=== PATIENT | female | born 1960 | race Caucasian/White ===

== ENCOUNTER → 2019-05-07 | Outpatient (CLI) | payer MEDICARE, SELFPAY | PROVIDERS: Family Provider Family Medicine; PCP Family Medicine; Referring Provider Internal Medicine Rheumatology; Visit Provider Internal Medicine Rheumatology | DX: M06.9 Rheumatoid arthritis, unspecified (principal); Z11.59 Encounter for screening for other viral diseases | CPT/HCPCS: 36415; 80076 ==

== ENCOUNTER 2019-06-09 11:15 | Outpatient (CLI) | payer MEDICARE, SELFPAY ==
--- NOTE | 2019-06-09 | XRR_ITS ---
PROCEDURE INFORMATION: Exam: XR Left Hand Exam date and time: 06/09/2019 11:55 AM Age: 58 years old Clinical indication: Left; Prior surgery; Surgery date: 6+ months; Surgery type: Pin placement 1st digit x1 yr; Patient HX: PT states pain hand/wrist/elbow x many years, no known trauma, limited rom, uncontrollable shaking. TECHNIQUE: Imaging protocol: XR Left hand. Views: 3 or more views. COMPARISON: CR Hand 3 views, LEFT* [id number] 01/24/2019 11:56 AM FINDINGS: Bones/joints: A metallic screw is seen extending through the 1st digit. The interphalangeal articulations appears fused. No acute bony abnormalities are seen in the remainder of the hand or wrist. Comparison to prior examination similar findings are seen Soft tissues: Normal. XR/XR hand LT min 3V* [id number] IMPRESSION: No acute findings. Chronic per surgical changes 1st digit
--- NOTE | 2019-06-09 | XRR_ITS ---
PROCEDURE INFORMATION: Exam: XR Left Wrist Exam date and time: 06/09/2019 11:57 AM Age: 58 years old Clinical indication: Left; Patient HX: PT states pain hand/wrist/elbow x many years, no known trauma, limited rom, uncontrollable shaking. TECHNIQUE: Imaging protocol: XR Left wrist. Views: 3 or more views. COMPARISON: MRI Wrist w/o LEFT* [id number] 12/06/2016 9:03 AM FINDINGS: Bones/joints: Unremarkable Soft tissues: Normal. XR/XR wrist LT min 3V* [id number] IMPRESSION: No acute findings.
--- NOTE | 2019-06-09 | XRR_ITS ---
PROCEDURE INFORMATION: Exam: XR Left Elbow Exam date and time: 06/09/2019 11:57 AM Age: 58 years old Clinical indication: Left; Patient HX: PT states pain hand/wrist/elbow x many years, no known trauma, limited rom, uncontrollable shaking. TECHNIQUE: Imaging protocol: XR Left elbow. Views: 1 or 2 views. COMPARISON: CR Elbow 3 views, LEFT* [id number] 01/24/2019 11:56 AM FINDINGS: Bones/joints: Negative for acute bony abnormality Soft tissues: Unremarkable new No interval changes are present comparing to prior examination. XR/XR elbow LT 2V [id number] IMPRESSION: No acute findings.
== END 2019-06-09 11:16 | disposition home or self-care (01) ==
PROVIDERS: Family Provider Family Medicine; PCP Family Medicine; Visit Provider Registered Nurse
DX: M25.532 Pain in left wrist (principal); M25.432 Effusion, left wrist; R22.32 Localized swelling, mass and lump, left upper limb; M25.522 Pain in left elbow; Z98.890 Other specified postprocedural states
CPT/HCPCS: 73070; 73110; 73130

== ENCOUNTER → 2019-06-11 10:42 | Outpatient (BNVA) | payer MEDICARE, SELFPAY | PROVIDERS: Family Provider Family Medicine; PCP Family Medicine; Visit Provider Nurse Practitioner | DX: F33.1 Major depressive disorder, recurrent, moderate (principal); F41.1 Generalized anxiety disorder; F43.12 Post-traumatic stress disorder, chronic | CPT/HCPCS: 99213 ==

== ENCOUNTER 2019-06-11 18:16 | Emergency (ER) | payer MEDICARE, SELFPAY ==
--- NOTE | 2019-06-11 18:29 | CTR_ITS ---
PROCEDURE INFORMATION: Exam: CT Head Without Contrast Exam date and time: 06/11/2019 6:30 PM Age: 58 years old Clinical indication: Injury or trauma; Initial encounter; Blunt trauma (contusions or hematomas); Consciousness not specified; Injury date: 06/11/2019; Injury details: Fall, headache TECHNIQUE: Imaging protocol: Computed tomography of the head without contrast. Total DLP: 497.28 mGy-cm Radiation optimization: All CT scans at this facility use at least one of these dose optimization techniques: automated exposure control; mA and/or kV adjustment per patient size (includes targeted exams where dose is matched to clinical indication); or iterative reconstruction. COMPARISON: CT head wo con* [id number] 07/10/2018 9:41 PM FINDINGS: Brain: There is trace amount of subarachnoid hemorrhage on the left layering out along the tentorium and interdigitating along the posterior aspect of the left parietal/occipital lobe best seen for example on image 22. No intraparenchymal hemorrhage. No midline shift. No edema or mass effect. The ventricular size is appropriate. Ventricles: See Brain Finding. Bones/joints: Unremarkable. No acute fracture. Sinuses: There is patchy mucosal thickening in the sinuses. No fluid levels. Mastoid air cells: Visualized mastoid air cells are well aerated. Soft tissues: Unremarkable. CT/CT head wo con* [id number] IMPRESSION: Trace subarachnoid hemorrhage on the left. No edema or mass effect. Radiation Dose CTDIVOL = (mGy): DLP = 497.28 (mGy-cm)
[2019-06-11 18:56] VITALS: BP 148/88; PULSE 76; RESP 17; TEMP 36.7; O2SAT 94; BMI 24.2
--- NOTE | 2019-06-11 18:56 | ED_ITS ---
Entered by Maine Bardales, acting as scribe for Stefanie Eubanks Justus Jun 11, 2019 18:16 HPI - Fall General: Chief Complaint: Fall Stated Complaint: FALL/POSS SEIZURE Time Seen by Provider: 06/11/19 18:47 History of Present Illness: HPI Narrative: 58 yo f came to the er for a fall. Onset was at 1700. Pt states that she has fallen 4 times in the past 2 weeks. Pt states that she woke up on the floor, pt said that her head started getting dizzy and she woke up on the floor. Pt states that she has pain head to toe. Patient is a poor historian and seems to jerk periodically. Patient has bizarre answers to questions at times and states that she believes she is just confused. She is unclear if she has history of seizures. MD complaint: fall Onset (ago): hour(s) (2 hours ago) Fall from: wheelchair Fall witnessed: no Place fall occurred: home Loss of consciousness: Unsure Context: history of frequent falls Associated symptoms-after fall: Reports other (dizziness); Denies abdominal pain, chest pain, confusion, difficulty walking, headache(s), hematuria, neck pain or vertigo Review of Systems General: Reports: other (negative unless marked) Const: Denies: fever, chills, body aches, fatigue, malaise or diaphoresis Eyes: Denies: change in vision or blurry vision ENMT: Denies: throat pain, painful swallowing, hoarseness, ear pain, ear discharge, Change in hearing or nasal discharge Card: Denies: chest pain, palpitations, irregular heart rhythm, syncope, pre- syncope, shortness of breath on exertion or shortness of breath when lying down Resp: Denies: shortness of breath, productive cough, non-productive cough, wheezing, coughing up blood or chest congestion GI: Denies: abdominal pain, nausea, vomiting, vomiting blood, coffee grounds in vomit, diarrhea, constipation, cramping, blood in stool or black tarry stool : Denies: flank pain, painful urination, urinary frequency, urinary urgency, decreased urine ouput, urinary incontinence or blood in urine Musc: Denies: neck pain, back pain, extremity pain, extremity swelling, joint pain, joint swelling, joint warmth or joint stiffness Skin/Breast: Denies: rash, skin tenderness or yellow skin Neuro: Denies: headache, numbness in extremities, weakness in extremities, changes in sensation, lack of coordination, difficulty walking, dizziness, vertigo or confusion Endo: Denies: excessive thirst, tired all the time, cold intolerance, excessive sweating, flushing or hot flashes Eusebio/Lymph: Denies: easy bruising, easy bleeding, petechiae or enlarged lymph nodes All/Imm: Denies: hives, throat swelling, tongue swelling, facial swelling or acute wheezing PFSH ED PFSH: Statuses (acute, chronic, etc) shown below reflect problem list status as previously entered and may not be historically accurate Medical History Acute pancreatitis (Acute) Cellulitis (Acute) Costochondritis (Acute) Gastritis (Acute) Gastroenteritis (Acute) Generalized anxiety disorder (Acute) Intussusception (Acute) Major depressive disorder, recurrent, moderate (Acute) Nephrolithiasis (Acute) Post-traumatic stress disorder, chronic (Acute) Psychosis (Acute) Schizoaffective disorder (Acute) Ulcerative colitis (Acute) Ureterolithiasis (Acute) Urinary calculi (Acute) Social History Smoking and tobacco status: current every day smoker cigarettes Packs smoked per day: 1 Smoking risk assessment/counseling performed?: Yes Tobacco counseling given: counseling >3 minutes Physical Exam Const: COMMON NORMALS: no apparent distress, oriented x3, no limitations, healthy appearing and well nourished EXAM LIMITATIONS: no altered mental status GENERAL APPEARANCE: cooperative, well kempt and well developed ORIENTATION/CONSCIOUSNESS: Yes awake HENMT: COMMON NORMALS: normocephalic, head/scalp atraumatic, hearing grossly normal bilaterally, external ears normal, EAC's normal, external nose normal and moist oral mucous membranes HEAD & SCALP: normal to inspection, normocephalic and atraumatic FACE & SINUS: normal facial exam and face symmetric NOSE: external nose normal and nares normal EXTERNAL EAR: Yes external ears normal EXTERNAL AUDITORY CANAL: EAC's normal MOUTH: oral and palatal mucosa normal and tongue normal Eye: COMMON NORMALS: PERRL, EOMs intact bilaterally, conjunctivae normal and no scleral icterus GENERAL EYE: normal appearance of both eyes and normal light reflex CONJUNCTIVA: Yes conjunctivae normal SCLERA: sclerae normal CORNEA: Yes corneas normal PUPIL: Yes PERRL DIRECT OPHTHALMOSCOPY: Yes normal light reflex Neck/C-Spine: COMMON NORMALS: full ROM, no lymphadenopathy, supple, no meningeal signs and no JVD GENERAL: Yes normal visual inspection, Yes trachea midline, No tender and Yes other (No midline spinal tenderness) CERVICAL SPINE: Yes cervical ROM normal Chest: COMMONS NORMALS: inspection of chest normal and palpation of chest normal Resp: COMMON NORMALS: normal respiratory effort, no retractions, no use of accessory muscles and clear to auscultation bilaterally EFFORT & INSPECTION: Yes able to speak in complete sentences AUSCULTATION: clear to auscultation bilaterally Cardio: COMMON NORMALS: no JVD, regular rate, regular rhythm, S1 normal heart sound, S2 normal heart sound, no gallops, no clicks, no murmurs and no rub JUGULAR VENOUS DISTENTION: no JVD RATE: regular rate RHYTHM: regular rhythm HEART SOUNDS: S1 normal and S2 normal GI: COMMON NORMALS: soft to palpation, non-tender, no hepatosplenomegaly and no masses INSPECTION: Yes normal to inspection PALPATION: Yes soft and Yes no hepatosplenomegaly : COMMON NORMALS: Yes no CVA tenderness BLADDER/KIDNEY EXAM: Yes no CVA tenderness Back/Pelvis: COMMON NORMALS: no CVA tenderness, thoracic and lumbar spine nor mal to inspection, no thoracic nor lumbar tenderness and thoraco-lumbar ROM normal Extremity: COMMON NORMALS: normal to inspection, full ROM, normal capillary refill, no joint enlargement, no clubbing, cyanosis or edema and no calf tenderness Neuro: REINA COMA SCALE: document GCS findings Kouts coma scale eye opening: To sound Reina coma scale verbal response: Orientated Reina coma scale motor response: Obey commands Kouts coma scale total score: 14 COMMON NORMALS: oriented x3, CN's II-XII intact bilaterally, moves all extremities, no focal motor deficits and no sensory deficits noted MENINGEAL SIGNS: Yes no meningeal signs Psych: COMMON NORMALS: mental status grossly normal, thought process normal, cooperative, affect normal, speech normal and activity/motor behavior normal APPEARANCE: Yes well kempt SPEECH: Yes normal speech THOUGHT PROCESS: normal thought process Skin: COMMON NORMALS: no rashes or lesions noted, skin turgor normal, no jaundice, no petechiae and no mottling GENERAL SKIN EXAM: no rashes or lesions noted and turgor normal Course ED course: 1949-[facility] contacted as well as [place]. Awaiting confirmation the patient can be transferred. Clinically the patient is improved at this time with a GCS of 15. Vital Signs: Vital signs: Vital Signs Temperature 98.1 F 06/11/19 18:56 Pulse Rate 76 06/11/19 18:56 Respiratory Rate 17 06/11/19 18:56 Blood Pressure 148/88 06/11/19 18:56 Pulse Oximetry 94 06/11/19 18:56 MDM - Fall MDM Narrative: Medical decision making narrative: 1956 -clinically the patient is still talking oddly but has a GCS of 15. It is unclear what made her fall or possibly she just had a seizure. But her CT scan shows a subarachnoid hemorrhage. We have no neurosurgical capabilities here at this time. We will transfer the patient to [facility] and fly her there as soon as possible. We are awaiting confirmation they can accept the patient at [facility] at this time. 2019 -Case reviewed with Dr. Nicholas at [facility] emergency department, he will tell the patient in transfer. He agrees with Ativan and Keppra being given. Patient is still stable at this time. [facility] is currently dispatched in route to our hospital. 2030 -[facility] here to take the patient. Patient is confused and will talk out of her head at times but remains a GCS of 13-15. Vital signs are stable no other new abnormalities. Lab Data: Attestation: I reviewed the patient's lab results. Labs: Lab Results 06/11/19 06/11/19 06/11/19 Range/Units 19:17 19:17 19:17 WBC 6.0 (4.0-10.0) 10^3/ uL RBC 4.06 L (4.1-5.3) 10^6/u L Hgb 11.2 L (11.5-15.3) g/dL Hct 36.7 L (37.0-47.0) % MCV 90.4 (81-99) fL MCH 27.6 L (28.0-34.0) pg MCHC 30.5 (30.0-36.0) g/dL RDW 16.3 H (12.1-15.1) % Plt Count 320 (130-400) 10^3/c mm MPV 10.1 (7.4-10.4) fL Neut % (Auto) 63.4 % Lymph % (Auto) 25.9 % [place] % (Auto) 9.5 % Eos % (Auto) 0.8 % Baso % (Auto) 0.2 % Neut # (Auto) 3.8 (1.8-7.7) 10^3/u L Lymph # (Auto) 1.6 (0.8-4.8) 10^3/u L [place] # (Auto) 0.6 (0.2-0.9) 10^3/u L Eos # (Auto) 0.1 (0.0-0.8) 10^3/u L Baso # (Auto) 0.0 (0.0-0.1) 10^3/u L Nucleated RBC % (a uto) 0 % Nucleated RBCs # 0.0 /100WBC PT 12.20 (10.5-13.3) SECO NDS INR 0.88 (0.8-1.2) Sodium 137 (136-145) mmol/L Potassium 4.1 (3.5-5.1) mmol/L Chloride 102 (98-107) mmol/L Carbon Dioxide 23 (22-29) mmol/L Anion Gap 16.1 (5-19) BUN 17 (6-20) mg/dL Creatinine 0.9 (0.5-0.9) mg/dL GFR Calculation 64.3 L (90-130) mL/min Glucose 120 H (74-109) mg/dL Lactic Acid (0.5-2.2) mmol/L Calcium 9.7 (8.5-10.5) mg/dL Magnesium 1.9 (1.7-2.3) mg/dL Total Bilirubin 0.2 (0.15-1.2) mg/dL AST 14 (0-32) U/L ALT 12 (0-33) U/L Alkaline Phosphata se 95 (35-105) IU/L Creatine Kinase 75 (26-192) U/L Troponin T Baselin e (0-10) ng/mL Total Protein 6.4 L (6.6-8.7) g/dL Albumin 4.0 (3.5-5.2) g/dL Globulin 2.4 (1.3-4.6) g/dL 06/11/19 06/11/19 Range/Units 19:17 19:17 WBC (4.0-10.0) 10^3/ uL RBC (4.1-5.3) 10^6/u L Hgb (11.5-15.3) g/dL Hct (37.0-47.0) % MCV (81-99) fL MCH (28.0-34.0) pg MCHC (30.0-36.0) g/dL RDW (12.1-15.1) % Plt Count (130-400) 10^3/c mm MPV (7.4-10.4) fL Neut % (Auto) % Lymph % (Auto) % [place] % (Auto) % Eos % (Auto) % Baso % (Auto) % Neut # (Auto) (1.8-7.7) 10^3/u L Lymph # (Auto) (0.8-4.8) 10^3/u L [place] # (Auto) (0.2-0.9) 10^3/u L Eos # (Auto) (0.0-0.8) 10^3/u L Baso # (Auto) (0.0-0.1) 10^3/u L Nucleated RBC % (a uto) % Nucleated RBCs # /100WBC PT (10.5-13.3) SECO NDS INR (0.8-1.2) Sodium (136-145) mmol/L Potassium (3.5-5.1) mmol/L Chloride (98-107) mmol/L Carbon Dioxide (22-29) mmol/L Anion Gap (5-19) BUN (6-20) mg/dL Creatinine (0.5-0.9) mg/dL GFR Calculation (90-130) mL/min Glucose (74-109) mg/dL Lactic Acid 0.8 (0.5-2.2) mmol/L Calcium (8.5-10.5) mg/dL Magnesium (1.7-2.3) mg/dL Total Bilirubin (0.15-1.2) mg/dL AST (0-32) U/L ALT (0-33) U/L Alkaline Phosphata se (35-105) IU/L Creatine Kinase (26-192) U/L Troponin T Baselin e 6 (0-10) ng/mL Total Protein (6.6-8.7) g/dL Albumin (3.5-5.2) g/dL Globulin (1.3-4.6) g/dL EKG Data^: EKG 1: Attestation: I personally reviewed and interpreted this EKG as follows: EKG interpretation date: 06/11/19 EKG interpretation time: 19:24 Interpretation: Normal sinus rhythm at 66 beats a minute, normal axis, normal AR interval, normal QRS, normal QT interval, no acute ST-T wave changes. Discharge Plan Discharge Patient Disposition: Xfer Other Clinical Impression: Subarachnoid hemorrhage Referrals: Helga Mancera DO [Primary Care Provider] - Discharge Date/Time: 06/11/19 20:37 Coding Level of Care Code ED Health Care Attorney for Chg Fwd Exam Problem Focused The documentation recorded by the Jeffy leo Stephanie Lyn, accurately reflects the service I personally performed and the decisions made by Cha holliday Eli N Jun 11, 2019 18:16
--- NOTE | 2019-06-11 19:01 | XR_ITS ---
WS: [id number] PORTABLE CHEST HISTORY: cough COMPARISON: 04/20/2019 Lungs are hyperinflated with changes of emphysema. No pneumonia. Normal vasculature. No pleural effus ion or pneumothorax. Cardiac size: Normal. Mediastinum/Aorta: Partially calcified aorta. No osseous abnormality seen. XR/XR chest 1V portable [id number] IMPRESSION: Unremarkable portable chest.
--- NOTE | 2019-06-11 19:02 | ECG_ITS ---
Measurements Intervals [place] Rate: 66 P: -19 [place]: 136 QRS: 37 QRSD: 108 T: 37 QT: 389 QTc: 409 SINUS RHYTHM Compared to ECG 04/02/2019 08:18:29 Sinus bradycardia no longer present Myocardial infarct finding no longer present Electronically Signed On 06-12-2019 16:16:48 TAX REPRESENTATIVE by Dave Trejo M.D. [email or web address]
[2019-06-11] MEDS: sodium chloride 0.9% 1,000 ML 100 ML IV (19:19)
[2019-06-11] MEDS: LORazepam 2 mg/mL INJ 1 mL 0.5 MG IVP (19:25)
[2019-06-11 19:30] LABS: Basophils % 0.2 %; Eosinophils # 0.1 10^3/uL (0.0-0.8); Eosinophils % 0.8 %; Hematocrit 36.7 % (37.0-47.0); Hemoglobin 11.2 g/dL (11.5-15.3); Lymphocytes # 1.6 10^3/uL (0.8-4.8); Lymphocytes % 25.9 %; Mean Corpuscular HGB Conc 30.5 g/dL (30.0-36.0); Mean Corpuscular Hemoglobin 27.6 pg (28.0-34.0); Mean Corpuscular Volume 90.4 fL (81-99); Mean Platelet Volume 10.1 fL (7.4-10.4); Monocytes # 0.6 10^3/uL (0.2-0.9); Monocytes % 9.5 %; Neutrophils # 3.8 10^3/uL (1.8-7.7); Neutrophils % 63.4 %; Nucleated Red Blood Cells % 0 %; Platelet Count 320 10^3/cmm (130-400); Red Blood Count 4.06 10^6/uL (4.1-5.3); Red Cell Distribution Width 16.3 % (12.1-15.1)
[2019-06-11 19:37] LABS: INR 0.88 (0.8-1.2)
[2019-06-11 19:46] LABS: Alanine Aminotransferase 12 U/L (0-33); Alkaline Phosphatase 95 IU/L (35-105); Anion Gap 16.1 (5-19); Aspartate Amino Transferase 14 U/L (0-32); Blood Urea Nitrogen 17 mg/dL (6-20); Calcium 9.7 mg/dL (8.5-10.5); Carbon Dioxide 23 mmol/L (22-29); Chloride 102 mmol/L (98-107); Creatine Phosphokinase 75 U/L (26-192); Globulin 2.4 g/dL (1.3-4.6); Glomerular Filtration Rate 64.3 mL/min (90-130); Glucose 120 mg/dL (74-109); Magnesium 1.9 mg/dL (1.7-2.3); Potassium 4.1 mmol/L (3.5-5.1); Sodium 137 mmol/L (136-145); Total Bilirubin 0.2 mg/dL (0.15-1.2); Total Protein 6.4 g/dL (6.6-8.7); Troponin(5th) Baseline 6 ng/mL (0-10)
[2019-06-11 19:47] LABS: Lactic Sepsis W/Reflex 0.8 mmol/L (0.5-2.2)
[2019-06-11 20:02] LABS: Alcohol Level < 10 mg/dL (0-10)
[2019-06-11 20:36] VITALS: BP 130/69; PULSE 67; RESP 22; O2SAT 95
== END 2019-06-11 20:37 | disposition other institution (70) ==
LOC: ER 18:53
PROVIDERS: Emergency Provider Emergency Medicine; Family Provider Family Medicine; PCP Family Medicine
DX: I60.9 Nontraumatic subarachnoid hemorrhage, unspecified (principal); F17.210 Nicotine dependence, cigarettes, uncomplicated
CPT/HCPCS: 36415; 70450; 71045; 80053; 80307; 82550; 83605; 83735; 84484; 85025; 85610; 93005; 96374; 99281; 99285; J1953; J2060; J7030

== ENCOUNTER 2019-07-04 08:40 | Emergency (ER) | payer MEDICARE, SELFPAY ==
[2019-07-04 09:02] VITALS: BP 123/72; PULSE 77; RESP 16; TEMP 36.9; O2SAT 97; BMI 23.0
--- NOTE | 2019-07-04 09:04 | ED_ITS ---
Entered by Carmen Conde, acting as scribe for Bubba Osborne DO HPI - Fall General: Chief Complaint: Headache Stated Complaint: FALL Time Seen by Provider: 07/04/19 08:59 Source: patient and family Mode of arrival: ambulatory Limitations: no limitations History of Present Illness: HPI Narrative: 58 yo female presents with a headache. pt states this started today. pt states 1 week ago she was sent to [facility]. due to a head bleed.pt states she got dizzy while hanging up the phone and fell down. pt denies any injuries. pt denies any other symptoms at this time. MD complaint: fall Onset (ago): hour(s) (today) Fall from: standing Fall witnessed: yes, by family Place fall occurred: home Loss of consciousness: None Prolonged down time: unclear Symptoms prior to fall: none Associated symptoms-after fall: Reports other (headache); Denies abdominal pain, chest pain, confusion, difficulty walking, hematuria or vertigo Review of Systems Const: Denies: fever, chills, body aches, fatigue, malaise or night sweats Eyes: Denies: change in vision or blurry vision ENMT: Denies: throat pain, oral sores/lesions, dental pain, nasal discharge or nasal congestion Card: Denies: chest pain, palpitations, irregular heart rhythm, edema, syncope, shortness of breath on exertion, shortness of breath when lying down or leg pain with exertion Resp: Denies: shortness of breath, productive cough, non-productive cough or wheezing GI: Denies: abdominal pain, nausea, vomiting, vomiting blood, coffee grounds in vomit, difficulty swallowing, heartburn/indigestion, diarrhea, constipation, cramping, blood in stool or black tarry stool : Denies: flank pain, painful urination, urinary frequency, urinary urgency, urinary incontinence or blood in urine Musc: Denies: joint warmth Skin/Breast: Denies: rash, itching or redness Neuro: Denies: numbness in extremities, weakness in extremities, changes in sensation, lack of coordination, difficulty walking, frequent falls, dizziness, vertigo or confusion Psych: Denies: anxiety, depression, loss of interest, visual hallucinations, auditory hallucinations, suicidal ideation or homicidal ideation Endo: Denies: excessive urination, excessive thirst, tired all the time or cold intolerance Eusebio/Lymph: Denies: easy bruising, easy bleeding, petechiae, enlarged lymph nodes or tender lymph nodes All/Imm: Denies: acute wheezing PFSH ED PFSH: Social History Smoking and tobacco status: current every day smoker cigarettes Packs smoked per day: 1 Smoking risk assessment/counseling performed?: Yes Tobacco counseling given: counseling >3 minutes Physical Exam Const: COMMON NORMALS: no apparent distress GENERAL APPEARANCE: cooperative and comfortable ORIENTATION/CONSCIOUSNESS: Yes awake, Yes oriented to person, Yes oriented to place and Yes oriented to time HENMT: COMMON NORMALS: normocephalic, head/scalp atraumatic, hearing grossly normal bilaterally, external ears normal, EAC's normal, TM's normal bilaterally, nasal mucous membranes and turbinates normal, moist oral mucous membranes and oropharynx normal HEAD & SCALP: normocephalic and atraumatic NOSE: nasal mucous membranes and turbinates normal EXTERNAL EAR: Yes external ears normal EXTERNAL AUDITORY CANAL: EAC's normal TYMPANIC MEMBRANE: TM's normal bilaterally Eye: COMMON NORMALS: PERRL, EOMs intact bilaterally, conjunctivae normal and no scleral icterus CONJUNCTIVA: Yes conjunctivae normal PUPIL: Yes PERRL Neck/C-Spine: COMMON NORMALS: full ROM, no lymphadenopathy, supple and no JVD Lymph: LYMPHATIC: no lymphadenopathy noted and no lymphedema noted Resp: COMMON NORMALS: normal respiratory effort, no retractions, no use of accessory muscles and clear to auscultation bilaterally AUSCULTATION: clear to auscultation bilaterally Cardio: COMMON NORMALS: no JVD, regular rate, regular rhythm and no murmurs RATE: regular rate RHYTHM: regular rhythm GI: COMMON NORMALS: soft to palpation and no hepatosplenomegaly AUSCULTATION: Yes normoactive bowel sounds PALPATION: Yes soft, No tender, No guarding and Yes no hepatosplenomegaly Extremity: COMMON NORMALS: normal to inspection, normal capillary refill, no clubbing, cyanosis or edema, no calf tenderness and no pedal edema Neuro: SENSORIUM/ORIENTATION: Yes oriented to person, Yes oriented to place and Yes oriented to time Skin: COMMON NORMALS: no rashes or lesions noted GENERAL SKIN EXAM: no myrtle hes or lesions noted Course Vital Signs: Vital signs: Vital Signs Temperature 98.5 F 02/19/20 09:02 Pulse Rate 75 07/04/19 12:51 Respiratory Rate 18 07/04/19 12:51 Blood Pressure 126/71 07/04/19 12:51 Pulse Oximetry 96 07/04/19 12:51 MDM - Fall Lab Data: Labs: Lab Results 07/04/19 07/04/19 07/04/19 Range/Units 09:25 09:25 09:25 WBC 5.8 (4.0-10.0) 10^3/ uL RBC 3.78 L (4.1-5.3) 10^6/u L Hgb 10.4 L (11.5-15.3) g/dL Hct 33.9 L (37.0-47.0) % MCV 89.7 (81-99) fL MCH 27.5 L (28.0-34.0) pg MCHC 30.7 (30.0-36.0) g/dL RDW 15.9 H (12.1-15.1) % Plt Count 335 (130-400) 10^3/c mm MPV 10.0 (7.4-10.4) fL Neut % (Auto) 57.1 % Lymph % (Auto) 31.0 % [place] % (Auto) 10.1 % Eos % (Auto) 1.2 % Baso % (Auto) 0.3 % Neut # (Auto) 3.3 (1.8-7.7) 10^3/u L Lymph # (Auto) 1.8 (0.8-4.8) 10^3/u L [place] # (Auto) 0.6 (0.2-0.9) 10^3/u L Eos # (Auto) 0.1 (0.0-0.8) 10^3/u L Baso # (Auto) 0.0 (0.0-0.1) 10^3/u L Nucleated RBC % (a uto) 0 % Nucleated RBCs # 0.0 /100WBC PT 12.20 (10.5-13.3) SECO NDS INR 0.90 (0.8-1.2) APTT 27.4 (23.9-36.7) SECO NDS Sodium 140 (136-145) mmol/L Potassium 4.4 (3.5-5.1) mmol/L Chloride 105 (98-107) mmol/L Carbon Dioxide 26 (22-29) mmol/L Anion Gap 13.4 (5-19) BUN 20 (6-20) mg/dL Creatinine 0.6 (0.5-0.9) mg/dL GFR Calculation 102.7 (90-130) mL/min Glucose 86 (65-115) mg/dL Calcium 9.1 (8.5-10.5) mg/dL Total Bilirubin 0.2 (0.15-1.2) mg/dL AST 15 (0-32) U/L ALT 11 (0-33) U/L Alkaline Phosphata se 85 (35-105) IU/L Total Protein 5.9 L (6.6-8.7) g/dL Albumin 3.2 L (3.5-5.2) g/dL Globulin 2.7 (1.3-4.6) g/dL Urine Color (Yellow) Urine Appearance (CLEAR) Urine pH (5-7) Ur Specific Gravit y (1.005-1.030) Urine Protein (Negative) Urine Glucose (UA) (Normal) Urine Ketones (Negative) Urine Blood (Negative) Urine Nitrate (Negative) Urine Bilirubin (NEGATIVE) Urine Urobilinogen (Negative) mg/dL Ur Leukocyte Violeta ase (Negative) 07/04/19 Range/Units 11:35 WBC (4.0-10.0) 10^3/ uL RBC (4.1-5.3) 10^6/u L Hgb (11.5-15.3) g/dL Hct (37.0-47.0) % MCV (81-99) fL MCH (28.0-34.0) pg MCHC (30.0-36.0) g/dL RDW (12.1-15.1) % Plt Count (130-400) 10^3/c mm MPV (7.4-10.4) fL Neut % (Auto) % Lymph % (Auto) % [place] % (Auto) % Eos % (Auto) % Baso % (Auto) % Neut # (Auto) (1.8-7.7) 10^3/u L Lymph # (Auto) (0.8-4.8) 10^3/u L [place] # (Auto) (0.2-0.9) 10^3/u L Eos # (Auto) (0.0-0.8) 10^3/u L Baso # (Auto) (0.0-0.1) 10^3/u L Nucleated RBC % (a uto) % Nucleated RBCs # /100WBC PT (10.5-13.3) SECO NDS INR (0.8-1.2) APTT (23.9-36.7) SECO NDS Sodium (136-145) mmol/L Potassium (3.5-5.1) mmol/L Chloride (98-107) mmol/L Carbon Dioxide (22-29) mmol/L Anion Gap (5-19) BUN (6-20) mg/dL Creatinine (0.5-0.9) mg/dL GFR Calculation (90-130) mL/min Glucose (65-115) mg/dL Calcium (8.5-10.5) mg/dL Total Bilirubin (0.15-1.2) mg/dL AST (0-32) U/L ALT (0-33) U/L Alkaline Phosphata se (35-105) IU/L Total Protein (6.6-8.7) g/dL Albumin (3.5-5.2) g/dL Globulin (1.3-4.6) g/dL Urine Color Yellow (Yellow) Urine Appearance Clear (CLEAR) Urine pH 5 (5-7) Ur Specific Gravit y 1.015 (1.005-1.030) Urine Protein Neg (Negative) Urine Glucose (UA) Norm (Normal) Urine Ketones Negative (Negative) Urine Blood Neg (Negative) Urine Nitrate Negative (Negative) Urine Bilirubin 1+ H (NEGATIVE) Urine Urobilinogen Norm (Negative) mg/dL Ur Leukocyte Violeta ase Negative (Negative) Discharge Plan Discharge Patient Disposition: Home, Self-Care Clinical Impression: Tension headache Condition: Stable Prescriptions: New promethazine 25 mg tablet 25 mg PO Q6H PRN (Reason: nausea and vomiting) Qty: 14 RF: 0 No Action indomethacin 25 mg capsule 25 mg PO TID RF: 0 propranolol 10 mg tablet 10 mg PO BID RF: 0 buspirone 5 mg Tablet 5 mg PO TID RF: 0 bupropion HCl 150 mg tablet sustained-release 12 hr 150 mg PO BID RF: 0 omeprazole 40 mg Capsule,Delayed Release(Dr/Ec) 40 mg PO DAILY RF: 0 Aspir-81 81 mg Tablet,Delayed Release (Dr/Ec) 81 mg PO DAILY RF: 0 benztropine 1 mg tablet 1 mg PO TID RF: 0 dicyclomine 10 mg capsule 10 mg PO TID RF: 0 Humira(CF) Pen 40 mg/0.4 mL pen injector kit 40 mg SUBCUT Q14D RF: 0 Lamictal 200 mg tablet See Rx Instructions .ROUTE .COMPLEX RF: 0 trazodone 50 mg tablet 75 mg PO BEDTIME RF: 0 Restoril 15 mg capsule 15 mg PO BEDTIME RF: 0 prazosin 2 mg capsule 6 mg PO BEDTIME RF: 0 Referrals: Helga Mancera DO [Primary Care Provider] - Discharge Diet: Usual diet Discharge Activity: Resume usual activity Discharge Date/Time: 07/04/19 12:53 Coding Level of Care Code ED Wound Nurse for Chg Fwd Exam Comprehensive The documentation recorded by the Elton leo Bridget Annette, accurately reflects the service I personally performed and the decisions made by [place] holliday Curtis L, DO Jul 04, 2019 08:40
--- NOTE | 2019-07-04 09:30 | CT_ITS ---
WS: [id number] CT HEAD TECHNIQUE: Noncontrast CT of the head obtained from the skullbase to the vertex. CLINICAL INFORMATION: headachce/hx intracranial bleed COMPARISON: June 11, 2019 DLP: 728.[address] scans at [facility] use at least one of these dose optimization techniques: automat ed exposure control; mA and/or kV adjustment per patient size (includes targeted exams where dose is matched to clinical indication); or iterative reconstruction. FINDINGS: Previously described subarachnoid hemorrhage in the left parietal and occipital lobe has nearly resol gus. Tiny amount of residual blood products along the tentorium. No evidence of new or progressive he morrhage. Mild small vessel changes. Moderate parenchymal volume loss. Cavum septum pellucidum Mastoid air cells are well aerated. Paranasal sinuses are well aerated. Notified Bubba Osborne DO at 07/04/2019 10:[address]/CT head wo con* [id number] IMPRESSION: 1. Previously described left parietal occipital subarachnoid hemorrhage has im proved and nearly resolved. Tiny amount of residual resolving hemorrhage along left tentorium. 2. No evidence of new or progressive hemorrhage. 3. Mild small vessel changes with moderate parenchymal volume loss.
[2019-07-04 10:00] LABS: Basophils % 0.3 %; Eosinophils # 0.1 10^3/uL (0.0-0.8); Eosinophils % 1.2 %; Hematocrit 33.9 % (37.0-47.0); Hemoglobin 10.4 g/dL (11.5-15.3); Lymphocytes # 1.8 10^3/uL (0.8-4.8); Mean Corpuscular HGB Conc 30.7 g/dL (30.0-36.0); Mean Corpuscular Hemoglobin 27.5 pg (28.0-34.0); Mean Corpuscular Volume 89.7 fL (81-99); Monocytes # 0.6 10^3/uL (0.2-0.9); Monocytes % 10.1 %; Neutrophils # 3.3 10^3/uL (1.8-7.7); Neutrophils % 57.1 %; Nucleated Red Blood Cells % 0 %; Platelet Count 335 10^3/cmm (130-400); Red Blood Count 3.78 10^6/uL (4.1-5.3); Red Cell Distribution Width 15.9 % (12.1-15.1); White Blood Count 5.8 10^3/uL (4.0-10.0)
[2019-07-04 10:22] LABS: Alanine Aminotransferase 11 U/L (0-33); Albumin Level 3.2 g/dL (3.5-5.2); Alkaline Phosphatase 85 IU/L (35-105); Anion Gap 13.4 (5-19); Aspartate Amino Transferase 15 U/L (0-32); Blood Urea Nitrogen 20 mg/dL (6-20); Calcium 9.1 mg/dL (8.5-10.5); Carbon Dioxide 26 mmol/L (22-29); Chloride 105 mmol/L (98-107); Globulin 2.7 g/dL (1.3-4.6); Glomerular Filtration Rate 102.7 mL/min (90-130); Glucose 86 mg/dL (65-115); Potassium 4.4 mmol/L (3.5-5.1); Sodium 140 mmol/L (136-145); Total Bilirubin 0.2 mg/dL (0.15-1.2); Total Protein 5.9 g/dL (6.6-8.7)
[2019-07-04 10:35] LABS: Partial Thromboplastin Time 27.4 SECONDS (23.9-36.7)
[2019-07-04] MEDS: sodium chloride 0.9% 1,000 ML 999 ML IV (10:42)
[2019-07-04 11:51] LABS: Add Urine Microscopic? NO
[2019-07-04] MEDS: ondansetron 2 mg/ML SDV 2 mL 4 MG IVP (11:54)
[2019-07-04] MEDS: morphine 4 mg/mL SDV 1 mL IVP (11:55)
--- NOTE | 2019-07-04 11:58 | PC.NURSE ---
patient up to restroom by wheelchair
[2019-07-04 12:01] LABS: Bilirubin Urine 1+ (NEGATIVE); Blood Urine Neg (Negative); Glucose Urine UA Norm (Normal); Ketones Urine Negative (Negative); Leukocyte Esterase Urine Negative (Negative); Nitrate Urine Negative (Negative); Protein Urine Neg (Negative); Specific Gravity, Urine 1.015 (1.005-1.030); Urine Appearance Clear (CLEAR); Urine Color Yellow (Yellow); Urobilinogen Urine Norm (Negative); pH Urine 5 (5-7)
[2019-07-04 12:51] VITALS: BP 126/71; PULSE 75; RESP 18; O2SAT 96
== END 2019-07-04 12:53 | disposition home or self-care (01) ==
PROVIDERS: Emergency Provider Family Medicine; Family Provider Family Medicine; PCP Family Medicine
DX: G44.209 Tension-type headache, unspecified, not intractable (principal); F17.210 Nicotine dependence, cigarettes, uncomplicated
CPT/HCPCS: 70450; 80053; 81003; 85025; 85610; 85730; 96361; 96374; 96375; 99282; 99283; A9270; J2270; J2405; J7030

== ENCOUNTER → 2019-07-10 10:01 | Outpatient (BNVA) | payer MEDICARE, SELFPAY | PROVIDERS: Family Provider Family Medicine; PCP Family Medicine; Visit Provider Internal Medicine Rheumatology | DX: M06.09 Rheumatoid arthritis without rheumatoid factor, multiple sites (principal); R76.8 Other specified abnormal immunological findings in serum; Z79.899 Other long term (current) drug therapy; I60.9 Nontraumatic subarachnoid hemorrhage, unspecified; I73.00 Raynaud's syndrome without gangrene; F17.210 Nicotine dependence, cigarettes, uncomplicated | CPT/HCPCS: 99214 ==

== ENCOUNTER 2019-08-31 11:56 | Emergency (ER) | payer MEDICARE, SELFPAY ==
[2019-08-31 12:13] VITALS: BP 132/84; PULSE 85; RESP 17; TEMP 36.8; O2SAT 99; BMI 23.1
--- NOTE | 2019-08-31 12:22 | CT_ITS ---
WS: [id number] CT HEAD NONCONTRAST HISTORY: ARRIETA/AMS TECHNIQUE: Contiguous axial imaging performed through the brain in 2.5 mm imaging. Bone and soft tiss ue windows. Sagittal and coronal reformats reviewed. All CT scans at [facility] use at le ast one of these dose optimization techniques: automated exposure control; mA and/or kV adjustment pe r patient size (includes targeted exams where dose is matched to clinical indication); or iterative r econstruction. DLP: 664.88 mGy.cm COMPARISON: 07/04/2019 No acute intracranial hemorrhage, midline shift or mass effect. No residual subarachnoid blood along the tentorium. There is artifact in the posterior fossa from the skull. Ventricles: Normal size with no hydrocephalus. Paranasal sinuses: As visualized are clear. Mastoid air cells: Mild coalescence of mastoid air cells. Calvarium and scalp: Skull is intact with no soft tissue edema or swelling. CT/CT head wo con* [id number] IMPRESSION: 1. No acute intracranial hemorrhage/subarachnoid blood. 2. Recently described subarachnoid hemorrhage is no longer identified. 3. No infarct or edema.
--- NOTE | 2019-08-31 12:22 | XR_ITS ---
WS: [id number] PORTABLE CHEST HISTORY: cough COMPARISON: 06/11/2019 Lungs are clear and well expanded. No pleural effusion or pneumothorax. Cardiac size: Normal. Mediastinum/Aorta: Normal mediastinum. No osseous abnormality seen. XR/XR chest 1V portable [id number] IMPRESSION: Unremarkable portable chest.
--- NOTE | 2019-08-31 12:23 | ECG_ITS ---
Measurements Intervals [place] Rate: 66 P: 9 WV: 155 QRS: 39 QRSD: 96 T: 57 QT: 405 QTc: 427 SINUS RHYTHM Compared to ECG 06/11/2019 19:24:14 No significant changes Electronically Signed On 08-31-2019 18:25:26 CDT by Allyson Peters M.D. [email or web address]
--- NOTE | 2019-08-31 12:30 | CT_ITS ---
WS: [id number] CT ANGIOGRAM CEREBRAL AND CAROTID ARTERIES HISTORY: urias, hx ICH TECHNIQUE: CT angiogram is performed of the carotid and cerebral arteries. During arterial injection imaging is obtained from the skull vertex to the aortic arch in 1.25 mm imaging. Coronal and sagittal reformats are submitted. Additional multi planar reformats of the carotid and cerebral arteries are submitted, MIP imaging also reviewed. NASCET criteria utilized. All CT scans at [facility] use at least one of these dose optimization techniques: automated exposure control; mA and/or kV ad justment per patient size (includes targeted exams where dose is matched to clinical indication); or iterative reconstruction. CONTRAST: Omnipaque 350; 95 mL IV. DLP: 1209.28 mGy.cm COMPARISON: 11/22/2017 Carotid Angiogram: Right carotid: Common carotid artery: Arises normally from the innominate artery. No significant plaque or stenosis. Internal carotid artery: Small amount of calcified plaque at the bifurcation with no stenosis. External carotid artery: Patent. Left carotid: Common carotid artery: Arises normally from the aorta. No significant plaque or stenosis. Internal carotid artery: No plaque or stenosis. External carotid artery: Patent. Right vertebral artery: Unremarkable. Left vertebral artery: Unremarkable. Arises normally from the subclavian artery. Subclavian arteries: No stenosis or significant abnormality. Upper thorax: Normal. Thyroid gland: Normal. Osseous structures: Unremarkable. CEREBRAL ANGIOGRAM: Intracranial vertebral arteries: Normal with no significant atherosclerosis. Basilar artery: No significant stenosis or occlusion. No aneurysm. Intracranial Internal carotid arteries: Moderate calcified plaque. No significant stenosis. Middle cerebral arteries: Normal. Anterior cerebral arteries and ACOM: Normal. Posterior cerebral arteries and PCOM's: Normal. Dural venous sinuses are normally enhancing. Arachnoid granulations the transverse sinuses. No thromb us. Mastoid air cells: Coalescence of mastoid air cells. Paranasal sinuses: Normal. Calvarium: Normal. CT/CT angio headneck* [id number] IMPRESSION: 1. No significant carotid artery stenosis. 2. Mild atherosclerosis intracranial carotid arteries and the cavernous sinuse s. 3. No aneurysm or dissection.
--- NOTE | 2019-08-31 12:34 | ED_ITS ---
HPI - Neuro Symptoms/Deficit General: Chief Complaint: Neuro Symptoms/Deficit Stated Complaint: H/A Time Seen by Provider: 08/31/19 12:15 History of Present Illness: HPI Narrative: Nunu is a 58-year-old female who comes in complaining of headaches. She states that she has been waking up with headaches daily for the past 2 weeks. She has an undescribed sensation of dizziness that goes along with this. She also has a hard time speaking at times. The patient states that she has had left lower extremity weakness and pain but this is been present since she had an intracranial hemorrhage diagnosed in May of this year. She states her arm pain has gotten progressively worse since that time. She states some days her headache will get better but then others it will not. She is tired of dealing with the pain and that is why she presents today. She denies any exacerbating or alleviating factors. She does have associated photo and phonophobia with this headache. She sees Dr. Cleveland but she states nothing is been done for her headaches. It is unclear whether she seen Dr. Cleveland since her intracranial hemorrhage and May. Associated symptoms: Reports headache(s) and nausea; Deny chest pain, diaphoresis, malaise, syncope, vertigo or vomiting Review of Systems General: Reports: other (negative unless marked) Const: Denies: fever, chills, body aches, fatigue, malaise or diaphoresis Eyes: Reports: blurry vision; Denies: change in vision, seeing flashes or decreased night vision ENMT: Denies: throat pain, painful swallowing, hoarseness, ear pain, ear discharge, Change in hearing or nasal discharge Card: Denies: chest pain, palpitations, irregular heart rhythm, syncope, pre- syncope, shortness of breath on exertion or shortness of breath when lying down Resp: Denies: shortness of breath, productive cough, non-productive cough, wheezing, coughing up blood or chest congestion GI: Reports: nausea; Denies: abdominal pain, vomiting, vomiting blood, coffee grounds in vomit, diarrhea, constipation, cramping, blood in stool or black tarry stool : Denies: flank pain, painful urination, urinary frequency, urinary urgency, decreased urine ouput, urinary incontinence or blood in urine Musc: Denies: neck pain, back pain, extremity pain, extremity swelling, joint pain, joint swelling, joint warmth or joint stiffness Skin/Breast: Denies: rash, skin tenderness or yellow skin Neuro: Reports: headache, weakness in extremities and dizziness; Denies: numbness in extremities, changes in sensation, lack of coordination, difficulty walking, vertigo or confusion Psych: Reports: anxiety Endo: Denies: excessive thirst, tired all the time, cold intolerance, excessive sweating, flushing or hot flashes Eusebio/Lymph: Denies: easy bruising, easy bleeding, petechiae or enlarged lymph nodes All/Imm: Denies: hives, throat swelling, tongue swelling, facial swelling or acute wheezing PFSH ED PFSH: Medical History Acute pancreatitis Aftercare following bilateral wrist joint replacement surgery Cellulitis Costochondritis Gastritis Gastroenteritis Generalized anxiety disorder High risk medication use Immunization counseling Intussusception Major depressive disorder, recurrent, moderate Nephrolithiasis Post-traumatic stress disorder, chronic Psychosis Rheumatoid arthritis without rheumatoid factor, multiple sites SAH (subarachnoid hemorrhage) Schizoaffective disorder Ulcerative colitis Ureterolithiasis Urinary calculi Surgical History History of bilateral knee replacement History of renal stent Hx of gastric bypass Family History Denies family history of Rheumatoid arthritis Social History Smoking and tobacco status: current every day smoker cigarettes Packs smoked per day: 1 Smoking risk assessment/counseling performed?: Yes Tobacco counseling given: counseling >3 minutes Physical Exam Const: COMMON NORMALS: no apparent distress, oriented x3, no limitations, healthy appearing and well nourished EXAM LIMITATIONS: no altered mental status GENERAL APPEARANCE: cooperative, well kempt and well developed ORIENTATION/CONSCIOUSNESS: Yes awake HENMT: COMMON NORMALS: normocephalic, head/scalp atraumatic, hearing grossly normal bilaterally, external ears normal, EAC's normal, external nose normal and moist oral mucous membranes HEAD & SCALP: normal to inspection, normocephalic and atraumatic FACE & SINUS: normal facial exam and face symmetric NOSE: external nose normal and nares normal EXTERNAL EAR: Yes external ears normal EXTERNAL AUDITORY CANAL: EAC's normal MOUTH: oral and palatal mucosa normal and tongue normal Eye: COMMON NORMALS: PERRL, EOMs intact bilaterally, conjunctivae normal and no scleral icterus GENERAL EYE: normal appearance of both eyes and normal light reflex CONJUNCTIVA: Yes conjunctivae normal SCLERA: sclerae normal CORNEA: Yes corneas normal PUPIL: Yes PERRL DIRECT OPHTHALMOSCOPY: Yes normal light reflex Neck/C-Spine: COMMON NORMALS: full ROM, no lymphadenopathy, supple, no meningeal signs and no JVD GENERAL: Yes normal visual inspection and Yes trachea midline CERVICAL SPINE: Yes cervical ROM normal Chest: COMMONS NORMALS: inspection of chest normal and palpation of chest normal Resp: COMMON NORMALS: normal respiratory effort, no retractions, no use of accessory muscles and clear to auscultation bilaterally EFFORT & INSPECTION: Yes able to speak in complete sentences AUSCULTATION: clear to auscultation bilaterally Cardio: COMMON NORMALS: no JVD, regular rate, regular rhythm, S1 normal heart sound, S2 normal heart sound, no gallops, no clicks, no murmurs and no rub JUGULAR VENOUS DISTENTION: no JVD RATE: regular rate RHYTHM: regular rhythm HEART SOUNDS: S1 normal and S2 normal GI: COMMON NORMALS: soft to palpation, non-tender, no hepatosplenomegaly and no masses INSPECTION: Yes normal to inspection PALPATION: Yes soft and Yes no hepatosplenomegaly : COMMON NORMALS: Yes no CVA tenderness BLADDER/KIDNEY EXAM: Yes no CVA tenderness Back/Pelvis: COMMON NORMALS: no CVA tenderness, thoracic and lumbar spine normal to inspection, no thoracic nor lumbar tenderness and thoraco-lumbar ROM normal Extremity: COMMON NORMALS: full ROM, normal capillary refill, no joint enlar gement and no calf tenderness NARRATIVE EXTREMITY EXAM: Mild swelling of the left forearm. Neuro: COMMON NORMALS: oriented x3, CN's II-XII intact bilaterally, moves all extremities, no focal motor deficits and no sensory deficits noted MENINGEAL SIGNS: Yes no meningeal signs Psych: COMMON NORMALS: mental status grossly normal, thought process normal, cooperative, affect normal, speech normal and activity/motor behavior normal APPEARANCE: Yes well kempt SPEECH: Yes normal speech THOUGHT PROCESS: normal thought process Skin: COMMON NORMALS: no rashes or lesions noted, skin turgor normal, no jaundice, no petechiae and no mottling GENERAL SKIN EXAM: no rashes or lesions noted and turgor normal Course ED course: 1420 -patient is feeling better at this time. I have recommended we perform a lumbar puncture to definitively rule out meningitis but at this time she is declining. She understands the risks of this but despite my recommendations currently she is refusing. She does understand she can change her mind if she chooses. Vital Signs: Vital signs: Vital Signs Temperature 98.3 F 08/31/19 12:13 Pulse Rate 64 08/31/19 16:16 Respiratory Rate 17 08/31/19 16:16 Blood Pressure 118/62 08/31/19 16:16 Pulse Oximetry 98 08/31/19 16:16 MDM - Neuro Symptoms/Deficit MDM Narrative: Medical decision making narrative: 1514 -the patient is now demanding to leave. Clinically she appears better than when she arrived. She is able to hold on complete conversations and no longer appears to have any photo or phonophobia. The patient still denies fever, neck pain or stiffness or any other characteristic that makes her headache sound like a subarachnoid hemorrhage or meningitis. Nonetheless I did again have a conversation with her about the need for a spinal tap to look for things such as pseudotumor cerebri and viral meningitis or even bacterial meningitis that is still slow in onset. I added a CRP and sed rate but they are not resulted at this time to help better risk stratify her but at this time the patient is demanding to go home. She is aware that I cannot rule out meningitis as a cause for her symptoms without this but she is still refusing. I did discuss with her in layman's terms the risks of missed meningitis including or severe permanent disability. She is asked questions in regards to follow-up and if she can return later if she worsens but has recent in her mind and is still refusing this test as she does not believe it is necessary. The patient is asking for 1 more shot of something for pain before she goes home which I will give her. I will give her another dose of Haldol here as it clinically seems to have helped the most to me. I will also give her a dose of Decadron as it will sometimes help with headaches. Ultimately the patient appears to have capacity and she has the understanding and understands the risk by leaving without complete evaluation. She does agree to return should her symptoms change or worsen. I did try to reach out to Dr. Cleveland to discuss the patient's history as she knows her well but she was unavailable by phone. The patient did not want to wait any longer as I could have tried to talk to a neurologist [facility] where she was recently hospitalized but she did not want to wait. Lab Data: Attestation: I reviewed the patient's lab results. Labs: Lab Results 08/31/19 08/31/19 08/31/19 Range/Units 12:41 12:41 12:41 WBC 5.3 (4.0-10.0) 10^3/ uL RBC 4.42 (4.1-5.3) 10^6/u L Hgb 12.1 (11.5-15.3) g/dL Hct 39.7 (37.0-47.0) % MCV 89.8 (81-99) fL MCH 27.4 L (28.0-34.0) pg MCHC 30.5 (30.0-36.0) g/dL RDW 13.7 (12.1-15.1) % Plt Count 293 (130-400) 10^3/c mm MPV 10.0 (7.4-10.4) fL Neut % (Auto) 70.9 % Lymph % (Auto) 22.4 % Ponce % (Auto) 5.7 % Eos % (Auto) 0.2 % Baso % (Auto) 0.2 % Neut # (Auto) 3.7 (1.8-7.7) 10^3/u L Lymph # (Auto) 1.2 (0.8-4.8) 10^3/u L Ponce # (Auto) 0.3 (0.2-0.9) 10^3/u L Eos # (Auto) 0.0 (0.0-0.8) 10^3/u L Baso # (Auto) 0.0 (0.0-0.1) 10^3/u L Nucleated RBC % (a uto) 0 % Nucleated RBCs # 0.0 /100WBC ESR (0-15) mm/hr PT 11.80 (10.5-13.3) SECO NDS INR 0.84 (0.8-1.2) APTT 40.8 H (23.9-36.7) SECO NDS Sodium 143 (136-145) mmol/L Potassium 4.4 (3.5-5.1) mmol/L Chloride 107 (98-107) mmol/L Carbon Dioxide 26 (22-29) mmol/L Anion Gap 14.4 (5-19) BUN 13 (6-20) mg/dL Creatinine 0.9 (0.5-0.9) mg/dL GFR Calculation 64.3 L (90-130) mL/min Glucose 90 (65-115) mg/dL Calculated Osmolal ity 292 (285-295) mOsm/k g Calcium 9.4 (8.5-10.5) mg/dL Magnesium 2.1 (1.7-2.3) mg/dL Total Bilirubin 0.2 (0.15-1.2) mg/dL AST 15 (0-32) U/L ALT 11 (0-33) U/L Alkaline Phosphata se 89 (35-105) IU/L C-Reactive Protein (0.0-4.9) mg/L Total Protein 6.1 L (6.6-8.7) g/dL Albumin 3.8 (3.5-5.2) g/dL Globulin 2.3 (1.3-4.6) g/dL Urine Color (Yellow) Urine Appearance (CLEAR) Urine pH (5-7) Ur Specific Gravit y (1.005-1.030) Urine Protein (Negative) Urine Glucose (UA) (Normal) Urine Ketones (Negative) Urine Blood (Negative) Urine Nitrate (Negative) Urine Bilirubin (NEGATIVE) Prot Sulfosalicyli c Acd (Negative) Urine Urobilinogen (Negative) mg/dL Ur Leukocyte Violeta ase (Negative) Urine RBC (0-2) /hpf Urine WBC (0-5) /hpf Ur Squamous Epith Cells (0-5) Urine Bacteria (NONE) Urine Opiates Scre en (Negative) ng/mL Ur Barbiturates Sc reen (Negative) ng/mL Ur Phencyclidine S crn (Negative) ng/mL Ur Amphetamines Sc reen (Negative) ng/mL U Benzodiazepines Scrn (Negative) ng/mL Urine Cocaine Scre en (Negative) ng/mL U Marijuana (THC) Screen (Negative) ng/mL 08/31/19 08/31/19 08/31/19 Range/Units 12:41 12:41 14:14 WBC (4.0-10.0) 10^3/ uL RBC (4.1-5.3) 10^6/u L Hgb (11.5-15.3) g/dL Hct (37.0-47.0) % MCV (81-99) fL MCH (28.0-34.0) pg MCHC (30.0-36.0) g/dL RDW (12.1-15.1) % Plt Count (130-400) 10^3/c mm MPV (7.4-10.4) fL Neut % (Auto) % Lymph % (Auto) % Ponce % (Auto) % Eos % (Auto) % Baso % (Auto) % Neut # (Auto) (1.8-7.7) 10^3/u L Lymph # (Auto) (0.8-4.8) 10^3/u L Ponce # (Auto) (0.2-0.9) 10^3/u L Eos # (Auto) (0.0-0.8) 10^3/u L Baso # (Auto) (0.0-0.1) 10^3/u L Nucleated RBC % (a uto) % Nucleated RBCs # /100WBC ESR 13 (0-15) mm/hr PT (10.5-13.3) SECO NDS INR (0.8-1.2) APTT (23.9-36.7) SECO NDS Sodium (136-145) mmol/L Potassium (3.5-5.1) mmol/L Chloride (98-107) mmol/L Carbon Dioxide (22-29) mmol/L Anion Gap (5-19) BUN (6-20) mg/dL Creatinine (0.5-0.9) mg/dL GFR Calculation (90-130) mL/min Glucose (65-115) mg/dL Calculated Osmolal ity (285-295) mOsm/k g Calcium (8.5-10.5) mg/dL Magnesium (1.7-2.3) mg/dL Total Bilirubin (0.15-1.2) mg/dL AST (0-32) U/L ALT (0-33) U/L Alkaline Phosphata se (35-105) IU/L C-Reactive Protein 0.4 (0.0-4.9) mg/L Total Protein (6.6-8.7) g/dL Albumin (3.5-5.2) g/dL Globulin (1.3-4.6) g/dL Urine Color Yellow (Yellow) Urine Appearance Clear (CLEAR) Urine pH 8 H (5-7) Ur Specific Gravit y 1.010 (1.005-1.030) Urine Protein Neg (Negative) Urine Glucose (UA) Norm (Normal) Urine Ketones Negative (Negative) Urine Blood Neg (Negative) Urine Nitrate Positive H (Negative) Urine Bilirubin Neg (NEGATIVE) Prot Sulfosalicyli c Acd Negative (Negative) Urine Urobilinogen Norm (Negative) mg/dL Ur Leukocyte Violeta ase Negative (Negative) Urine RBC None (0-2) /hpf Urine WBC 0-4 H (0-5) /hpf Ur Squamous Epith Cells 0-4 H (0-5) Urine Bacteria 4+ H (NONE) Urine Opiates Scre en (Negative) ng/mL Ur Barbiturates Sc reen (Negative) ng/mL Ur Phencyclidine S crn (Negative) ng/mL Ur Amphetamines Sc reen (Negative) ng/mL U Benzodiazepines Scrn (Negative) ng/mL Urine Cocaine Scre en (Negative) ng/mL U Marijuana (THC) Screen (Negative) ng/mL 08/31/19 Range/Units 14:14 WBC (4.0-10.0) 10^3/ uL RBC (4.1-5.3) 10^6/u L Hgb (11.5-15.3) g/dL Hct (37.0-47.0) % MCV (81-99) fL MCH (28.0-34.0) pg MCHC (30.0-36.0) g/dL RDW (12.1-15.1) % Plt Count (130-400) 10^3/c mm MPV (7.4-10.4) fL Neut % (Auto) % Lymph % (Auto) % Ponce % (Auto) % Eos % (Auto) % Baso % (Auto) % Neut # (Auto) (1.8-7.7) 10^3/u L Lymph # (Auto) (0.8-4.8) 10^3/u L Ponce # (Auto) (0.2-0.9) 10^3/u L Eos # (Auto) (0.0-0.8) 10^3/u L Baso # (Auto) (0.0-0.1) 10^3/u L Nucleated RBC % (a uto) % Nucleated RBCs # /100WBC ESR (0-15) mm/hr PT (10.5-13.3) SECO NDS INR (0.8-1.2) APTT (23.9-36.7) SECO NDS Sodium (136-145) mmol/L Potassium (3.5-5.1) mmol/L Chloride (98-107) mmol/L Carbon Dioxide (22-29) mmol/L Anion Gap (5-19) BUN (6-20) mg/dL Creatinine (0.5-0.9) mg/dL GFR Calculation (90-130) mL/min Glucose (65-115) mg/dL Calculated Osmolal ity (285-295) mOsm/k g Calcium (8.5-10.5) mg/dL Magnesium (1.7-2.3) mg/dL Total Bilirubin (0.15-1.2) mg/dL AST (0-32) U/L ALT (0-33) U/L Alkaline Phosphata se (35-105) IU/L C-Reactive Protein (0.0-4.9) mg/L Total Protein (6.6-8.7) g/dL Albumin (3.5-5.2) g/dL Globulin (1.3-4.6) g/dL Urine Color (Yellow) Urine Appearance (CLEAR) Urine pH (5-7) Ur Specific Gravit y (1.005-1.030) Urine Protein (Negative) Urine Glucose (UA) (Normal) Urine Ketones (Negative) Urine Blood (Negative) Urine Nitrate (Negative) Urine Bilirubin (NEGATIVE) Prot Sulfosalicyli c Acd (Negative) Urine Urobilinogen (Negative) mg/dL Ur Leukocyte Violeta ase (Negative) Urine RBC (0-2) /hpf Urine WBC (0-5) /hpf Ur Squamous Epith Cells (0-5) Urine Bacteria (NONE) Urine Opiates Scre en Negative (Negative) ng/mL Ur Barbiturates Sc reen Negative (Negative) ng/mL Ur Phencyclidine S crn Negative (Negative) ng/mL Ur Amphetamines Sc reen Negative (Negative) ng/mL U Benzodiazepines Scrn Positive H (Negative) ng/mL Urine Cocaine Scre en Negative (Negative) ng/mL U Marijuana (THC) Screen Negative (Negative) ng/mL Imaging Data^: CXR: Attestation: I personally reviewed and interpreted this imaging study as follows: My impression: No acute cardiopulmonary findings. CT Head: Radiologist's impression: [address] [address] [address] Scan Report Signed Patient: Nunu Marroquin Unit #: [id number] : 1960 Age/Sex: 58 / F ADM Date: 08/31/19 Loc: ER Room/Bed: Attending Dr: Ordering Provider/Ordering MD: Stefanie Eubanks DO Date of Service: 08/31/19 Procedure(s): CT head wo con* [id number] Accession Number(s): [id number] Report Number: [id number] WS: [id number] CT HEAD NONCONTRAST HISTORY: ARRIETA/AMS TECHNIQUE: Contiguous axial imaging performed through the brain in 2.5 mm imaging. Bone and soft tissue windows. Sagittal and coronal reformats reviewed. All CT scans at [facility] use at least one of these dose optimization techniques: automated exposure control; mA and/or kV adjustment per patient size (includes targeted exams where dose is matched to clinical indication); or iterative reconstruction. DLP: 664.88 mGy.cm COMPARISON: 07/04/2019 No acute intracranial hemorrhage, midline shift or mass effect. No residual subarachnoid blood along the tentorium. There is artifact in the posterior fossa from the skull. Ventricles: Normal size with no hydrocephalus. Paranasal sinuses: As visualized are clear. Mastoid air cells: Mild coalescence of mastoid air cells. Calvarium and scalp: Skull is intact with no soft tissue edema or swelling. CT/CT head wo con* [id number] IMPRESSION: 1. No acute intracranial hemorrhage/subarachnoid blood. 2. Recently described subarachnoid hemorrhage is no longer identified. 3. No infarct or edema. Dictated By: Sandy Gil DO Signed By: Jeffery,Sandy A DO Signed Date/Time: 08/31/19 1343 DD/ 1341 CTA Head and Neck: Radiologist's impression: [facility] [address] [place] [address] CT Scan Report Signed Patient: Nunu Marroquin Unit #: [id number] : 1960 Age/Sex: 58 / F ADM Date: 08/31/19 Loc: ER Room/Bed: Attending Dr: Ordering Provider/Ordering MD: Stefanie Eubanks DO Date of Service: 08/31/19 Procedure(s): CT angio headneck* [id number] Accession Number(s): [id number] Report Number: [id number] WS: [id number] CT ANGIOGRAM CEREBRAL AND CAROTID ARTERIES HISTORY: arrieta, hx ICH TECHNIQUE: CT angiogram is performed of the carotid and cerebral arteries. During arterial injection imaging is obtained from the skull vertex to the aortic arch in 1.25 mm imaging. Coronal and sagittal reformats are submitted. Additional multi planar reformats of the carotid and cerebral arteries are submitted, MIP imaging also reviewed. NASCET criteria utilized. All CT scans at [facility] use at least one of these dose optimization techniques: automated exposure control; mA and/or kV adjustment per patient size (includes targeted exams where dose is matched to clinical indication); or iterative reconstruction. CONTRAST: Omnipaque 350; 95 mL IV. DLP: 1209.28 mGy.cm COMPARISON: 11/22/2017 Carotid Angiogram: Right carotid: Common carotid artery: Arises normally from the innominate artery. No significant plaque or stenosis. Internal carotid artery: Small amount of calcified plaque at the bifurcation with no stenosis. External carotid artery: Patent. Left carotid: Common carotid artery: Arises normally from the aorta. No significant plaque or stenosis. Internal carotid artery: No plaque or stenosis. External carotid artery: Patent. Right vertebral artery: Unremarkable. Left vertebral artery: Unremarkable. Arises normally from the subclavian artery. Subclavian arteries: No stenosis or significant abnormality. Upper thorax: Normal. Thyroid gland: Normal. Osseous structures: Unremarkable. CEREBRAL ANGIOGRAM: Intracranial vertebral arteries: Normal with no significant atherosclerosis. Basilar artery: No significant stenosis or occlusion. No aneurysm. Intracranial Internal carotid arteries: Moderate calcified plaque. No significant stenosis. Middle cerebral arteries: Normal. Anterior cerebral arteries and ACOM: Normal. Posterior cerebral arteries and PCOM's: Normal. Dural venous sinuses are normally enhancing. Arachnoid granulations the transverse sinuses. No thrombus. Mastoid air cells: Coalescence of mastoid air cells. Paranasal sinuses: Normal. Calvarium: Normal. CT/CT angio headneck* [id number] IMPRESSION: 1. No significant carotid artery stenosis. 2. Mild atherosclerosis intracranial carotid arteries and the cavernous sinuses. 3. No aneurysm or dissection. Dictated By: Sandy Gil DO Signed By: Sandy Gil DO Signed Date/Time: 08/31/19 1404 DD/ 1348 US Vascular: My impression: Ultrasound left upper extremity venous Doppler -negative for DVT EKG Data^: EKG 1: Attestation: I personally reviewed and interpreted this EKG as follows: EKG interpretation date: 08/31/19 EKG interpretation time: 13:54 Interpretation: Normal sinus rhythm at 66 beats a minute, poor R wave progression, no acute ST or T wave changes. Discharge Plan Discharge Patient Disposition: Home, Self-Care Clinical Impression: Headache Qualifiers: Headache type: unspecified Headache chronicity pattern: chronic headache Intractability: intractable Qualified Code(s): R51 - Headache Condition: Stable Prescriptions: No Action Humira(CF) Pen 40 mg/0.4 mL pen injector kit 40 mg SUBCUT Q14D Qty: 2 RF: 1 leflunomide 10 mg tablet 10 mg PO DAILY Qty: 30 RF: 2 Hold Instructions: possible reaction prednisone 5 mg tablet 5 mg PO DAILY Qty: 30 RF: 1 bupropion HCl 150 mg tablet sustained-release 12 hr 150 mg PO BID RF: 0 omeprazole 40 mg Capsule,Delayed Release(Dr/Ec) 40 mg PO DAILY RF: 0 aspirin [Aspir-81] 81 mg Tablet,Delayed Release (Dr/Ec) 81 mg PO DAILY RF: 0 benztropine 1 mg tablet 1 mg PO BID RF: 0 dicyclomine 10 mg capsule 10 mg PO TID RF: 0 lamotrigine [Lamictal] 200 mg tablet See Rx Instructions .ROUTE .COMPLEX RF: 0 trazodone 50 mg tablet 75 mg PO BEDTIME RF: 0 temazepam [Restoril] 15 mg capsule 15 mg PO BEDTIME RF: 0 prazosin 2 mg capsule 6 mg PO BEDTIME RF: 0 amantadine HCl 100 mg capsule 100 mg PO BID RF: 0 hydroxyzine HCl 25 mg tablet 25 mg PO TID PRN (Reason: Anxiety) RF: 0 propranolol 80 mg Capsule,Extended Release 24hr 80 mg PO DAILY RF: 0 melatonin 10 mg Tablet 10 mg PO PRN RF: 0 magnesium 1 tab PO Q7D RF: 0 Discharge Orders: Discharge Order (Routine); Ordered 08/31/19 Ordered By: Stefanie Eubanks Referrals: Kemi Cleveland MD [Physician] - 1-3 days Helga Mancera DO [Primary Care Provider] - 1-3 days Discharge Diet: Advance as tolerated Discharge Activity: Increase activity as tolerated Patient Instructions: Viral Meningitis (ED), Migraine Headache (ED), Acute Headache (ED) Activity Restrictions/Additional Instructions: You're leaving AGAINST MEDICAL ADVICE and are at risk for or severe permanent disability by doing so. You are more than welcome to return at any time for recheck and for further evaluation and care suture change you change your mind. If you change your mind and wish to have the lumbar puncture/spinal tap to definitively rule out meningitis you are more than welcome to return. Continue taking your regular pain medications at home for this and you can also take Tylenol on Motrin in addition. 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
--- NOTE | 2019-08-31 12:38 | USCV_ITS ---
Nunu Marroquin Age: 58 Gender: F : 1960 Exam Date: 08/31/2019 14:19 Ordering Phys: Stefanie Eubanks DO Technologist: Tasha Sen Exam Location: [facility] [place]_ Indication: SWELLING HISTORY: Upper extremity swelling. PROCEDURES: Venous duplex imaging was performed in only the left upper extremity. The following venous structures were evaluated: internal jugular vein, subclavian vein, axillary vein, and brachial veins. In addition, the basilic vein, cephalic vein, radial vein, and ulnar vein. Serial compression, augmentation maneuvers, and spectral Doppler flow evaluation were performed. FINDINGS: Normal 2-D, color Doppler and phasicity noted in the left upper extremity venous system extending from the left internal jugular vein through the main forearm. No thrombosis or occlusion noted. CONCLUSIONS No left upper extremity DVT. Dr. Sandy Gil DO (Electronically Signed) Final Date: 31 August 2019 15:37 S
[2019-08-31 12:54] LABS: Basophils % 0.2 %; Eosinophils % 0.2 %; Hematocrit 39.7 % (37.0-47.0); Hemoglobin 12.1 g/dL (11.5-15.3); Lymphocytes # 1.2 10^3/uL (0.8-4.8); Lymphocytes % 22.4 %; Mean Corpuscular HGB Conc 30.5 g/dL (30.0-36.0); Mean Corpuscular Hemoglobin 27.4 pg (28.0-34.0); Mean Corpuscular Volume 89.8 fL (81-99); Monocytes # 0.3 10^3/uL (0.2-0.9); Monocytes % 5.7 %; Neutrophils # 3.7 10^3/uL (1.8-7.7); Neutrophils % 70.9 %; Nucleated Red Blood Cells % 0 %; Platelet Count 293 10^3/cmm (130-400); Red Blood Count 4.42 10^6/uL (4.1-5.3); Red Cell Distribution Width 13.7 % (12.1-15.1); White Blood Count 5.3 10^3/uL (4.0-10.0)
[2019-08-31 13:10] LABS: INR 0.84 (0.8-1.2)
[2019-08-31 13:12] LABS: Alanine Aminotransferase 11 U/L (0-33); Albumin Level 3.8 g/dL (3.5-5.2); Alkaline Phosphatase 89 IU/L (35-105); Anion Gap 14.4 (5-19); Aspartate Amino Transferase 15 U/L (0-32); Blood Urea Nitrogen 13 mg/dL (6-20); Calcium 9.4 mg/dL (8.5-10.5); Carbon Dioxide 26 mmol/L (22-29); Chloride 107 mmol/L (98-107); Creatinine Clr Calc Pharmacy 61.6479; Globulin 2.3 g/dL (1.3-4.6); Glomerular Filtration Rate 64.3 mL/min (90-130); Glucose 90 mg/dL (65-115); Magnesium 2.1 mg/dL (1.7-2.3); Osmolality Calculated 292 mOsm/kg (285-295); Partial Thromboplastin Time 40.8 SECONDS (23.9-36.7); Potassium 4.4 mmol/L (3.5-5.1); Sodium 143 mmol/L (136-145); Total Bilirubin 0.2 mg/dL (0.15-1.2); Total Protein 6.1 g/dL (6.6-8.7)
[2019-08-31] MEDS: diphenhydrAMINE 50 mg/mL SDV 1mL 12.5 MG IVP (13:12)
[2019-08-31] MEDS: sodium chloride 0.9% 1,000 ML 999 ML IV (13:17)
[2019-08-31] MEDS: iohexol 350 mg/mL 100 mL Btl IV (13:37)
[2019-08-31 14:46] LABS: Amphetamines Screen Urine Negative (Negative); Barbiturates Screen Urine Negative (Negative); Benzodiazepines Screen Urine Positive (Negative); Cocaine Screen Urine Negative (Negative); Opiate Screen Urine Negative (Negative); PCP Screen Urine Negative (Negative); THC Screen Urine Negative (Negative)
[2019-08-31 14:50] LABS: Add Urine Culture? Yes; Bacteria Urine 4+; Bilirubin Urine Neg (NEGATIVE); Blood Urine Neg (Negative); Glucose Urine UA Norm (Normal); Ketones Urine Negative (Negative); Leukocyte Esterase Urine Negative (Negative); Nitrate Urine Positive (Negative); Protein Urine Neg (Negative); Squamous Epithelial Cell Urine 0-4 (0-5); Sulfosalicylic Acid Urine Negative (Negative); Urine Appearance Clear (CLEAR); Urine Color Yellow (Yellow); Urobilinogen Urine Norm (Negative); WBC Urine 0-4 /hpf (0-5); pH Urine 8 (5-7)
[2019-08-31] MEDS: haloperidol inj 5 mg/mL INJ 1 mL 2.5 MG IM (14:50)
[2019-08-31] MEDS: dexamethasone 4 mg/mL INJ 8 MG IVP (15:56)
[2019-08-31] MEDS: haloperidol inj 5 mg/mL INJ 1 mL IM (16:00)
[2019-08-31 16:16] VITALS: BP 118/62; PULSE 64; RESP 17; O2SAT 98
[2019-08-31 16:19] LABS: C Reactive Protein 0.4 mg/L (0.0-4.9); Erythrocyte Sedimentation Rate 13 mm/hr (0-15)
== END 2019-08-31 16:19 | disposition home or self-care (01) ==
PROVIDERS: Emergency Provider Emergency Medicine; Family Provider Family Medicine; PCP Family Medicine
DX: R51 Headache (principal); Z79.82 Long term (current) use of aspirin; F41.9 Anxiety disorder, unspecified; F33.9 Major depressive disorder, recurrent, unspecified; Z98.84 Bariatric surgery status; F17.210 Nicotine dependence, cigarettes, uncomplicated; M79.89 Other specified soft tissue disorders; R05 Cough
CPT/HCPCS: 12345; 36415; 70450; 70496; 70498; 71045; 80053; 80306; 81001; 83735; 85025; 85610; 85651; 85730; 86140; 87077; 87086; 87186; 93005; 93971; 96365; 96372; 96375; 99283; 99285; J0131; J1100; J1200; J1630; J7030; Q9967

== ENCOUNTER → 2019-09-03 08:12 | Outpatient (BNVA) | payer MEDICARE, SELFPAY | PROVIDERS: Family Provider Family Medicine; PCP Family Medicine; Visit Provider Nurse Practitioner | DX: F43.12 Post-traumatic stress disorder, chronic (principal); F41.1 Generalized anxiety disorder; F33.1 Major depressive disorder, recurrent, moderate | CPT/HCPCS: 99213 ==

== ENCOUNTER → 2019-09-24 07:51 | Outpatient (BNVA) | payer MEDICARE, SELFPAY | PROVIDERS: Family Provider Family Medicine; PCP Family Medicine; Visit Provider Nurse Practitioner | DX: F33.1 Major depressive disorder, recurrent, moderate (principal); F41.1 Generalized anxiety disorder; F43.12 Post-traumatic stress disorder, chronic | CPT/HCPCS: 99214 ==

== ENCOUNTER → 2019-10-02 08:45 | Outpatient (BNVA) | payer MEDICARE, SELFPAY | PROVIDERS: Family Provider Family Medicine; PCP Family Medicine; Visit Provider Internal Medicine Rheumatology | DX: Z79.899 Other long term (current) drug therapy (principal) | CPT/HCPCS: 36415; 80076; 82565; 85025; 85651; 86140 ==

== ENCOUNTER → 2019-10-09 12:39 | Outpatient (BNVA) | payer MEDICARE, SELFPAY | PROVIDERS: Family Provider Family Medicine; PCP Family Medicine; Visit Provider Internal Medicine Rheumatology | DX: M06.09 Rheumatoid arthritis without rheumatoid factor, multiple sites (principal); Z79.899 Other long term (current) drug therapy; I60.9 Nontraumatic subarachnoid hemorrhage, unspecified; F95.9 Tic disorder, unspecified; F17.210 Nicotine dependence, cigarettes, uncomplicated; I73.00 Raynaud's syndrome without gangrene | CPT/HCPCS: 99214 ==

== ENCOUNTER → 2019-10-23 07:43 | Outpatient (BNVA) | payer MEDICARE, SELFPAY | PROVIDERS: Family Provider Family Medicine; PCP Family Medicine; Visit Provider Nurse Practitioner | DX: F33.1 Major depressive disorder, recurrent, moderate (principal); F41.1 Generalized anxiety disorder; F43.12 Post-traumatic stress disorder, chronic | CPT/HCPCS: 99214 ==

== ENCOUNTER 2019-10-23 13:42 | Outpatient (CLI) | payer MEDICARE, SELFPAY ==
--- NOTE | 2019-10-23 13:50 | XRR_ITS ---
PROCEDURE INFORMATION: Exam: XR Left Elbow Exam date and time: 10/23/2019 2:15 PM Age: 58 years old Clinical indication: Pain; Elbow; Left; Patient HX: Rheumatoid arthritis; Additional info: Inflammatory arthritis, chronic pain TECHNIQUE: Imaging protocol: XR Left elbow. Views: 1 or 2 views. COMPARISON: No relevant prior studies available. FINDINGS: Bones/joints: Negative for acute bony abnormality Soft tissues: Normal. XR/XR elbow LT 2V [id number] IMPRESSION: No acute findings.
--- NOTE | 2019-10-23 13:50 | XRR_ITS ---
PROCEDURE INFORMATION: Exam: XR Chest, 2 Views Exam date and time: 10/23/2019 2:15 PM Age: 58 years old Clinical indication: Condition or disease; Other: Rheumatoid arthritis; Additional info: Inflammatory arthritis TECHNIQUE: Imaging protocol: XR of the chest Views: 2 views. COMPARISON: No relevant prior studies available. FINDINGS: Lungs: Unremarkable. No consolidation. Pleural space: Unremarkable. No pleural effusion. No pneumothorax. Heart/Mediastinum: Unremarkable. No cardiomegaly. Bones/joints: Unremarkable. XR/XR chest 2V* [id number] IMPRESSION: No acute findings.
--- NOTE | 2019-10-23 13:50 | XRR_ITS ---
PROCEDURE INFORMATION: Exam: XR Left Foot Complete Exam date and time: 10/23/2019 2:17 PM Age: 58 years old Clinical indication: Pain; Foot; Left; Patient HX: Rheumatoid arthritis; Additional info: Inflammatory arthritis, chronic pain TECHNIQUE: Imaging protocol: XR Left foot. Views: 3 or more views. COMPARISON: No relevant prior studies available. FINDINGS: Bones/joints: Negative for acute bony abnormalities Soft tissues: Normal. XR/XR foot LT min 3V* [id number] IMPRESSION: No acute findings.
--- NOTE | 2019-10-23 13:50 | XRR_ITS ---
PROCEDURE INFORMATION: Exam: XR Right Foot Complete Exam date and time: 10/23/2019 2:17 PM Age: 58 years old Clinical indication: Pain; Foot; Right; Patient HX: Rheumatoid arthritis; Additional info: Inflammatory arthritis, chronic pain TECHNIQUE: Imaging protocol: XR Right foot. Views: 3 or more views. COMPARISON: No relevant prior studies available. FINDINGS: Bones/joints: Negative for acute bony abnormality. Bone spur inferior calcaneus. Soft tissues: Normal. XR/XR foot RT min 3V* [id number] IMPRESSION: No acute findings. Bone spur inferior calcaneus
--- NOTE | 2019-10-23 13:50 | XRR_ITS ---
PROCEDURE INFORMATION: Exam: XR Right Hand Exam date and time: 10/23/2019 2:15 PM Age: 58 years old Clinical indication: Pain; Hand; Right; Patient HX: Rheumatoid arthritis; Additional info: Inflammatory arthritis, chronic pain TECHNIQUE: Imaging protocol: XR Right hand. Views: 3 or more views. COMPARISON: No relevant prior studies available. FINDINGS: Bones/joints: Negative for acute bony abnormality Soft tissues: Normal. XR/XR hand RT min 3V* [id number] IMPRESSION: No acute findings.
--- NOTE | 2019-10-23 13:50 | XRR_ITS ---
PROCEDURE INFORMATION: Exam: XR Left Hand Exam date and time: 10/23/2019 2:15 PM Age: 58 years old Clinical indication: Pain; Hand; Left; Prior surgery; Patient HX: Rheumatoid arthritis; Additional info: Inflammatory arthritis, chronic pain TECHNIQUE: Imaging protocol: XR Left hand. Views: 3 or more views. COMPARISON: No relevant prior studies available. FINDINGS: Bones/joints: There is a metallic screw traversing the 1st digit. There is fusion of the 1st digit interphalangeal joint The bones show anatomic alignment. No acute bony abnormalities are seen. Soft tissues: Normal. XR/XR hand LT min 3V* [id number] IMPRESSION: 1. Post surgical changes 1st digit. 2. Negative for acute bony abnormality
== END 2019-10-23 13:43 | disposition home or self-care (01) ==
LOC: RAD 13:47
PROVIDERS: PCP Family Medicine; Visit Provider Internal Medicine Rheumatology
DX: M19.90 Unspecified osteoarthritis, unspecified site (principal); Z98.890 Other specified postprocedural states; M77.31 Calcaneal spur, right foot
CPT/HCPCS: 71046; 73070; 73130; 73630

== ENCOUNTER → 2019-11-22 07:36 | Outpatient (BNVA) | payer MEDICARE, SELFPAY | PROVIDERS: PCP Family Medicine; Visit Provider Nurse Practitioner | DX: F33.1 Major depressive disorder, recurrent, moderate (principal); F41.1 Generalized anxiety disorder; F43.12 Post-traumatic stress disorder, chronic | CPT/HCPCS: 99214 ==

== ENCOUNTER → 2019-12-20 08:14 | Outpatient (BNVA) | payer MEDICARE, SELFPAY | PROVIDERS: PCP Family Medicine; Visit Provider Nurse Practitioner | DX: F33.1 Major depressive disorder, recurrent, moderate (principal); F41.1 Generalized anxiety disorder; F43.12 Post-traumatic stress disorder, chronic; F25.9 Schizoaffective disorder, unspecified | CPT/HCPCS: 99213 ==

== ENCOUNTER → 2020-01-09 14:51 | Outpatient (BNVA) | payer MEDICARE, SELFPAY | PROVIDERS: PCP Family Medicine; Visit Provider Internal Medicine Rheumatology | DX: M06.09 Rheumatoid arthritis without rheumatoid factor, multiple sites (principal); Z79.899 Other long term (current) drug therapy; Z11.59 Encounter for screening for other viral diseases; I60.9 Nontraumatic subarachnoid hemorrhage, unspecified; F95.9 Tic disorder, unspecified; F80.81 Childhood onset fluency disorder; I73.00 Raynaud's syndrome without gangrene; F17.210 Nicotine dependence, cigarettes, uncomplicated | CPT/HCPCS: 36415; 80076; 82565; 85025; 85651; 86140; 86704; 99214 ==

== ENCOUNTER → 2020-01-17 07:09 | Outpatient (BNVA) | payer MEDICARE, SELFPAY | PROVIDERS: PCP Family Medicine; Visit Provider Nurse Practitioner | DX: F33.1 Major depressive disorder, recurrent, moderate (principal); F41.1 Generalized anxiety disorder; F43.12 Post-traumatic stress disorder, chronic; F25.9 Schizoaffective disorder, unspecified | CPT/HCPCS: 99213 ==

== ENCOUNTER 2020-01-18 10:50 | Outpatient (CLI) | payer MEDICARE, SELFPAY ==
--- NOTE | 2020-01-18 10:54 | MM_ITS ---
WS: [id number] SCREENING DIGITAL MAMMOGRAM WITH CAD HISTORY: SCREENING COMPARISON: 07/24/2018 and 07/22/2017 Bilateral CC and MLO views submitted. Computer aided detection analyzed. Breast composition: There are scattered areas of fibroglandular density. No suspicious masses, microc alcifications or architectural distortion. MM/[place] [id number] IMPRESSION: BI-RADS: 1-Negative FOLLOW UP: 1 Year Follow-up
== END 2020-01-18 10:51 | disposition home or self-care (01) ==
LOC: RADSHAW 10:52
PROVIDERS: PCP Family Medicine; Visit Provider Family Medicine
DX: Z12.31 Encounter for screening mammogram for malignant neoplasm of breast (principal)
CPT/HCPCS: 77067

== ENCOUNTER 2020-03-10 11:29 | Emergency (ER) | payer MEDICARE, SELFPAY ==
[2020-03-10 11:33] VITALS: PULSE 61; RESP 18; TEMP 36.3; O2SAT 98; BMI 24.0
--- NOTE | 2020-03-10 11:39 | CT_ITS ---
WS: [id number] CT HEAD NONCONTRAST HISTORY: Headache. TECHNIQUE: Contiguous axial imaging performed through the brain in 2.5 mm imaging. Bone and soft tiss ue windows. Sagittal and coronal reformats reviewed. All CT scans at [facility] use at le ast one of these dose optimization techniques: automated exposure control; mA and/or kV adjustment pe r patient size (includes targeted exams where dose is matched to clinical indication); or iterative r econstruction. DLP: 695.59 mGy.cm COMPARISON: 08/31/2019 There is an area of increased density in the posterior LEFT parietal region along the tentorium suspi cious for small amount of acute subdural or subarachnoid blood. This is in the area of the previously described subarachnoid hemorrhage on 06/11/2019. No midline shift or mass effect. No atrophy or prior infarcts or herniation. Ventricles: Normal size with no hydrocephalus. Paranasal sinuses: Mild mucoperiosteal thickening throughout the sinus cavities. Mastoid air cells: Well pneumatized. Calvarium and scalp: Skull is intact with no soft tissue edema or swelling. CT/CT head wo con* [id number] IMPRESSION: 1. Very small amount of acute subarachnoid and/or subdural blood products in t he posterior LEFT parietal region along the tentorium. Similar location to prev iously described acute intracranial hemorrhages. 2. No hydrocephalus or mass effect.
--- NOTE | 2020-03-10 11:39 | CT_ITS ---
WS: [id number] CT ANGIOGRAM CEREBRAL AND CAROTID ARTERIES HISTORY: Headache. TECHNIQUE: CT angiogram is performed of the carotid and cerebral arteries. During arterial injection imaging is obtained from the skull vertex to the aortic arch in 1.25 mm imaging. Coronal and sagittal reformats are submitted. Additional multi planar reformats of the carotid and cerebral arteries are submitted, MIP imaging also reviewed. NASCET criteria utilized. All CT scans at [facility] use at least one of these dose optimization techniques: automated exposure control; mA and/or kV ad justment per patient size (includes targeted exams where dose is matched to clinical indication); or iterative reconstruction. CONTRAST: Omnipaque 350; 95 mL IV. DLP: 1563.2 mGy.cm COMPARISON: 08/31/2019 Carotid Angiogram: Right carotid: Common carotid artery: Arises normally from the innominate artery. No significant plaque or stenosis. Internal carotid artery: No plaque or stenosis. External carotid artery: Patent. Left carotid: Common carotid artery: Poor visualization of the proximal artery from the arch. This is probably due to the injection. Internal carotid artery: No plaque or stenosis. External carotid artery: Patent. Right vertebral artery: Unremarkable. Left vertebral artery: Unremarkable. Arises normally from the subclavian artery. Subclavian arteries: Incomplete opacification filling of the proximal LEFT subclavian artery which is probably due to the phase of enhancement. There is similar mixed contrast opacification of the aorta and proximal LEFT carotid artery. Upper thorax: Normal. Thyroid gland: Normal. Osseous structures: Mild anterior wedging of T2, T3 and T4. CEREBRAL ANGIOGRAM: Intracranial vertebral arteries: Normal with no significant atherosclerosis. Basilar artery: No significant stenosis or occlusion. No aneurysm. Intracranial Internal carotid arteries: Moderate amount of atherosclerotic plaque with approximately 50% narrowing of the intracranial carotid arteries to the cavernous sinuses. No aneurysms are identif ied. Middle cerebral arteries: Normal. Anterior cerebral arteries and ACOM: Normal. Posterior cerebral arteries and PCOM's: Normal. Dural venous sinuses are normally enhancing. Mastoid air cells: Normal. Paranasal sinuses: Sphenoid, ethmoid and maxillary sinusitis. Calvarium: Normal. CT/CT angio headneck* [id number] IMPRESSION: 1. No significant extracranial carotid artery stenosis. 2. Moderate stenosis involving the intracranial carotid arteries through the c avernous sinuses. 3. No aneurysms. 4. No vascular malformations or enhancing masses. 5. No dural venous sinus thrombosis identified.
--- NOTE | 2020-03-10 11:39 | XR_ITS ---
WS: [id number] Exam: XR chest 1V portable [id number] Date/Time of Exam: 03/10/2020 11:39 AM Reason For Exam: cough Comparison 10/23/2019. The lungs are clear and fully inflated. Normal cardiomediastinal structures and bony elements. XR/XR chest 1V portable [id number] IMPRESSION: 1. Normal chest. No change.
--- NOTE | 2020-03-10 11:42 | W.ED.HA ---
HPI - Headache General: Chief Complaint: Headache Stated Complaint: HEADACHE Time Seen by Provider: 03/10/20 11:32 Source: patient and EMS Mode of arrival: EMS Limitations: no limitations History of Present Illness: HPI Narrative: 59-year-old female who states she had a headache over the last 2 days. She does have a history of subarachnoid hemorrhage and states headache started gradually 2 days ago and is currently a 7 out of 10. Patient is also had a mild cough. She denies any fevers. Headache is worse with bright lights. Denies any improving factors. She has had no nausea or vomiting. Associated symptoms: Deny chest pain, fever(s), nausea, rash or vomiting Review of Systems Const: Denies: fever(s), chills, body aches or change in appetite Eyes: Denies: blurry vision or eye discomfort ENMT: Denies: throat pain or dental pain Card: Denies: chest pain Resp: Reports: non-productive cough GI: Denies: abdominal pain, nausea, vomiting or diarrhea : Denies: dysuria Musc: Denies: neck pain or back pain Skin/Breast: Denies: rash Neuro: Reports: headache(s) Psych: Denies: depression Eusebio/Lymph: Denies: easy bruising All/Imm: Denies: urticaria PFSH ED PFSH: Medical History Acute pancreatitis Aftercare following bilateral wrist joint replacement surgery Cellulitis Costochondritis Facial tic Family history of tardive dyskinesia Gastritis Gastroenteritis Generalized anxiety disorder High risk medication use Immunization counseling Intussusception Major depressive disorder, recurrent, moderate Nephrolithiasis Post-traumatic stress disorder, chronic Psychosis Rheumatoid arthritis without rheumatoid factor, multiple sites SAH (subarachnoid hemorrhage) Schizoaffective disorder Stammering Ulcerative colitis Ureterolithiasis Urinary calculi Surgical History History of bilateral knee replacement History of renal stent Hx of gastric bypass Family History Denies family history of Rheumatoid arthritis Social History Smoking and tobacco status: current every day smoker cigarettes Packs smoked per day: 1 Smoking risk assessment/counseling performed?: Yes Tobacco counseling given: counseling >3 minutes Physical Exam Const: COMMON NORMALS: no acute distress, patient oriented x3 and healthy appearing HENMT: COMMON NORMALS: normocephalic and atraumatic HEAD & SCALP: normocephalic and atraumatic Eye: COMMON NORMALS: Equal, round and reactive pupils present and EOMs intact bilaterally PUPIL: Yes Equal, round and reactive pupils present Neck/C-Spine: COMMON NORMALS: full ROM and supple Chest: COMMONS NORMALS: normal inspection of the chest and normal palpation of entire chest wall Resp: COMMON NORMALS: normal respiratory effort, No retractions, No use of accessory muscles and clear to auscultation bilaterally AUSCULTATION: clear to auscultation bilaterally Cardio: COMMON NORMALS: regular rate, regular rhythm and No murmurs present (Cardio) RATE: regular rate RHYTHM: regular rhythm GI: COMMON NORMALS: Normal to inspection, nondistended, normoactive bowel sounds present, Soft to palpation, non-tender and no masses PALPATION: Yes Soft to palpation Extremity: COMMON NORMALS: normal to inspection and full ROM Neuro: COMMON NORMALS: patient oriented x3, moves all extremities and no focal motor deficits Psych: COMMON NORMALS: mental status grossly normal, Normal thought process present and cooperative THOUGHT PROCESS: Normal thought process present Skin: COMMON NORMALS: no rashes or lesions noted and no wounds GENERAL SKIN EXAM: no rashes or lesions noted Course Vital Signs: Vital signs: Vital Signs Temperature 97.4 F L 03/10/20 11:33 Pulse Rate 61 03/10/20 11:33 Respiratory Rate 18 03/10/20 12:42 Pulse Oximetry 98 03/10/20 11:33 MDM - Headache MDM Narrative: Medical decision making narrative: Nunu presents here with headache and does have a subarachnoid hemorrhage. I spoke to [facility] and will transfer there for higher level of care for neurosurgery. Patient has been stable while here and GCS is 15. Her headache is improved. Lab Data: Labs: Lab Results 03/10/20 03/10/20 Range/Units 12:02 12:02 WBC 9.2 (4.0-10.0) 10^3/ uL RBC 4.65 (4.1-5.3) 10^6/u L Hgb 11.4 L (11.5-15.3) g/dL Hct 38.4 (37.0-47.0) % MCV 82.6 (81-99) fL MCH 24.5 L (28.0-34.0) pg MCHC 29.7 L (30.0-36.0) g/dL RDW 16.7 H (12.1-15.1) % Plt Count 351 (130-400) 10^3/c mm MPV 10.2 (7.4-10.4) fL Neut % (Auto) 60.0 % Lymph % (Auto) 28.5 % [place] % (Auto) 10.0 % Eos % (Auto) 0.7 % Baso % (Auto) 0.4 % Neut # (Auto) 5.52 (1.8-7.7) 10^3/u L Lymph # (Auto) 2.6 (0.8-4.8) 10^3/u L [place] # (Auto) 0.9 (0.2-0.9) 10^3/u L Eos # (Auto) 0.1 (0.0-0.8) 10^3/u L Baso # (Auto) 0.0 (0.0-0.1) 10^3/u L Nucleated RBC % (a uto) 0 % Nucleated RBCs # 0.0 /100WBC Sodium 141 (136-145) mmol/L Potassium 3.8 (3.5-5.1) mmol/L Chloride 107 (98-107) mmol/L Carbon Dioxide 28 (22-29) mmol/L Anion Gap 9.8 (5-19) BUN 13 (6-20) mg/dL Creatinine 0.7 (0.5-0.9) mg/dL GFR Calculation 85.6 L (90-130) mL/min Glucose 106 (65-115) mg/dL Calculated Osmolal ity 293 (285-295) mOsm/k g Calcium 9.2 (8.5-10.5) mg/dL Total Bilirubin 0.3 (0.15-1.2) mg/dL AST 20 (0-32) U/L ALT 18 (0-33) U/L Alkaline Phosphata se 101 (35-105) IU/L NT-Pro-B Natriuret Pep 779 H (0-125) pg/mL Total Protein 6.2 L (6.6-8.7) g/dL Albumin 4.0 (3.5-5.2) g/dL Globulin 2.2 (1.3-4.6) g/dL Imaging Data^: CT Head: Attestation: I personally reviewed and interpreted this imaging study as follows: Radiologist's impression: [facility] [address] [address] CT Scan Report Signed Patient: Nunu Marroquin Unit #: [id number] : 1960 Age/Sex: 59 / F ADM Date: 03/10/20 Loc: ER Room/Bed: Attending Dr: Ordering Provider/Ordering MD: Miguel Fuller MD Date of Service: 03/10/20 Procedure(s): CT head wo con* [id number] Accession Number(s): [id number] Report Number: [id number] WS: [id number] CT HEAD NONCONTRAST HISTORY: Headache. TECHNIQUE: Contiguous axial imaging performed through the brain in 2.5 mm imaging. Bone and soft tissue windows. Sagittal and coronal reformats reviewed. All CT scans at [facility] use at least one of these dose optimization techniques: automated exposure control; mA and/or kV adjustment per patient size (includes targeted exams where dose is matched to clinical indication); or iterative reconstruction. DLP: 695.59 mGy.cm COMPARISON: 08/31/2019 There is an area of increased density in the posterior LEFT parietal region along the tentorium suspicious for small amount of acute subdural or subarachnoid blood. This is in the area of the previously described subarachnoid hemorrhage on 06/11/2019. No midline shift or mass effect. No atrophy or prior infarcts or herniation. Ventricles: Normal size with no hydrocephalus. Paranasal sinuses: Mild mucoperiosteal thickening throughout the sinus cavities. Mastoid air cells: Well pneumatized. Calvarium and scalp: Skull is intact with no soft tissue edema or swelling. CT/CT head wo con* [id number] IMPRESSION: 1. Very small amount of acute subarachnoid and/or subdural blood products in the posterior LEFT parietal region along the tentorium. Similar location to previously described acute intracranial hemorrhages. 2. No hydrocephalus or mass effect. Critical Care Time Critical Care Time: Critical Care Time: Yes Total Critical Care Time: 36 Attestation: This case had a high probability of a clinically significant, sudden, or life threatening deterioration of this patient's condition which required my full and direct attention, intervention and personal management. Discharge Plan Discharge Patient Disposition: Xfer Other Clinical Impression: SAH (subarachnoid hemorrhage) Condition: Stable Discharge Orders: Transfer Out of Facility (Order); Ordered 03/10/20 Ordered By: Miguel Fuller Referrals: Helga Mancera DO [Primary Care Provider] - Coding Level of Care Code ED Admitting Manager for Chg Fwd Exam Comprehensive
[2020-03-10 12:21] LABS: Basophils % 0.4 %; Eosinophils # 0.1 10^3/uL (0.0-0.8); Eosinophils % 0.7 %; Hematocrit 38.4 % (37.0-47.0); Hemoglobin 11.4 g/dL (11.5-15.3); Lymphocytes # 2.6 10^3/uL (0.8-4.8); Lymphocytes % 28.5 %; Mean Corpuscular HGB Conc 29.7 g/dL (30.0-36.0); Mean Corpuscular Hemoglobin 24.5 pg (28.0-34.0); Mean Corpuscular Volume 82.6 fL (81-99); Mean Platelet Volume 10.2 fL (7.4-10.4); Monocytes # 0.9 10^3/uL (0.2-0.9); Neutrophils # 5.52 10^3/uL (1.8-7.7); Nucleated Red Blood Cells % 0 %; Platelet Count 351 10^3/cmm (130-400); Red Blood Count 4.65 10^6/uL (4.1-5.3); Red Cell Distribution Width 16.7 % (12.1-15.1); White Blood Count 9.2 10^3/uL (4.0-10.0)
[2020-03-10 12:42] VITALS: RESP 18
[2020-03-10] MEDS: morphine 4 mg/mL SDV 1 mL IVP ×2 (12:42→17:17)
[2020-03-10] MEDS: ondansetron 2 mg/ML SDV 2 mL 4 MG IVP ×2 (12:53→14:38)
[2020-03-10 12:54] LABS: Alanine Aminotransferase 18 U/L (0-33); Alkaline Phosphatase 101 IU/L (35-105); Anion Gap 9.8 (5-19); Aspartate Amino Transferase 20 U/L (0-32); Blood Urea Nitrogen 13 mg/dL (6-20); Calcium 9.2 mg/dL (8.5-10.5); Carbon Dioxide 28 mmol/L (22-29); Chloride 107 mmol/L (98-107); Globulin 2.2 g/dL (1.3-4.6); Glomerular Filtration Rate 85.6 mL/min (90-130); Glucose 106 mg/dL (65-115); NT Pro B Type Natriuretic Pept 779 pg/mL (0-125); Osmolality Calculated 293 mOsm/kg (285-295); Potassium 3.8 mmol/L (3.5-5.1); Sodium 141 mmol/L (136-145); Total Bilirubin 0.3 mg/dL (0.15-1.2); Total Protein 6.2 g/dL (6.6-8.7)
--- NOTE | 2020-03-10 13:35 | PC.NURSE ---
Spoke with pt sister Brea Strickland and updated on pt status. She requests a call when there is an accepting facility for transfer. , Home # [phone]
[2020-03-10] MEDS: lidocaine 2% viscous 15 ML, aluminum-mag hydrox-simethicon 30 ML, sucralfate oral liq 1 GM PO (13:45)
[2020-03-10 14:38] VITALS: RESP 18
[2020-03-10] MEDS: HYDROmorphone 1 mg/mL INJ 1 mL IVP (14:38)
[2020-03-10 17:13] VITALS: BP 115/56; PULSE 74; RESP 18; TEMP 36.3; O2SAT 98
[2020-03-10 17:17] VITALS: RESP 20
[2020-03-10 17:19] VITALS: BP 123/75; PULSE 70; RESP 20; TEMP 36.4; O2SAT 95
--- NOTE | 2020-03-10 18:31 | ECG_ITS ---
[facility] Test Date: 2020-03-10 Pat Name: Nunu Marroquin Department: Room: Gender: Female Protective Signal Superintendent: : 1960 Requested By: Miguel Fuller Order Number: [id number] Mc MD: Aziza Owens M.D. Measurements Intervals [place] Rate: 63 P: 41 HI: 134 QRS: 12 QRSD: 89 T: 50 QT: 396 QTc: 407 Interpretive Statements SINUS RHYTHM Compared to ECG 08/31/2019 13:54:32 No significant changes Electronically Signed On 03-11-2020 7:36:45 CDT by Aziza Owens M.D. [id number]
== END 2020-03-10 17:21 | disposition other institution (70) ==
PROVIDERS: Emergency Provider Emergency Medicine; PCP Family Medicine
DX: I60.9 Nontraumatic subarachnoid hemorrhage, unspecified (principal); F17.210 Nicotine dependence, cigarettes, uncomplicated
CPT/HCPCS: 12345; 70450; 70496; 70498; 71045; 80053; 83880; 85025; 93005; 96374; 96375; 96376; 99282; 99285; J1170; J2270; J2405; J2930; Q9967

== ENCOUNTER → 2020-03-20 08:11 | Outpatient (BNVA) | payer MEDICARE, SELFPAY | PROVIDERS: PCP Family Medicine; Visit Provider Nurse Practitioner | DX: F41.1 Generalized anxiety disorder (principal); F43.12 Post-traumatic stress disorder, chronic; F25.9 Schizoaffective disorder, unspecified; F33.1 Major depressive disorder, recurrent, moderate | CPT/HCPCS: 99214 ==

== ENCOUNTER → 2020-04-24 08:16 | Outpatient (BNVA) | payer MEDICARE, SELFPAY | PROVIDERS: PCP Family Medicine; Visit Provider Nurse Practitioner | DX: F41.1 Generalized anxiety disorder (principal); F33.1 Major depressive disorder, recurrent, moderate; F25.9 Schizoaffective disorder, unspecified; F43.12 Post-traumatic stress disorder, chronic | CPT/HCPCS: 99214 ==

== ENCOUNTER → 2020-04-29 12:56 | Outpatient (BNVA) | payer MEDICARE, SELFPAY | PROVIDERS: PCP Family Medicine; Visit Provider Internal Medicine Rheumatology | DX: M06.09 Rheumatoid arthritis without rheumatoid factor, multiple sites (principal); Z79.899 Other long term (current) drug therapy; I73.00 Raynaud's syndrome without gangrene; F17.210 Nicotine dependence, cigarettes, uncomplicated | CPT/HCPCS: 99214 ==

== ENCOUNTER → 2020-05-22 07:46 | Outpatient (BNVA) | payer MEDICARE, SELFPAY | PROVIDERS: PCP Family Medicine; Visit Provider Nurse Practitioner | DX: F33.1 Major depressive disorder, recurrent, moderate (principal); F41.1 Generalized anxiety disorder; F43.12 Post-traumatic stress disorder, chronic; F25.9 Schizoaffective disorder, unspecified | CPT/HCPCS: 99213 ==

== ENCOUNTER 2020-06-10 13:22 | Emergency (ER) | payer MEDICARE, SELFPAY ==
[2020-06-10 13:25] VITALS: BP 130/70; PULSE 61; RESP 18; TEMP 36.7; O2SAT 100; BMI 24.0
--- NOTE | 2020-06-10 13:27 | ECG_ITS ---
[facility] Test Date: 2020-06-10 Pat Name: Nunu Marroquin Department: Room: Gender: Female Electronic Assembler: : 1960 Requested By: Bubba Lyn Order Number: [id number] Mc MD: Pepito Frost M.D. Measurements Intervals [place] Rate: 57 P: -7 MN: 148 QRS: 41 QRSD: 100 T: 45 QT: 422 QTc: 414 Interpretive Statements SINUS BRADYCARDIA Compared to ECG 03/10/2020 14:23:19 Sinus rhythm no longer present Electronically Signed On 06-10-2020 17:05:55 DERRICK BARGE OPERATOR by Pepito Frost M.D. [email or web address] Energyparma community general [id number]
--- NOTE | 2020-06-10 13:46 | CT_ITS ---
WS: [id number] CT ABDOMEN PELVIS TECHNIQUE: Contrast-enhanced CT of the abdomen and pelvis with coronal and sagittal reformatted image s. CLINICAL INFORMATION: abd pain COMPARISON: CT 12 DLP: 366.[address] scans at [facility] use at least one of these dose optimization techniques: automat ed exposure control; mA and/or kV adjustment per patient size (includes targeted exams where dose is matched to clinical indication); or iterative reconstruction. FINDINGS: Hepatomegaly. Mild diffuse fatty infiltration of the liver. Cholecystectomy clips. Postoperative farfan ges at the GE junction. Postoperative changes in the left upper quadrant and small bowel. Normal port al vein and splenic vein. Lung bases are well aerated. Adrenal glands are normal. Normal renal parenchymal enhancement. No hydronephrosis. Coarse pelvic phl eboliths are unchanged. Small amount of free fluid in the pelvis. No evidence of high-grade small or large bowel obstruction. Normal caliber abdominal aorta. Mild aortic calcification. CT/CT abdomen pelvis w con* [id number] IMPRESSION: 1. Prior postoperative changes cholecystectomy and Mary Lou-en-Y gastric bypass. M ild hepatomegaly with diffuse fatty infiltration of the liver. 2. Normal renal parenchymal enhancement. No hydronephrosis. 3. Trace free fluid in the pelvis. 4. No evidence of small or large bowel obstruction. 5. Coarse calcifications right adnexa unchanged. 6. No acute abdominal or pelvic findings.
[2020-06-10 14:03] LABS: Basophils % 0.5 %; Eosinophils # 0.1 10^3/uL (0.0-0.8); Eosinophils % 0.9 %; Hematocrit 38.6 % (37.0-47.0); Hemoglobin 11.6 g/dL (11.5-15.3); Lymphocytes # 3.5 10^3/uL (0.8-4.8); Lymphocytes % 45.7 %; Mean Corpuscular HGB Conc 30.1 g/dL (30.0-36.0); Mean Corpuscular Hemoglobin 24.7 pg (28.0-34.0); Mean Corpuscular Volume 82.1 fL (81-99); Mean Platelet Volume 10.3 fL (7.4-10.4); Monocytes # 0.8 10^3/uL (0.2-0.9); Neutrophils # 3.29 10^3/uL (1.8-7.7); Neutrophils % 42.8 %; Nucleated Red Blood Cells % 0 %; Platelet Count 381 10^3/cmm (130-400); Red Cell Distribution Width 16.5 % (12.1-15.1); White Blood Count 7.7 10^3/uL (4.0-10.0)
--- NOTE | 2020-06-10 14:06 | W.ED.CHESTPA ---
HPI - Chest Pain General: Chief Complaint: Chest Pain Stated Complaint: CP, MULTIPLE ISSUES Time Seen by Provider: 06/10/20 13:26 History of Present Illness: HPI narrative: 59-year-old female presents emergency room complaining of chest and upper abdominal discomfort. Radiates up into her chest but not into her neck or arm. She was just recently hospitalized for what she describes as an intracranial bleed and then on further work-up was found to have markedly elevated liver enzymes in the . She has mild scleral icterus. She cannot really name exactly what they found when she was at [place] and the liver enzymes are elevated. She used to drink rather heavily but states she is quit now. At the old records it appears she had a subarachnoid hemorrhage March 102019. She denies any headache discomfort difficulty speech or swallowing now. MD complaint: chest pain and chest heaviness Onset (ago): hour(s) Timing of current episode: episodic Onset: during rest and during exertion Pain location: epigastric Pain radiation: other (Lower and left chest) Severity: mild Quality: heaviness Relieving factors: nothing Exacerbating factors: nothing Associated symptoms: Deny abdominal pain, diaphoresis, dyspnea, fever(s), leg edema, nausea, palpitations, sense of impending doom, syncope or vomiting Treatment prior to arrival: none Review of Systems Const: Denies: fever(s) or diaphoresis ENMT: Denies: throat pain, ear or mastoid pain, nasal discharge or nasal congestion Card: Denies: palpitations or syncope Resp: Denies: dyspnea GI: Denies: abdominal pain, nausea or vomiting : Denies: flank pain, difficulty voiding, dysuria, urinary frequency or urinary urgency Skin/Breast: Denies: rash or pruritus PFSH ED PFSH: Medical History Acute pancreatitis Aftercare following bilateral wrist joint replacement surgery Cellulitis Costochondritis Facial tic Family history of tardive dyskinesia Gastritis Gastroenteritis Generalized anxiety disorder High risk medication use Immunization counseling Intussusception Major depressive disorder, recurrent, moderate Nephrolithiasis Post-traumatic stress disorder, chronic Psychosis Raynaud's disease without gangrene Rheumatoid arthritis without rheumatoid factor, multiple sites SAH (subarachnoid hemorrhage) Schizoaffective disorder Stammering improved Ulcerative colitis Ureterolithiasis Urinary calculi Surgical History History of bilateral knee replacement History of renal stent Hx of gastric bypass Family History Denies family history of Rheumatoid arthritis Social History Smoking and tobacco status: current every day smoker cigarettes Packs smoked per day: 1 Smoking risk assessment/counseling performed?: Yes Tobacco counseling given: counseling >3 minutes Physical Exam Const: COMMON NORMALS: no acute distress GENERAL APPEARANCE: cooperative and comfortable ORIENTATION/CONSCIOUSNESS: Yes awake, Yes oriented to person, Yes oriented to place and Yes oriented to time HENMT: COMMON NORMALS: normocephalic, atraumatic and hearing grossly normal bilaterally HEAD & SCALP: normocephalic and atraumatic Neck/C-Spine: COMMON NORMALS: no JVD Resp: COMMON NORMALS: normal respiratory effort, No retractions, No use of accessory muscles and clear to auscultation bilaterally AUSCULTATION: clear to auscultation bilaterally Cardio: COMMON NORMALS: no JVD, regular rate, regular rhythm and No murmurs present (Cardio) RATE: regular rate RHYTHM: regular rhythm GI: COMMON NORMALS: Soft to palpation and No hepatosplenomegaly present AUSCULTATION: Yes normoactive bowel sounds PALPATION: Yes Soft to palpation, No Tenderness to palpation present (GI), No Guarding due to palpation present (GI) and Yes No hepatosplenomegaly present Extremity: COMMON NORMALS: normal to inspection, capillary refill normal, no clubbing, cyanosis or edema, no calf tenderness and no pedal edema Neuro: SENSORIUM/ORIENTATION: Yes oriented to person, Yes oriented to place and Yes oriented to time Skin: COMMON NORMALS: no rashes or lesions noted GENERAL SKIN EXAM: no rashes or lesions noted Course Vital Signs: Vital signs: Vital Signs Temperature 98.0 F 06/10/20 13:25 Pulse Rate 58 L 06/10/20 15:56 Respiratory Rate 18 06/10/20 15:56 Blood Pressure 123/59 06/10/20 15:56 Pulse Oximetry 97 06/10/20 15:56 MDM - Chest Pain MDM Narrative: Medical decision making narrative: No further chest pain enzymes normal EKG unchanged. Will discharge home with Carafate as well as sublingual nitro as needed and will set up for outpatient stress testing. Lab Data: Labs: Lab Results 06/10/20 06/10/20 06/10/20 Range/Units 13:10 13:10 13:10 WBC 7.7 (4.0-10.0) 10^3/ uL RBC 4.70 (4.1-5.3) 10^6/u L Hgb 11.6 (11.5-15.3) g/dL Hct 38.6 (37.0-47.0) % MCV 82.1 (81-99) fL MCH 24.7 L (28.0-34.0) pg MCHC 30.1 (30.0-36.0) g/dL RDW 16.5 H (12.1-15.1) % Plt Count 381 (130-400) 10^3/c mm MPV 10.3 (7.4-10.4) fL Neut % (Auto) 42.8 % Lymph % (Auto) 45.7 % [place] % (Auto) 10.0 % Eos % (Auto) 0.9 % Baso % (Auto) 0.5 % Neut # (Auto) 3.29 (1.8-7.7) 10^3/u L Lymph # (Auto) 3.5 (0.8-4.8) 10^3/u L [place] # (Auto) 0.8 (0.2-0.9) 10^3/u L Eos # (Auto) 0.1 (0.0-0.8) 10^3/u L Baso # (Auto) 0.0 (0.0-0.1) 10^3/u L Nucleated RBC % (a uto) 0 % Nucleated RBCs # 0.0 /100WBC Sodium 138 (136-145) mmol/L Potassium 4.3 (3.5-5.1) mmol/L Chloride 103 (98-107) mmol/L Carbon Dioxide 26 (22-29) mmol/L Anion Gap 13.3 (5-19) BUN 11 (6-20) mg/dL Creatinine 0.8 (0.5-0.9) mg/dL GFR Calculation 73.4 L (90-130) mL/min Glucose 97 (65-115) mg/dL Calculated Osmolal ity 285 (285-295) mOsm/k g Calcium 9.4 (8.5-10.5) mg/dL Total Bilirubin 0.3 (0.15-1.2) mg/dL AST 19 (0-32) U/L ALT 13 (0-33) U/L Alkaline Phosphata se 86 (35-105) IU/L Ammonia (11-51) umol/L Creatine Kinase 80 (26-192) U/L Troponin T Baselin e 6 (0-10) ng/L Troponin T 120 Min lime (0-10) ng/L Delta Troponin T (0-10) ABS# Total Protein 6.4 L (6.6-8.7) g/dL Albumin 4.3 (3.5-5.2) g/dL Globulin 2.1 (1.3-4.6) g/dL Lipase 38 (13-60) U/L Urine Color (Yellow) Urine Appearance (CLEAR) Urine pH (5-7) Ur Specific Gravit y (1.005-1.030) Urine Protein (Negative) Urine Glucose (UA) (Normal) Urine Ketones (Negative) Urine Blood (Negative) Urine Nitrate (Negative) Urine Bilirubin (Negative) Urine Urobilinogen (Negative) mg/dL Ur Leukocyte Violeta ase (Negative) Urine RBC Urine WBC Ur Squamous Epith Cells Amorphous Sediment Urine Bacteria 06/10/20 06/10/20 06/10/20 Range/Units 14:30 14:30 15:00 WBC (4.0-10.0) 10^3/ uL RBC (4.1-5.3) 10^6/u L Hgb (11.5-15.3) g/dL Hct (37.0-47.0) % MCV (81-99) fL MCH (28.0-34.0) pg MCHC (30.0-36.0) g/dL RDW (12.1-15.1) % Plt Count (130-400) 10^3/c mm MPV (7.4-10.4) fL Neut % (Auto) % Lymph % (Auto) % [place] % (Auto) % Eos % (Auto) % Baso % (Auto) % Neut # (Auto) (1.8-7.7) 10^3/u L Lymph # (Auto) (0.8-4.8) 10^3/u L [place] # (Auto) (0.2-0.9) 10^3/u L Eos # (Auto) (0.0-0.8) 10^3/u L Baso # (Auto) (0.0-0.1) 10^3/u L Nucleated RBC % (a uto) % Nucleated RBCs # /100WBC Sodium (136-145) mmol/L Potassium (3.5-5.1) mmol/L Chloride (98-107) mmol/L Carbon Dioxide (22-29) mmol/L Anion Gap (5-19) BUN (6-20) mg/dL Creatinine (0.5-0.9) mg/dL GFR Calculation (90-130) mL/min Glucose (65-115) mg/dL Calculated Osmolal ity (285-295) mOsm/k g Calcium (8.5-10.5) mg/dL Total Bilirubin (0.15-1.2) mg/dL AST (0-32) U/L ALT (0-33) U/L Alkaline Phosphata se (35-105) IU/L Ammonia 27 (11-51) umol/L Creatine Kinase (26-192) U/L Troponin T Baselin e (0-10) ng/L Troponin T 120 Min lime 6.00 (0-10) ng/L Delta Troponin T 0 (0-10) ABS# Total Protein (6.6-8.7) g/dL Albumin (3.5-5.2) g/dL Globulin (1.3-4.6) g/dL Lipase (13-60) U/L Urine Color Yellow (Yellow) Urine Appearance Clear (CLEAR) Urine pH 7 (5-7) Ur Specific Gravit y 1.010 (1.005-1.030) Urine Protein Neg (Negative) Urine Glucose (UA) Norm (Normal) Urine Ketones Negative (Negative) Urine Blood Neg (Negative) Urine Nitrate Negative (Negative) Urine Bilirubin Neg (Negative) Urine Urobilinogen Norm (Negative) mg/dL Ur Leukocyte Violeta ase Negative (Negative) Urine RBC Not Reportable Urine WBC Not Reportable Ur Squamous Epith Cells Not Reportable Amorphous Sediment Not Reportable Urine Bacteria Not Reportable Discharge Plan Discharge Patient Disposition: Home Clinical Impression: Atypical chest pain Condition: Stable Prescriptions: New nitroglycerin 0.4 mg tablet, sublingual 0.4 mg sublingual Q5M PRN (Reason: chest pain) Qty: 30 RF: 0 Carafate 1 gram tablet 1 g PO Q6H 28 Days Qty: 112 RF: 0 No Action prednisone 10 mg tablet See Rx Instructions PO .COMPLEX PRN (Reason: rheumatoid arthritis) Qty: 30 RF: 2 cyanocobalamin (vitamin B-12) [Vitamin B-12] 500 mcg tablet 500 mcg PO DAILY RF: 0 benztropine 1 mg tablet 1 mg PO BID Qty: 60 RF: 1 clonazepam 0.5 mg tablet 0.5 mg PO TID PRN (Reason: anxiety) Qty: 90 RF: 1 lamotrigine [Lamictal] 200 mg tablet 200 mg PO BID Qty: 60 RF: 1 sertraline [Zoloft] 100 mg tablet 100 mg PO DAILY Qty: 30 RF: 1 temazepam [Restoril] 15 mg capsule 15 mg PO BEDTIME Qty: 30 RF: 1 Actemra 162 mg/0.9 mL syringe 162 mg SUBCUT .Q14 days 30 Days Qty: 2 RF: 4 pantoprazole [Protonix] 40 mg tablet,delayed release (DR/EC) 40 mg PO DAILY Qty: 30 RF: 3 aspirin [Aspir-81] 81 mg Tablet,Delayed Release (Dr/Ec) 81 mg PO DAILY RF: 0 dicyclomine 10 mg capsule 10 mg PO TID RF: 0 propranolol 80 mg Capsule,Extended Release 24hr 80 mg PO DAILY RF: 0 magnesium 1 tab PO Q7D RF: 0 Discharge Orders: Discharge ED (Routine); Ordered 06/10/20 Ordered By: Bubba Osborne Referrals: Helga Mancera DO [Primary Care Provider] - Discharge Diet: Usual diet Discharge Activity: Limit activity as instructed Activity Restrictions/Additional Instructions: This management will call to set up a cardiac stress test. Coding Level of Care Code ED Real Estate Transaction Coordinator for [facility] Fwcal Exam Comprehensive
[2020-06-10 14:27] LABS: Alanine Aminotransferase 13 U/L (0-33); Albumin Level 4.3 g/dL (3.5-5.2); Alkaline Phosphatase 86 IU/L (35-105); Anion Gap 13.3 (5-19); Aspartate Amino Transferase 19 U/L (0-32); Blood Urea Nitrogen 11 mg/dL (6-20); Calcium 9.4 mg/dL (8.5-10.5); Carbon Dioxide 26 mmol/L (22-29); Chloride 103 mmol/L (98-107); Creatine Phosphokinase 80 U/L (26-192); Globulin 2.1 g/dL (1.3-4.6); Glomerular Filtration Rate 73.4 mL/min (90-130); Glucose 97 mg/dL (65-115); Lipase 38 U/L (13-60); Osmolality Calculated 285 mOsm/kg (285-295); Potassium 4.3 mmol/L (3.5-5.1); Sodium 138 mmol/L (136-145); Total Bilirubin 0.3 mg/dL (0.15-1.2); Total Protein 6.4 g/dL (6.6-8.7); Troponin(5th) Baseline 6 ng/L (0-10)
[2020-06-10 14:55] LABS: Troponin 5 2HR Delta 0 ABS# (0-10)
[2020-06-10] MEDS: iohexol 300 mg/mL 100 mL Btl IV (14:57)
[2020-06-10 15:09] LABS: Ammonia 27 umol/L (11-51)
[2020-06-10 15:21] LABS: Bilirubin Urine Neg (Negative); Blood Urine Neg (Negative); Glucose Urine UA Norm (Normal); Ketones Urine Negative (Negative); Leukocyte Esterase Urine Negative (Negative); Nitrate Urine Negative (Negative); Protein Urine Neg (Negative); Urine Appearance Clear (CLEAR); Urine Color Yellow (Yellow); Urobilinogen Urine Norm (Negative); pH Urine 7 (5-7)
[2020-06-10 15:22] LABS: Add Urine Culture? No; Add Urine Microscopic? NO
--- NOTE | 2020-06-10 15:27 | ECG_ITS ---
[facility] Test Date: 2020-06-10 Pat Name: Nunu Marroquin Department: Room: Gender: Female Dietetic Tech: : 1960 Requested By: Bubba Lyn Order Number: [id number] Mc MD: Pepito Frost M.D. Measurements Intervals Mobile Rate: 55 P: 35 IN: 139 QRS: 46 QRSD: 100 T: 44 QT: 435 QTc: 417 Interpretive Statements SINUS BRADYCARDIA Compared to ECG 06/10/2020 13:55:56 No significant changes Electronically Signed On 06-10-2020 17:11:46 PROMOTIONS PRODUCER by Pepito Frost M.D. [email or web address] [email or web address] hospitalZapnip/store/[id number]
[2020-06-10 15:38] VITALS: BP 123/59; PULSE 53; RESP 18; O2SAT 98
[2020-06-10] MEDS: lidocaine 2% viscous 15 ML, aluminum-mag hydrox-simethicon 30 ML, sucralfate oral liq 1 GM PO (15:42)
[2020-06-10 15:56] VITALS: BP 123/59; PULSE 58; RESP 18; O2SAT 97
--- NOTE | 2020-06-12 15:46 | DCPLANNER ---
marketing and promotions manager had message to schedule an outpatient stress test for patient. marketing and promotions manager faxed order to centralized scheduling, will call for appointment information.
--- NOTE | 2020-06-25 13:10 | DCPLANNER ---
Patient has an outpatient stress test scheduled for , July 03, 2020 at 9:15.
--- NOTE | 2020-08-06 11:08 | DCPLANNER ---
Patient had an outpatient stress test scheduled for 07.03.20 - patient did attend appointment.
== END 2020-06-10 15:57 | disposition home or self-care (01) ==
PROVIDERS: Emergency Provider Family Medicine; PCP Family Medicine
DX: R07.89 Other chest pain (principal); Z79.82 Long term (current) use of aspirin; F17.210 Nicotine dependence, cigarettes, uncomplicated
CPT/HCPCS: 12345; 36415; 74177; 80053; 81001; 81003; 82140; 82550; 83690; 84484; 85025; 93005; 99282; 99284; Q9967

== ENCOUNTER → 2020-06-18 11:28 | Outpatient (BNVA) | payer MEDICARE, SELFPAY | PROVIDERS: PCP Family Medicine; Visit Provider Specialist | DX: M25.561 Pain in right knee (principal); M25.562 Pain in left knee | CPT/HCPCS: 73560; 73565 ==

== ENCOUNTER → 2020-06-19 10:35 | Outpatient (BNVA) | payer MEDICARE, SELFPAY | PROVIDERS: PCP Family Medicine; Visit Provider Nurse Practitioner | DX: F33.1 Major depressive disorder, recurrent, moderate (principal); F41.1 Generalized anxiety disorder; F43.12 Post-traumatic stress disorder, chronic; F25.9 Schizoaffective disorder, unspecified | CPT/HCPCS: 99214 ==

== ENCOUNTER 2020-07-07 09:08 | Outpatient (CLI) | payer MEDICARE, SELFPAY ==
--- NOTE | 2020-07-07 09:24 | ECG_ITS ---
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 Interpretive Statements NAME OF STUDY: LEXISCAN SESTAMIBI STRESS TEST INDICATION: Chest Pain PROCEDURE: At the baseline, the blood pressure was 131/72 mmHg with a heart rate of 58 bpm. The electrocardiogram showed sinus bradycardia, right axis deviation (possible limb lead reversal) nonspecific ST-T wave abnormality. The Lexiscan was infused over a period of 20 seconds. A total of 0.4 milligrams of Lexiscan was infused. The stress phase was continued for a total of 5 minutes. Heart rate at the end of the stress phase was 74 beats per with a blood pressure of 125/74 mmHg. The EKG at the peak infusion revealed no significant ST-T wave changes. Study was terminated due to protocol completion. Sestamibi was injected 20 seconds after the Lexiscan infusion. Blood pressure at the end of the recovery phase was 127/72 mmHg with a heart rate of 76 beats per minute. CONCLUSION: 1. Normal EKG response to LexiScan infusion. 2. No LexiScan induced chest pain or cardiac arrhythmia. 3. Normal blood pressure and heart rate response. 4. Sestamibi/sestamibi perfusion scan pending; see separate report. Electronically Signed On 07-09-2020 11:40:03 SHAPER MACHINE HAND by Aziza Owens M.D. [id number]
--- NOTE | 2020-07-07 09:24 | NMCV_ITS ---
NM kimi perf SPECT r/s* [id number] Nunu Marroquin Age: 59 Gender: F : 1960 Exam Date: 07/07/2020 10:42 Ordering Phys: Bubba Osborne DO Technologist: NICOLAS Grewal Exam Location: [facility] Indications: ATYPICAL CHEST PAIN STRESS TEST Please see separate stress test report in [facility] for full findings IMAGE PROTOCOL Rest/Stress 1 Lexiscan Day Radiopharmaceutical Dose (mCi) Administration Site Administered by Rest: Tc-99m 10.9 IV NICOLAS Peacock Sestamibi Stress:Tc-99m 32.5 IV NICOLAS Grewal Sestamibi Rest: 07-Jul-2020 60 Discovery 630 Stress: 07-Jul-2020 30 Discovery 630 0.4mg Lexiscan. Images obtained in supine and prone position. SPECT RESULTS Technical Quality: Excellent Raw Data Analysis: Normal Image Corrections: No attenuation or motion correction applied Summed Stress Score: 0 Summed Rest Score: 0 Summed Difference Score: 0 PERFUSION FINDINGS Small sized fixed perfusion abnormality of apical anterior apical inferior and apical sandoval on rest and stress images. This likely represents apical thinning artifact. FUNCTIONAL RESULTS (calculated via Gated SPECT) Stress Image LV EF (%): 76 Stress EDV (mL):107 TID: 0.89 Stress ESV (mL):26 FUNCTIONAL FINDINGS: The left ventricle is normal in size. Transient Ischemia Dilatation of 0.89. There is normal left ventricular systolic function. The left ventricular ejection fraction is normal with a value of 76%. There is normal left ventricular wall thickening and no regional wall motion abnormality. Normal end-diastolic and end-systolic volumes. IMPRESSIONS 1. Myocardial perfusion imaging is normal. 2. Overall left ventricular systolic function is normal without regional wall motion abnormalities. 3. The left ventricular ejection fraction is normal with a value of 76%. 4. This study suggests a low likelihood of angiographically significant coronary artery disease. Aziza Owens MD (Electronically Signed) Final Date: 09 July 2020 17:18 S
[2020-07-07 09:40] VITALS: BMI 24.9
[2020-07-07] MEDS: regadenoson 0.4 Mg/5 ml Syringe IVP (11:19)
[2020-07-07 11:35] VITALS: BP 127/72; PULSE 76
== END 2020-07-07 09:09 | disposition home or self-care (01) ==
LOC: CDL 09:12
PROVIDERS: PCP Family Medicine; Visit Provider Family Medicine
DX: R07.89 Other chest pain (principal)
CPT/HCPCS: 78452; 93017; A9500; J2785

== ENCOUNTER → 2020-07-15 07:47 | Outpatient (BNVA) | payer MEDICARE, SELFPAY | PROVIDERS: PCP Family Medicine; Visit Provider Nurse Practitioner | DX: F41.1 Generalized anxiety disorder (principal); F33.1 Major depressive disorder, recurrent, moderate; F43.12 Post-traumatic stress disorder, chronic; F17.219 Nicotine dependence, cigarettes, with unspecified nicotine-induced disorders; F25.9 Schizoaffective disorder, unspecified | CPT/HCPCS: 99214 ==

== ENCOUNTER → 2020-08-13 07:36 | Outpatient (BNVA) | payer MEDICARE, SELFPAY | PROVIDERS: PCP Family Medicine; Visit Provider Nurse Practitioner | DX: F33.1 Major depressive disorder, recurrent, moderate (principal); F41.1 Generalized anxiety disorder; F43.12 Post-traumatic stress disorder, chronic; F25.9 Schizoaffective disorder, unspecified; F17.219 Nicotine dependence, cigarettes, with unspecified nicotine-induced disorders | CPT/HCPCS: 99214 ==

== ENCOUNTER → 2020-08-20 09:54 | Outpatient (BNVA) | payer MEDICARE, SELFPAY | PROVIDERS: PCP Family Medicine; Visit Provider Internal Medicine Rheumatology | DX: E53.8 Deficiency of other specified B group vitamins (principal); M06.9 Rheumatoid arthritis, unspecified; Z79.899 Other long term (current) drug therapy; I73.00 Raynaud's syndrome without gangrene; M06.09 Rheumatoid arthritis without rheumatoid factor, multiple sites | CPT/HCPCS: 36415; 80053; 80061; 80076; 82565; 82607; 84443; 85025; 86140 ==

== ENCOUNTER 2020-08-23 17:43 | Emergency (ER) | payer MEDICARE, SELFPAY ==
[2020-08-23 17:53] VITALS: BP 137/76; PULSE 51; RESP 18; TEMP 36.7; O2SAT 96; BMI 25.7
--- NOTE | 2020-08-23 19:16 | XRR_ITS ---
PROCEDURE INFORMATION: Exam: XR Chest Exam date and time: 08/23/2020 7:30 PM Age: 59 years old Clinical indication: Cough and fever and shortness of breath; Additional info: Cough, SOB TECHNIQUE: Imaging protocol: XR of the chest. Views: 1 view. COMPARISON: CR XR chest 1V portable [id number] 03/10/2020 11:43 AM FINDINGS: Lungs: Unremarkable. No consolidation. Pleural spaces: Unremarkable. No pleural effusion. No pneumothorax. Heart/Mediastinum: Unremarkable. No cardiomegaly. Bones/joints: Unremarkable. XR/XR chest 1V portable [id number] IMPRESSION: No acute findings.
[2020-08-23 20:02] LABS: Basophils % 0.6 %; Eosinophils # 0.1 10^3/uL (0.0-0.8); Eosinophils % 2.3 %; Hematocrit 34.4 % (37.0-47.0); Hemoglobin 10.3 g/dL (11.5-15.3); Lymphocytes # 2.6 10^3/uL (0.8-4.8); Lymphocytes % 50.3 %; Mean Corpuscular HGB Conc 29.9 g/dL (30.0-36.0); Mean Corpuscular Hemoglobin 24.2 pg (28.0-34.0); Mean Corpuscular Volume 80.8 fL (81-99); Mean Platelet Volume 10.8 fL (7.4-10.4); Monocytes % 18.9 %; Neutrophils # 1.44 10^3/uL (1.8-7.7); Neutrophils % 27.7 %; Nucleated Red Blood Cells % 0 %; Platelet Count 299 10^3/cmm (130-400); Red Blood Count 4.26 10^6/uL (4.1-5.3); Red Cell Distribution Width 15.9 % (12.1-15.1); White Blood Count 5.2 10^3/uL (4.0-10.0)
[2020-08-23 20:26] LABS: D Dimer 0.37 ug/mIFEU (0-0.59)
[2020-08-23 20:34] LABS: Lactate (Lactic Acid level) 0.6 mmol/L (0.5-2.2)
[2020-08-23 20:43] LABS: Influenza A by IFA Negative (Negative); Influenza B by IFA Negative (Negative)
[2020-08-23 20:44] LABS: SARS Covid-2 Antigen Negative (Negative)
[2020-08-23 20:45] LABS: NT Pro B Type Natriuretic Pept 479 pg/mL (0-125); Procalcitonin 0.02 ng/mL (0-0.5)
[2020-08-23 20:56] LABS: Alanine Aminotransferase 26 U/L (0-33); Alkaline Phosphatase 87 IU/L (35-105); Anion Gap 11.8 (5-19); Aspartate Amino Transferase 35 U/L (0-32); Blood Urea Nitrogen 10 mg/dL (6-20); C Reactive Protein 0.5 mg/L (0.0-4.9); Calcium 8.6 mg/dL (8.5-10.5); Carbon Dioxide 25 mmol/L (22-29); Chloride 105 mmol/L (98-107); Globulin 1.7 g/dL (1.3-4.6); Glomerular Filtration Rate 85.6 mL/min (90-130); Glucose 77 mg/dL (65-115); Osmolality Calculated 284 mOsm/kg (285-295); Potassium 3.8 mmol/L (3.5-5.1); Sodium 138 mmol/L (136-145); Total Bilirubin 0.2 mg/dL (0.15-1.2); Total Protein 5.7 g/dL (6.6-8.7)
--- NOTE | 2020-08-23 21:08 | ED_ITS ---
HPI - General Adult General: Chief complaint: General Medical Stated complaint: headache 3 days, cough, SOB Time Seen by Provider: 08/23/20 18:48 Source: patient Mode of arrival: ambulatory Limitations: no limitations History of Present Illness: HPI narrative: 59-year-old female patient who presents to the emergency department with complaints of a cough of about 1 weeks duration, shortness of breath, and a headache of 3 days duration. She does have a history of migraines and her headache feels typical for her migraines. She denies any fever. She endorses postnasal drip. She has taken several [id number] medications but with no improvement. Onset (ago): week(s) (1) Associated symptoms: Reports cough, headache(s), malaise and weakness; Deny chest pain, confusion, diaphoresis, decreased appetite, dyspnea, fevers/chills, nausea, rash, palpitations, seizures, short of breath, syncope or vomiting Review of Systems General: Reports: 10 or more systems reviewed and unremarkable except in HPI and below Const: Reports: malaise; Denies: diaphoresis Card: Denies: chest pain, palpitations or syncope Resp: Denies: dyspnea GI: Denies: nausea or vomiting Skin/Breast: Denies: rash Neuro: Reports: headache(s); Denies: confusion PFSH ED PFSH: Medical History Acute pancreatitis Aftercare following bilateral wrist joint replacement surgery Bilateral knee pain Cellulitis Costochondritis Facial tic Family history of tardive dyskinesia Gastritis Gastroenteritis Generalized anxiety disorder High risk medication use Immunization counseling Intussusception Major depressive disorder, recurrent, moderate Nephrolithiasis Nicotine dependence, cigarettes, with unspecified nicotine-induced disorders Post-traumatic stress disorder, chronic Psychosis Raynaud's disease without gangrene Rheumatoid arthritis without rheumatoid factor, multiple sites SAH (subarachnoid hemorrhage) Schizoaffective disorder Stammering improved Ulcerative colitis Ureterolithiasis Urinary calculi Surgical History History of bilateral knee replacement History of renal stent Hx of gastric bypass Family History Denies family history of Rheumatoid arthritis Social History Smoking and tobacco status: current every day smoker cigarettes Packs smoked per day: 1 Smoking risk assessment/counseling performed?: Yes Tobacco counseling given: counseling >3 minutes Physical Exam Const: COMMON NORMALS: no acute distress, average body habitus, patient oriented x3, no limitations, healthy appearing, alert and well nourished HENMT: COMMON NORMALS: normocephalic, atraumatic and moist oral mucous membranes HEAD & SCALP: normocephalic and atraumatic Neck/C-Spine: COMMON NORMALS: no meningeal signs and no JVD Resp: COMMON NORMALS: normal respiratory effort, No retractions, No use of accessory muscles, clear to auscultation bilaterally and percussion normal AUSCULTATION: clear to auscultation bilaterally PERCUSSION: percussion normal Cardio: COMMON NORMALS: no JVD, regular rate, regular rhythm, S1 normal heart sound present, S2 normal heart sound present, No gallops present (Cardio), No clicks present (Cardio), No murmurs present (Cardio), No rub (Cardio) and Peripheral pulses 2+ throughout RATE: regular rate RHYTHM: regular rhythm HEART SOUNDS: S1 normal heart sound present and S2 normal heart sound present PERIPHERAL PULSES: Peripheral pulses 2+ throughout GI: COMMON NORMALS: Normal to inspection, nondistended, normoactive bowel soun ds present, Soft to palpation, non-tender, No hepatosplenomegaly present, no masses and no bruits PALPATION: Yes Soft to palpation and Yes No hepatosplenomegaly present Extremity: COMMON NORMALS: normal to inspection, full ROM, capillary refill normal, no calf tenderness and no pedal edema Neuro: COMMON NORMALS: patient oriented x3 SENSORIUM/ORIENTATION: Yes alert MENINGEAL SIGNS: Yes no meningeal signs Skin: COMMON NORMALS: no rashes or lesions noted, no wounds, turgor normal, no jaundice, no petechiae and no mottling GENERAL SKIN EXAM: no rashes or lesions noted and turgor normal Course Reevaluation(s): Reevaluation #1: Discussed her lab and imaging findings with her. Unremarkable for acute findings. Negative Covid and influenza. Chest x-ray unremarkable. We will discharge her home with a prescription for promethazine codeine for symptomatic treatment of her cough. She voiced understanding and is in agreement with the plan. Time: 21:09 Vital Signs: Vital signs: Vital Signs Temperature 98.0 F 08/23/20 17:53 Pulse Rate 85 08/23/20 21:21 Respiratory Rate 18 08/23/20 21:21 Blood Pressure 131/78 08/23/20 21:21 Pulse Oximetry 96 08/23/20 21:21 MDM - General Adult MDM Narrative: Medical decision making narrative: 59-year-old female patient who presents with cough for about a week duration. Evaluation in the emergency department was unremarkable and she is discharged home with a prescription for promethazine codeine for cough. Medical Records: Attestation: I reviewed the patient's medical records. Lab Data: Attestation: I reviewed the patient's lab results. Labs: Lab Results 08/23/20 08/23/20 08/23/20 Range/Units 19:38 19:38 19:38 WBC 5.2 (4.0-10.0) 10^3/ uL RBC 4.26 (4.1-5.3) 10^6/u L Hgb 10.3 L (11.5-15.3) g/dL Hct 34.4 L (37.0-47.0) % MCV 80.8 L (81-99) fL MCH 24.2 L (28.0-34.0) pg MCHC 29.9 L (30.0-36.0) g/dL RDW 15.9 H (12.1-15.1) % Plt Count 299 (130-400) 10^3/c mm MPV 10.8 H (7.4-10.4) fL Neut % (Auto) 27.7 % Lymph % (Auto) 50.3 % [place] % (Auto) 18.9 % Eos % (Auto) 2.3 % Baso % (Auto) 0.6 % Neut # (Auto) 1.44 L (1.8-7.7) 10^3/u L Lymph # (Auto) 2.6 (0.8-4.8) 10^3/u L [place] # (Auto) 1.0 H (0.2-0.9) 10^3/u L Eos # (Auto) 0.1 (0.0-0.8) 10^3/u L Baso # (Auto) 0.0 (0.0-0.1) 10^3/u L Nucleated RBC % (a uto) 0 % Nucleated RBCs # 0.0 /100WBC D-Dimer 0.37 (0-0.59) ug/mIFE U Sodium 138 (136-145) mmol/L Potassium 3.8 (3.5-5.1) mmol/L Chloride 105 (98-107) mmol/L Carbon Dioxide 25 (22-29) mmol/L Anion Gap 11.8 (5-19) BUN 10 (6-20) mg/dL Creatinine 0.7 (0.5-0.9) mg/dL GFR Calculation 85.6 L (90-130) mL/min Glucose 77 (65-115) mg/dL Calculated Osmolal ity 284 L (285-295) mOsm/k g Lactate (0.5-2.2) mmol/L Calcium 8.6 (8.5-10.5) mg/dL Total Bilirubin 0.2 (0.15-1.2) mg/dL AST 35 H (0-32) U/L ALT 26 (0-33) U/L Alkaline Phosphata se 87 (35-105) IU/L C-Reactive Protein 0.5 (0.0-4.9) mg/L NT-Pro-B Natriuret Pep 479 H (0-125) pg/mL Total Protein 5.7 L (6.6-8.7) g/dL Albumin 4.0 (3.5-5.2) g/dL Globulin 1.7 (1.3-4.6) g/dL Procalcitonin 0.02 (0-0.5) ng/mL Influenza Type A A g (Negative) Influenza Type B A g (Negative) SARS-CoV-2 Ag (Rap id) (Negative) 08/23/20 08/23/20 08/23/20 Range/Units 20:04 20:11 20:11 WBC (4.0-10.0) 10^3/ uL RBC (4.1-5.3) 10^6/u L Hgb (11.5-15.3) g/dL Hct (37.0-47.0) % MCV (81-99) fL MCH (28.0-34.0) pg MCHC (30.0-36.0) g/dL RDW (12.1-15.1) % Plt Count (130-400) 10^3/c mm MPV (7.4-10.4) fL Neut % (Auto) % Lymph % (Auto) % [place] % (Auto) % Eos % (Auto) % Baso % (Auto) % Neut # (Auto) (1.8-7.7) 10^3/u L Lymph # (Auto) (0.8-4.8) 10^3/u L [place] # (Auto) (0.2-0.9) 10^3/u L Eos # (Auto) (0.0-0.8) 10^3/u L Baso # (Auto) (0.0-0.1) 10^3/u L Nucleated RBC % (a uto) % Nucleated RBCs # /100WBC D-Dimer (0-0.59) ug/mIFE U Sodium (136-145) mmol/L Potassium (3.5-5.1) mmol/L Chloride (98-107) mmol/L Carbon Dioxide (22-29) mmol/L Anion Gap (5-19) BUN (6-20) mg/dL Creatinine (0.5-0.9) mg/dL GFR Calculation (90-130) mL/min Glucose (65-115) mg/dL Calculated Osmolal ity (285-295) mOsm/k g Lactate 0.6 (0.5-2.2) mmol/L Calcium (8.5-10.5) mg/dL Total Bilirubin (0.15-1.2) mg/dL AST (0-32) U/L ALT (0-33) U/L Alkaline Phosphata se (35-105) IU/L C-Reactive Protein (0.0-4.9) mg/L NT-Pro-B Natriuret Pep (0-125) pg/mL Total Protein (6.6-8.7) g/dL Albumin (3.5-5.2) g/dL Globulin (1.3-4.6) g/dL Procalcitonin (0-0.5) ng/mL Influenza Type A A g Negative (Negative) Influenza Type B A g Negative (Negative) SARS-CoV-2 Ag (Rap id) Negative (Negative) Imaging Data^: CXR: Attestation: I personally reviewed and interpreted this imaging study as follows: Radiologist's impression: [address] [address] XRay Report Signed Patient: Sury Marroquin #: [id number] : 1Acct#:[id number] Age/Sex: 59 / FADM Date: 08/23/20 Loc: ERRoom/Bed: Attending Dr: Ordering Provider/Ordering MD: Radha Jones MD, [facility] [place] Date of Service: 08/23/20 Procedure(s): XR chest 1V portable [id number] Accession Number(s): [id number] Report Number: [id number] PROCEDURE INFORMATION: Exam: XR Chest Exam date and time: 08/23/2020 7:30 PM Age: 59 years old Clinical indication: Cough and fever and shortness of breath; Additional info: Cough, SOB TECHNIQUE: Imaging protocol: XR of the chest. Views: 1 view. COMPARISON: CR XR chest 1V portable [id number] 03/10/2020 11:43 AM FINDINGS: Lungs: Unremarkable. No consolidation. Pleural spaces: Unremarkable. No pleural effusion. No pneumothorax. Heart/Mediastinum: Unremarkable. No cardiomegaly. Bones/joints: Unremarkable. XR/XR chest 1V portable [id number] IMPRESSION: No acute findings. Dictated By:Dave Camp Signed By:Christine Camp Date/Time:08/23/202008 DD/ 07 Discharge Plan Discharge Patient Disposition: Home Clinical Impression: Cough Condition: Stable Prescriptions: New promethazine-codeine 6.25-10 mg/5 mL syrup 5 ml PO Q6H PRN (Reason: cough) Qty: 118 RF: 0 Continued prednisone 10 mg tablet See Rx Instructions PO .COMPLEX PRN (Reason: rheumatoid arthritis) Qty: 30 RF: 2 cyanocobalamin (vitamin B-12) [Vitamin B-12] 500 mcg tablet 500 mcg PO DAILY RF: 0 prazosin 2 mg capsule 2 mg PO .HS Qty: 30 RF: 1 Actemra 162 mg/0.9 mL syringe 162 mg SUBCUT .Q14 days 30 Days Qty: 2 RF: 4 temazepam [Restoril] 30 mg capsule 30 mg PO .HS Qty: 30 RF: 1 sertraline [Zoloft] 100 mg tablet 100 mg PO DAILY Qty: 30 RF: 1 lamotrigine [Lamictal] 200 mg tablet 200 mg PO BID Qty: 60 RF: 1 clonazepam 0.5 mg tablet 0.5 mg PO TID PRN (Reason: anxiety) Qty: 90 RF: 1 benztropine 1 mg tablet 1 mg PO BID Qty: 60 RF: 1 pantoprazole [Protonix] 40 mg tablet,delayed release (DR/EC) 40 mg PO DAILY Qty: 30 RF: 3 nitroglycerin 0.4 mg tablet, sublingual 0.4 mg sublingual Q5M PRN (Reason: chest pain) Qty: 30 RF: 0 aspirin [Aspir-81] 81 mg Tablet,Delayed Release (Dr/Ec) 81 mg PO DAILY RF: 0 dicyclomine 10 mg capsule 10 mg PO TID RF: 0 propranolol 80 mg Capsule,Extended Release 24hr 80 mg PO DAILY RF: 0 magnesium 1 tab PO Q7D RF: 0 Discharge Orders: Discharge ED (Routine); Ordered 08/23/20 Ordered By: Radha Jones Referrals: Helga Mancera DO [Primary Care Provider] - 1-3 days Discharge Diet: Usual diet Discharge Activity: Increase activity as tolerated Patient Instructions: Acute Cough (ED), Opioid Safety Activity Restrictions/Additional Instructions: Return for any new or worsening symptoms. Follow-up with your primary care provider within 3 days. Take the cough medication as needed for cough. He may also benefit from some [id number] Claritin to see if that would help with your symptoms. Coding Level of Care Code ED Live In Companion for [facility] Fwd Exam Comprehensive
[2020-08-23 21:21] VITALS: BP 131/78; PULSE 85; RESP 18; O2SAT 96
== END 2020-08-23 21:25 | disposition home or self-care (01) ==
PROVIDERS: Emergency Provider Family Medicine; PCP Family Medicine
DX: R05 Cough (principal); Z79.82 Long term (current) use of aspirin; F17.210 Nicotine dependence, cigarettes, uncomplicated
CPT/HCPCS: 36415; 71045; 80053; 83605; 83880; 84145; 85025; 85378; 86140; 87426; 87804; 99283

== ENCOUNTER → 2020-09-03 14:41 | Outpatient (BNVA) | payer MEDICARE, SELFPAY | PROVIDERS: PCP Family Medicine; Visit Provider Internal Medicine Rheumatology | DX: M06.09 Rheumatoid arthritis without rheumatoid factor, multiple sites (principal); Z79.899 Other long term (current) drug therapy; I73.00 Raynaud's syndrome without gangrene; Z98.84 Bariatric surgery status; F17.210 Nicotine dependence, cigarettes, uncomplicated | CPT/HCPCS: 99214 ==

== ENCOUNTER → 2020-09-10 09:08 | Outpatient (BNVA) | payer MEDICARE, SELFPAY | PROVIDERS: PCP Family Medicine; Visit Provider Nurse Practitioner | DX: F33.1 Major depressive disorder, recurrent, moderate (principal); F41.1 Generalized anxiety disorder; F43.12 Post-traumatic stress disorder, chronic; F17.219 Nicotine dependence, cigarettes, with unspecified nicotine-induced disorders; F25.9 Schizoaffective disorder, unspecified | CPT/HCPCS: 99214 ==

== ENCOUNTER → 2020-09-16 07:55 | Outpatient (BNVA) | payer MEDICARE, SELFPAY | PROVIDERS: PCP Family Medicine; Visit Provider Specialist | DX: G31.84 Mild cognitive impairment of uncertain or unknown etiology (principal); G25.3 Myoclonus; F17.210 Nicotine dependence, cigarettes, uncomplicated | CPT/HCPCS: 96116; 99215 ==

== ENCOUNTER 2020-09-25 13:17 | Observation (INO) | payer MEDICARE, SELFPAY ==
[2020-09-25] VITALS (14 sets, daily range): BP systolic 100–124; BP diastolic 43–66; PULSE 50–75; RESP 16–21; TEMP 36.6–36.8; O2SAT 92–100; BMI 25.0
--- NOTE | 2020-09-25 13:30 | CT_ITS ---
WS: [id number] CT HEAD NONCONTRAST HISTORY: Symptoms of Acute Stroke TECHNIQUE: Contiguous axial imaging performed through the brain in 2.5 mm imaging. Bone and soft tiss ue windows. Sagittal and coronal reformats reviewed. All CT scans at [facility] use at ast one of these dose optimization techniques: automated exposure control; mA and/or kV adjustment pe r patient size (includes targeted exams where dose is matched to clinical indication); or iterative r econstruction. DLP: 763.39 mGy.cm COMPARISON: 03/10/2020 No acute intracranial hemorrhage, midline shift or mass effect. No atrophy or prior infarcts or herniation. Ventricles: Normal size with no hydrocephalus. Paranasal sinuses: Mild mucoperiosteal thickening in the sphenoid sinuses. No air-fluid levels. Mastoid air cells: Well pneumatized. Calvarium and scalp: Skull is intact with no soft tissue edema or swelling. CT/CT head wo con* [id number] IMPRESSION: 1. No acute intracranial hemorrhage or edema. 2. No hydrocephalus or sulcal effacement.
--- NOTE | 2020-09-25 13:30 | CT_ITS ---
WS: [id number] CT ANGIOGRAM CEREBRAL AND CAROTID ARTERIES HISTORY: dizziness, blurred vision general weakness. h/o CVA/TIAs. TECHNIQUE: CT angiogram is performed of the carotid and cerebral arteries. During arterial injection imaging is obtained from the skull vertex to the aortic arch in 1.25 mm imaging. Coronal and sagittal reformats are submitted. Additional multi planar reformats of the carotid and cerebral arteries are submitted, MIP imaging also reviewed. NASCET criteria utilized. All CT scans at [facility] use at least one of these dose optimization techniques: automated exposure control; mA and/or kV ad justment per patient size (includes targeted exams where dose is matched to clinical indication); or iterative reconstruction. CONTRAST: Omnipaque 350; 95 mL IV. DLP: 1808.82 mGy.cm COMPARISON: 03/10/2020 Carotid Angiogram: Right carotid: Common carotid artery: Arises normally from the innominate artery. No significant plaque or stenosis. Internal carotid artery: Very small amount of calcified plaque at the bifurcation. No stenosis. External carotid artery: Patent. Left carotid: Common carotid artery: Patent hardening artifact through the origin of the common carotid artery. Oth erwise normal. Internal carotid artery: No plaque or stenosis. External carotid artery: Patent. Right vertebral artery: Unremarkable. Left vertebral artery: Unremarkable. Arises normally from the subclavian artery. Subclavian arteries: Hardening artifact through the proximal LEFT subclavian artery. Cannot evaluate the proximal LEFT subclavian. The RIGHT subclavian arteries negative. Upper thorax: Normal. Thyroid gland: Normal. Osseous structures: Very minimal anterior wedging of T2, T3 and T4. CEREBRAL ANGIOGRAM: Intracranial vertebral arteries: Normal with no significant atherosclerosis. Basilar artery: No significant stenosis or occlusion. No aneurysm. Intracranial Internal carotid arteries: Mild atherosclerotic plaque through the cavernous sinuses. Si milar to the prior examination. Stenosis near 50%. No aneurysms or occlusions. Middle cerebral arteries: Normal. Anterior cerebral arteries and ACOM: Normal. Posterior cerebral arteries and PCOM's: No occlusions. The posterior communicating arteries are very small caliber. Small arachnoid granulations are noted within the transverse sinuses. No thrombus in the dural venous sinuses. Mastoid air cells: Normal. Paranasal sinuses: Normal. Calvarium: Normal. CT/CT angio headneck* [id number] IMPRESSION: 1. No significant extracranial carotid artery stenosis. 2. Mild moderate intracranial carotid artery stenosis involving the cavernous sinuses as before near 50%. 3. No aneurysm.
--- NOTE | 2020-09-25 13:30 | XR_ITS ---
WS: [id number] Portable AP upright chest, 09/25/2020 Clinical Data: reduced breath sounds Comparison: Portable chest, 08/23/2020. Findings: No nodules, masses or effusions are seen. The heart is normal. The pulmonary vascularity is not increased. No pneumonia or pneumothorax is seen. There are small surgical clips at the gastroeso phageal junction. XR/XR chest 1V portable [id number] Impression: Negative chest.
--- NOTE | 2020-09-25 13:36 | ECG_ITS ---
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 Measurements Intervals [place] Rate: 54 P: -14 OR: 142 QRS: 49 QRSD: 98 T: 42 QT: 424 QTc: 403 Interpretive Statements SINUS BRADYCARDIA Compared to ECG 06/10/2020 15:33:46 No significant changes Electronically Signed On 09-25-2020 19:24:59 CDT by Pepito Frost M.D. [id number]
[2020-09-25 13:55] LABS: Basophils % 0.5 %; Eosinophils # 0.2 10^3/uL (0.0-0.8); Hemoglobin 11.9 g/dL (11.5-15.3); Lymphocytes # 3.3 10^3/uL (0.8-4.8); Lymphocytes % 42.8 %; Mean Corpuscular Hemoglobin 23.2 pg (28.0-34.0); Mean Corpuscular Volume 80.1 fL (81-99); Mean Platelet Volume 11.5 fL (7.4-10.4); Monocytes # 0.9 10^3/uL (0.2-0.9); Monocytes % 11.7 %; Neutrophils # 3.29 10^3/uL (1.8-7.7); Neutrophils % 42.9 %; Nucleated Red Blood Cells % 0 %; Platelet Count 226 10^3/cmm (130-400); Red Blood Count 5.12 10^6/uL (4.1-5.3); Red Cell Distribution Width 16.6 % (12.1-15.1); White Blood Count 7.7 10^3/uL (4.0-10.0)
[2020-09-25 14:18] LABS: INR 0.91 (0.8-1.2)
[2020-09-25 14:19] LABS: Partial Thromboplastin Time 28.2 SECONDS (23.9-36.7)
[2020-09-25 14:21] LABS: Alanine Aminotransferase 22 U/L (0-33); Albumin Level 4.4 g/dL (3.5-5.2); Alkaline Phosphatase 72 IU/L (35-105); Anion Gap 13.3 (5-19); Aspartate Amino Transferase 23 U/L (0-32); Blood Urea Nitrogen 15 mg/dL (6-20); Calcium 8.8 mg/dL (8.5-10.5); Carbon Dioxide 27 mmol/L (22-29); Chloride 104 mmol/L (98-107); Globulin 1.8 g/dL (1.3-4.6); Glomerular Filtration Rate 85.6 mL/min (90-130); Glucose 87 mg/dL (65-115); Lipase 32 U/L (13-60); Osmolality Calculated 290 mOsm/kg (285-295); Potassium 4.3 mmol/L (3.5-5.1); Sodium 140 mmol/L (136-145); Total Bilirubin 0.4 mg/dL (0.15-1.2); Total Protein 6.2 g/dL (6.6-8.7)
[2020-09-25 14:22] LABS: Troponin(5th) Baseline 6 ng/L (0-10)
[2020-09-25] MEDS: iohexol 350 mg/mL 100 mL Btl IV (14:22)
--- NOTE | 2020-09-25 15:36 | ECG_ITS ---
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 Measurements Intervals [place] Rate: 50 P: -1 LA: 139 QRS: 39 QRSD: 98 T: 38 QT: 433 QTc: 398 Interpretive Statements SINUS BRADYCARDIA LOW QRS VOLTAGE IN EXTREMITY LEADS [QRS DEFLECTION < 0.5 mV IN LIMB LEADS] Compared to ECG 09/25/2020 13:48:53 Low QRS voltage now present Electronically Signed On 09-25-2020 19:31:57 CDT by Pepito Frost M.D. [id number]
[2020-09-25] MEDS: morphine 4 mg/mL SDV 1 mL 2 MG IVP (16:05)
[2020-09-25 16:25] LABS: Troponin 5 2HR Delta 0 ABS# (0-10)
[2020-09-25 17:25] LABS: Add Urine Microscopic? NO; Charge for UA Resulting for Rev
[2020-09-25 17:32] LABS: Specific Gravity, Urine 1.005 (1.005-1.030); Urine Appearance Clear (CLEAR); Urine Color Yellow (Yellow); pH Urine 7 (5-7)
[2020-09-25 17:33] LABS: Bilirubin Urine Neg (Negative); Blood Urine Neg (Negative); Glucose Urine UA Norm (Normal); Ketones Urine Negative (Negative); Leukocyte Esterase Urine Negative (Negative); Nitrate Urine Negative (Negative); Protein Urine Neg (Negative); Urobilinogen Urine Norm (Negative)
--- NOTE | 2020-09-25 17:33 | ED_ITS ---
HPI - Chest Pain General: Chief Complaint: Chest Pain Stated Complaint: BLURRY VISION/ DIZZY/ CONFUSION Time Seen by Provider: 09/25/20 13:23 History of Present Illness: HPI narrative: The patient is a 59-year-old female with past medical history stroke, TIAs who comes to the ER complaining at 730 this morning she got out of bed feeling normal and within a few minutes went completely blind which lasted for a few minutes. It improved to blurry vision and dizziness. She reports yesterday evening she felt heavy in both of her arms. She is concerned that she might be having another stroke and wants to be worked up. Also she complains of mild left-sided chest pain and abdominal cramping. MD complaint: chest pain Pain location: left chest Quality: other (pressure) Relieving factors: nothing Associated symptoms: Reports abdominal pain; Deny dyspnea or palpitations Review of Systems General: Reports: 10 or more systems reviewed and unremarkable except in HPI and below Const: Denies: fatigue Eyes: Denies: change in vision, blurry vision or eye redness ENMT: Denies: throat pain, swelling of lips/tongue, ear or mastoid pain or nasal congestion Card: Reports: chest pain; Denies: palpitations, irregular heart rhythm, edema, dyspnea on exertion or orthopnea Resp: Denies: dyspnea, productive cough or non-productive cough GI: Reports: abdominal pain : Denies: flank pain, difficulty voiding, urinary frequency or urinary urgency Musc: Denies: neck pain, back pain, extremity pain, joint pain, joint redness, limited range of motion or muscle weakness Skin/Breast: Denies: rash, pruritus, erythema, skin pain or skin tenderness Neuro: Reports: headache(s) and other (Dizziness, blurred vision); Denies: numbness in extremities, weakness in extremities, sensory changes, difficulty walking, dizziness, confusion or Slurred speech present Psych: Denies: anxiety or depression Endo: Denies: polyuria All/Imm: Denies: urticaria, throat swelling or tongue swelling PFSH ED PFSH: Medical History Acute pancreatitis Aftercare following bilateral wrist joint replacement surgery Bilateral knee pain Cellulitis Costochondritis Facial tic Family history of tardive dyskinesia Gastritis Gastroenteritis Generalized anxiety disorder High risk medication use Immunization counseling Intussusception Major depressive disorder, recurrent, moderate Nephrolithiasis Nicotine dependence, cigarettes, with unspecified nicotine-induced disorders Post-traumatic stress disorder, chronic Psychosis Raynaud's disease without gangrene Rheumatoid arthritis without rheumatoid factor, multiple sites SAH (subarachnoid hemorrhage) Schizoaffective disorder Stammering improved Ulcerative colitis Ureterolithiasis Urinary calculi Surgical History History of bilateral knee replacement History of renal stent Hx of gastric bypass Family History Denies family history of Rheumatoid arthritis Social History Smoking and tobacco status: current every day smoker cigarettes Packs smoked per day: 1 Smoking risk assessment/counseling performed?: Yes Tobacco counseling given: counseling >3 minutes Physical Exam Const: COMMON NORMALS: no acute distress, average body habitus, patient oriented x3, no limitations, healthy appearing, alert and well nourished GENERAL APPEARANCE: cooperative, comfortable, well kempt and well developed ORIENTATION/CONSCIOUSNESS: Yes awake, Yes oriented to person, Yes oriented to place and Yes oriented to time HENMT: COMMON NORMALS: normocephalic, external ears normal and Normal external nose present HEAD & SCALP: normal to inspection and normocephalic NOSE: Normal external nose present EXTERNAL EAR: Yes external ears normal MOUTH: Normal oral and palatal mucosa present THROAT: posterior oropharynx normal Eye: COMMON NORMALS: Equal, round and reactive pupils present and EOMs intact bilaterally GENERAL EYE: appearance normal, both eyes and all related structures PUPIL: Yes Equal, round and reactive pupils present Neck/C-Spine: COMMON NORMALS: full ROM, no lymphadenopathy, no meningeal signs and no JVD GENERAL: Yes normal visual inspection Lymph: LYMPHATIC: no lymphadenopathy noted Chest: COMMONS NORMALS: normal inspection of the chest and normal palpation of entire chest wall Resp: COMMON NORMALS: normal respiratory effort, No retractions, No use of accessory muscles, clear to auscultation bilaterally and percussion normal EFFORT & INSPECTION: Yes able to speak in complete sentences AUSCULTATION: clear to auscultation bilaterally PERCUSSION: percussion normal Cardio: COMMON NORMALS: no JVD, regular rate, regular rhythm, S1 normal heart sound present, S2 normal heart sound present and Peripheral pulses 2+ throughout RATE: regular rate RHYTHM: regular rhythm HEART SOUNDS: S1 normal heart sound present and S2 normal heart sound present PERIPHERAL PULSES: Peripheral pulses 2+ throughout GI: COMMON NORMALS: Normal to inspection, nondistended, normoactive bowel sounds present, Soft to palpation, non-tender and no masses INSPECTION: Yes normal to inspection PALPATION: Yes Soft to palpation : COMMON NORMALS: Yes no CVA tenderness BLADDER/KIDNEY EXAM: Yes no CVA tenderness Back/Pelvis: COMMON NORMALS: no CVA tenderness, thoracic and lumbar spine normal to inspection, no thoracic nor lumbar tenderness and thoraco-lumbar ROM normal Extremity: COMMON NORMALS: normal to inspection, full ROM, capillary refill normal, no joint enlargement and no pedal edema GENERAL: Yes normal exam except as noted Neuro: COMMON NORMALS: patient oriented x3, CN's II-XII intact bilaterally, moves all extremities, no focal motor deficits, no sensory deficits noted and gait normal SENSORIUM/ORIENTATION: Yes alert, Yes oriented to person, Yes oriented to place and Yes oriented to time MENINGEAL SIGNS: Yes no meningeal signs OTHER: She has no focal neurologic deficits on exam. She does have blurred vision but is able to read fine print. No double vision. Psych: COMMON NORMALS: mental status grossly normal, Normal thought process present, cooperative, normal affect and speech normal APPEARANCE: Yes well kempt ATTITUDE: Yes calm SPEECH: Yes normal speech THOUGHT PROCESS: Normal thought process present Skin: COMMON NORMALS: no rashes or lesions noted GENERAL SKIN EXAM: no rashes or lesions noted Course Vital Signs: Vital signs: Vital Signs Temperature 97.8 F 09/25/20 13:40 Pulse Rate 58 L 09/25/20 15:09 Respiratory Rate 18 09/25/20 16:05 Blood Pressure 114/52 09/25/20 15:09 Pulse Oximetry 98 09/25/20 16:05 MDM - Chest Pain MDM Narrative: Medical decision making narrative: Patient came into the ER with blurred vision, nausea. At 730 this morning she had an episode of blindness as well. She has past medical history of stroke and TIAs. Scan of head and neck was negative for any acute pathology. Discussed with [facility] stroke Dr. Martin who recommended admitting for MRI and medical management. Discussed with Dr. Sharma who accepts for admission. Lab Data: Labs: Lab Results 09/25/20 09/25/20 09/25/20 Range/Units 13:41 13:41 13:41 WBC 7.7 (4.0-10.0) 10^3/ uL RBC 5.12 (4.1-5.3) 10^6/u L Hgb 11.9 (11.5-15.3) g/dL Hct 41.0 (37.0-47.0) % MCV 80.1 L (81-99) fL MCH 23.2 L (28.0-34.0) pg MCHC 29.0 L (30.0-36.0) g/dL RDW 16.6 H (12.1-15.1) % Plt Count 226 (130-400) 10^3/c mm MPV 11.5 H (7.4-10.4) fL Neut % (Auto) 42.9 % Lymph % (Auto) 42.8 % [place] % (Auto) 11.7 % Eos % (Auto) 2.0 % Baso % (Auto) 0.5 % Neut # (Auto) 3.29 (1.8-7.7) 10^3/u L Lymph # (Auto) 3.3 (0.8-4.8) 10^3/u L [place] # (Auto) 0.9 (0.2-0.9) 10^3/u L Eos # (Auto) 0.2 (0.0-0.8) 10^3/u L Baso # (Auto) 0.0 (0.0-0.1) 10^3/u L Nucleated RBC % (a uto) 0 % Nucleated RBCs # 0.0 /100WBC PT 12.50 (12.1-14.9) SECO NDS INR 0.91 (0.8-1.2) APTT 28.2 (23.9-36.7) SECO NDS Sodium 140 (136-145) mmol/L Potassium 4.3 (3.5-5.1) mmol/L Chloride 104 (98-107) mmol/L Carbon Dioxide 27 (22-29) mmol/L Anion Gap 13.3 (5-19) BUN 15 (6-20) mg/dL Creatinine 0.7 (0.5-0.9) mg/dL GFR Calculation 85.6 L (90-130) mL/min Glucose 87 (65-115) mg/dL Calculated Osmolal ity 290 (285-295) mOsm/k g Calcium 8.8 (8.5-10.5) mg/dL Total Bilirubin 0.4 (0.15-1.2) mg/dL AST 23 (0-32) U/L ALT 22 (0-33) U/L Alkaline Phosphata se 72 (35-105) IU/L Troponin T Baselin e (0-10) ng/L Troponin T 120 Min sae (0-10) ng/L Delta Troponin T (0-10) ABS# Total Protein 6.2 L (6.6-8.7) g/dL Albumin 4.4 (3.5-5.2) g/dL Globulin 1.8 (1.3-4.6) g/dL Lipase 32 (13-60) U/L Urine Color (Yellow) Urine Appearance (CLEAR) Urine pH (5-7) Ur Specific Gravit y (1.005-1.030) Urine Protein (Negative) Urine Glucose (UA) (Normal) Urine Ketones (Negative) Urine Blood (Negative) Urine Nitrate (Negative) Urine Bilirubin (Negative) Urine Urobilinogen (Negative) mg/dL Ur Leukocyte Violeta ase (Negative) 09/25/20 09/25/20 09/25/20 Range/Units 13:41 15:54 17:20 WBC (4.0-10.0) 10^3/ uL RBC (4.1-5.3) 10^6/u L Hgb (11.5-15.3) g/dL Hct (37.0-47.0) % MCV (81-99) fL MCH (28.0-34.0) pg MCHC (30.0-36.0) g/dL RDW (12.1-15.1) % Plt Count (130-400) 10^3/c mm MPV (7.4-10.4) fL Neut % (Auto) % Lymph % (Auto) % [place] % (Auto) % Eos % (Auto) % Baso % (Auto) % Neut # (Auto) (1.8-7.7) 10^3/u L Lymph # (Auto) (0.8-4.8) 10^3/u L [place] # (Auto) (0.2-0.9) 10^3/u L Eos # (Auto) (0.0-0.8) 10^3/u L Baso # (Auto) (0.0-0.1) 10^3/u L Nucleated RBC % (a uto) % Nucleated RBCs # /100WBC PT (12.1-14.9) SECO NDS INR (0.8-1.2) APTT (23.9-36.7) SECO NDS Sodium (136-145) mmol/L Potassium (3.5-5.1) mmol/L Chloride (98-107) mmol/L Carbon Dioxide (22-29) mmol/L Anion Gap (5-19) BUN (6-20) mg/dL Creatinine (0.5-0.9) mg/dL GFR Calculation (90-130) mL/min Glucose (65-115) mg/dL Calculated Osmolal ity (285-295) mOsm/k g Calcium (8.5-10.5) mg/dL Total Bilirubin (0.15-1.2) mg/dL AST (0-32) U/L ALT (0-33) U/L Alkaline Phosphata se (35-105) IU/L Troponin T Baselin e 6 (0-10) ng/L Troponin T 120 Min sae 6.00 (0-10) ng/L Delta Troponin T 0 (0-10) ABS# Total Protein (6.6-8.7) g/dL Albumin (3.5-5.2) g/dL Globulin (1.3-4.6) g/dL Lipase (13-60) U/L Urine Color Yellow (Yellow) Urine Appearance Clear (CLEAR) Urine pH 7 (5-7) Ur Specific Gravit y 1.005 (1.005-1.030) Urine Protein Neg (Negative) Urine Glucose (UA) Norm (Normal) Urine Ketones Negative (Negative) Urine Blood Neg (Negative) Urine Nitrate Negative (Negative) Urine Bilirubin Neg (Negative) Urine Urobilinogen Norm (Negative) mg/dL Ur Leukocyte Violeta ase Negative (Negative) Discharge Plan Discharge Patient Disposition: Placed in Observation Clinical Impression: Neurological symptoms, Chest pain Coding Level of Care Code ED Cleat Layer for Chg Rocío
[2020-09-25 17:38] LABS: Amphetamines Screen Urine Negative (Negative); Barbiturates Screen Urine Negative (Negative); Benzodiazepines Screen Urine Negative (Negative); Cocaine Screen Urine Negative (Negative); Opiate Screen Urine Positive (Negative); PCP Screen Urine Negative (Negative); THC Screen Urine Positive (Negative)
[2020-09-25] MEDS: HYDROmorphone 1 mg/mL INJ 1 mL 0.5 MG IVP (17:46)
--- NOTE | 2020-09-25 18:06 | PM.HP ---
Providers/Chief Complaint Primary Care Provider: Helga Manecra DO Chief Complaint: BLURRY VISION/ DIZZY/ CONFUSION History of Present Illness Nunu Marroquin is a 59 year old female with past medical history of subarachnoid hemorrhage, myoclonus,Mild cognitive impairment with memory loss, rheumatoid arthritis,Raynaud's disease, came in with chief complaint of acute onset of transient vision loss, happened this morning, it lasted roughly around 10 seconds, followed by return of vision, she is also complaining of spinning of head, as well as lightheadedness, deny any loss of consciousness, seizure-like activity, nausea ,vomiting, she is complaining of runny nose, cough, b/l headache going on for the last 2 to 3-weeks. Patient was worked up for above-mentioned complaint: CT head without contrast: No acute intracranial pathology CT ANGIOGRAM CEREBRAL AND CAROTID ARTERIES: No significant extracranial carotid artery stenosis. Mild moderate intracranial carotid artery stenosis involving the cavernous sinuses as before near 50%. No aneurysm. X-ray chest: No acute pathology EKG: Sinus bradycardia Pertinent labs: CBC, CMP:Normal ,Troponin :Normal , Urine analysis :Clean , Utox: Positive for [place] Review of Systems Const: Denies: fever(s), chills, body aches, change in appetite or diaphoresis Card: Denies: palpitations, edema, swelling of feet/ankles, dyspnea on exertion, orthopnea or leg pain with exertion Resp: Denies: dyspnea or pain on inspiration GI: Denies: abdominal pain, nausea, vomiting, diarrhea or constipation : Denies: flank pain Musc: Denies: back pain, extremity pain or extremity swelling Medications/Allergies Home Medications Medication Instructions Recorded Confirmed Last Taken Type aspirin [Aspir-81] 81 mg PO DAILY 07/04/19 09/25/20 09/25/20 History magnesium 1 tab PO Q7D 08/31/19 09/25/20 Unknown History propranolol 80 mg PO DAILY 08/31/19 09/25/20 09/25/20 History cyanocobalamin (vitamin B-12) 500 500 mcg PO DAILY 12/19/19 09/25/20 Unknown History mcg tablet nitroglycerin 0.4 mg SUBLINGUAL Q5M PRN #30 tab 06/10/20 09/25/20 Unknown Rx benztropine 1 mg tablet 1 mg PO BID #60 tab 08/13/20 09/25/20 09/25/20 Rx clonazepam 0.5 mg tablet 0.5 mg PO TID PRN #90 tab 08/13/20 09/25/20 09/25/20 Rx lamotrigine 200 mg tablet 200 mg PO BID #60 tab 08/13/20 09/25/20 09/25/20 Rx sertraline 100 mg tablet 100 mg PO DAILY #30 tab 08/13/20 09/25/20 09/25/20 Rx pantoprazole 40 mg tablet,delayed 40 mg PO DAILY #30 tab 09/03/20 09/25/20 09/25/20 Rx release prednisone 10 mg tablet See Rx Instructions PO .COMPLEX 09/03/20 09/25/20 Unknown Rx PRN #60 tab Ambien 5 mg PO BEDTIME 09/25/20 09/25/20 09/24/20 History dicyclomine 20 mg PO TID PRN 09/25/20 09/25/20 Unknown History sumatriptan succinate 50 mg PO Q2H PRN 09/25/20 09/25/20 Unknown History tocilizumab [Actemra] 162 mg SUBCUT Q7D 09/25/20 09/25/20 09/25/20 History Allergies Allergy/AdvReac Type Severity Reaction Status Date / Time hydroxyzine [From Vistaril] Allergy Unknown Verified 09/16/20 07:58 lithium Allergy makes me Verified 09/16/20 07:58 mean sulfamethizole Allergy Unknown Verified 09/16/20 07:58 PFSH Acute PFSH: Medical History Acute pancreatitis Aftercare following bilateral wrist joint replacement surgery Bilateral knee pain Cellulitis Costochondritis Facial tic Family history of tardive dyskinesia Gastritis Gastroenteritis Generalized anxiety disorder High risk medication use Immunization counseling Intussusception Major depressive disorder, recurrent, moderate Nephrolithiasis Nicotine dependence, cigarettes, with unspecified nicotine-induced disorders Post-traumatic stress disorder, chronic Psychosis Raynaud's disease without gangrene Rheumatoid arthritis without rheumatoid factor, multiple sites SAH (subarachnoid hemorrhage) Schizoaffective disorder Stammering improved Ulcerative colitis Ureterolithiasis Urinary calculi Surgical History History of bilateral knee replacement History of renal stent Hx of gastric bypass Family History Denies family history of Rheumatoid arthritis Social History Smoking and tobacco status: current every day smoker cigarettes Packs smoked per day: 1 Smoking risk assessment/counseling performed?: Yes Tobacco counseling given: counseling >3 minutes Vitals/I&O/Wt Last Vital Signs Temp 97.8 F 09/25/20 13:40 Pulse 58 L 09/25/20 15:09 Resp 18 09/25/20 17:46 BP 114/52 09/25/20 15:09 Pulse Ox 98 09/25/20 17:46 Weight last 48 hrs Weight 66.224 kg Physical Exam Const: COMMON NORMALS: patient oriented x3 HENMT: COMMON NORMALS: normocephalic and atraumatic HEAD & SCALP: normocephalic and atraumatic Chest: CHEST: Yes Symmetrical chest wall rise Resp: COMMON NORMALS: clear to auscultation bilaterally EFFORT & INSPECTION: Yes symmetric chest movement AUSCULTATION: clear to auscultation bilaterally Cardio: COMMON NORMALS: regular rate, regular rhythm, S1 normal heart sound present, S2 normal heart sound present, No gallops present (Cardio), No murmurs present (Cardio), No rub (Cardio) and Peripheral pulses 2+ throughout RATE: regular rate RHYTHM: regular rhythm HEART SOUNDS: S1 normal heart sound present and S2 normal heart sound present PERIPHERAL PULSES: Peripheral pulses 2+ throughout GI: COMMON NORMALS: Normal to inspection, nondistended, normoactive bowel sounds present, Soft to palpation, non-tender, No hepatosplenomegaly present and no masses AUSCULTATION: Yes normoactive bowel sounds PALPATION: Yes Soft to palpation and Yes No hepatosplenomegaly present RECTAL EXAM: deferred Extremity: COMMON NORMALS: no clubbing, cyanosis or edema and no pedal edema Neuro: COMMON NORMALS: patient oriented x3, moves all extremities, no focal motor deficits, no sensory deficits noted and gait normal SENSORIUM/ORIENTATION: Yes alert, Yes oriented to person, Yes oriented to place and Yes oriented to time MOTOR EXAM: 5/5 motor strength present throughout, no tremor noted, Motor fasciculations not present, Normal motor muscle tone present throughout and Motor abnormalities not present Data : 09/25/20 13:41 09/25/20 13:41 A&P Assessment and plan (1) Dizziness: Patient is complaining of dizziness as well as vertigo-like symptoms, needs to be in hospital for observation to rule out any possible stroke. Patient blood pressure is pretty well controlled: Less likely PRES 2D : The left ventricular ejection fraction is normal with a value of 76% Fall Precaution Telemetry Meclizine PRN aspirin 81 mg p.o. daily Status: Acute (2) Sinus bradycardia: Asymptomatic sinus bradycardia. Telemetry Status: Acute (3) Chest pain: Atypical chest pain: Patient has a recent stress test done which was normal Status: Acute (4) Nicotine dependence, cigarettes, with unspecified nicotine-induced disorders: Nicotine patch Status: Acute (5) Contracture of right index finger: Status: Acute (6) Myoclonus: Status: Acute Additional A&P Information Code Status :Full Code DVT PPX: Lovenox 40 mg sc daily Disposition :Home Attestations Medical Necessity Statement*: Patient needs to be in hospital for management of dizziness vertigo, rule out stroke.Anticipated length of stay less than 2 midnights. 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
--- NOTE | 2020-09-25 19:36 | ECG_ITS ---
[facility] ED Test Date: 2020-09-25 Pat Name: Nnuu Marroquin Department: Room: 256 Gender: Female Cognos Lead: : 1960 Requested By: Jerald Cho Order Number: [id number] Mc MD: Aziza Owens M.D. Measurements Intervals [place] Rate: 53 P: 58 [place]: 148 QRS: 29 QRSD: 98 T: 57 QT: 391 QTc: 367 Interpretive Statements SINUS BRADYCARDIA Compared to ECG 09/25/2020 15:18:52 No significant changes Electronically Signed On 10-01-2020 7:11:58 CDT by Aziza Owens M.D. [id number]
[2020-09-25 21:05] LABS: Troponin 5 6HR Delta 0 ng/L (0-12)
[2020-09-25] MEDS: enoxaparin 40 mg/0.4 mL Syringe SUBCUT (21:29)
[2020-09-25] MEDS: oxyCODONE-APAP 5-325 mg Tablet 1 TAB PO (21:30)
[2020-09-25] MEDS: zolpidem 5 mg Tablet PO (21:30)
[2020-09-25 21:33] LABS: Glucose Point of Care 87 mg/dL (70-110)
[2020-09-25] MEDS: nitroglycerin 0.4 mg sublingual Tablet SUBLINGUAL (22:20)
--- NOTE | 2020-09-25 22:27 | ECG_ITS ---
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 Measurements Intervals [place] Rate: 50 P: 46 MA: 155 QRS: 45 QRSD: 100 T: 51 QT: 433 QTc: 398 Interpretive Statements SINUS BRADYCARDIA Compared to ECG 09/25/2020 21:04:37 No significant changes Electronically Signed On 10-01-2020 6:58:46 CDT by Aziza Owens M.D. [id number]
[2020-09-25 23:24] LABS: Troponin(5th) Baseline 6 ng/L (0-10)
[2020-09-26] VITALS: BP 102/61; PULSE 72; RESP 16; TEMP 36.8; O2SAT 95
--- NOTE | 2020-09-26 00:27 | ECG_ITS ---
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 Measurements Intervals [place] Rate: 57 P: 53 ND: 165 QRS: 49 QRSD: 99 T: 51 QT: 399 QTc: 391 Interpretive Statements SINUS BRADYCARDIA Compared to ECG 09/25/2020 22:38:00 No significant changes Electronically Signed On 10-01-2020 7:11:29 CDT by Aziza Owens M.D. [id number]
[2020-09-26] MEDS: ketorolac 30 mg/mL INJ 15 MG IVP (00:57)
[2020-09-26 01:22] LABS: Troponin 5 2HR Delta 0 ABS# (0-10)
[2020-09-26 03:47] VITALS: BP 109/64; PULSE 65; RESP 14; TEMP 36.8; O2SAT 95
[2020-09-26 04:52] LABS: Basophils % 0.7 %; Eosinophils # 0.1 10^3/uL (0.0-0.8); Eosinophils % 2.8 %; Hematocrit 36.2 % (37.0-47.0); Hemoglobin 10.9 g/dL (11.5-15.3); Lymphocytes # 2.1 10^3/uL (0.8-4.8); Lymphocytes % 47.6 %; Mean Corpuscular HGB Conc 30.1 g/dL (30.0-36.0); Mean Corpuscular Hemoglobin 23.9 pg (28.0-34.0); Mean Corpuscular Volume 79.4 fL (81-99); Mean Platelet Volume 10.7 fL (7.4-10.4); Monocytes # 0.6 10^3/uL (0.2-0.9); Monocytes % 14.3 %; Neutrophils % 34.4 %; Nucleated Red Blood Cells % 0 %; Platelet Count 288 10^3/cmm (130-400); Red Blood Count 4.56 10^6/uL (4.1-5.3); Red Cell Distribution Width 16.4 % (12.1-15.1); White Blood Count 4.4 10^3/uL (4.0-10.0)
[2020-09-26 05:12] LABS: Anion Gap 9.5 (5-19); Blood Urea Nitrogen 19 mg/dL (6-20); Calcium 9.3 mg/dL (8.5-10.5); Carbon Dioxide 30 mmol/L (22-29); Chloride 104 mmol/L (98-107); Glomerular Filtration Rate 64.1 mL/min (90-130); Glucose 82 mg/dL (65-115); Osmolality Calculated 289 mOsm/kg (285-295); Potassium 4.5 mmol/L (3.5-5.1); Sodium 139 mmol/L (136-145)
[2020-09-26 05:17] LABS: Troponin 5 6HR Delta 0 ng/L (0-12)
[2020-09-26 06:00] VITALS: PULSE 57
[2020-09-26 06:34] LABS: Glucose Point of Care 92 mg/dL (70-110)
[2020-09-26 07:47] VITALS: BP 114/76; PULSE 65; RESP 18; TEMP 36.3
[2020-09-26] MEDS: sertraline 100 mg Tablet PO (08:39)
[2020-09-26] MEDS: cyanocobalamin 1,000 mcg Tablet 500 MCG PO (08:39)
[2020-09-26] MEDS: benztropine 1 mg Tablet PO (08:39)
[2020-09-26] MEDS: aspirin 81 mg EC Tablet PO (08:39)
[2020-09-26] MEDS: lamoTRIgine 100 mg Tablet 200 MG PO (08:40)
[2020-09-26] MEDS: pantoprazole DR 40 mg Tablet PO (08:40)
[2020-09-26] MEDS: CLONazepam 0.5 mg Tablet PO (08:40)
[2020-09-26] MEDS: acetaminophen 325 mg Tablet 650 MG PO (08:46)
--- NOTE | 2020-09-26 11:36 | PM.DCS ---
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 (6) Myoclonus: Status: Chronic Reason for Visit Reason for Visit: BLURRY VISION/ DIZZY/ CONFUSION Hospital Course Hospital Course Nunu Marroquin is a 59 year old female with past medical history of subarachnoid hemorrhage, myoclonus,Mild cognitive impairment with memory loss, rheumatoid arthritis,Raynaud's disease, came in with chief complaint of acute onset of transient vision loss, happened this morning, it lasted roughly around 10 seconds, followed by return of vision, she is also complaining of spinning of head, as well as lightheadedness, deny any loss of consciousness, seizure-like activity, nausea ,vomiting, she is complaining of runny nose, cough, b/l headache going on for the last 2 to 3-weeks. Patient was worked up for above-mentioned complaint: CT head without contrast: No acute intracranial pathology CT ANGIOGRAM CEREBRAL AND CAROTID ARTERIES: No significant extracranial carotid artery stenosis. Mild moderate intracranial carotid artery stenosis involving the cavernous sinuses as before near 50%. No aneurysm. X-ray chest: No acute pathology . EKG: Sinus bradycardia Pertinent labs: CBC, CMP:Normal ,Troponin :Normal , Urine analysis :Clean , Utox: Positive for Mrijuana. She was admitted for Dizziness,Ac transient loss of vision,atypical chest pain r/o any possible TIA/Ac CVA. Her hospital stay was eventful, denied any dizziness during the hospital stay,chest pain is atypical as she the troponins were negative as well as no specific ekg changes to suggest myocardial insult.She has a recent stress test which was normal.There was no concern for PRES as her blood pressure was fine and she clinically do not meet PRES presentation.Patient was discharged next morning,she will continue to follow her PCP as well as her neurologist as outpatient. Physical Exam Const: COMMON NORMALS: patient oriented x3 and alert ORIENTATION/CONSCIOUSNESS: Yes oriented to person, Yes oriented to place and Yes oriented to time HENMT: COMMON NORMALS: normocephalic and atraumatic HEAD & SCALP: normocephalic and atraumatic Chest: CHEST: Yes Symmetrical chest wall rise Resp: COMMON NORMALS: clear to auscultation bilaterally EFFORT & INSPECTION: Yes symmetric chest movement AUSCULTATION: clear to auscultation bilaterally Cardio: COMMON NORMALS: regular rate, regular rhythm, S1 normal heart sound present, S2 normal heart sound present, No gallops present (Cardio), No murmurs present (Cardio), No rub (Cardio) and Peripheral pulses 2+ throughout RATE: regular rate RHYTHM: regular rhythm HEART SOUNDS: S1 normal heart sound present and S2 normal heart sound present PERIPHERAL PULSES: Peripheral pulses 2+ throughout GI: COMMON NORMALS: Normal to inspection, nondistended, normoactive bowel sounds present, Soft to palpation, non-tender, No hepatosplenomegaly present and no masses AUSCULTATION: Yes normoactive bowel sounds PALPATION: Yes Soft to palpation and Yes No hepatosplenomegaly present RECTAL EXAM: deferred Extremity: COMMON NORMALS: no clubbing, cyanosis or edema and no pedal edema Neuro: COMMON NORMALS: patient oriented x3, moves all extremities, no focal motor deficits, no sensory deficits noted and gait normal SENSORIUM/ORIENTATION: Yes alert, Yes oriented to person, Yes oriented to place and Yes oriented to time MOTOR EXAM: 5/5 motor strength present throughout, no tremor noted, Motor fasciculations not present, Normal motor muscle tone present throughout and Motor abnormalities not present Discharge Data Data Completed and Pending: Completed Studies During Hospitalization Category Date Time Status CT angio headneck * [id number] Stat Cat Scan 09/25/20 13:[address] head wo con* [id number] Stat Cat Scan 09/25/20 13:30 Completed XR chest 1V janice ble [id number] Stat Exams 09/25/20 13:30 Completed Pending at discharge Category Date Time Status Basic Metabolic P jan AM LABS Lab 09/27/20 04:00 Ordered Basic Metabolic P jan AM LABS Lab 09/28/20 04:00 Ordered Complete Blood Co unt w/Auto AM LABS Lab 09/27/20 04:00 Ordered Complete Blood Co unt w/Auto AM LABS Lab 09/28/20 04:00 Ordered Labs from last 24 hours 09/26/20 09/26/20 09/26/20 06:32 04:40 04:40 WBC RBC Hgb Hct MCV MCH MCHC RDW Plt Count MPV Neut % (Auto) Lymph % (Auto) [place] % (Auto) Eos % (Auto) Baso % (Auto) Neut # (Auto) Lymph # (Auto) [place] # (Auto) Eos # (Auto) Baso # (Auto) Nucleated RBC % (a uto) Nucleated RBCs # PT INR APTT Sodium 139 Potassium 4.5 Chloride 104 Carbon Dioxide 30 H Anion Gap 9.5 BUN 19 Creatinine 0.9 GFR Calculation 64.1 L Glucose 82 POC Glucose 92 Calculated Osmolal ity 289 Calcium 9.3 Magnesium 2.0 Total Bilirubin AST ALT Alkaline Phosphata se Troponin T Baselin e Troponin T [address] [place] [place] Delta Troponin T Troponin T Hi Sens 6Hr 6.00 Troponin T Hi Sens 6Hr Delta 0 Total Protein Albumin Globulin Lipase Urine Color Urine Appearance Urine pH Ur Specific Gravit y Urine Protein Urine Glucose (UA) Urine Ketones Urine Blood Urine Nitrate Urine Bilirubin Urine Urobilinogen Ur Leukocyte Violeta ase Urine Opiates Scre en Ur Barbiturates Sc reen Ur Phencyclidine S crn Ur Amphetamines Sc reen U Benzodiazepines Scrn Urine Cocaine Scre en U Marijuana (THC) Screen 09/26/20 09/26/20 09/25/20 04:40 00:48 22:42 WBC 4.4 RBC 4.56 Hgb 10.9 L Hct 36.2 L MCV 79.4 L MCH 23.9 L MCHC 30.1 RDW 16.4 H Plt Count 288 MPV 10.7 H Neut % (Auto) 34.4 Lymph % (Auto) 47.6 [place] % (Auto) 14.3 Eos % (Auto) 2.8 Baso % (Auto) 0.7 Neut # (Auto) 1.50 L Lymph # (Auto) 2.1 [place] # (Auto) 0.6 Eos # (Auto) 0.1 Baso # (Auto) 0.0 Nucleated RBC % (a uto) 0 Nucleated RBCs # 0.0 PT INR APTT Sodium Potassium Chloride Carbon Dioxide Anion Gap BUN Creatinine GFR Calculation Glucose POC Glucose Calculated Osmolal ity Calcium Magnesium Total Bilirubin AST ALT Alkaline Phosphata se Troponin T Baselin e 6 Troponin T [address] [place] 6.00 Delta Troponin T 0 Troponin T Hi Sens 6Hr Troponin T Hi Sens 6Hr Delta Total Protein Albumin Globulin Lipase Urine Color Urine Appearance Urine pH Ur Specific Gravit y Urine Protein Urine Glucose (UA) Urine Ketones Urine Blood Urine Nitrate Urine Bilirubin Urine Urobilinogen Ur Leukocyte Violeta ase Urine Opiates Scre en Ur Barbiturates Sc reen Ur Phencyclidine S crn Ur Amphetamines Sc reen U Benzodiazepines Scrn Urine Cocaine Scre en U Marijuana (THC) Screen 09/25/20 09/25/20 09/25/20 21:23 20:30 17:20 WBC RBC Hgb Hct MCV MCH MCHC RDW Plt Count MPV Neut % (Auto) Lymph % (Auto) [place] % (Auto) Eos % (Auto) Baso % (Auto) Neut # (Auto) Lymph # (Auto) [place] # (Auto) Eos # (Auto) Baso # (Auto) Nucleated RBC % (a uto) Nucleated RBCs # PT INR APTT Sodium Potassium Chloride Carbon Dioxide Anion Gap BUN Creatinine GFR Calculation Glucose POC Glucose 87 Calculated Osmolal ity Calcium Magnesium Total Bilirubin AST ALT Alkaline Phosphata se Troponin T Baselin e Troponin T [address] [place] Delta Troponin T Troponin T Hi Sens 6Hr 6.00 Troponin T Hi Sens 6Hr Delta 0 Total Protein Albumin Globulin Lipase Urine Color Urine Appearance Urine pH Ur Specific Gravit y Urine Protein Urine Glucose (UA) Urine Ketones Urine Blood Urine Nitrate Urine Bilirubin Urine Urobilinogen Ur Leukocyte Violeta ase Urine Opiates Scre en Positive H Ur Barbiturates Sc reen Negative Ur Phencyclidine S crn Negative Ur Amphetamines Sc reen Negative U Benzodiazepines Scrn Negative Urine Cocaine Scre en Negative U Marijuana (THC) Screen Positive H 09/25/20 09/25/20 09/25/20 17:20 15:54 13:41 WBC RBC Hgb Hct MCV MCH MCHC RDW Plt Count MPV Neut % (Auto) Lymph % (Auto) [place] % (Auto) Eos % (Auto) Baso % (Auto) Neut # (Auto) Lymph # (Auto) [place] # (Auto) Eos # (Auto) Baso # (Auto) Nucleated RBC % (a uto) Nucleated RBCs # PT INR APTT Sodium Potassium Chloride Carbon Dioxide Anion Gap BUN Creatinine GFR Calculation Glucose POC Glucose Calculated Osmolal ity Calcium Magnesium Total Bilirubin AST ALT Alkaline Phosphata se Troponin T Baselin e 6 Troponin T [address] [place] 6.00 Delta Troponin T 0 Troponin T Hi Sens 6Hr Troponin T Hi Sens 6Hr Delta Total Protein Albumin Globulin Lipase Urine Color Yellow Urine Appearance Clear Urine pH 7 Ur Specific Gravit y 1.005 Urine Protein Neg Urine Glucose (UA) Norm Urine Ketones Negative Urine Blood Neg Urine Nitrate Negative Urine Bilirubin Neg Urine Urobilinogen Norm Ur Leukocyte Violeta ase Negative Urine Opiates Scre en Ur Barbiturates Sc reen Ur Phencyclidine S crn Ur Amphetamines Sc reen U Benzodiazepines Scrn Urine Cocaine Scre en U Marijuana (THC) Screen 09/25/20 09/25/20 09/25/20 13:41 13:41 13:41 WBC 7.7 RBC 5.12 Hgb 11.9 Hct 41.0 MCV 80.1 L MCH 23.2 L MCHC 29.0 L RDW 16.6 H Plt Count 226 MPV 11.5 H Neut % (Auto) 42.9 Lymph % (Auto) 42.8 [place] % (Auto) 11.7 Eos % (Auto) 2.0 Baso % (Auto) 0.5 Neut # (Auto) 3.29 Lymph # (Auto) 3.3 [place] # (Auto) 0.9 Eos # (Auto) 0.2 Baso # (Auto) 0.0 Nucleated RBC % (a uto) 0 Nucleated RBCs # 0.0 PT 12.50 INR 0.91 APTT 28.2 Sodium 140 Potassium 4.3 Chloride 104 Carbon Dioxide 27 Anion Gap 13.3 BUN 15 Creatinine 0.7 GFR Calculation 85.6 L Glucose 87 POC Glucose Calculated Osmolal ity 290 Calcium 8.8 Magnesium Total Bilirubin 0.4 AST 23 ALT 22 Alkaline Phosphata se 72 Troponin T Baselin e Troponin T [address] [place] Delta Troponin T Troponin T Hi Sens 6Hr Troponin T Hi Sens 6Hr Delta Total Protein 6.2 L Albumin 4.4 Globulin 1.8 Lipase 32 Urine Color Urine Appearance Urine pH Ur Specific Gravit y Urine Protein Urine Glucose (UA) Urine Ketones Urine Blood Urine Nitrate Urine Bilirubin Urine Urobilinogen Ur Leukocyte Violeta ase Urine Opiates Scre en Ur Barbiturates Sc reen Ur Phencyclidine S crn Ur Amphetamines Sc reen U Benzodiazepines Scrn Urine Cocaine Scre en U Marijuana (THC) Screen Vitals: Last Vital Signs Temp 97.3 F L 09/26/20 07:47 Pulse 65 09/26/20 07:47 Resp 18 09/26/20 07:47 BP 114/76 09/26/20 07:47 Pulse Ox 95 09/26/20 03:47 Discharge Plan Discharge Patient Disposition: Home Condition: Stable Prescriptions: Continued cyanocobalamin (vitamin B-12) [Vitamin B-12] 500 mcg tablet 500 mcg PO DAILY RF: 0 pantoprazole [Protonix] 40 mg tablet,delayed release (DR/EC) 40 mg PO DAILY Qty: 30 RF: 4 prednisone 10 mg tablet See Rx Instructions PO .COMPLEX PRN (Reason: rheumatoid arthritis) Qty: 60 RF: 3 sertraline [Zoloft] 100 mg tablet 100 mg PO DAILY Qty: 30 RF: 1 lamotrigine [Lamictal] 200 mg tablet 200 mg PO BID Qty: 60 RF: 1 clonazepam 0.5 mg tablet 0.5 mg PO TID PRN (Reason: anxiety) Qty: 90 RF: 1 benztropine 1 mg tablet 1 mg PO BID Qty: 60 RF: 1 nitroglycerin 0.4 mg tablet, sublingual 0.4 mg sublingual Q5M PRN (Reason: chest pain) Qty: 30 RF: 0 dicyclomine 20 mg tablet 20 mg PO TID PRN (Reason: STOMACH PAIN) RF: 0 Ambien 5 mg tablet 5 mg PO BEDTIME RF: 0 Actemra 162 mg/0.9 mL syringe 162 mg SUBCUT Q7D RF: 0 sumatriptan succinate 50 mg Tablet 50 mg PO Q2H PRN (Reason: Migraine Headache) RF: 0 aspirin [Aspir-81] 81 mg Tablet,Delayed Release (Dr/Ec) 81 mg PO DAILY RF: 0 propranolol 80 mg Capsule,Extended Release 24hr 80 mg PO DAILY RF: 0 magnesium 1 tab PO Q7D RF: 0 Discharge Orders: Discharge Order (Routine); Ordered 09/26/20 Ordered By: Bradley Sharma Referrals: Helga Mancera DO [Primary Care Provider] - 09/30/20 1:30 pm Discharge Diet: Regular Discharge Activity: Resume usual activity Patient Instructions: Bradycardia (GEN), Dizziness (GEN), Opioid Safety Discharge Attestations Time Spent in Discharge Care*: less than 30 min Specific Discharge Activities: educating patient, educating and/or supporting family/caregiver, discussing with spring encaser/social workers/dc planners, documenting/other paperwork and evaluating patient/reviewing data Status at Discharge: Cognitive status at discharge: cognitively intact, Behavioral status at discharge: cooperative, Functional status at discharge: independent ambulation Overall status at discharge: patient is back to baseline Quality Metrics Clinical Quality Measures During this hospital stay, did patient experience: None Coding Level of Care Code Acute Chg FW DC note Diagnoses Dizziness R42 Sinus bradycardia R00.1 Chest pain R07.9 Nicotine dependence, cigarettes, with unspecified nicotine-induced disorders F17.219 Contracture of right index finger M20.091 Myoclonus G25.3
[2020-09-26 12:00] VITALS: BP 119/69; PULSE 59; RESP 16; TEMP 36.7; O2SAT 99
--- NOTE | 2020-09-26 12:21 | PC.CHAP ---
Pastoral Care Encounter/Spiritual Assessment Type of Contact [] Declined back roller visit [] Patient/Family/Request visit [] Outpatient visit [] Follow-up visit [] Physician referral [] Code/Alert [xx] Routine visit [] Staff referral [] Actively dying [] Patient sleeping [] Family support [] [] Out of room [] Palliative care [] [] Receiving care in room [] Pre-surgical visit [] Trauma [] Long length of stay [] ICU visit [] Other: Relational/Emotional Strength [xx] Patient feels connected with others/family/visitors/staff [] Distress [] Loneliness/isolation [] Abandonment Spirituality of Patient [xx] Person of Bethany [] Attends Religion of their [place] [xx] Believes in Prayer [xx] Reads Bible or Bahai materials [] There are Spiritual issues to be addressed Fabric Designer Interventions [xx] Prayer [xx] Active listening [xx] Non-anxious presence [xx] Spiritual/emotional support [] Crisis/trauma care [] Spiritual counseling [] Bereavement support [] Provided bereavement packet [xx] Provided Bible/devotional materials [] Provided toy/stuffed animal, coloring book to patient or family member [] Provided Communion [] Anointing/[place] [] Salvation [xx] Completed spiritual assessment [] Other: Impact on Illness or Injury [] Angry [] Fearful [] Anxious [xx] Often cries [] Exhaustion [] Unable to work [] Unable to attend hinduism [] Unable to walk/stand [] Unable to read [] Unable to drive [] Unable to eat/drink [] Unable to sleep [] Unable to be with family [] Patient intubated [] Other: Summary Patient crying not for herself but for a family ske know and loves who just gave this week to a meth baby who is struggling to live. The baby's mom is struggling also with drugs. Patient was not at all concerned for her own needs. Fabric Designer prayed for baby, baby's mom and baby's grandmother according to what patient requested. Time spent with patient 7 minutes
[2020-09-26 12:49] VITALS: BP 119/69; PULSE 59; RESP 16; TEMP 36.7; O2SAT 99
--- NOTE | 2020-09-29 12:29 | PC.RESP ---
Smoking Cessation information sent to patient.
== END 2020-09-26 12:54 | disposition home or self-care (01) ==
LOC: ER 17:37 → MEDSURG 18:37
PROVIDERS: Student in an Organized Health Care Education/Training Program; Admitting Provider Internal Medicine; Emergency Provider Family Medicine; PCP Family Medicine; Visit Provider Internal Medicine
DX: R42 Dizziness and giddiness (principal); R00.1 Bradycardia, unspecified; R07.89 Other chest pain; M20.091 Other deformity of right finger(s); G25.3 Myoclonus; Z79.82 Long term (current) use of aspirin; F17.210 Nicotine dependence, cigarettes, uncomplicated
CPT/HCPCS: 36415; 36416; 70450; 70496; 70498; 71045; 80048; 80053; 80306; 81003; 82962; 83690; 83735; 84484; 85025; 85610; 85730; 93005; 96372; 96374; 96375; 99285; G0378; J1170; J1650; J1885; J2270; Q9967

== ENCOUNTER → 2020-10-02 09:48 | Outpatient (BNVA) | payer MEDICARE, SELFPAY | PROVIDERS: PCP Family Medicine; Visit Provider Specialist | DX: G31.84 Mild cognitive impairment of uncertain or unknown etiology (principal); F41.1 Generalized anxiety disorder; F17.210 Nicotine dependence, cigarettes, uncomplicated | CPT/HCPCS: 95816 ==

== ENCOUNTER → 2020-10-07 09:31 | Outpatient (BNVA) | payer MEDICARE, SELFPAY | PROVIDERS: PCP Family Medicine; Visit Provider Nurse Practitioner | DX: F43.12 Post-traumatic stress disorder, chronic (principal); F41.1 Generalized anxiety disorder; F33.1 Major depressive disorder, recurrent, moderate; F25.9 Schizoaffective disorder, unspecified | CPT/HCPCS: 99214 ==

== ENCOUNTER → 2020-11-04 09:40 | Outpatient (BNVA) | payer MEDICARE, SELFPAY | PROVIDERS: PCP Family Medicine; Visit Provider Nurse Practitioner | DX: F43.12 Post-traumatic stress disorder, chronic (principal); F41.1 Generalized anxiety disorder; F33.1 Major depressive disorder, recurrent, moderate; G24.01 Drug induced subacute dyskinesia | CPT/HCPCS: 99214 ==

== ENCOUNTER 2020-11-20 09:44 | Emergency (ER) | payer MEDICARE, SELFPAY ==
[2020-11-20 09:51] VITALS: BP 111/72; PULSE 56; RESP 18; TEMP 36.6; O2SAT 98; BMI 25.2
--- NOTE | 2020-11-20 10:24 | XR_ITS ---
WS: [id number] Portable AP upright chest, 11/20/2020 Clinical Data: cough Comparison: Portable chest, 09/25/2020. Findings: No nodules, masses or effusions are seen. The heart is normal. The pulmonary vascularity is not increased. No pneumonia or pneumothorax is seen. There are surgical clips at the gastro-esophage al junction. XR/XR chest 1V portable [id number] Impression: Negative chest.
--- NOTE | 2020-11-20 10:27 | W.ED.URI ---
HPI - URI/Sore Throat General: Chief Complaint: Upper Respiratory Infection Stated Complaint: ABD cramp, cough, Tightness in chest Time Seen by Provider: 11/20/20 10:13 History of Present Illness: HPI Narrative: He is complaining about sinus pressure and drainage on back her throat. Does have a cough also patient is a smoker also. Patient says she is got chills sinuses hurt denies other problems. Said she has a lot of drainage when she leans forward. MD elicited complaint: cough, rhinorrhea and nasal congestion Pertinent past history: other (Pancreatitis and brain bleed) Onset (ago): day(s) Consistency: constant and progressively worsening Severity: moderate Description of mucous: yellow Exacerbating factors: nothing Relieving factors: OTC cold medicine Associated symptoms: Reports cough, nasal congestion and sinus pain; Deny abdominal pain, chills, chest pain, fever(s), headache(s), nausea or vomiting Review of Systems Const: Denies: fever(s), chills or body aches Eyes: Denies: change in vision or blurry vision ENMT: Reports: nasal congestion and sinus pain Card: Denies: chest pain or dyspnea on exertion Resp: Reports: non-productive cough; Denies: dyspnea or productive cough GI: Denies: abdominal pain, nausea or vomiting Musc: Denies: extremity pain Skin/Breast: Denies: rash Neuro: Denies: headache(s) Psych: Denies: anxiety or depression Eusebio/Lymph: Denies: easy bruising PFSH ED PFSH: Medical History (Updated 11/20/20 @ 10:45 by RENARD Osorio) Acute pancreatitis Aftercare following bilateral wrist joint replacement surgery Bilateral knee pain Cellulitis Chest pain Contracture of right index finger Costochondritis Dizziness Facial tic Family history of tardive dyskinesia Gastritis Gastroenteritis Generalized anxiety disorder High risk medication use Immunization counseling Intussusception Major depressive disorder, recurrent, moderate Myoclonus Nephrolithiasis Neurological symptoms Nicotine dependence, cigarettes, with unspecified nicotine-induced disorders Post-traumatic stress disorder, chronic Psychosis Raynaud's disease without gangrene Rheumatoid arthritis without rheumatoid factor, multiple sites SAH (subarachnoid hemorrhage) Schizoaffective disorder Sinus bradycardia Stammering improved Tardive dyskinesia Ulcerative colitis Ureterolithiasis Urinary calculi Surgical History History of bilateral knee replacement History of renal stent Hx of gastric bypass Family History Denies family history of Rheumatoid arthritis Social History Smoking and tobacco status: current every day smoker cigarettes Packs smoked per day: 1 Smoking risk assessment/counseling performed?: Yes Tobacco counseling given: counseling >3 minutes Physical Exam Const: COMMON NORMALS: no acute distress, average body habitus and patient oriented x3 HENMT: COMMON NORMALS: normocephalic HEAD & SCALP: normal to inspection and normocephalic FACE & SINUS: sinus tenderness NOSE: Nasal discharge present MOUTH: Normal oral and palatal mucosa present THROAT: other (Yellowish drainage seen back throat and and out about the tonsils) Eye: COMMON NORMALS: conjunctivae normal GENERAL EYE: appearance normal, both eyes and all related structures CONJUNCTIVA: Yes conjunctivae normal Neck/C-Spine: COMMON NORMALS: no JVD Chest: COMMONS NORMALS: normal inspection of the chest Resp: COMMON NORMALS: normal respiratory effort and clear to auscultation bilaterally AUSCULTATION: clear to auscultation bilaterally Cardio: COMMON NORMALS: no JVD, regular rate and regular rhythm RATE: regular rate RHYTHM: regular rhythm GI: COMMON NORMALS: Normal to inspection, nondistended, normoactive bowel sounds present Extremity: COMMON NORMALS: normal to inspection and full ROM Neuro: COMMON NORMALS: patient oriented x3 Course Vital Signs: Vital signs: Vital Signs Temperature 97.9 F 11/20/20 09:51 Pulse Rate 56 L 11/20/20 09:51 Respiratory Rate 18 11/20/20 09:51 Blood Pressure 111/72 11/20/20 09:51 Pulse Oximetry 98 11/20/20 09:51 MDM - URI/Sore Throat MDM Narrative: Medical decision making narrative: Has symptoms consistent with upper respiratory sinus type infection. Chest x-ray was normal. No other complaints or problems at this time presently. Patient is encouraged to quit smoking take [id number] decongestants follow-up with family medical provider Discharge Plan Discharge Patient Disposition: Home Clinical Impression: Sinus complaint, Bronchitis Condition: Stable Prescriptions: New cephalexin 500 mg capsule 500 mg PO Q8H 7 Days Qty: 21 RF: 0 No Action cyanocobalamin (vitamin B-12) [Vitamin B-12] 500 mcg tablet 500 mcg PO DAILY RF: 0 pantoprazole [Protonix] 40 mg tablet,delayed release (DR/EC) 40 mg PO DAILY Qty: 30 RF: 4 prednisone 10 mg tablet See Rx Instructions PO .COMPLEX PRN (Reason: rheumatoid arthritis) Qty: 60 RF: 3 gabapentin 100 mg capsule 100 mg PO DAILY RF: 0 Ingrezza Initiation Pack 40 mg (7)- 80 mg (21) capsule,dose pack See Rx Instructions PO PER PKG DIR Qty: 28 RF: 0 sertraline [Zoloft] 100 mg tablet 100 mg PO DAILY Qty: 30 RF: 1 benztropine 1 mg tablet 1 mg PO BID Qty: 60 RF: 1 clonazepam 0.5 mg tablet 0.5 mg PO TID PRN (Reason: anxiety) Qty: 90 RF: 1 lamotrigine [Lamictal] 200 mg tablet 200 mg PO BID Qty: 60 RF: 1 mirtazapine [Remeron] 30 mg tablet 30 mg PO .HS Qty: 30 RF: 1 nitroglycerin 0.4 mg tablet, sublingual 0.4 mg sublingual Q5M PRN (Reason: chest pain) Qty: 30 RF: 0 dicyclomine 20 mg tablet 20 mg PO TID PRN (Reason: STOMACH PAIN) RF: 0 Actemra 162 mg/0.9 mL syringe 162 mg SUBCUT Q7D RF: 0 sumatriptan succinate 50 mg Tablet 50 mg PO Q2H PRN (Reason: Migraine Headache) RF: 0 aspirin [Aspir-81] 81 mg Tablet,Delayed Release (Dr/Ec) 81 mg PO DAILY RF: 0 propranolol 80 mg Capsule,Extended Release 24hr 80 mg PO DAILY RF: 0 magnesium 1 tab PO Q7D RF: 0 Discharge Orders: Discharge ED (Routine); Ordered 11/20/20 Ordered By: Kvng Heath Referrals: Helga Mancera DO [Primary Care Provider] - Discharge Diet: Usual diet Discharge Activity: Increase activity as tolerated Patient Instructions: Sinusitis (ED) Activity Restrictions/Additional Instructions: Follow-up with medical provider as directed. Take medications as prescribed. Return to the ER or your medical provider if condition worsens. Please read and understand discharge instructions. If any questions ask please. Coding Level of Care Code ED Clinical Admissions Manager for Chg Fwd Exam Comprehensive
[2020-11-20] MEDS: acetaminophen 500 mg Tablet 1000 MG PO (11:05)
[2020-11-20] MEDS: cephALEXin 500 mg Capsule PO (11:06)
== END 2020-11-20 13:00 | disposition home or self-care (01) ==
PROVIDERS: Emergency Provider Nurse Practitioner Family; PCP Family Medicine
DX: J40 Bronchitis, not specified as acute or chronic (principal); Z79.82 Long term (current) use of aspirin; F17.210 Nicotine dependence, cigarettes, uncomplicated
CPT/HCPCS: 71045; 99283

== ENCOUNTER → 2020-11-25 10:56 | Outpatient (BNVA) | payer MEDICARE, SELFPAY | PROVIDERS: PCP Family Medicine; Visit Provider Internal Medicine Rheumatology | DX: I73.00 Raynaud's syndrome without gangrene (principal); M06.09 Rheumatoid arthritis without rheumatoid factor, multiple sites; Z71.89 Other specified counseling; Z79.899 Other long term (current) drug therapy | CPT/HCPCS: 36415; 80076; 82565; 85025; 86140 ==

== ENCOUNTER → 2020-12-02 11:21 | Outpatient (BNVA) | payer MEDICARE, SELFPAY | PROVIDERS: PCP Family Medicine; Visit Provider Nurse Practitioner | DX: F43.12 Post-traumatic stress disorder, chronic (principal); F41.1 Generalized anxiety disorder; F33.1 Major depressive disorder, recurrent, moderate; F17.219 Nicotine dependence, cigarettes, with unspecified nicotine-induced disorders; G24.01 Drug induced subacute dyskinesia | CPT/HCPCS: 99214 ==

== ENCOUNTER → 2020-12-04 09:50 | Outpatient (BNVA) | payer MEDICARE, SELFPAY | PROVIDERS: PCP Family Medicine; Visit Provider Internal Medicine Rheumatology | DX: Z79.899 Other long term (current) drug therapy (principal) | CPT/HCPCS: 36415 ==

== ENCOUNTER 2020-12-17 13:29 | Outpatient (CLI) | payer MEDICARE, SELFPAY ==
--- NOTE | 2020-12-17 13:00 | XR_ITS ---
WS: [id number] KUB, AP view, 12/17/2020 Clinical Data: URINARY CALCULI Comparison: KUB, 04/30/2019. Findings: No abnormal intraabdominal masses or calcifications are seen. There is no dilatated small bowel or ev idence of obstruction. There is air in the small bowel and colon and a moderate amount of fecal material in the colon. There are surgical clips in the gastroesophageal junction region. There are clips in the right upper quadr ant from a cholecystectomy. There are phleboliths in the true pelvis and probable calcified lymph nod es on the right side of the true pelvis. XR/XR KUB [id number] Impression: Mild generalized ileus.
== END 2020-12-17 13:30 | disposition home or self-care (01) ==
LOC: RAD 13:33
PROVIDERS: PCP Family Medicine; Visit Provider Urology
DX: N20.9 Urinary calculus, unspecified (principal); K56.7 Ileus, unspecified
CPT/HCPCS: 74018; 80048; 81003

== ENCOUNTER 2020-12-23 16:36 | Observation (INO) | payer MEDICARE, SELFPAY ==
[2020-12-23 16:51] VITALS: BP 108/69; PULSE 71; RESP 19; TEMP 37.2; O2SAT 94
--- NOTE | 2020-12-23 20:43 | CTR_ITS ---
PROCEDURE INFORMATION: Exam: CT Head Without Contrast Exam date and time: 12/23/2020 8:43 PM Age: 60 years old Clinical indication: Altered mental status/memory loss and dizziness and visual disturbance; Additional info: Rule out brain bleed, HX of prior brain bleed TECHNIQUE: Imaging protocol: Computed tomography of the head without contrast. Radiation optimization: All CT scans at this facility use at least one of these dose optimization techniques: automated exposure control; mA and/or kV adjustment per patient size (includes targeted exams where dose is matched to clinical indication); or iterative reconstruction. COMPARISON: CT head wo con* [id number] 09/25/2020 2:10 PM RADIATION DOSE METRICS: Total DLP (mGy-cm): 737.65 FINDINGS: Brain: There is mild cerebral atrophy. No hemorrhage. Unremarkable white matter. No mass effect. Cerebral ventricles: No ventriculomegaly. Paranasal sinuses: Diffuse heterogeneous opacification of the right sphenoid sinus. Mastoid air cells: Visualized mastoid air cells are well aerated. Vasculature: Intracranial atherosclerosis. Bones/joints: Unremarkable. No acute fracture. Soft tissues: Unremarkable. CT/CT head wo con* [id number] IMPRESSION: 1. Negative for acute intracranial abnormality. 2. No change in brain from comparison. Radiation Dose CTDIVOL = (mGy): DLP = 737.65 (mGy-cm)
--- NOTE | 2020-12-23 22:50 | ECG_ITS ---
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 Measurements Intervals [place] Rate: 81 P: -7 AK: 124 QRS: 111 QRSD: 98 T: 19 QT: 372 QTc: 432 Interpretive Statements SINUS RHYTHM LEFT POSTERIOR FASCICULAR BLOCK [QRS AXIS > 109, INFERIOR Q] Compared to ECG 09/26/2020 00:21:03 Left posterior fascicular block now present Sinus bradycardia no longer present Electronically Signed On 12-25-2020 7:39:40 CDT by Aziza Owens M.D. [id number]
--- NOTE | 2020-12-23 22:56 | W.ED.GENADLT ---
HPI - General Adult General: Chief complaint: Headache Stated complaint: HEADACHE/FATIGUE/SINUS CONGESTION Time Seen by Provider: 12/23/20 21:59 History of Present Illness: HPI narrative: Patient is a 60-year-old female with a history of prior depression/PTSD, gastric bypass over 13 years ago, pancreatitis who presents to the emergency room for evaluation of acute mid epigastric abdominal pain x1 day in the setting of nausea/vomiting, and chronic headache x6 weeks. Patient tells me in the past she has had spontaneous brain bleed and she is worried that her headache has not improved that she may have had another episode. Denies any fall or trauma. In addition, patient says that she was recently diagnosed with pancreatitis and admitted to [facility]. Patient has had stomach pain x1 day no nausea vomiting. Is, patient has chest pressure for the last 2 days. She reports dark stool x2 days however she is on iron pills consistently. Onset: headache 6 weeks, chest pain x 2 days, abdominal pain x 1 day Duration:ongoing Location:home Severity:moderate/severe Review of Systems Narrative: Constitutional: No fever, no chills. HEENT: No vision changes CV: No chest pain, no palpitations PULM: no cough, no dyspnea. GI: +abdominal pain, +N/+V/+D. : No dysuria MSKEL: No muscle pain SKIN: No new rashes, no lesions. NEURO: No headache, no focal weakness. HEME: No visible bruises PSYCH: Normal mood PFSH ED PFSH: Medical History Acute pancreatitis Aftercare following bilateral wrist joint replacement surgery Bilateral knee pain Cellulitis Chest pain Contracture of right index finger Costochondritis Dizziness Facial tic Family history of tardive dyskinesia Gastritis Gastroenteritis Generalized anxiety disorder High risk medication use Immunization counseling Intussusception Major depressive disorder, recurrent, moderate Myoclonus Nephrolithiasis Neurological symptoms Nicotine dependence, cigarettes, with unspecified nicotine-induced disorders Post-traumatic stress disorder, chronic Psychosis Raynaud's disease without gangrene Rheumatoid arthritis without rheumatoid factor, multiple sites SAH (subarachnoid hemorrhage) Schizoaffective disorder Sinus bradycardia Stammering improved Tardive dyskinesia Ulcerative colitis Ureterolithiasis Urinary calculi Surgical History History of bilateral knee replacement History of renal stent Hx of gastric bypass Family History Mother , at age 74 Cancer colorectal Father No problems noted. Denies family history of Rheumatoid arthritis Social History Smoking and tobacco status: current every day smoker cigarettes Packs smoked per day: 1 Smoking risk assessment/counseling performed?: Yes Tobacco counseling given: counseling >3 minutes Alcohol intake: never Marital status: Single Current occupational status: disabled History of recent travel: No Physical Exam Narrative: EXAM NARRATIVE: Head: Atraumatic Eyes: PERRL, conjunctiva without injection ENT: Mucous membrane moist NECK: Supple, ROM intact LUNGS: LCTAB, no crackles/rhonchi CV: RRR ABDOMEN: Soft, + moderate mid-epigastric abdominal tenderness to palpation, no guarding or rebound tenderness, no McBurney's tenderness, no CVA tenderness, no suprapubic tenderness EXTREMITY: Normal ROM SKIN: No rash or erythema NEURO: Awake and alert, no focal motor deficits PSYCH: Normal mood and affect RECTAL: +hemoocult positive dark stool Course Vital Signs: Vital signs: Vital Signs Temperature 99.0 F 12/23/20 16:51 Pulse Rate 80 12/24/20 03:07 Respiratory Rate 14 12/24/20 03:07 Blood Pressure 90/47 12/24/20 03:07 Pulse Oximetry 100 12/24/20 03:07 MDM - General Adult MDM Narrative: Medical decision making narrative: 60-year-old female presenting to the emergency room with complaints including headache x 2 weeks, abdominal pain, and dark stool. On exam, patient is hemodynamically stable in moderate distress, + focal tenderness to palpation in the midepigastric area. No guarding or rebound tenderness. Patient was observed in the emergency room, she has had multiple episodes of dark stool. Stool sample appears to be Hemoccult positive. Denies any hemoptysis. Denies any NSAIDs use, history of varices. CT abdomen pelvis showed enterocolitis. Given concerns for possible melena, bolused protonix. Pending repeat H&H. Patient will be admitted to the hospital for evaluation of enterocolitis, dehydration w/ 3+ episode sof diarrhea in the ED, and possible upper GI bleed. Disposition: Admission Lab Data: Labs: Lab Results 12/23/20 12/23/20 12/23/20 Range/Units 22:50 22:50 22:50 WBC 11.3 H (4.0-10.0) 10^3/ uL RBC 5.79 H (4.1-5.3) 10^6/u L Hgb 15.2 (11.5-15.3) g/dL Hct 50.3 H (37.0-47.0) % MCV 86.9 (81-99) fL MCH 26.3 L (28.0-34.0) pg MCHC 30.2 (30.0-36.0) g/dL RDW 21.6 H (12.1-15.1) % Plt Count 251 (130-400) 10^3/c mm MPV 10.1 (7.4-10.4) fL Neut % (Auto) 77.9 % Lymph % (Auto) 12.5 % Swift % (Auto) 8.0 % Eos % (Auto) 0.8 % Baso % (Auto) 0.5 % Neut # (Auto) 8.83 H (1.8-7.7) 10^3/u L Lymph # (Auto) 1.4 (0.8-4.8) 10^3/u L Swift # (Auto) 0.9 (0.2-0.9) 10^3/u L Eos # (Auto) 0.1 (0.0-0.8) 10^3/u L Baso # (Auto) 0.1 (0.0-0.1) 10^3/u L Nucleated RBC % (a uto) 0 % Nucleated RBCs # 0.0 /100WBC PT 11.80 L (12.1-14.9) SECO NDS INR 0.84 (0.8-1.2) APTT 28.0 (23.9-36.7) SECO NDS Sodium 140 (136-145) mmol/L Potassium 4.0 (3.5-5.1) mmol/L Chloride 105 (98-107) mmol/L Carbon Dioxide 23 (22-29) mmol/L Anion Gap 16.0 (5-19) BUN 19 (8-23) mg/dL Creatinine 0.7 (0.5-0.9) mg/dL GFR Calculation 85.4 L (90-130) mL/min Glucose 111 (65-115) mg/dL Calculated Osmolal ity 293 (285-295) mOsm/k g Lactate (0.5-2.2) mmol/L Calcium 8.9 (8.5-10.5) mg/dL Total Bilirubin 0.3 (0.15-1.2) mg/dL AST 138 H (0-32) U/L ALT 71 H (0-33) U/L Alkaline Phosphata se 121 H (35-105) IU/L Troponin T Gen 5 n g/L (0-10) ng/L Total Protein 6.5 L (6.6-8.7) g/dL Albumin 4.4 (3.5-5.2) g/dL Globulin 2.1 (1.3-4.6) g/dL Lipase 180 H (13-60) U/L Urine Color (Yellow) Urine Appearance (CLEAR) Urine pH (5-7) Ur Specific Gravit y (1.005-1.030) Urine Protein (Negative) Urine Glucose (UA) (Normal) Urine Ketones (Negative) Urine Blood (Negative) Urine Nitrate (Negative) Urine Bilirubin (Negative) Urine Urobilinogen (Negative) mg/dL Ur Leukocyte Violeta ase (Negative) Urine RBC (0-2) /hpf Urine WBC (0-5) /hpf Ur Squamous Epith Cells (0-5) /hpf Amorphous Sediment Urine Bacteria (NONE) /hpf Urine Mucus /hpf 12/23/20 12/23/20 12/23/20 Range/Units 22:50 22:50 22:55 WBC (4.0-10.0) 10^3/ uL RBC (4.1-5.3) 10^6/u L Hgb (11.5-15.3) g/dL Hct (37.0-47.0) % MCV (81-99) fL MCH (28.0-34.0) pg MCHC (30.0-36.0) g/dL RDW (12.1-15.1) % Plt Count (130-400) 10^3/c mm MPV (7.4-10.4) fL Neut % (Auto) % Lymph % (Auto) % Swift % (Auto) % Eos % (Auto) % Baso % (Auto) % Neut # (Auto) (1.8-7.7) 10^3/u L Lymph # (Auto) (0.8-4.8) 10^3/u L Swift # (Auto) (0.2-0.9) 10^3/u L Eos # (Auto) (0.0-0.8) 10^3/u L Baso # (Auto) (0.0-0.1) 10^3/u L Nucleated RBC % (a uto) % Nucleated RBCs # /100WBC PT (12.1-14.9) SECO NDS INR (0.8-1.2) APTT (23.9-36.7) SECO NDS Sodium (136-145) mmol/L Potassium (3.5-5.1) mmol/L Chloride (98-107) mmol/L Carbon Dioxide (22-29) mmol/L Anion Gap (5-19) BUN (8-23) mg/dL Creatinine (0.5-0.9) mg/dL GFR Calculation (90-130) mL/min Glucose (65-115) mg/dL Calculated Osmolal ity (285-295) mOsm/k g Lactate 0.6 (0.5-2.2) mmol/L Calcium (8.5-10.5) mg/dL Total Bilirubin (0.15-1.2) mg/dL AST (0-32) U/L ALT (0-33) U/L Alkaline Phosphata se (35-105) IU/L Troponin T Gen 5 n g/L 6 (0-10) ng/L Total Protein (6.6-8.7) g/dL Albumin (3.5-5.2) g/dL Globulin (1.3-4.6) g/dL Lipase (13-60) U/L Urine Color Yellow (Yellow) Urine Appearance Clear (CLEAR) Urine pH 5 (5-7) Ur Specific Gravit y 1.015 (1.005-1.030) Urine Protein Neg (Negative) Urine Glucose (UA) Norm (Normal) Urine Ketones Negative (Negative) Urine Blood Neg (Negative) Urine Nitrate Negative (Negative) Urine Bilirubin 1+ H (Negative) Urine Urobilinogen Norm (Negative) mg/dL Ur Leukocyte Violeta ase 2+ H (Negative) Urine RBC 0-4 H (0-2) /hpf Urine WBC 0-4 H (0-5) /hpf Ur Squamous Epith Cells 5-10 H (0-5) /hpf Amorphous Sediment Not Reportable Urine Bacteria 2+ H (NONE) /hpf Urine Mucus 1+ /hpf 12/24/20 Range/Units 00:10 WBC 10.8 H (4.0-10.0) 10^3/ uL RBC 4.81 (4.1-5.3) 10^6/u L Hgb 12.9 (11.5-15.3) g/dL Hct 44.2 (37.0-47.0) % MCV 91.9 D (81-99) fL MCH 26.8 L (28.0-34.0) pg MCHC 29.2 L (30.0-36.0) g/dL RDW 21.3 H (12.1-15.1) % Plt Count 150 (130-400) 10^3/c mm MPV 10.5 H (7.4-10.4) fL Neut % (Auto) 80.1 % Lymph % (Auto) 8.5 % Swift % (Auto) 9.3 % Eos % (Auto) 1.1 % Baso % (Auto) 0.5 % Neut # (Auto) 8.63 H (1.8-7.7) 10^3/u L Lymph # (Auto) 0.9 (0.8-4.8) 10^3/u L Swift # (Auto) 1.0 H (0.2-0.9) 10^3/u L Eos # (Auto) 0.1 (0.0-0.8) 10^3/u L Baso # (Auto) 0.1 (0.0-0.1) 10^3/u L Nucleated RBC % (a uto) 0 % Nucleated RBCs # 0.0 /100WBC PT (12.1-14.9) SECO NDS INR (0.8-1.2) APTT (23.9-36.7) SECO NDS Sodium (136-145) mmol/L Potassium (3.5-5.1) mmol/L Chloride (98-107) mmol/L Carbon Dioxide (22-29) mmol/L Anion Gap (5-19) BUN (8-23) mg/dL Creatinine (0.5-0.9) mg/dL GFR Calculation (90-130) mL/min Glucose (65-115) mg/dL Calculated Osmolal ity (285-295) mOsm/k g Lactate (0.5-2.2) mmol/L Calcium (8.5-10.5) mg/dL Total Bilirubin (0.15-1.2) mg/dL AST (0-32) U/L ALT (0-33) U/L Alkaline Phosphata se (35-105) IU/L Troponin T Gen 5 n g/L (0-10) ng/L Total Protein (6.6-8.7) g/dL Albumin (3.5-5.2) g/dL Globulin (1.3-4.6) g/dL Lipase (13-60) U/L Urine Color (Yellow) Urine Appearance (CLEAR) Urine pH (5-7) Ur Specific Gravit y (1.005-1.030) Urine Protein (Negative) Urine Glucose (UA) (Normal) Urine Ketones (Negative) Urine Blood (Negative) Urine Nitrate (Negative) Urine Bilirubin (Negative) Urine Urobilinogen (Negative) mg/dL Ur Leukocyte Violeta ase (Negative) Urine RBC (0-2) /hpf Urine WBC (0-5) /hpf Ur Squamous Epith Cells (0-5) /hpf Amorphous Sediment Urine Bacteria (NONE) /hpf Urine Mucus /hpf Imaging Data^: Other Imaging: Radiologist's impression: [address] [id number] Scan ReportSigned Patient: Sury Marroquin #: [id number]: 1960cct#:[id number]/Sex: 60 / FADM Date: 12/23/20Loc: ERRoom/Bed:Attending Dr: Ordering Provider/Ordering MD: Jolie Cool MD Date of Service: 12/23/20 Procedure(s): CT abdomen pelvis w con* [id number] Accession Number(s): [id number] Report Number: [id number] PROCEDURE INFORMATION: Exam: CT Abdomen And Pelvis With Contrast Exam date and time: 12/23/2020 11:00 PM Age: 60 years old Clinical indication: Abdominal pain; Epigastric; Prior surgery; Surgery date: 6+ months; Surgery type: Gb, appy, hernia, gastric bypass; Patient HX: C/O upper abd pain; Additional info: Gastric bypass, mdoerate midepigstric tenderness, melena TECHNIQUE: Imaging protocol: Computed tomography of the abdomen and pelvis with contrast. Radiation optimization: All CT scans at this facility use at least one of these dose optimization techniques: automated exposure control; mA and/or kV adjustment per patient size (includes targeted exams where dose is matched to clinical indication); or iterative reconstruction. Contrast material: OMNI 300; Contrast volume: 95 ml; Contrast route: INTRAVENOUS (IV); COMPARISON: CT abdomen pelvis w con* [id number] 06/10/2020 2:48 PM RADIATION DOSE METRICS: Total DLP (mGy-cm): 1116.85 FINDINGS: Liver: Normal. No mass. Gallbladder and bile ducts: Cholecystectomy. Nondilated biliary system. Pancreas: Normal. No ductal dilation. Spleen: Normal. No splenomegaly. Adrenal glands: Normal. No mass. Kidneys and ureters: Normal. No hydronephrosis. Stomach and bowel: Gastric bypass surgical changes of stomach with unremarkable appearance. Gastrojejunostomy with unremarkable appearance. Scattered mildly distended fluid-filled small bowel loops and large bowel loops are noted throughout abdomen and pelvis. No focal areas of inflammatory bowel wall thickening change are evident. No focal bowel wall mass. Appendix: Appendix not seen. Intraperitoneal space: No free intraperitoneal air. Vasculature: Vascular structures are patent. Moderate atherosclerotic wall plaque of abdominal aorta without aneurysm. Lymph nodes: Unremarkable. No enlarged lymph nodes. Urinary bladder: Decompression of bladder. Reproductive: Hysterectomy. Bones/joints: Unremarkable. No acute fracture. Soft tissues: Unremarkable. CT/CT abdomen pelvis w con* [id number] IMPRESSION: Nonspecific fluid distended bowel loops throughout abdomen and pelvis. A generalized enterocolitis pattern cannot be excluded. Clinical correlation is necessary for specific patient symptoms. Radiation Dose CTDIVOL = (mGy): DLP = 1116.85 (mGy-cm) Dictated By:Frame,KevinSigned By:Frame,KevinSigned Date/Time:12/23/202325DD/ 24 Nunu Marroquin) 60 F 1960 [facility] [place], [place] [address]IW Scan ReportSigned Patient: Sury Marroquin #: [id number]: 1960cct#:[id number]/Sex: 60 / FADM Date: 12/23/20Loc: ERRoom/Bed:Attending Dr: Ordering Provider/Ordering MD: Jolie Cool MD Date of Service: 12/23/20 Procedure(s): CT head wo con* [id number] Accession Number(s): [id number] Report Number: [id number] PROCEDURE INFORMATION: Exam: CT Head Without Contrast Exam date and time: 12/23/2020 8:43 PM Age: 60 years old Clinical indication: Altered mental status/memory loss and dizziness and visual disturbance; Additional info: Rule out brain bleed, HX of prior brain bleed TECHNIQUE: Imaging protocol: Computed tomography of the head without contrast. Radiation optimization: All CT scans at this facility use at least one of these dose optimization techniques: automated exposure control; mA and/or kV adjustment per patient size (includes targeted exams where dose is matched to clinical indication); or iterative reconstruction. COMPARISON: CT head wo con* [id number] 09/25/2020 2:10 PM RADIATION DOSE METRICS: Total DLP (mGy-cm): 737.65 FINDINGS: Brain: There is mild cerebral atrophy. No hemorrhage. Unremarkable white matter. No mass effect. Cerebral ventricles: No ventriculomegaly. Paranasal sinuses: Diffuse heterogeneous opacification of the right sphenoid sinus. Mastoid air cells: Visualized mastoid air cells are well aerated. Vasculature: Intracranial atherosclerosis. Bones/joints: Unremarkable. No acute fracture. Soft tissues: Unremarkable. CT/CT head wo con* [id number] IMPRESSION: 1. Negative for acute intracranial abnormality. 2. No change in brain from comparison. Radiation Dose CTDIVOL = (mGy): DLP = 737.65 (mGy-cm) Dictated By:Tip CampinSeusebio By:Tip CampinSigned Date/Time:12/23/20D/ 29 Discharge Plan Discharge Patient Disposition: Admitted As Inpatient Admit Provider: Rosette Garcia Clinical Impression: Acute dehydration, Melena, Enterocolitis Condition: Stable Coding Level of Care Code ED Advertising Assistant for Judson Alford
--- NOTE | 2020-12-23 23:00 | CTR_ITS ---
PROCEDURE INFORMATION: Exam: CT Abdomen And Pelvis With Contrast Exam date and time: 12/23/2020 11:00 PM Age: 60 years old Clinical indication: Abdominal pain; Epigastric; Prior surgery; Surgery date: 6+ months; Surgery type: Gb, appy, hernia, gastric bypass; Patient HX: C/O upper abd pain; Additional info: Gastric bypass, mdoerate midepigstric tenderness, melena TECHNIQUE: Imaging protocol: Computed tomography of the abdomen and pelvis with contrast. Radiation optimization: All CT scans at this facility use at least one of these dose optimization techniques: automated exposure control; mA and/or kV adjustment per patient size (includes targeted exams where dose is matched to clinical indication); or iterative reconstruction. Contrast material: OMNI 300; Contrast volume: 95 ml; Contrast route: INTRAVENOUS (IV); COMPARISON: CT abdomen pelvis w con* [id number] 06/10/2020 2:48 PM RADIATION DOSE METRICS: Total DLP (mGy-cm): 1116.85 FINDINGS: Liver: Normal. No mass. Gallbladder and bile ducts: Cholecystectomy. Nondilated biliary system. Pancreas: Normal. No ductal dilation. Spleen: Normal. No splenomegaly. Adrenal glands: Normal. No mass. Kidneys and ureters: Normal. No hydronephrosis. Stomach and bowel: Gastric bypass surgical changes of stomach with unremarkable appearance. Gastrojejunostomy with unremarkable appearance. Scattered mildly distended fluid-filled small bowel loops and large bowel loops are noted throughout abdomen and pelvis. No focal areas of inflammatory bowel wall thickening change are evident. No focal bowel wall mass. Appendix: Appendix not seen. Intraperitoneal space: No free intraperitoneal air. Vasculature: Vascular structures are patent. Moderate atherosclerotic wall plaque of abdominal aorta without aneurysm. Lymph nodes: Unremarkable. No enlarged lymph nodes. Urinary bladder: Decompression of bladder. Reproductive: Hysterectomy. Bones/joints: Unremarkable. No acute fracture. Soft tissues: Unremarkable. CT/CT abdomen pelvis w con* [id number] IMPRESSION: Nonspecific fluid distended bowel loops throughout abdomen and pelvis. A generalized enterocolitis pattern cannot be excluded. Clinical correlation is necessary for specific patient symptoms. Radiation Dose CTDIVOL = (mGy): DLP = 1116.85 (mGy-cm)
[2020-12-23 23:07] LABS: Basophils # 0.1 10^3/uL (0.0-0.1); Basophils % 0.5 %; Eosinophils # 0.1 10^3/uL (0.0-0.8); Eosinophils % 0.8 %; Hematocrit 50.3 % (37.0-47.0); Hemoglobin 15.2 g/dL (11.5-15.3); Lymphocytes # 1.4 10^3/uL (0.8-4.8); Lymphocytes % 12.5 %; Mean Corpuscular HGB Conc 30.2 g/dL (30.0-36.0); Mean Corpuscular Hemoglobin 26.3 pg (28.0-34.0); Mean Corpuscular Volume 86.9 fL (81-99); Mean Platelet Volume 10.1 fL (7.4-10.4); Monocytes # 0.9 10^3/uL (0.2-0.9); Neutrophils # 8.83 10^3/uL (1.8-7.7); Neutrophils % 77.9 %; Nucleated Red Blood Cells % 0 %; Platelet Count 251 10^3/cmm (130-400); Red Blood Count 5.79 10^6/uL (4.1-5.3); Red Cell Distribution Width 21.6 % (12.1-15.1); White Blood Count 11.3 10^3/uL (4.0-10.0)
[2020-12-23] MEDS: iohexol 300 mg/mL 100 mL Btl IV (23:12)
[2020-12-23 23:26] LABS: INR 0.84 (0.8-1.2)
[2020-12-23 23:30] LABS: Alanine Aminotransferase 71 U/L (0-33); Albumin Level 4.4 g/dL (3.5-5.2); Alkaline Phosphatase 121 IU/L (35-105); Aspartate Amino Transferase 138 U/L (0-32); Blood Urea Nitrogen 19 mg/dL (8-23); Calcium 8.9 mg/dL (8.5-10.5); Carbon Dioxide 23 mmol/L (22-29); Chloride 105 mmol/L (98-107); Globulin 2.1 g/dL (1.3-4.6); Glomerular Filtration Rate 85.4 mL/min (90-130); Glucose 111 mg/dL (65-115); Lipase 180 U/L (13-60); Osmolality Calculated 293 mOsm/kg (285-295); Sodium 140 mmol/L (136-145); Total Bilirubin 0.3 mg/dL (0.15-1.2); Total Protein 6.5 g/dL (6.6-8.7)
[2020-12-23 23:30] LABS: Add Urine Microscopic? YES; Bilirubin Urine 1+ (Negative); Blood Urine Neg (Negative); Glucose Urine UA Norm (Normal); Ketones Urine Negative (Negative); Leukocyte Esterase Urine 2+ (Negative); Nitrate Urine Negative (Negative); Protein Urine Neg (Negative); Specific Gravity, Urine 1.015 (1.005-1.030); Urine Appearance Clear (CLEAR); Urine Color Yellow (Yellow); Urobilinogen Urine Norm (Negative); pH Urine 5 (5-7)
[2020-12-23 23:31] LABS: Add Urine Culture? Yes; Bacteria Urine 2+ /hpf; Mucus Urine 1+ /hpf; RBC Urine 0-4 /hpf (0-2); WBC Urine 0-4 /hpf (0-5)
[2020-12-23 23:32] LABS: Lactate (Lactic Acid level) 0.6 mmol/L (0.5-2.2)
[2020-12-23 23:34] LABS: Troponin T (5th) Once 6 ng/L (0-10)
[2020-12-23] MEDS: sodium chloride 0.9% 1,000 ML 999 ML IV (23:35)
[2020-12-23] MEDS: ondansetron 2 mg/ML SDV 2 mL 4 MG IVP (23:35)
[2020-12-23] MEDS: famotidine 20 mg/2 mL INJ IVP (23:35)
[2020-12-23] MEDS: pantoprazole 40 mg SDV 80 MG IVP (23:35)
[2020-12-23] MEDS: morphine 4 mg/mL SDV 1 mL IVP (23:35)
[2020-12-24] VITALS (9 sets, daily range): BP systolic 84–129; BP diastolic 47–84; PULSE 60–84; RESP 14–18; TEMP 36.5–36.8; O2SAT 92–100; BMI 26.4
[2020-12-24 00:40] LABS: Basophils # 0.1 10^3/uL (0.0-0.1); Basophils % 0.5 %; Eosinophils # 0.1 10^3/uL (0.0-0.8); Eosinophils % 1.1 %; Hematocrit 44.2 % (37.0-47.0); Hemoglobin 12.9 g/dL (11.5-15.3); Lymphocytes # 0.9 10^3/uL (0.8-4.8); Lymphocytes % 8.5 %; Mean Corpuscular HGB Conc 29.2 g/dL (30.0-36.0); Mean Corpuscular Hemoglobin 26.8 pg (28.0-34.0); Mean Corpuscular Volume 91.9 fL (81-99); Mean Platelet Volume 10.5 fL (7.4-10.4); Monocytes % 9.3 %; Neutrophils # 8.63 10^3/uL (1.8-7.7); Neutrophils % 80.1 %; Nucleated Red Blood Cells % 0 %; Platelet Count 150 10^3/cmm (130-400); Red Blood Count 4.81 10^6/uL (4.1-5.3); Red Cell Distribution Width 21.3 % (12.1-15.1); White Blood Count 10.8 10^3/uL (4.0-10.0)
[2020-12-24 01:05] LABS: Slide Review Slide Review Perform
[2020-12-24] MEDS: LORazepam 2 mg/mL INJ 1 mL IVP (02:14)
[2020-12-24] MEDS: lactated ringers 1,000 ML 100 ML IV ×2 (02:15→15:05)
[2020-12-24 05:58] LABS: Basophils # 0.1 10^3/uL (0.0-0.1); Basophils % 0.6 %; Eosinophils # 0.2 10^3/uL (0.0-0.8); Hematocrit 44.4 % (37.0-47.0); Hemoglobin 13.2 g/dL (11.5-15.3); Lymphocytes # 1.1 10^3/uL (0.8-4.8); Lymphocytes % 13.7 %; Mean Corpuscular HGB Conc 29.7 g/dL (30.0-36.0); Mean Corpuscular Hemoglobin 26.3 pg (28.0-34.0); Mean Corpuscular Volume 88.4 fL (81-99); Monocytes # 0.8 10^3/uL (0.2-0.9); Monocytes % 10.1 %; Neutrophils # 6.08 10^3/uL (1.8-7.7); Neutrophils % 73.2 %; Nucleated Red Blood Cells % 0 %; Platelet Count 174 10^3/cmm (130-400); Red Blood Count 5.02 10^6/uL (4.1-5.3); Red Cell Distribution Width 21.7 % (12.1-15.1); White Blood Count 8.3 10^3/uL (4.0-10.0)
[2020-12-24 06:17] LABS: Alanine Aminotransferase 277 U/L (0-33); Albumin Level 3.6 g/dL (3.5-5.2); Alkaline Phosphatase 141 IU/L (35-105); Aspartate Amino Transferase 512 U/L (0-32); Blood Urea Nitrogen 17 mg/dL (8-23); Calcium 7.9 mg/dL (8.5-10.5); Carbon Dioxide 23 mmol/L (22-29); Chloride 110 mmol/L (98-107); Globulin 1.8 g/dL (1.3-4.6); Glucose 83 mg/dL (65-115); Osmolality Calculated 291 mOsm/kg (285-295); Sodium 140 mmol/L (136-145); Total Bilirubin 0.3 mg/dL (0.15-1.2); Total Protein 5.4 g/dL (6.6-8.7)
[2020-12-24 06:18] LABS: Anion Gap 11.4 (5-19); Potassium 4.4 mmol/L (3.5-5.1)
--- NOTE | 2020-12-24 06:18 | PM.HP ---
Providers/Chief Complaint Admitting Physician: Rosette Garcia MD Primary Care Provider: Helga Mancera DO Chief Complaint: HEADACHE/FATIGUE/SINUS CONGESTION History of Present Illness Nunu Marroquin is a 60 year old female with a history of prior depression/PTSD, gastric bypass , subarachnoid hemorrhage, myoclonus,Mild cognitive impairment with memory loss, rheumatoid arthritis,Raynaud's disease presented today with c/o epigastric abdominal pain that started yesterday along with nausea/vomiting, multiple episodes of semi soft black colred stool. Noted to have 2-3 episodes of melantoic appearing stools in the ER that were hemoccult positive. Currently hemodynamically stable, Hb ~15. CT abd/pelvis showed Nonspecific fluid distended bowel loops throughout abdomen and pelvis, possible enterocolitis. ROS + for headache, CT head negative Review of Systems General: Reports: 10 or more systems reviewed and unremarkable except in HPI and below Const: Denies: fever(s), chills or body aches Eyes: Denies: change in vision, blurry vision or photophobia ENMT: Reports: hoarseness; Denies: throat pain, enlarged tonsils, odynophagia or nasal congestion Card: Denies: chest pain, palpitations, irregular heart rhythm, edema, swelling of feet/ankles, lightheadedness, pre-syncope, dyspnea on exertion or orthopnea Resp: Denies: dyspnea, productive cough, non-productive cough, wheezing, stridor, pain on inspiration, change in phlegm color, hemoptysis or chest congestion GI: Denies: abdominal pain, nausea, vomiting, hematemesis, coffee ground emesis, dysphagia, heartburn, diarrhea, constipation, GI cramping, change in stool character, hematochezia or melena : Denies: flank pain, difficulty voiding, dysuria, urinary frequency, urinary urgency, urinary hesitancy or hematuria Musc: Denies: neck pain, back pain, extremity pain, joint swelling, joint warmth or deformity Neuro: Denies: headache(s), numbness in extremities, weakness in extremities, sensory changes, difficulty walking, frequent falls, dizziness, vertigo, behavioral changes, Slurred speech present or seizure-like activity Psych: Denies: anxiety, depression, suicidal ideation or homicidal ideation Endo: Denies: polyuria, polydipsia, tired all the time, cold intolerance or hot flashes Eusebio/Lymph: Denies: easy bruising or easy bleeding Medications/Allergies Home Medications Medication Instructions Recorded Confirmed Last Taken Type aspirin [Aspir-81] 81 mg PO DAILY 07/04/19 12/17/20 09/25/20 History magnesium 1 tab PO Q7D 08/31/19 12/17/20 Unknown History propranolol 80 mg PO DAILY 08/31/19 12/17/20 09/25/20 History cyanocobalamin (vitamin B-12) 500 500 mcg PO DAILY 12/19/19 12/17/20 Unknown History mcg tablet nitroglycerin 0.4 mg SUBLINGUAL Q5M PRN #30 tab 06/10/20 12/17/20 Unknown Rx pantoprazole 40 mg tablet,delayed 40 mg PO DAILY #30 tab 09/03/20 12/17/20 09/25/20 Rx release prednisone 10 mg tablet See Rx Instructions PO .COMPLEX 09/03/20 12/17/20 Unknown Rx PRN #60 tab dicyclomine 20 mg PO TID PRN 09/25/20 12/17/20 Unknown History sumatriptan succinate 50 mg PO Q2H PRN 09/25/20 12/17/20 Unknown History gabapentin 100 mg capsule 100 mg PO DAILY 10/07/20 12/17/20 Unknown History valbenazine 40 mg ()-80 mg () See Rx Instructions PO PER PKG DIR 10/07/20 12/17/20 Unknown Rx capsules in a dose pack #28 ea benztropine 1 mg tablet 1 mg PO BID #60 tab 11/04/20 12/17/20 Unknown Rx clonazepam 0.5 mg tablet 0.5 mg PO TID PRN #90 tab 11/04/20 12/17/20 Unknown Rx lamotrigine 200 mg tablet 200 mg PO BID #60 tab 11/04/20 12/17/20 Unknown Rx mirtazapine 30 mg tablet 30 mg PO .HS #30 tab 11/04/20 12/17/20 Unknown Rx sertraline 100 mg tablet 100 mg PO DAILY #30 tab 12/02/20 12/17/20 Unknown Rx alfuzosin 10 mg tablet,extended 10 mg PO ONCE #30 tab 12/17/20 12/17/20 Unknown Rx release 24 hr valbenazine 80 mg capsule 80 mg PO DAILY #30 cap 12/18/20 Unknown Rx tocilizumab 162 mg/0.9 mL 162 mg SUBCUT .every 7 days #4 ml 12/23/20 Unknown Rx subcutaneous syringe Allergies Allergy/AdvReac Type Severity Reaction Status Date / Time hydroxyzine [From Vistaril] Allergy Unknown Verified 12/23/20 16:50 lithium Allergy makes me Verified 12/23/20 16:50 mean sulfamethizole Allergy Unknown Verified 12/23/20 16:50 PFSH Acute PFSH: Medical History Acute pancreatitis Aftercare following bilateral wrist joint replacement surgery Bilateral knee pain Cellulitis Chest pain Contracture of right index finger Costochondritis Dizziness Facial tic Family history of tardive dyskinesia Gastritis Gastroenteritis Generalized anxiety disorder High risk medication use Immunization counseling Intussusception Major depressive disorder, recurrent, moderate Myoclonus Nephrolithiasis Neurological symptoms Nicotine dependence, cigarettes, with unspecified nicotine-induced disorders Post-traumatic stress disorder, chronic Psychosis Raynaud's disease without gangrene Rheumatoid arthritis without rheumatoid factor, multiple sites SAH (subarachnoid hemorrhage) Schizoaffective disorder Sinus bradycardia Stammering improved Tardive dyskinesia Ulcerative colitis Ureterolithiasis Urinary calculi Surgical History History of bilateral knee replacement History of renal stent Hx of gastric bypass Family History Mother , at age 74 Cancer colorectal Father No problems noted. Denies family history of Rheumatoid arthritis Social History Smoking and tobacco status: current every day smoker cigarettes Packs smoked per day: 1 Smoking risk assessment/counseling performed?: Yes Tobacco counseling given: counseling >3 minutes Alcohol intake: never Marital status: Single Current occupational status: disabled History of recent travel: No Vitals/I&O/Wt Last Vital Signs Temp 97.7 F 12/24/20 03:48 Pulse 69 12/24/20 03:48 Resp 16 12/24/20 03:48 BP 84/51 12/24/20 03:48 Pulse Ox 93 12/24/20 03:48 12/23/20 12/23/20 12/24/20 14:59 22:59 06:59 Intake Total 1240 / 1240 Balance 1240 / 1240 Weight last 48 hrs Weight 69.853 kg Weight 68.492 kg Physical Exam Narrative: EXAM NARRATIVE: General: No acute distress, AO x3 HEENT: PERRLA, pupils bilaterally equal and reactive, pallors not present Chest: Normal vesicular breath sounds, no added sounds, equal good air entry bilaterally CVS: S1-S2 regular, no murmurs, no tachycardia, no gallops, no rubs Abdomen: Soft, non distended, tenderness to palpation epigastric area Neuro: No focal deficits, no facial deformity, AO x3, power 5/5 in all limbs Data : 12/24/20 00:10 12/24/20 05:36 Micro: Microbiology 12/23/20 22:55 Occult Blood (FIT) - Final Stool Routine Collection A&P Assessment and plan (1) Melena: Status: Acute (2) Enterocolitis: Status: Acute (3) Acute dehydration: Status: Acute (4) Transaminitis: Status: Acute Additional A&P Information 60F presenting with abdominal pain, nausea vomiting with hemoccult positive stool, CT abdomen with possible enterocolitis Start Ceftriaxone, Flagyl empirically Continue hydration with LR @100cc/hr Protonix 40mg IVP q12h Monitor serial HB Transaminitis may be related to dehydration, check hepatitis serology Dvt ppx: SCD for now given manasa Full code Attestations Medical Necessity Statement*: Observation admission for now for serial HB check, iv abx and fluids for enterocolitis Coding Level of Care Code Acute [facility] Diagnoses Melena K92.1 Enterocolitis K52.9 Acute dehydration E86.0 Transaminitis R74.01
[2020-12-24 06:35] LABS: Slide Review Slide Review Perform
[2020-12-24] MEDS: cefTRIAXone 1,000 MG in sodium chloride 0.9% (plus) 50 ML 100 MG IV (06:37)
[2020-12-24 06:59] LABS: Hepatitis A Antibody IgM Non-Reactive (Nonreactive); Hepatitis B Core AB, Total Non-Reactive (Nonreactive); Hepatitis B Surface AB 3.5 (11.5-1000); Hepatitis B Surface Antigen Non-Reactive (Nonreactive)
[2020-12-24] MEDS: metroNIDAZOLE IV 500 MG/100 ML PREMIX 100 MG IV ×2 (07:13→14:24)
[2020-12-24 07:23] LABS: Hepatitis C Virus Antibody Reactive (Nonreactive)
--- NOTE | 2020-12-24 08:30 | PC.NURSE ---
Patient asked this nurse about her home meds. She said she takes several medications at home that she needs to continue to receive here, including ativan that helps with her pain.This nurse will locate the patient's nurse and report this information.
[2020-12-24] MEDS: benztropine 1 mg Tablet PO ×2 (08:39→17:03)
[2020-12-24] MEDS: pantoprazole 40 mg SDV IVP (08:39)
[2020-12-24] MEDS: morphine 4 mg/mL SDV 1 mL 2 MG IVP (08:44)
--- NOTE | 2020-12-24 09:00 | PC.PHAR ---
pt states she takes care of her own medications-medications entered are meds the pt states she takes and what ext med history shows has been filled recently-pt states she hasnt been taking the prednisone-pt states she never filled her nitroglycerin-
--- NOTE | 2020-12-24 11:49 | PC.CHAP ---
Pastoral Care Encounter/Spiritual Assessment Type of Contact [] Declined molten iron pourer visit [] Patient/Family/Request visit [] Outpatient visit [] Follow-up visit [] Physician referral [] Code/Alert [x] Routine visit [] Staff referral [] Actively dying [] Patient sleeping [] Family support [] [] Out of room [] Palliative care [] [] Receiving care in room [] Pre-surgical visit [] Trauma [] Long length of stay [] ICU visit [] Other: Relational/Emotional Strength [] Patient feels connected with others/family/visitors/staff [] Distress [] Loneliness/isolation [] Abandonment Spirituality of Patient [x] Person of Bethany [] Attends Uatsdin of their [place] [] Believes in Prayer [] Reads Bible or Yazidi materials [] There are Spiritual issues to be addressed Storage Receipt Poster Interventions [x] Prayer [] Active listening [] Non-anxious presence [] Spiritual/emotional support [] Crisis/trauma care [] Spiritual counseling [] Bereavement support [] Provided bereavement packet [] Provided Bible/devotional materials [] Provided toy/stuffed animal, coloring book to patient or family member [] Provided Communion [] Anointing/[place] [] Salvation [x] Completed spiritual assessment [] Other: Impact on Illness or Injury [] Angry [] Fearful [] Anxious [] Often cries [] Exhaustion [] Unable to work [] Unable to attend yazidism [] Unable to walk/stand [] Unable to read [] Unable to drive [] Unable to eat/drink [] Unable to sleep [] Unable to be with family [] Patient intubated [] Other: Summary Time spent with patient
[2020-12-24 14:45] LABS: Coronavirus Test Green County Not Detected
--- NOTE | 2020-12-24 15:57 | P.DS_ITS ---
Discharge Providers Date of Admission: 12/24/20 02:05 Date of Discharge: December 24, 2020 Attending Provider at Admission: Rosette Garcia MD Attending Provider at Discharge: Monico Harris Primary Care Provider: Helga Mancera DO Diagnoses at Discharge Discharge Diagnosis (1) Melena: Status: Resolved (2) Enterocolitis: Status: Acute (3) Acute dehydration: Status: Resolved (4) Transaminitis: Status: Resolved Reason for Visit Reason for Visit: HEADACHE/FATIGUE/SINUS CONGESTION Hospital Course Hospital Course 60 year old female with a history of prior depression/PTSD, gastric bypass , subarachnoid hemorrhage, myoclonus,Mild cognitive impairment with memory loss, rheumatoid arthritis,Raynaud's disease presented today with c/o epigastric abdominal pain that started yesterday along with nausea/vomiting, multiple episodes of semi soft black colred stool. Noted to have 2-3 episodes of melantoic appearing stools in the ER that were hemoccult positive. Currently hemodynamically stable, Hb ~15. CT abd/pelvis showed Nonspecific fluid distended bowel loops throughout abdomen and pelvis, possible enterocolitis. ROS + for headache, CT head negative . Patient was started on Rocephin and Flagyl. CT scan was reviewed with General surgery. No acute intervention was needed. Also was noted to have elevated LFTs. Found to have hepatitis-C positive. Patient was tolerating oral intake. Discharged with close outpatient follow-up with General surgery as well as Dr. Gaspar for hepatitis-C management. Physical Exam Narrative: EXAM NARRATIVE: General: No acute distress, AO x3 HEENT: PERRLA, pupils bilaterally equal and reactive, pallors not present Chest: Normal vesicular breath sounds, no added sounds, equal good air entry bilaterally CVS: S1-S2 regular, no murmurs, no tachycardia, no gallops, no rubs Abdomen: Soft, non distended, Nontender Neuro: No focal deficits, no facial deformity, AO x3, power 5/5 in all limbs Discharge Data Data Completed and Pending: Completed Studies During Hospitalization Category Date Time Status CT abdomen pelvis w con* [id number] Urge nt Cat Scan 12/23/20 23:[address] head wo con* [id number] Urgent Cat Scan 12/23/20 20:43 Completed Vitals: Last Vital Signs Temp 98 F 12/24/20 18:50 Pulse 70 12/24/20 18:50 Resp 18 12/24/20 18:50 BP 129/79 12/24/20 18:50 Pulse Ox 94 12/24/20 18:50 Discharge Plan Discharge Patient Disposition: Home Condition: Stable Prescriptions: New pantoprazole [Protonix] 40 mg tablet,delayed release (DR/EC) 40 mg PO DAILY Qty: 30 RF: 0 ciprofloxacin HCl 500 mg tablet 500 mg PO BID Qty: 14 RF: 0 metronidazole [Flagyl] 500 mg tablet 500 mg PO TID Qty: 21 RF: 0 Continued gabapentin 100 mg capsule 100 mg PO BEDTIME RF: 0 benztropine 1 mg tablet 1 mg PO BID Qty: 60 RF: 1 clonazepam 0.5 mg tablet 0.5 mg PO TID PRN (Reason: anxiety) Qty: 90 RF: 1 lamotrigine [Lamictal] 200 mg tablet 200 mg PO BID Qty: 60 RF: 1 nitroglycerin 0.4 mg tablet, sublingual 0.4 mg sublingual Q5M PRN (Reason: chest pain) Qty: 30 RF: 0 dicyclomine 20 mg tablet 20 mg PO BID RF: 0 sumatriptan succinate 50 mg Tablet 50 mg PO Q2H MDD 100 mg PRN (Reason: Migraine Headache) RF: 0 multivitamin Tablet 1 tab PO DAILY RF: 0 ferrous sulfate [iron] 325 mg (65 mg iron) Tablet 325 mg PO DAILY RF: 0 albuterol sulfate [ProAir HFA] 90 mcg/actuation Hfa Aerosol Inhaler 2 puff INHALATION Q4H PRN (Reason: Shortness Of Breath) RF: 0 fluticasone propionate 50 mcg/actuation spray,suspension 2 spray INTRANASAL DAILY PRN (Reason: Allergy Symptoms) RF: 0 alfuzosin 10 mg tablet extended release 24 hr 10 mg PO DAILY RF: 0 Vitamin B-12 1 tab PO DAILY RF: 0 magnesium 1 cap PO Q7D RF: 0 sertraline [Zoloft] 100 mg tablet 100 mg PO DAILY RF: 0 mirtazapine [Remeron] 30 mg tablet 30 mg PO BEDTIME RF: 0 Actemra 162 mg/0.9 mL syringe 162 mg SUBCUT Q7D RF: 0 valbenazine 80 mg capsule 80 mg PO BEDTIME RF: 0 Held aspirin 81 mg Tablet,Delayed Release (Dr/Ec) 81 mg PO DAILY RF: 0 Hold Instructions: Resume on 01/07/21. Resume if ok with PCP after repeat H/h outpatient Discontinued prednisone 10 mg tablet See Rx Instructions PO .COMPLEX PRN (Reason: rheumatoid arthritis) Qty: 60 R F: 3 propranolol 80 mg Capsule,Extended Release 24hr 80 mg PO DAILY RF: 0 simvastatin 20 mg tablet 20 mg PO BEDTIME RF: 0 No Action Reglan 10 mg tablet 10 mg PO Q6H PRN (Reason: nausea and vomiting) Qty: 20 RF: 0 Discharge Orders: Discharge Order (Routine); Ordered 12/24/20 Ordered By: Monico Harris Other Ambulatory Orders: Complete Blood Count w/Auto (Routine) Timeframe: 3 Days Location: Determined by Patient Ordered By: Monico Harris Comprehensive Metabolic Panel (Routine) Timeframe: 3 Days Facility: [facility] - Location: Lab - Main Lab Ordered By: Monico Harris Referrals: Jose Angel Lackey MD [Physician] - 2 weeks (Please call tomorrow to schedule a follow up appointment. Dr. Lackey follow up 01-06) Helga Mancera DO [Primary Care Provider] - 1-3 days (Please call tomorrow to schedule a follow up appointment. 01-07-21 Helga Mancera) Discharge Diet: Full LIquid Discharge Activity: Increase activity as tolerated Patient Instructions: Ciprofloxacin (By mouth), Metronidazole (By mouth), Pantoprazole (By mouth), Infectious Colitis (GEN), Opioid Safety Discharge Attestations Time Spent in Discharge Care*: greater than 30 min Specific Discharge Activities: educating patient, discussing with pcp/other providers ( Discussed with Dr. Lackey and Dr. Gaspar), discussing with case resolution specialist/social workers/dc planners, documenting/other paperwork and evaluating patient/reviewing data Status at Discharge: Cognitive status at discharge: cognitively intact , Behavioral status at discharge: cooperative , Overall status at discharge: patient is back to baseline Quality Metrics Clinical Quality Measures During this hospital stay, did patient experience: None Coding Level of Care Code Acute Chg DC note Diagnoses Melena K92.1 Enterocolitis K52.9 Acute dehydration E86.0 Transaminitis R74.01
[2020-12-24 18:02] LABS: Hematocrit 40.4 % (37.0-47.0); Hemoglobin 12.2 g/dL (11.5-15.3)
--- NOTE | 2020-12-26 08:58 | PC.RESP ---
SMOKING CESSATION INFORMATION SENT TO PATIENT.
--- NOTE | 2020-12-29 12:38 | PC.SOCIAL ---
discharge follow up call made. Patient has follow up with Dr. Lackey on 01-06 and Helga Mancera 01-07. Patient continues to have blood in her stool. Not any worse than when admitted but denies improvement. I tried to get patient in to see Dr. Lackey sooner than 01-06, they had no available appointments. Advised patient to go to the ER. Pt had picked up new medications from pharmacy and is taking a prescribed.
== END 2020-12-24 18:51 | disposition home or self-care (01) ==
LOC: ER 12-24 01:52 → MEDSURG 12-24 03:56
PROVIDERS: Admitting Provider Student in an Organized Health Care Education/Training Program; Emergency Provider Emergency Medicine; PCP Family Medicine; Visit Provider Hospitalist
DX: K92.1 Melena (principal); I44.5 Left posterior fascicular block; K52.9 Noninfective gastroenteritis and colitis, unspecified; E86.0 Dehydration; R74.01 Elevation of levels of liver transaminase levels; K75.9 Inflammatory liver disease, unspecified; Z79.82 Long term (current) use of aspirin; F17.210 Nicotine dependence, cigarettes, uncomplicated; Z98.84 Bariatric surgery status
CPT/HCPCS: 36415; 70450; 74177; 80053; 81001; 82274; 83605; 83690; 84484; 85014; 85018; 85025; 85610; 85730; 86705; 86706; 86709; 86803; 86850; 86900; 87086; 87340; 87635; 93005; 96361; 96365; 96367; 96375; 96376; 99291; 99292; C9113; G0378; J0696; J2060; J2270; J2405; J3490; J7030; Q9967; S0030

== ENCOUNTER 2020-12-29 18:03 | Emergency (ER) | payer MEDICARE, SELFPAY ==
--- NOTE | 2020-12-29 18:07 | CTR_ITS ---
PROCEDURE INFORMATION: Exam: CT Abdomen And Pelvis Without Contrast Exam date and time: 12/29/2020 6:07 PM Age: 60 years old Clinical indication: Nausea; Abdominal pain; Prior surgery; Additional info: Abd pain TECHNIQUE: Imaging protocol: Computed tomography of the abdomen and pelvis without contrast. Radiation optimization: All CT scans at this facility use at least one of these dose optimization techniques: automated exposure control; mA and/or kV adjustment per patient size (includes targeted exams where dose is matched to clinical indication); or iterative reconstruction. COMPARISON: CT abdomen pelvis w con* [id number] 12/23/2020 11:09 PM RADIATION DOSE METRICS: Total DLP (mGy-cm): 1075.64 FINDINGS: Limitations: The absence of intravenous contrast lessens the sensitivity of this study for solid organ abnormalities. Liver: There is no focal abnormality within the liver. Gallbladder and bile ducts: There has been a cholecystectomy. Pancreas: The pancreas is normal. Spleen: The spleen is normal. Adrenal glands: The adrenal glands are normal. Kidneys and ureters: The kidneys are normal. There is no evidence of hydronephrosis. There is no evidence of renal or ureteral calcifications. Stomach and bowel: There has been a gastric stapling and bypass. There is no evidence of intestinal obstruction. Appendix: Not identified Intraperitoneal space: There is no evidence of free intraperitoneal fluid. Vasculature: The aorta demonstrates moderate atherosclerotic calcification. There is no evidence of an abdominal aortic aneurysm. Incidental note is made of a retroaortic left renal vein.There is no evidence of lymphadenopathy. Lymph nodes: Unremarkable. No enlarged lymph nodes. Urinary bladder: Unremarkable as visualized. Reproductive: Unremarkable as visualized. Bones/joints: There is old ununited posterior right 11th rib fracture. Soft tissues: Unremarkable. CT/CT abdomen pelvis con [id number] IMPRESSION: No acute finding. COMPARISON MORE: CT abdomen pelvis w con* [id number] 06/10/2020 2:48:18 PM Radiation Dose CTDIVOL = (mGy): DLP = 1075.64 (mGy-cm)
[2020-12-29 18:10] VITALS: BP 147/76; PULSE 71; RESP 16; TEMP 37; O2SAT 96; BMI 25.5
--- NOTE | 2020-12-29 18:10 | ED_ITS ---
HPI - Abdominal Pain General: Chief Complaint: Abdominal Pain Stated Complaint: ABD PAIN Time Seen by Provider: 12/29/20 18:04 Source: patient Mode of arrival: ambulatory Limitations: no limitations History of Present Illness: HPI narrative: 60-year-old female who was admitted earlier this week for lower GI bleed and abdominal pain. She never got anemic and has a follow-up with Dr. Lackey next week. She states that she is continue to have the abdominal pain is diffuse in nature and cramping. She rates her pain a 6 out of 10. States it is crampy in nature. Denies any worsening improving factors. Associated Symptoms: Reports nausea; Denies chills, dysuria and fever(s) Review of Systems Const: Denies: fever(s), chills, body aches or change in appetite Eyes: Denies: blurry vision or eye discomfort ENMT: Denies: throat pain or dental pain Card: Denies: chest pain Resp: Denies: dyspnea GI: Reports: abdominal pain and nausea : Denies: dysuria Musc: Denies: neck pain or back pain Skin/Breast: Denies: rash Neuro: Denies: headache(s) Psych: Denies: depression Eusebio/Lymph: Denies: easy bruising All/Imm: Denies: urticaria PFSH ED PFSH: Medical History Acute pancreatitis Aftercare following bilateral wrist joint replacement surgery Bilateral knee pain Cellulitis Chest pain Contracture of right index finger Costochondritis Dizziness Facial tic Family history of tardive dyskinesia Gastritis Gastroenteritis Generalized anxiety disorder High risk medication use Immunization counseling Intussusception Major depressive disorder, recurrent, moderate Myoclonus Nephrolithiasis Neurological symptoms Nicotine dependence, cigarettes, with unspecified nicotine-induced disorders Post-traumatic stress disorder, chronic Psychosis Raynaud's disease without gangrene Rheumatoid arthritis without rheumatoid factor, multiple sites SAH (subarachnoid hemorrhage) Schizoaffective disorder Sinus bradycardia Stammering improved Tardive dyskinesia Ulcerative colitis Ureterolithiasis Urinary calculi Surgical History History of bilateral knee replacement History of renal stent Hx of gastric bypass Family History Mother , at age 74 Cancer colorectal Father No problems noted. Denies family history of Rheumatoid arthritis Social History Smoking and tobacco status: current every day smoker cigarettes Packs smoked per day: 1 Smoking risk assessment/counseling performed?: Yes Tobacco counseling given: counseling >3 minutes Alcohol intake: never Marital status: Single Current occupational status: disabled History of recent travel: No Physical Exam Const: COMMON NORMALS: no acute distress, patient oriented x3 and healthy appearing HENMT: COMMON NORMALS: normocephalic and atraumatic HEAD & SCALP: normocephalic and atraumatic Eye: COMMON NORMALS: Equal, round and reactive pupils present and EOMs intact bilaterally PUPIL: Yes Equal, round and reactive pupils present Neck/C-Spine: COMMON NORMALS: full ROM and supple Chest: COMMONS NORMALS: normal inspection of the chest and normal palpation of entire chest wall Resp: COMMON NORMALS: normal respiratory effort, No retractions, No use of accessory muscles and clear to auscultation bilaterally AUSCULTATION: clear to auscultation bilaterally Cardio: COMMON NORMALS: regular rate, regular rhythm and No murmurs present (Cardio) RATE: regular rate RHYTHM: regular rhythm GI: COMMON NORMALS: Normal to inspection, nondistended, normoactive bowel sounds present, Soft to palpation, non-tender and no masses PALPATION: Yes Soft to palpation Extremity: COMMON NORMALS: normal to inspection and full ROM Neuro: COMMON NORMALS: patient oriented x3, moves all extremities and no focal motor deficits Psych: COMMON NORMALS: mental status grossly normal, Normal thought process present and cooperative THOUGHT PROCESS: Normal thought process present Skin: COMMON NORMALS: no rashes or lesions noted and no wounds GENERAL SKIN EXAM: no rashes or lesions noted Course Vital Signs: Vital signs: Vital Signs Temperature 98.6 F 12/29/20 18:10 Pulse Rate 67 12/29/20 22:24 Respiratory Rate 18 12/29/20 22:24 Blood Pressure 121/54 12/29/20 22:24 Pulse Oximetry 97 12/29/20 22:24 MDM - Abdominal Pain MDM Narrative: Medical decision making narrative: Patient presents with abdominal pain. Patient's blood work and CT abdomen here are all normal. She is well-appearing here and has no signs of acute surgical abdomen. She is stable for discharge and is to follow-up with Dr. Lackey as scheduled next week and return if worsening. Lab Data: Labs: Lab Results 12/29/20 12/29/20 12/29/20 Range/Units 18:24 18:38 18:38 WBC Cancelled Corrected WBC Cancelled RBC Cancelled Hgb Cancelled Hct Cancelled MCV Cancelled MCH Cancelled MCHC Cancelled RDW Cancelled Plt Count Cancelled MPV Cancelled Gran % Cancelled Neut % (Auto) Cancelled Lymph % (Auto) Cancelled [place] % (Auto) Cancelled Eos % (Auto) Cancelled Baso % (Auto) Cancelled Neut # (Auto) Cancelled Lymph # (Auto) Cancelled [place] # (Auto) Cancelled Eos # (Auto) Cancelled Baso # (Auto) Cancelled Absolute Gran (aut o) Cancelled Nucleated RBC % (a uto) Cancelled Total Counted (0-100) Atypical Lymphs % (0-5) % Absolute Neutrophi ls (1.4-6.5) 10^3/c mm Segmented Neutroph ils % Abs Segm Neuts (Ma n) (1.6-7.1) 10/cmm Band Neutrophils % Abs Band Neuts (Ma n) (0.0-1.2) 10^3/c mm Absolute Lymphocyt es (1.2-3.4) 10^3/c mm Lymphocytes (Manua l) % Monocytes (Manual) % Absolute Monocytes (0.1-0.6) 10^3/c mm Eosinophils (Manua l) % Absolute Eosinophi ls (0.0-0.7) 10^3/c mm Basophils (Manual) % Absolute Basophils (0.0-0.2) 10^3/c mm Nucleated RBCs # Cancelled Platelet Estimate (Normal) Anisocytosis Ovalocytes Sodium 142 (136-145) mmol/L Potassium 3.9 (3.5-5.1) mmol/L Chloride 108 H (98-107) mmol/L Carbon Dioxide 26 (22-29) mmol/L Anion Gap 11.9 (5-19) BUN 12 (8-23) mg/dL Creatinine 0.7 (0.5-0.9) mg/dL GFR Calculation 85.4 L (90-130) mL/min Glucose 75 (65-115) mg/dL Calculated Osmolal ity 292 (285-295) mOsm/k g Calcium 8.7 (8.5-10.5) mg/dL Total Bilirubin 0.2 (0.15-1.2) mg/dL AST 41 H (0-32) U/L ALT 61 H (0-33) U/L Alkaline Phosphata se 124 H (35-105) IU/L Total Protein 6.0 L (6.6-8.7) g/dL Albumin 4.0 (3.5-5.2) g/dL Globulin 2.0 (1.3-4.6) g/dL Lipase 42 (13-60) U/L Urine Color Straw (Yellow) Urine Appearance Sl cloudy A (CLEAR) Urine pH 5 (5-7) Ur Specific Gravit y 1.020 (1.005-1.030) Urine Protein Neg (Negative) Urine Glucose (UA) Norm (Normal) Urine Ketones Negative (Negative) Urine Blood Neg (Negative) Urine Nitrate Negative (Negative) Urine Bilirubin Neg (Negative) Urine Urobilinogen Norm (Negative) mg/dL Ur Leukocyte Violeta ase 1+ H (Negative) Urine RBC 0-4 H (0-2) /hpf Urine WBC 5-10 H (0-5) /hpf Ur Squamous Epith Cells 10-15 H (0-5) /hpf Amorphous Sediment Not Reportable Urine Bacteria 1+ H (NONE) /hpf Urine Mucus 1+ /hpf 08/16/21 Range/Units 19:40 WBC 5.3 Corrected WBC RBC 4.93 Hgb 13.4 Hct 43.0 MCV 87.2 MCH 27.2 L MCHC 31.2 RDW 21.0 H Plt Count 250 MPV 10.5 H Gran % Neut % (Auto) Lymph % (Auto) Not Reportable [place] % (Auto) Not Reportable Eos % (Auto) Baso % (Auto) Neut # (Auto) Lymph # (Auto) Not Reportable [place] # (Auto) Not Reportable Eos # (Auto) Baso # (Auto) Absolute Gran (aut o) Nucleated RBC % (a uto) Total Counted 100 (0-100) Atypical Lymphs % 17.0 H (0-5) % Absolute Neutrophi ls 1.7 (1.4-6.5) 10^3/c mm Segmented Neutroph ils 25 % Abs Segm Neuts (Ma n) 1.3 L (1.6-7.1) 10/cmm Band Neutrophils 8.0 % Abs Band Neuts (Ma n) 0.4 (0.0-1.2) 10^3/c mm Absolute Lymphocyt es 2.7 (1.2-3.4) 10^3/c mm Lymphocytes (Manua l) 34 % Monocytes (Manual) 15.0 % Absolute Monocytes 0.8 H (0.1-0.6) 10^3/c mm Eosinophils (Manua l) 1 % Absolute Eosinophi ls 0.0 (0.0-0.7) 10^3/c mm Basophils (Manual) 0.0 % Absolute Basophils 0.0 (0.0-0.2) 10^3/c mm Nucleated RBCs # Platelet Estimate Normal (Normal) Anisocytosis 1+ H Ovalocytes 1+ H Sodium (136-145) mmol/L Potassium (3.5-5.1) mmol/L Chloride (98-107) mmol/L Carbon Dioxide (22-29) mmol/L Anion Gap (5-19) BUN (8-23) mg/dL Creatinine (0.5-0.9) mg/dL GFR Calculation (90-130) mL/min Glucose (65-115) mg/dL Calculated Osmolal ity (285-295) mOsm/k g Calcium (8.5-10.5) mg/dL Total Bilirubin (0.15-1.2) mg/dL AST (0-32) U/L ALT (0-33) U/L Alkaline Phosphata se (35-105) IU/L Total Protein (6.6-8.7) g/dL Albumin (3.5-5.2) g/dL Globulin (1.3-4.6) g/dL Lipase (13-60) U/L Urine Color (Yellow) Urine Appearance (CLEAR) Urine pH (5-7) Ur Specific Gravit y (1.005-1.030) Urine Protein (Negative) Urine Glucose (UA) (Normal) Urine Ketones (Negative) Urine Blood (Negative) Urine Nitrate (Negative) Urine Bilirubin (Negative) Urine Urobilinogen (Negative) mg/dL Ur Leukocyte Violeta ase (Negative) Urine RBC (0-2) /hpf Urine WBC (0-5) /hpf Ur Squamous Epith Cells (0-5) /hpf Amorphous Sediment Urine Bacteria (NONE) /hpf Urine Mucus /hpf Imaging Data ^: CT Abd/Pel: Attestation: I personally reviewed and interpreted this imaging study as follows: Radiologist's impression: [facility] [employer] [address] [place] [address] CT Scan Report Signed Patient: Nunu Marroquin Unit #: [id number] : 1960 Age/Sex: 60 / F ADM Date: 12/29/20 Loc: ER Room/Bed: Attending Dr: Ordering Provider/Ordering MD: Miguel Fuller MD Date of Service: 12/29/20 Procedure(s): CT abdomen pelvis wo con [id number] Accession Number(s): [id number] Report Number: [id number] PROCEDURE INFORMATION: Exam: CT Abdomen And Pelvis Without Contrast Exam date and time: 12/29/2020 6:07 PM Age: 60 years old Clinical indication: Nausea; Abdominal pain; Prior surgery; Additional info: Abd pain TECHNIQUE: Imaging protocol: Computed tomography of the abdomen and pelvis without contrast. Radiation optimization: All CT scans at this facility use at least one of these dose optimization techniques: automated exposure control; mA and/or kV adjustment per patient size (includes targeted exams where dose is matched to clinical indication); or iterative reconstruction. COMPARISON: CT abdomen pelvis w con* [id number] 12/23/2020 11:09 PM RADIATION DOSE METRICS: Total DLP (mGy-cm): 1075.64 FINDINGS: Limitations: The absence of intravenous contrast lessens the sensitivity of this study for solid organ abnormalities. Liver: There is no focal abnormality within the liver. Gallbladder and bile ducts: There has been a cholecystectomy. Pancreas: The pancreas is normal. Spleen: The spleen is normal. Adrenal glands: The adrenal glands are normal. Kidneys and ureters: The kidneys are normal. There is no evidence of hydronephrosis. There is no evidence of renal or ureteral calcifications. Stomach and bowel: There has been a gastric stapling and bypass. There is no evidence of intestinal obstruction. Appendix: Not identified Intraperitoneal space: There is no evidence of free intraperitoneal fluid. Vasculature: The aorta demonstrates moderate atherosclerotic calcification. There is no evidence of an abdominal aortic aneurysm. Incidental note is made of a retroaortic left renal vein.There is no evidence of lymphadenopathy. Lymph nodes: Unremarkable. No enlarged lymph nodes. Urinary bladder: Unremarkable as visualized. Reproductive: Unremarkable as visualized. Bones/joints: There is old ununited posterior right 11th rib fracture. Soft tissues: Unremarkable. CT/CT abdomen pelvis wo con [id number] IMPRESSION: No acute finding. COMPARISON MORE: CT abdomen pelvis w con* [id number] 06/10/2020 2:48:18 PM Radiation Dose CTDIVOL = (mGy): DLP = 1075.64 (mGy-cm) Dictated By: Samy Cabrera Signed By: Samy Cabrera Signed Date/Time: 12/29 DD/ 99 Discharge Plan Discharge Patient Disposition: Home Clinical Impression: Abdominal pain Qualifiers: Abdominal location: generalized Qualified Code(s): R10.84 - Generalized abdominal pain Condition: Stable Prescriptions: New Reglan 10 mg tablet 10 mg PO Q6H PRN (Reason: nausea and vomiting) Qty: 20 RF: 0 No Action gabapentin 100 mg capsule 100 mg PO BEDTIME RF: 0 benztropine 1 mg tablet 1 mg PO BID Qty: 60 RF: 1 clonazepam 0.5 mg tablet 0.5 mg PO TID PRN (Reason: anxiety) Qty: 90 RF: 1 lamotrigine [Lamictal] 200 mg tablet 200 mg PO BID Qty: 60 RF: 1 nitroglycerin 0.4 mg tablet, sublingual 0.4 mg sublingual Q5M PRN (Reason: chest pain) Qty: 30 RF: 0 dicyclomine 20 mg tablet 20 mg PO BID RF: 0 sumatriptan succinate 50 mg Tablet 50 mg PO Q2H MDD 100 mg PRN (Reason: Migraine Headache) RF: 0 multivitamin Tablet 1 tab PO DAILY RF: 0 aspirin 81 mg Tablet,Delayed Release (Dr/Ec) 81 mg PO DAILY RF: 0 Hold Instructions: Resume on 01/07/21. Resume if ok with PCP after repeat H/h outpatient ferrous sulfate [iron] 325 mg (65 mg iron) Tablet 325 mg PO DAILY RF: 0 albuterol sulfate [ProAir HFA] 90 mcg/actuation Hfa Aerosol Inhaler 2 puff INHALATION Q4H PRN (Reason: Shortness Of Breath) RF: 0 fluticasone propionate 50 mcg/actuation spray,suspension 2 spray INTRANASAL DAILY PRN (Reason: Allergy Symptoms) RF: 0 alfuzosin 10 mg tablet extended release 24 hr 10 mg PO DAILY RF: 0 Vitamin B-12 1 tab PO DAILY RF: 0 magnesium 1 cap PO Q7D RF: 0 sertraline [Zoloft] 100 mg tablet 100 mg PO DAILY RF: 0 mirtazapine [Remeron] 30 mg tablet 30 mg PO BEDTIME RF: 0 Actemra 162 mg/0.9 mL syringe 162 mg SUBCUT Q7D RF: 0 valbenazine 80 mg capsule 80 mg PO BEDTIME RF: 0 pantoprazole [Protonix] 40 mg tablet,delayed release (DR/EC) 40 mg PO DAILY Qty: 30 RF: 0 ciprofloxacin HCl 500 mg tablet 500 mg PO BID Qty: 14 RF: 0 metronidazole [Flagyl] 500 mg tablet 500 mg PO TID Qty: 21 RF: 0 Discharge Orders: Discharge ED (Routine); Ordered 12/29/20 Ordered By: Miguel Fuller Referrals: Helga Mancera DO [Primary Care Provider] - Discharge Diet: Advance as tolerated Discharge Activity: Resume usual activity Patient Instructions: Abdominal Pain (ED) Coding Level of Care Code ED Air Conditioning Service Technician for Chg Fwd Exam Comprehensive
[2020-12-29] MEDS: morphine 4 mg/mL SDV 1 mL IVP (18:24)
[2020-12-29] MEDS: ondansetron 2 mg/ML SDV 2 mL 4 MG IVP (18:24)
[2020-12-29] MEDS: sodium chloride 0.9% 1,000 ML 999 ML IV (18:25)
[2020-12-29 18:52] LABS: Add Urine Microscopic? YES; Bilirubin Urine Neg (Negative); Blood Urine Neg (Negative); Glucose Urine UA Norm (Normal); Ketones Urine Negative (Negative); Leukocyte Esterase Urine 1+ (Negative); Nitrate Urine Negative (Negative); Protein Urine Neg (Negative); Urine Color Straw (Yellow); Urobilinogen Urine Norm (Negative); pH Urine 5 (5-7)
[2020-12-29 18:53] LABS: Add Urine Culture? No; Bacteria Urine 1+ /hpf; Mucus Urine 1+ /hpf; RBC Urine 0-4 /hpf (0-2)
[2020-12-29 19:19] LABS: Alanine Aminotransferase 61 U/L (0-33); Alkaline Phosphatase 124 IU/L (35-105); Aspartate Amino Transferase 41 U/L (0-32); Blood Urea Nitrogen 12 mg/dL (8-23); Calcium 8.7 mg/dL (8.5-10.5); Carbon Dioxide 26 mmol/L (22-29); Chloride 108 mmol/L (98-107); Glomerular Filtration Rate 85.4 mL/min (90-130); Glucose 75 mg/dL (65-115); Lipase 42 U/L (13-60); Osmolality Calculated 292 mOsm/kg (285-295); Sodium 142 mmol/L (136-145); Total Bilirubin 0.2 mg/dL (0.15-1.2)
[2020-12-29 19:20] LABS: Anion Gap 11.9 (5-19); Potassium 3.9 mmol/L (3.5-5.1)
[2020-12-29 19:48] LABS: Hemoglobin 13.4 g/dL (11.5-15.3); Mean Corpuscular HGB Conc 31.2 g/dL (30.0-36.0); Mean Corpuscular Hemoglobin 27.2 pg (28.0-34.0); Mean Corpuscular Volume 87.2 fl (81-99); Mean Platelet Volume 10.5 fL (7.4-10.4); Platelet Count 250 10^3/cmm (130-400); Red Blood Count 4.93 10^6/uL (4.1-5.3); White Blood Count 5.3 10^3/uL (4.0-10.0)
[2020-12-29 20:07] VITALS: RESP 20
[2020-12-29] MEDS: HYDROmorphone 1 mg/mL INJ 1 mL IVP (20:07)
[2020-12-29 20:10] LABS: Slide Review Slide Review Perform
[2020-12-29 20:12] LABS: Absolute Neutrophil 1.7 10^3/cmm (1.4-6.5); Absolute Segmented Neutrophil 1.3 10/cmm (1.6-7.1); Band Neutrophils Absolute 0.4 10^3/cmm (0.0-1.2); Eosinophils 1 %; Lymphocytes 34 %; Lymphocytes Absolute 2.7 10^3/cmm (1.2-3.4); Monocytes Absolute 0.8 10^3/cmm (0.1-0.6); Platelet Estimate Normal (Normal); Segmented Neutrophils 25 %; Total Cells Counted 100 (0-100)
[2020-12-29 20:13] LABS: Anisocytosis 1+
[2020-12-29 20:14] LABS: Ovalocytes 1+
[2020-12-29 22:24] VITALS: BP 121/54; PULSE 67; RESP 18; O2SAT 97
== END 2020-12-29 22:32 | disposition home or self-care (01) ==
PROVIDERS: Emergency Provider Emergency Medicine; PCP Family Medicine
DX: R10.84 Generalized abdominal pain (principal); Z79.82 Long term (current) use of aspirin; F17.210 Nicotine dependence, cigarettes, uncomplicated; Z87.442 Personal history of urinary calculi
CPT/HCPCS: 74176; 80053; 81001; 83690; 85007; 85025; 96361; 96374; 96375; 99284; J1170; J2270; J2405; J7030

== ENCOUNTER → 2020-12-30 07:24 | Outpatient (BNVA) | payer MEDICARE, SELFPAY | PROVIDERS: PCP Family Medicine; Visit Provider Nurse Practitioner | DX: F33.1 Major depressive disorder, recurrent, moderate (principal); F41.1 Generalized anxiety disorder; F43.12 Post-traumatic stress disorder, chronic; F17.219 Nicotine dependence, cigarettes, with unspecified nicotine-induced disorders; G24.01 Drug induced subacute dyskinesia | CPT/HCPCS: 99214 ==

== ENCOUNTER → 2021-01-05 09:50 | Outpatient (BNVA) | payer MEDICARE, SELFPAY | PROVIDERS: PCP Family Medicine; Visit Provider Specialist | DX: G31.84 Mild cognitive impairment of uncertain or unknown etiology (principal); G25.0 Essential tremor; F95.9 Tic disorder, unspecified; F25.9 Schizoaffective disorder, unspecified; F17.210 Nicotine dependence, cigarettes, uncomplicated | CPT/HCPCS: 99214 ==

== ENCOUNTER 2021-01-06 14:16 | Outpatient (CLI) | payer MEDICARE, SELFPAY ==
--- NOTE | 2021-01-06 14:00 | XR_ITS ---
WS: [id number] Exam: XR KUB [id number] Date/Time of Exam: 01/06/2021 2:36 PM Reason For Exam: URINARY CALCULI Comparison 12/17/2020. No bowel obstruction or free air. No obvious calcifications seen in the region of the kidneys. Postop erative changes in the right abdomen suggesting prior cholecystectomy. Surgical sutures in the left a bdomen. Scattered small opaque densities in the right abdomen that may represent debris in the colon. Visualized organ margins appear normal. XR/XR KUB [id number] IMPRESSION: 1. No calcifications noted in the region of the kidneys. 2. No acute abdominal process.
== END 2021-01-06 14:17 | disposition home or self-care (01) ==
LOC: RAD 14:17
PROVIDERS: PCP Family Medicine; Visit Provider Urology
DX: N20.9 Urinary calculus, unspecified (principal); N20.1 Calculus of ureter
CPT/HCPCS: 74018; 81003

== ENCOUNTER → 2021-01-08 14:23 | Outpatient (BNVA) | payer MEDICARE, SELFPAY | PROVIDERS: PCP Family Medicine; Visit Provider Internal Medicine Rheumatology | DX: M06.09 Rheumatoid arthritis without rheumatoid factor, multiple sites (principal); Z79.899 Other long term (current) drug therapy; Z98.84 Bariatric surgery status; I73.00 Raynaud's syndrome without gangrene; Z71.89 Other specified counseling; F17.200 Nicotine dependence, unspecified, uncomplicated | CPT/HCPCS: 99214 ==

== ENCOUNTER 2021-01-22 10:21 | Outpatient (CLI) | payer MEDICARE, SELFPAY ==
--- NOTE | 2021-01-22 10:28 | XR_ITS ---
WS: [id number] LEFT FOREARM 2 VIEWS HISTORY: M89.8X9 - Other specified disorders of bone, pain and redness. COMPARISON: None available. No fracture or dislocation. No joint effusion. Soft tissue nodule adjacent to the posterior olecranon measures 14 mm. There is mi ld inflammation with loss of the fat planes. XR/XR forearm LT 2V [id number] IMPRESSION: 1. No fracture. 2. Mild olecranon bursitis versus soft tissue hematoma.
== END 2021-01-22 10:22 | disposition home or self-care (01) ==
LOC: RADWPI 10:27
PROVIDERS: PCP Family Medicine; Visit Provider Internal Medicine Rheumatology
DX: M79.639 Pain in unspecified forearm (principal); M89.8X9 Other specified disorders of bone, unspecified site; Z11.52 Encounter for screening for COVID-19
CPT/HCPCS: 73090; 87635

== ENCOUNTER → 2021-01-27 07:13 | Outpatient (BNVA) | payer MEDICARE, SELFPAY | PROVIDERS: PCP Family Medicine; Visit Provider Nurse Practitioner | DX: F33.1 Major depressive disorder, recurrent, moderate (principal); F41.1 Generalized anxiety disorder; F43.12 Post-traumatic stress disorder, chronic; F17.219 Nicotine dependence, cigarettes, with unspecified nicotine-induced disorders; G24.01 Drug induced subacute dyskinesia | CPT/HCPCS: 99214 ==

== ENCOUNTER 2021-01-29 09:40 | Day surgery (SDC) | payer MEDICARE, SELFPAY ==
[2021-01-26 13:38] VITALS: BMI 25.7
[2021-01-29 10:50] VITALS: BP 125/61; PULSE 60; RESP 14; O2SAT 97
[2021-01-29] MEDS: midazolam 1 mg/mL INJ 2 mL 2 MG IVP (10:51)
[2021-01-29] MEDS: sodium chloride 0.9% 1,000 ML 30 ML IV (11:07)
--- NOTE | 2021-01-29 11:07 | ANES.PREANE2 ---
Pre-Anesthetic Assessment Pre-Anesthetic Assessment: Height/Weight: Height 1.63 m Weight 68.039 kg Preop Diagnosis: panendoscopy Proposed Procedure: Operation Date: 01/29/21 11:30 Proposed Procedures p EGD/colon 19814 85615 Z80.0(Not Applicable) - Jose Angel Lackey MD s Colonoscopy(Not Applicable) - Jose Angel Lackey MD Was Beta Lucinda taken within 24 hours: N/A Was Clonidine taken within 24 hours: N/A Social: Social History: Tobacco and No alcohol Exam: Pre-Anes Outpt Exam: alert, oriented x 3 and regular rate & rhythm Airway: Submandibular: WNL Cervical ROM: WNL MP: 2 Pulmonary: Pulmonary: COPD CV/HEM: CV/HEM: Anemia and CAD Hepatic: Hepatic: Hepatitis GI: Comments: Pancreatitis, UC Musc/skel: Musc/skel: RA Neuropsych: Neuropsych: Depression Anesthetic Plan: ASA status: 3 Anesthesia: MAC Risk of > 500 ml blood loss (7ml/kg in children): No Meds/Allergies Current Medications: Current Medications Generic Name Dose Route Start Last Admin Trade Name Freq PRN Reason Stop Dose Admin Midazolam HCl 2 mg 01/29/21 10:19 01/29/21 10:51 Midazolam 1 Mg/M l Inj 2 Ml IVP 2 mg Q5M PRN Administration Preop Anxiety PFSH Anesthesia PFSH: Medical History Acute pancreatitis Contracture of right index finger Costochondritis Dizziness Facial tic Gastritis Gastroenteritis Generalized anxiety disorder Major depressive disorder, recurrent, moderate Post-traumatic stress disorder, chronic Psychosis Raynaud's disease without gangrene Rheumatoid arthritis without rheumatoid factor, multiple sites SAH (subarachnoid hemorrhage) Schizoaffective disorder Stammering improved Tardive dyskinesia Ulcerative colitis Ureterolithiasis Surgical History History of bilateral knee replacement History of cholecystectomy History of hand surgery History of renal stent History of umbilical hernia repair Hx of gastric bypass Status post colonoscopy Family History Mother , at age 74 Cancer colorectal Father No problems noted. Denies family history of Rheumatoid arthritis Social History (Updated 01/08/21 @ 14:55 by Flory Alford LPN) Smoking risk assessment/counseling performed?: Yes Tobacco counseling given: counseling >3 minutes Alcohol intake: former Former alcohol use details: quit drinking 2 months ago....beer Marital status: Single Current occupational status: disabled History of recent travel: No Data Anesthesia Cardiac Studies: No Data to Display
[2021-01-29 11:08] VITALS: BP 107/58; PULSE 56; RESP 18; TEMP 36.1; O2SAT 97
--- NOTE | 2021-01-29 11:23 | W.PM.OPSFHP ---
Same Day Surgery H&P Indication for Procedure/HPI DATE OF PROCEDURE: January 29, 2021 CHIEF COMPLAINT/INDICATIONFOR SURGICAL PROCEDURE: EGD/colonoscopy PREOP DIAGNOSIS: panendoscopy PLANNED PROCEDRUE: Operation Date: 01/29/21 11:30 Proposed Procedures p EGD/colon 77249 [id number] Z80.0(Not Applicable) - Jose Angel Lackey MD s Colonoscopy(Not Applicable) - Jose Angel Lackey MD Medications/Allergies* Home Medications Medication Instructions Recorded Confirmed Type dicyclomine 20 mg PO BID 09/25/20 01/29/21 History gabapentin 100 mg capsule 100 mg PO BEDTIME 10/07/20 01/29/21 History Actemra 162 mg SUBCUT Q7D 12/24/20 01/29/21 History Vitamin B-12 1 tab PO DAILY 12/24/20 01/29/21 History albuterol sulfate [ProAir HFA] 2 puff INHALATION Q4H PRN 12/24/20 01/29/21 History aspirin 81 mg PO DAILY 12/24/20 01/29/21 History ferrous sulfate [iron] 325 mg PO DAILY 12/24/20 01/29/21 History fluticasone propionate 2 spray INTRANASAL DAILY PRN 12/24/20 01/29/21 History magnesium 1 cap PO Q7D 12/24/20 01/29/21 History multivitamin 1 tab PO DAILY 12/24/20 01/29/21 History sertraline [Zoloft] 100 mg PO DAILY 12/24/20 01/29/21 History valbenazine 80 mg PO BEDTIME 12/24/20 01/29/21 History Allergies/Adverse Reactions Allergy/AdvReac Type Severity Reaction Status Date / Time hydroxyzine [From Vistaril] Allergy Unknown Verified 01/29/21 10:24 lithium Allergy makes me Verified 01/29/21 10:24 mean sulfamethizole Allergy Unknown Verified 01/29/21 10:24 Current Medications: Generic Name Dose Route Start Last Admin Trade Name Freq PRN Reason Stop Dose Admin Sodium Chloride 1,000 mls @ 30 mls/hr 01/29/21 10:30 01/29/21 11:07 Sodium Chloride 0.9% IV 01/30/21 10:29 30 mls/hr .Q24H JUDY Administration Midazolam HCl 2 mg 01/29/21 10:19 01/29/21 10:51 Midazolam 1 Mg/Ml Inj 2 Ml IVP 2 mg Q5M PRN Administration Preop Anxiety Pertinent History/Comorbid Conditions* Medical History (Updated 01/06/21 @ 16:08 by Jose Monreal MD) Acute pancreatitis Contracture of right index finger Costochondritis Dizziness Facial tic Gastritis Gastroenteritis Generalized anxiety disorder Major depressive disorder, recurrent, moderate Post-traumatic stress disorder, chronic Psychosis Raynaud's disease without gangrene Rheumatoid arthritis without rheumatoid factor, multiple sites SAH (subarachnoid hemorrhage) Schizoaffective disorder Stammering improved Tardive dyskinesia Ulcerative colitis Ureterolithiasis Surgical History (Updated 01/06/21 @ 08:36 by Jose Angel Lackey MD) History of bilateral knee replacement History of cholecystectomy History of hand surgery History of renal stent History of umbilical hernia repair Hx of gastric bypass Status post colonoscopy Family History (Updated 12/17/20 @ 15:04 by Vickie Reaves LPN) Father Mother, at age 74 Cancer Mother colorectal Denies family history of Rheumatoid arthritis Social History Smoking risk assessment/counseling performed?: Yes Tobacco counseling given: counseling >3 minutes Alcohol intake: former Former alcohol use details: quit drinking 2 months ago....beer Marital status: Single Current occupational status: disabled History of recent travel: No Pertinent Exam Findings alert, oriented x 3 and regular rate & rhythm Recommendations Surgery/Procedure today Coding Level of Care Code Acute Math And Science Instructor for Judson Alford
[2021-01-29 12:22] VITALS: BP 124/64; PULSE 67; RESP 16; TEMP 36.2; O2SAT 97
[2021-01-29 12:35] VITALS: BP 106/71; PULSE 63; RESP 18; TEMP 36.2; O2SAT 97
--- NOTE | 2021-01-29 13:59 | ANE.PACU2 ---
Inpatient post-anesthesia follow up: Airway intact: Yes Vital signs: Temperature 97.2 F Pulse Rate 63 Respiratory Rate 18 Blood Pressure 106/71 Pulse Oximetry 97 Oxygen Delivery Me thod Room Air Oxygen Flow Rate 3 Fraction of Inspir ed Oxygen Hydration adequate: Yes Nausea and vomiting: No Pain level: 2 Mental status: Baseline
== END 2021-01-29 12:55 | disposition home or self-care (01) ==
PROVIDERS: PCP Family Medicine; Visit Provider Surgery
PROC: 0DJ08ZZ Inspection of Upper Intestinal Tract, Via Natural or Artificial Opening Endoscopic (ICD-10-PCS; CPT 43235; principal; 2021-01-29 11:30)
PROC: 0DJD8ZZ Inspection of Lower Intestinal Tract, Via Natural or Artificial Opening Endoscopic (ICD-10-PCS; CPT 45378; 2021-01-29 11:30)
DX: K92.1 Melena (principal); Z98.84 Bariatric surgery status; K63.89 Other specified diseases of intestine; D64.9 Anemia, unspecified; J44.9 Chronic obstructive pulmonary disease, unspecified; I25.10 Atherosclerotic heart disease of native coronary artery without angina pectoris; M06.9 Rheumatoid arthritis, unspecified; F32.9 Major depressive disorder, single episode, unspecified
CPT/HCPCS: 43235; 45378; 96361; 96374; J2250; J2704; J7030

== ENCOUNTER → 2021-02-23 08:24 | Outpatient (BNVA) | payer MEDICARE, SELFPAY | PROVIDERS: PCP Family Medicine; Visit Provider Nurse Practitioner | DX: F33.1 Major depressive disorder, recurrent, moderate (principal); F41.1 Generalized anxiety disorder; F43.12 Post-traumatic stress disorder, chronic; F17.219 Nicotine dependence, cigarettes, with unspecified nicotine-induced disorders; G24.01 Drug induced subacute dyskinesia; F25.9 Schizoaffective disorder, unspecified | CPT/HCPCS: 99214 ==

== ENCOUNTER 2021-03-02 15:21 | Outpatient (CLI) | payer MEDICARE, SELFPAY ==
--- NOTE | 2021-03-02 15:26 | MM_ITS ---
WS: [id number] BILATERAL DIGITAL SCREENING MAMMOGRAPHY WITH CAD CLINICAL INFORMATION: SCREENING HISTORY: Screening mammogram. No current complaints. COMPARISON: January 18, 2020 TECHNIQUE: Bilateral CC and MLO views. FINDINGS: Scattered fibroglandular densities bilaterally. Punctate calcification left breast. No suspicious foc al mass, asymmetry, calcifications, or architectural distortion. No evidence of malignancy. MM/[place] [id number] IMPRESSION: BI-RADS: 2-Benign FOLLOW UP: 1 Year Follow-up Recommend return to annual screening mammography.
== END 2021-03-02 15:22 | disposition home or self-care (01) ==
LOC: RADSHAW 15:24
PROVIDERS: PCP Family Medicine; Visit Provider Family Medicine
DX: Z12.31 Encounter for screening mammogram for malignant neoplasm of breast (principal)
CPT/HCPCS: 77067

== ENCOUNTER → 2021-03-04 11:47 | Outpatient (BNVA) | payer MEDICARE, SELFPAY | PROVIDERS: PCP Family Medicine; Visit Provider Family Medicine | DX: Z20.828 Contact with and (suspected) exposure to other viral communicable diseases (principal); R05.9 Cough, unspecified | CPT/HCPCS: 71046; 87426 ==

== ENCOUNTER 2021-03-09 11:09 | Outpatient (CLI) | payer MEDICARE, SELFPAY ==
--- NOTE | 2021-03-09 11:45 | US_ITS ---
WS: [id number] ULTRASOUND SOFT TISSUES LEFT forearm. HISTORY: M06.09 - Rheumatoid arthritis without rheumatoid factor, ... COMPARISON: Radiograph 01/22/2021 TECHNIQUE: 2-D and color Doppler imaging is submitted. In the posterior LEFT forearm near the elbow joint is a hypoechoic mass with mild increased periphera l vascularity. This is mild soft tissue thickening as directed by the patient measuring 1.3 x 1.3 x 0 .5 cm. There is an additional larger soft tissue mass with variable echogenicity. Solid and more complex cys tic component within this mass at the volar LEFT wrist as directed by the patient. This mass measures 4.3 x 2.3 x 3.3 cm. There is some very mild peripheral increased vascularity. US/US soft tissue/extremity [id number] IMPRESSION: Soft tissue nodules centered at the posterior LEFT elbow and volar LEFT wrist. With history of rheumatoid these are probably rheumatoid nodules and areas of a cute synovitis. The largest is along the LEFT anterior wrist.
== END 2021-03-09 11:10 | disposition home or self-care (01) ==
LOC: RAD 11:13
PROVIDERS: PCP Family Medicine; Visit Provider Internal Medicine Rheumatology
DX: M06.09 Rheumatoid arthritis without rheumatoid factor, multiple sites (principal); M79.632 Pain in left forearm
CPT/HCPCS: 76882

== ENCOUNTER 2021-03-15 14:45 | Emergency (ER) | payer MEDICARE, SELFPAY ==
--- NOTE | 2021-03-15 14:58 | W.ED.GENADLT ---
HPI - General Adult General: Stated complaint: CONFUSION/BLURRY VISION Time Seen by Provider: 03/15/21 14:57 PFSH ED PFSH: Medical History (Updated 03/04/21 @ 12:12 by Ziyad Moore DO) Acute pancreatitis Contracture of right index finger Costochondritis Dizziness Facial tic Gastritis Gastroenteritis Generalized anxiety disorder Major depressive disorder, recurrent, moderate Post-traumatic stress disorder, chronic Psychiatric care Psychosis Raynaud's disease without gangrene Rheumatoid arthritis without rheumatoid factor, multiple sites SAH (subarachnoid hemorrhage) Schizoaffective disorder Stammering improved Tardive dyskinesia Ulcerative colitis Ureterolithiasis Surgical History (Updated 01/29/21 @ 12:28 by Jose Angel Lackey MD) H/O esophagogastroduodenoscopy (01/29/21) History of bilateral knee replacement History of cholecystectomy History of hand surgery History of renal stent History of umbilical hernia repair Hx of gastric bypass Status post colonoscopy (01/29/21) Family History Mother , at age 74 Cancer colorectal Father No problems noted. Denies family history of Rheumatoid arthritis Social History (Updated 01/08/21 @ 14:55 by Flory Alford LPN) Smoking risk assessment/counseling performed?: Yes Tobacco counseling given: counseling >3 minutes Alcohol intake: former Former alcohol use details: quit drinking 2 months ago....beer Marital status: Single Current occupational status: disabled History of recent travel: No Discharge Plan Discharge Prescriptions: No Action pantoprazole [Protonix] 40 mg tablet,delayed release (DR/EC) 40 mg PO BID Qty: 60 RF: 3 ondansetron HCl [Zofran] 4 mg tablet 4 mg PO Q6H PRN (Reason: nausea and vomiting) Qty: 10 RF: 0 prednisone 20 mg tablet 40 mg PO DAILY Qty: 10 RF: 0 doxycycline hyclate 100 mg tablet 100 mg PO BID 7 Days Qty: 14 RF: 0 gabapentin 100 mg capsule 100 mg PO BEDTIME RF: 0 alfuzosin 10 mg tablet extended release 24 hr 10 mg PO DAILY Qty: 90 RF: 3 tramadol 50 mg tablet 50 mg PO TID PRN (Reason: pain) Qty: 30 RF: 1 benztropine 1 mg tablet 1 mg PO BID Qty: 60 RF: 1 clonazepam 0.5 mg tablet 0.5 mg PO TID PRN (Reason: anxiety) Qty: 90 RF: 1 lamotrigine [Lamictal] 200 mg tablet 200 mg PO BID Qty: 60 RF: 1 mirtazapine [Remeron] 30 mg tablet 30 mg PO BEDTIME Qty: 30 RF: 1 valbenazine 80 mg capsule 80 mg PO BEDTIME Qty: 30 RF: 2 nitroglycerin 0.4 mg tablet, sublingual 0.4 mg sublingual Q5M PRN (Reason: chest pain) Qty: 30 RF: 0 dicyclomine 20 mg tablet 20 mg PO BID RF: 0 multivitamin Tablet 1 tab PO DAILY RF: 0 aspirin 81 mg Tablet,Delayed Release (Dr/Ec) 81 mg PO DAILY RF: 0 Hold Instructions: Resume on 01/07/21. Resume if ok with PCP after repeat H/h outpatient ferrous sulfate [iron] 325 mg (65 mg iron) Tablet 325 mg PO DAILY RF: 0 albuterol sulfate [ProAir HFA] 90 mcg/actuation Hfa Aerosol Inhaler 2 puff INHALATION Q4H PRN (Reason: Shortness Of Breath) RF: 0 fluticasone propionate 50 mcg/actuation spray,suspension 2 spray INTRANASAL DAILY PRN (Reason: Allergy Symptoms) RF: 0 Vitamin B-12 1 tab PO DAILY RF: 0 magnesium 1 cap PO Q7D RF: 0 sertraline [Zoloft] 100 mg tablet 100 mg PO DAILY RF: 0 Actemra 162 mg/0.9 mL syringe 162 mg SUBCUT Q7D RF: 0 Hold Instructions: Doctor's Order metoclopramide HCl [Reglan] 10 mg tablet 10 mg PO Q6H PRN (Reason: nausea and vomiting) Qty: 20 RF: 0 Coding Level of Care Code ED It Systems Analyst Consultant for Judson Alford
[2021-03-15 15:11] VITALS: BP 126/83; PULSE 74; RESP 20; TEMP 36.8; O2SAT 99; BMI 25.0
--- NOTE | 2021-03-15 17:06 | ECG_ITS ---
[facility] Test Date: 2021-03-15 Pat Name: Nunu Marroquin Department: Room: Gender: Female Solutions Operator: : 1960 Requested By: Georges Dalton Order Number: [id number] Mc MD: EPHRAIM BUTT Measurements Intervals [place] Rate: 59 P: -12 TN: 136 QRS: 15 QRSD: 86 T: 27 QT: 420 QTc: 419 Interpretive Statements SINUS BRADYCARDIA POSSIBLE ANTERIOR MYOCARDIAL INFARCTION , PROBABLY OLD [30 ms Q WAVE IN V3/V4, OR R < 0.2 mV IN V4] Compared to ECG 12/23/2020 23:06:36 Myocardial infarct finding now present Sinus rhythm no longer present Left posterior fascicular block no longer present Electronically Signed On 03-16-2021 0:10:25 CDT by EPHRAIM BUTT [id number]
--- NOTE | 2021-03-15 17:07 | CTR_ITS ---
PROCEDURE INFORMATION: Exam: CT Head Without Contrast Exam date and time: 03/15/2021 5:07 PM Age: 60 years old Clinical indication: Altered mental status/memory loss; Confusion or disorientation; Patient HX: Ams/confusion TECHNIQUE: Imaging protocol: Computed tomography of the head without contrast. Radiation optimization: All CT scans at this facility use at least one of these dose optimization techniques: automated exposure control; mA and/or kV adjustment per patient size (includes targeted exams where dose is matched to clinical indication); or iterative reconstruction. COMPARISON: CT head wo con* [id number] 12/23/2020 8:57 PM RADIATION DOSE METRICS: Total DLP (mGy-cm): 754.28 FINDINGS: Brain: Normal. No hemorrhage. Unremarkable white matter. No mass effect. Cerebral ventricles: No ventriculomegaly. Paranasal sinuses: Paranasal sinus opacifications. Mastoid air cells: Visualized mastoid air cells are well aerated. Bones/joints: Unremarkable. No acute fracture. Soft tissues: Unremarkable. CT/CT head wo con* [id number] IMPRESSION: No acute intracranial abnormality. Radiation Dose CTDIVOL = (mGy): DLP = 754.28 (mGy-cm)
--- NOTE | 2021-03-15 17:18 | W.ED.GENADLT ---
HPI - General Adult General: Chief complaint: General Medical Stated complaint: CONFUSION/BLURRY VISION Time Seen by Provider: 03/15/21 14:57 History of Present Illness: HPI narrative: 60-year-old female comes in today with complaints of increased confusion, weakness, and fatigue. Patient reports difficulty resting. Patient does have a history of CVA. Patient states symptoms been going on for about the last week. Patient appears well. Patient appears in no pain. Patient's medical history includes COPD, hepatitis, tobacco use, tardive dyskinesia, cognitive impairment with memory loss, Raynaud's phenomena, subarachnoid hemorrhage, rheumatoid arthritis, pancreatitis, ulcerative colitis, nephrolithiasis, schizoaffective disorder, and major depressive disorder. Review of Systems General: Reports: 10 or more systems reviewed and unremarkable except in HPI and below Const: Reports: fatigue Neuro: Reports: weakness in extremities (Generalized) PFS ED PFSH: Medical History (Updated 03/15/21 @ 19:34 by RENARD Guajardo) Acute pancreatitis Contracture of right index finger Costochondritis Dizziness Facial tic Gastritis Gastroenteritis Generalized anxiety disorder Major depressive disorder, recurrent, moderate Post-traumatic stress disorder, chronic Psychiatric care Psychosis Raynaud's disease without gangrene Rheumatoid arthritis without rheumatoid factor, multiple sites SAH (subarachnoid hemorrhage) Schizoaffective disorder Stammering improved Tardive dyskinesia Ulcerative colitis Ureterolithiasis Surgical History (Updated 01/29/21 @ 12:28 by Jose Angel Lackey MD) H/O esophagogastroduodenoscopy (01/29/21) History of bilateral knee replacement History of cholecystectomy History of hand surgery History of renal stent History of umbilical hernia repair Hx of gastric bypass Status post colonoscopy (01/29/21) Family History Mother , at age 74 Cancer colorectal Father No problems noted. Denies family history of Rheumatoid arthritis Social History (Updated 01/08/21 @ 14:55 by Flory Alford LPN) Smoking risk assessment/counseling performed?: Yes Tobacco counseling given: counseling >3 minutes Alcohol intake: former Former alcohol use details: quit drinking 2 months ago....beer Marital status: Single Current occupational status: disabled History of recent travel: No Physical Exam Const: COMMON NORMALS: no acute distress and patient oriented x3 GENERAL APPEARANCE: cooperative HENMT: COMMON NORMALS: normocephalic, TM's normal bilaterally and Normal external nose present HEAD & SCALP: normal to inspection and normocephalic NOSE: Normal external nose present TYMPANIC MEMBRANE: TM's normal bilaterally MOUTH: Normal oral and palatal mucosa present THROAT: posterior oropharynx normal Eye: GENERAL EYE: appearance normal, both eyes and all related structures Neck/C-Spine: COMMON NORMALS: full ROM Lymph: LYMPHATIC: no lymphadenopathy noted Chest: COMMONS NORMALS: normal inspection of the chest Resp: COMMON NORMALS: normal respiratory effort EFFORT & INSPECTION: Yes able to speak in complete sentences Cardio: COMMON NORMALS: regular rate and regular rhythm RATE: regular rate RHYTHM: regular rhythm GI: COMMON NORMALS: non-tender : COMMON NORMALS: Yes no CVA tenderness BLADDER/KIDNEY EXAM: Yes no CVA tenderness Back/Pelvis: COMMON NORMALS: no CVA tenderness and thoracic and lumbar spine normal to inspection Extremity: COMMON NORMALS: normal to inspection Neuro: COMMON NORMALS: patient oriented x3 and moves all extremities OTHER: NIH stroke scale is 0, contractures noted to the left hand, good strength is noted in all extremities, patient is alert and oriented. Psych: COMMON NORMALS: mental status grossly normal and cooperative Skin: COMMON NORMALS: no rashes or lesions noted GENERAL SKIN EXAM: no rashes or lesions noted Course Vital Signs: Vital signs: Vital Signs Temperature 98.1 F 03/15/21 17:53 Pulse Rate 61 03/15/21 17:53 Respiratory Rate 16 03/15/21 17:53 Blood Pressure 126/83 03/15/21 15:11 Pulse Oximetry 96 03/15/21 17:53 MDM - General Adult MDM Narrative: Medical decision making narrative: Patient came in today for concerns of confusion for the last week. Patient reports his abnormal for her. Patient also reports some difficulty with speech. Patient has had a history of a prior CVA. On exam patient appears normal. Patient answers questions appropriately and has no stammering. Patient is alert and oriented. Patient walks without any difficulty. NIH stroke scale is 0. Abdomen soft nontender. Lungs clear and heart rates regular. Vital signs are normal. Differential diagnosis includes but not limited to sepsis, ACS, CVA, fatigue, malaise. Urinalysis was clear. CBC and CMP were unremarkable. EKG was unremarkable. CT scan of the head indicated no acute abnormality. We ruled out any signs of infection or acute illness today. I kind of suspect patient might just be fatigued and her stroke deficits are more exacerbated. Patient reported understanding and agreed to plan for follow-up with primary care for recheck but to monitor for high fever or worsening symptoms. Patient should return to the ER as needed then. Lab Data: Labs: Lab Results 03/15/21 03/15/21 03/15/21 17:40 17:42 17:42 WBC Cancelled Corrected WBC Cancelled RBC Cancelled Hgb Cancelled Hct Cancelled MCV Cancelled MCH Cancelled MCHC Cancelled RDW Cancelled Plt Count Cancelled MPV Cancelled Gran % Cancelled Neut % (Auto) Cancelled Lymph % (Auto) Cancelled [place] % (Auto) Cancelled Eos % (Auto) Cancelled Baso % (Auto) Cancelled Neut # (Auto) Cancelled Lymph # (Auto) Cancelled [place] # (Auto) Cancelled Eos # (Auto) Cancelled Baso # (Auto) Cancelled Absolute Gran (aut o) Cancelled Nucleated RBC % (a uto) Cancelled Nucleated RBCs # Cancelled Sodium 139 mmol/L mmol/L (136-145) Potassium 4.2 mmol/L mmol/L (3.5-5.1) Chloride 104 mmol/L mmol/L (98-107) Carbon Dioxide 25 mmol/L mmol/L (22-29) Anion Gap 14.2 (5-19) BUN 14 mg/dL mg/dL (8-23) Creatinine 0.8 mg/dL mg/dL (0.5-0.9) GFR Calculation 73.2 mL/min L mL/ min (90-130) Glucose 74 mg/dL mg/dL (65-115) Calculated Osmolal ity 287 mOsm/kg mOsm/ kg (285-295) Calcium 9.1 mg/dL mg/dL (8.5-10.5) Total Bilirubin 0.2 mg/dL mg/dL (0.15-1.2) AST 31 U/L U/L (0-32) ALT 29 U/L U/L (0-33) Alkaline Phosphata se 74 IU/L IU/L (35-105) Troponin T Gen 5 n g/L 7 ng/L ng/L (0-10) Total Protein 5.6 g/dL L g/dL (6.6-8.7) Albumin 3.8 g/dL g/dL (3.5-5.2) Globulin 1.8 g/dL g/dL (1.3-4.6) Urine Color Urine Appearance Urine pH Ur Specific Gravit y Urine Protein Urine Glucose (UA) Urine Ketones Urine Blood Urine Nitrate Urine Bilirubin Urine Urobilinogen Ur Leukocyte Violeta ase 03/15/21 03/15/21 18:00 19:00 WBC 3.8 10^3/uL L 10^ 3/uL (4.0-10.0) Corrected WBC RBC 4.50 10^6/uL 10^6 /uL (4.1-5.3) Hgb 13.5 g/dL g/dL (11.5-15.3) Hct 42.9 % % (37.0-47.0) MCV 95.3 fl fl (81-99) MCH 30.0 pg pg (28.0-34.0) MCHC 31.5 g/dL g/dL (30.0-36.0) RDW 15.1 % % (12.1-15.1) Plt Count 195 10^3/cmm 10^3 /cmm (130-400) MPV 10.5 fL H fL (7.4-10.4) Gran % Neut % (Auto) 48.3 % % Lymph % (Auto) 31.8 % % [place] % (Auto) 17.2 % % Eos % (Auto) 1.6 % % Baso % (Auto) 0.8 % % Neut # (Auto) 1.82 10^3/uL 10^3 /uL (1.8-7.7) Lymph # (Auto) 1.2 10^3/uL 10^3/ uL (0.8-4.8) [place] # (Auto) 0.7 10^3/uL 10^3/ uL (0.2-0.9) Eos # (Auto) 0.1 10^3/uL 10^3/ uL (0.0-0.8) Baso # (Auto) 0.0 10^3/uL 10^3/ uL (0.0-0.1) Absolute Gran (aut o) Nucleated RBC % (a uto) 0 % % Nucleated RBCs # 0.0 /100WBC /100W BC Sodium Potassium Chloride Carbon Dioxide Anion Gap BUN Creatinine GFR Calculation Glucose Calculated Osmolal ity Calcium Total Bilirubin AST ALT Alkaline Phosphata se Troponin T Gen 5 n g/L Total Protein Albumin Globulin Urine Color Yellow (Yellow) Urine Appearance Clear (CLEAR) Urine pH 7 (5-7) Ur Specific Gravit y 1.010 (1.005-1.030) Urine Protein Neg (Negative) Urine Glucose (UA) Norm (Normal) Urine Ketones Negative (Negative) Urine Blood Neg (Negative) Urine Nitrate Negative (Negative) Urine Bilirubin Neg (Negative) Urine Urobilinogen Norm mg/dL mg/dL (Negative) Ur Leukocyte Violeta ase Negative (Negative) EKG Data^: EKG 1: Attestation: I personally reviewed and interpreted this EKG as follows: (173, EKG shows a sinus bradycardia with a regular rate at [address] elevation or ectopy is noted.) Computer generated interpretation: Head CT 03/15/21 17:07 IMPRESSION: No acute intracranial abnormality. Radiation Dose CTDIVOL = (mGy): DLP = 754.28 (mGy-cm) Discharge Plan Discharge Patient Disposition: Home Clinical Impression: Weakness, Mild cognitive impairment with memory loss Condition: Stable Prescriptions: No Action pantoprazole [Protonix] 40 mg tablet,delayed release (DR/EC) 40 mg PO BID Qty: 60 RF: 3 ondansetron HCl [Zofran] 4 mg tablet 4 mg PO Q6H PRN (Reason: nausea and vomiting) Qty: 10 RF: 0 prednisone 20 mg tablet 40 mg PO DAILY Qty: 10 RF: 0 doxycycline hyclate 100 mg tablet 100 mg PO BID 7 Days Qty: 14 RF: 0 gabapentin 100 mg capsule 100 mg PO BEDTIME RF: 0 alfuzosin 10 mg tablet extended release 24 hr 10 mg PO DAILY Qty: 90 RF: 3 tramadol 50 mg tablet 50 mg PO TID PRN (Reason: pain) Qty: 30 RF: 1 benztropine 1 mg tablet 1 mg PO BID Qty: 60 RF: 1 clonazepam 0.5 mg tablet 0.5 mg PO TID PRN (Reason: anxiety) Qty: 90 RF: 1 lamotrigine [Lamictal] 200 mg tablet 200 mg PO BID Qty: 60 RF: 1 mirtazapine [Remeron] 30 mg tablet 30 mg PO BEDTIME Qty: 30 RF: 1 valbenazine 80 mg capsule 80 mg PO BEDTIME Qty: 30 RF: 2 nitroglycerin 0.4 mg tablet, sublingual 0.4 mg sublingual Q5M PRN (Reason: chest pain) Qty: 30 RF: 0 dicyclomine 20 mg tablet 20 mg PO BID RF: 0 multivitamin Tablet 1 tab PO DAILY RF: 0 aspirin 81 mg Tablet,Delayed Release (Dr/Ec) 81 mg PO DAILY RF: 0 Hold Instructions: Resume on 01/07/21. Resume if ok with PCP after repeat H/h outpatient ferrous sulfate [iron] 325 mg (65 mg iron) Tablet 325 mg PO DAILY RF: 0 albuterol sulfate [ProAir HFA] 90 mcg/actuation Hfa Aerosol Inhaler 2 puff INHALATION Q4H PRN (Reason: Shortness Of Breath) RF: 0 fluticasone propionate 50 mcg/actuation spray,suspension 2 spray INTRANASAL DAILY PRN (Reason: Allergy Symptoms) RF: 0 Vitamin B-12 1 tab PO DAILY RF: 0 magnesium 1 cap PO Q7D RF: 0 sertraline [Zoloft] 100 mg tablet 100 mg PO DAILY RF: 0 Actemra 162 mg/0.9 mL syringe 162 mg SUBCUT Q7D RF: 0 Hold Instructions: Doctor's Order metoclopramide HCl [Reglan] 10 mg tablet 10 mg PO Q6H PRN (Reason: nausea and vomiting) Qty: 20 RF: 0 Discharge Orders: Discharge ED (Routine); Ordered 03/15/21 Ordered By: Georges Mckeon Referrals: Helga Mancera DO [Primary Care Provider] - Discharge Diet: Usual diet Discharge Activity: Increase activity as tolerated Patient Instructions: Altered Mental Status (ED), Opioid Safety Activity Restrictions/Additional Instructions: Your imaging and labs today did not show any abnormalities. I recommend you follow-up with your primary care for further evaluation. You may also need to see your neurologist for further assessment. Drink plenty of water. Continue with your routine medications. Monitor for high fever greater than 100.4 or other new symptoms. Return to the emergency department as needed. Coding Level of Care Code ED Regulator Assembler for Abidag Fwd Exam Comprehensive
[2021-03-15 17:53] VITALS: PULSE 61; RESP 16; TEMP 36.7; O2SAT 96
[2021-03-15 18:05] LABS: Troponin T (5th) Once 7 ng/L (0-10)
[2021-03-15 18:06] LABS: Alanine Aminotransferase 29 U/L (0-33); Albumin Level 3.8 g/dL (3.5-5.2); Alkaline Phosphatase 74 IU/L (35-105); Blood Urea Nitrogen 14 mg/dL (8-23); Calcium 9.1 mg/dL (8.5-10.5); Carbon Dioxide 25 mmol/L (22-29); Chloride 104 mmol/L (98-107); Globulin 1.8 g/dL (1.3-4.6); Glomerular Filtration Rate 73.2 mL/min (90-130); Glucose 74 mg/dL (65-115); Osmolality Calculated 287 mOsm/kg (285-295); Sodium 139 mmol/L (136-145); Total Bilirubin 0.2 mg/dL (0.15-1.2); Total Protein 5.6 g/dL (6.6-8.7)
[2021-03-15 18:09] LABS: Anion Gap 14.2 (5-19); Aspartate Amino Transferase 31 U/L (0-32); Potassium 4.2 mmol/L (3.5-5.1)
[2021-03-15 19:14] LABS: Basophils % 0.8 %; Eosinophils # 0.1 10^3/uL (0.0-0.8); Eosinophils % 1.6 %; Hematocrit 42.9 % (37.0-47.0); Hemoglobin 13.5 g/dL (11.5-15.3); Lymphocytes # 1.2 10^3/uL (0.8-4.8); Lymphocytes % 31.8 %; Mean Corpuscular HGB Conc 31.5 g/dL (30.0-36.0); Mean Corpuscular Volume 95.3 fl (81-99); Mean Platelet Volume 10.5 fL (7.4-10.4); Monocytes # 0.7 10^3/uL (0.2-0.9); Monocytes % 17.2 %; Neutrophils # 1.82 10^3/uL (1.8-7.7); Neutrophils % 48.3 %; Nucleated Red Blood Cells % 0 %; Platelet Count 195 10^3/cmm (130-400); Red Cell Distribution Width 15.1 % (12.1-15.1); White Blood Count 3.8 10^3/uL (4.0-10.0)
[2021-03-15 19:18] LABS: Add Urine Microscopic? NO; Charge for UA Resulting for Rev
[2021-03-15 19:25] LABS: Bilirubin Urine Neg (Negative); Blood Urine Neg (Negative); Glucose Urine UA Norm (Normal); Ketones Urine Negative (Negative); Leukocyte Esterase Urine Negative (Negative); Nitrate Urine Negative (Negative); Protein Urine Neg (Negative); Urine Appearance Clear (CLEAR); Urine Color Yellow (Yellow); Urobilinogen Urine Norm (Negative); pH Urine 7 (5-7)
== END 2021-03-15 19:39 | disposition home or self-care (01) ==
PROVIDERS: Emergency Provider Nurse Practitioner Family; PCP Family Medicine
DX: R53.1 Weakness (principal); F06.8 Other specified mental disorders due to known physiological condition; Z79.82 Long term (current) use of aspirin
CPT/HCPCS: 36415; 70450; 80053; 81003; 84484; 85025; 93005; 99282

== ENCOUNTER → 2021-03-23 09:09 | Outpatient (BNVA) | payer MEDICARE, SELFPAY | PROVIDERS: PCP Family Medicine; Visit Provider Specialist | DX: G25.0 Essential tremor (principal); R90.82 White matter disease, unspecified; G31.84 Mild cognitive impairment of uncertain or unknown etiology; F95.9 Tic disorder, unspecified; I99.8 Other disorder of circulatory system; F25.9 Schizoaffective disorder, unspecified; F17.200 Nicotine dependence, unspecified, uncomplicated | CPT/HCPCS: 99214; 99215 ==

== ENCOUNTER → 2021-04-07 07:30 | Outpatient (BNVA) | payer MEDICARE, SELFPAY | PROVIDERS: PCP Family Medicine; Visit Provider Nurse Practitioner | DX: F43.12 Post-traumatic stress disorder, chronic (principal); F41.1 Generalized anxiety disorder; F33.1 Major depressive disorder, recurrent, moderate; F17.219 Nicotine dependence, cigarettes, with unspecified nicotine-induced disorders; G24.01 Drug induced subacute dyskinesia; F25.9 Schizoaffective disorder, unspecified; M06.09 Rheumatoid arthritis without rheumatoid factor, multiple sites; Z79.899 Other long term (current) drug therapy; F95.9 Tic disorder, unspecified; I73.00 Raynaud's syndrome without gangrene; J44.1 Chronic obstructive pulmonary disease with (acute) exacerbation; Z71.89 Other specified counseling; F17.210 Nicotine dependence, cigarettes, uncomplicated | CPT/HCPCS: 99214 ==

== ENCOUNTER 2021-04-12 12:24 | Inpatient (IN) | payer MEDICARE, SELFPAY ==
[2021-04-12] VITALS (23 sets, daily range): BP systolic 80–160; BP diastolic 49–74; PULSE 63–85; RESP 16–20; TEMP 36.3–36.8; O2SAT 92–98; BMI 24.9; BMI 26.4
--- NOTE | 2021-04-12 13:54 | CTR_ITS ---
PROCEDURE INFORMATION: Exam: CT Abdomen And Pelvis With Contrast Exam date and time: 04/12/2021 1:54 PM Age: 60 years old Clinical indication: Abdominal pain; Generalized; Prior surgery; Surgery type: Gb, hernia repair, marjan. Bypass; Additional info: Eval severe abd pain TECHNIQUE: Imaging protocol: Computed tomography of the abdomen and pelvis with contrast. Radiation optimization: All CT scans at this facility use at least one of these dose optimization techniques: automated exposure control; mA and/or kV adjustment per patient size (includes targeted exams where dose is matched to clinical indication); or iterative reconstruction. Contrast material: KRISTEN 300; Contrast volume: 95 ml; Contrast route: INTRAVENOUS (IV); COMPARISON: CT abdomen pelvis wo con [id number] 12/29/2020 6:21 PM RADIATION DOSE METRICS: Total DLP (mGy-cm): 948.16 FINDINGS: Liver: Normal. No mass. Gallbladder and bile ducts: The gallbladder has been removed. Prominence of the intrahepatic and extrahepatic biliary ducts. This can be seen after cholecystectomy. No radiopaque retained stones are seen. Pancreas: Normal. No ductal dilation. Spleen: Normal. No splenomegaly. Adrenal glands: Normal. No mass. Kidneys and ureters: Normal. No hydronephrosis. Stomach and bowel: There are gastric bypass changes. Appendix: No evidence of appendicitis. Intraperitoneal space: There are multiple foci of free intraperitoneal air. This is consistent with the history of recent surgery however it ruptured viscus cannot be excluded. There is a small amount of free intraperitoneal fluid. Vasculature: Unremarkable. No abdominal aortic aneurysm. Lymph nodes: Unremarkable. No enlarged lymph nodes. Urinary bladder: Unremarkable as visualized. Reproductive: Unremarkable as visualized. Bones/joints: Nonunion of a chronic fracture through the right 11th rib. Soft tissues: There are several small ventral abdominal hernias containing fat and or foci of air. There are benign-appearing soft tissue calcifications. CT/CT abdomen pelvis w con* [id number] IMPRESSION: 1. There are multiple foci of free intraperitoneal air. This is consistent with the history of recent surgery however it ruptured viscus cannot be excluded. 2. There are several small ventral abdominal hernias containing fat and or foci of air. Radiation Dose CTDIVOL = (mGy): DLP = 948.16 (mGy-cm)
[2021-04-12] MEDS: HYDROmorphone 1 mg/mL INJ 1 mL IVP ×3 (13:59→16:28)
[2021-04-12] MEDS: sodium chloride 0.9% 1,000 ML 999 ML IV (14:02)
--- NOTE | 2021-04-12 14:20 | W.ED.GENADLT ---
HPI - General Adult General: Chief complaint: Abdominal Pain Stated complaint: abd pain Time Seen by Provider: 04/12/21 13:53 History of Present Illness: HPI narrative: Patient is a 60-year-old female with a history of recurrent pancreatitis, appendectomy cholecystectomy, hernia status post repair, gastric bypass presenting to the emergency room with diffuse abdominal pain, nausea vomiting x3 days. Patient says that she has not been able to stool since 3 days ago. Pain has gotten significantly worse today presents for eval. Patient has any fever chills, cough, chest pain, shortness of breath or palpitations. Onset: 3 days ago Duration:3 days Location:home Severity: moderate Review of Systems Narrative: Constitutional: No fever, no chills. HEENT: No vision changes CV: No chest pain, no palpitations PULM: no cough, no dyspnea. GI: +diffuse abdominal pain, +N/+V/-D. : No dysuria MSKEL: No muscle pain SKIN: No new rashes, no lesions. NEURO: No headache, no focal weakness. HEME: No visible bruises PSYCH: Normal mood PFSH ED PFSH: Medical History Acute pancreatitis Contracture of right index finger Costochondritis Dizziness Facial tic Gastritis Gastroenteritis Generalized anxiety disorder Major depressive disorder, recurrent, moderate Post-traumatic stress disorder, chronic Psychiatric care Psychosis Raynaud's disease without gangrene Rheumatoid arthritis without rheumatoid factor, multiple sites SAH (subarachnoid hemorrhage) Schizoaffective disorder Stammering improved Tardive dyskinesia Ulcerative colitis Ureterolithiasis Surgical History H/O esophagogastroduodenoscopy (01/29/21) History of bilateral knee replacement History of cholecystectomy History of hand surgery History of renal stent History of umbilical hernia repair Hx of gastric bypass Status post colonoscopy (01/29/21) Family History Mother , at age 74 Cancer colorectal Father No problems noted. Denies family history of Rheumatoid arthritis Social History Smoking and tobacco status: current every day smoker cigarettes Packs smoked per day: 1 Smoking risk assessment/counseling performed?: Yes Tobacco counseling given: counseling >3 minutes Alcohol intake: former Former alcohol use details: quit drinking 2 months ago....beer Marital status: Single Current occupational status: disabled History of recent travel: No Physical Exam Narrative: EXAM NARRATIVE: Head: Atraumatic Eyes: PERRL, conjunctiva without injection ENT: Mucous membrane moist NECK: Supple, ROM intact LUNGS: LCTAB, no crackles/rhonchi CV: RRR ABDOMEN: Soft, + severe diffuse TTP. +voluntary guarding and rigidity. No CVA tenderness to percussion. Neg Sadler/Neg McBurney's point tenderness, no suprabupic tenderness to palpation. EXTREMITY: Normal ROM SKIN: No rash or erythema NEURO: Awake and alert, no focal motor deficits PSYCH: Normal mood and affect Course Vital Signs: Vital signs: Vital Signs Temperature 97.5 F L 04/12/21 13:33 Pulse Rate 75 04/12/21 15:37 Respiratory Rate 18 04/12/21 15:37 Blood Pressure 82/58 04/12/21 13:49 Pulse Oximetry 98 04/12/21 15:37 MDM - General Adult MDM Narrative: Medical decision making narrative: 60F w/ multiple abdominal surgeries presenting with diffuse abd pain. +guarding and rebound tenderness on EXA CT is consistent with bowel perf new compared to 12/23/2020 S/p zosyn and multiple dose of pain medicines Disposition: OR Lab Data: Labs: Lab Results 04/12/21 04/12/21 04/12/21 13:55 13:55 15:10 WBC Cancelled 8.8 10^3/uL 10^3/ uL (4.0-10.0) Corrected WBC Cancelled RBC Cancelled 4.56 10^6/uL 10^6 /uL (4.1-5.3) Hgb Cancelled 14.2 g/dL g/dL (11.5-15.3) Hct Cancelled 44.0 % % (37.0-47.0) MCV Cancelled 96.5 fl fl (81-99) MCH Cancelled 31.1 pg pg (28.0-34.0) MCHC Cancelled 32.3 g/dL g/dL (30.0-36.0) RDW Cancelled 13.1 % % (12.1-15.1) Plt Count Cancelled 181 10^3/cmm 10^3 /cmm (130-400) MPV Cancelled 10.9 fL H fL (7.4-10.4) Gran % Cancelled Neut % (Auto) Cancelled 78.6 % % Lymph % (Auto) Cancelled 14.0 % % [place] % (Auto) Cancelled 6.8 % % Eos % (Auto) Cancelled 0.1 % % Baso % (Auto) Cancelled 0.3 % % Neut # (Auto) Cancelled 6.87 10^3/uL 10^3 /uL (1.8-7.7) Lymph # (Auto) Cancelled 1.2 10^3/uL 10^3/ uL (0.8-4.8) [place] # (Auto) Cancelled 0.6 10^3/uL 10^3/ uL (0.2-0.9) Eos # (Auto) Cancelled 0.0 10^3/uL 10^3/ uL (0.0-0.8) Baso # (Auto) Cancelled 0.0 10^3/uL 10^3/ uL (0.0-0.1) Absolute Gran (aut o) Cancelled Nucleated RBC % (a uto) Cancelled 0 % % Nucleated RBCs # Cancelled 0.0 /100WBC /100W BC Sodium 136 mmol/L mmol/L (136-145) Potassium 3.9 mmol/L mmol/L (3.5-5.1) Chloride 102 mmol/L mmol/L (98-107) Carbon Dioxide 23 mmol/L mmol/L (22-29) Anion Gap 14.9 (5-19) BUN 14 mg/dL mg/dL (8-23) Creatinine 0.7 mg/dL mg/dL (0.5-0.9) GFR Calculation 85.4 mL/min L mL/ min (90-130) Glucose 177 mg/dL H mg/dL (65-115) Calculated Osmolal ity 287 mOsm/kg mOsm/ kg (285-295) Calcium 8.9 mg/dL mg/dL (8.5-10.5) Total Bilirubin 0.3 mg/dL mg/dL (0.15-1.2) AST 29 U/L U/L (0-32) ALT 33 U/L U/L (0-33) Alkaline Phosphata se 99 IU/L IU/L (35-105) Total Protein 5.9 g/dL L g/dL (6.6-8.7) Albumin 4.0 g/dL g/dL (3.5-5.2) Globulin 1.9 g/dL g/dL (1.3-4.6) Lipase 26 U/L U/L (13-60) Imaging Data^: Other Imaging: Radiologist's impression: [facility] [id number] Scan ReportSigned Patient: Sury Marroquin #: [id number]: 1960cct#:[id number]/Sex: 60 / FADM Date: 04/12/21Loc: ERRoom/Bed:Attending Dr: Ordering Provider/Ordering MD: Jolie Cool MD Date of Service: 04/12/21 Procedure(s): CT abdomen pelvis w con* [id number] Accession Number(s): [id number] Report Number: [id number] PROCEDURE INFORMATION: Exam: CT Abdomen And Pelvis With Contrast Exam date and time: 04/12/2021 1:54 PM Age: 60 years old Clinical indication: Abdominal pain; Generalized; Prior surgery; Surgery type: Gb, hernia repair, marjan. Bypass; Additional info: Eval severe abd pain TECHNIQUE: Imaging protocol: Computed tomography of the abdomen and pelvis with contrast. Radiation optimization: All CT scans at this facility use at least one of these dose optimization techniques: automated exposure control; mA and/or kV adjustment per patient size (includes targeted exams where dose is matched to clinical indication); or iterative reconstruction. Contrast material: KRISTEN 300; Contrast volume: 95 ml; Contrast route: INTRAVENOUS (IV); COMPARISON: CT abdomen pelvis wo con [id number] 12/29/2020 6:21 PM RADIATION DOSE METRICS: Total DLP (mGy-cm): 948.16 FINDINGS: Liver: Normal. No mass. Gallbladder and bile ducts: The gallbladder has been removed. Prominence of the intrahepatic and extrahepatic biliary ducts. This can be seen after cholecystectomy. No radiopaque retained stones are seen. Pancreas: Normal. No ductal dilation. Spleen: Normal. No splenomegaly. Adrenal glands: Normal. No mass. Kidneys and ureters: Normal. No hydronephrosis. Stomach and bowel: There are gastric bypass changes. Appendix: No evidence of appendicitis. Intraperitoneal space: There are multiple foci of free intraperitoneal air. This is consistent with the history of recent surgery however it ruptured viscus cannot be excluded. There is a small amount of free intraperitoneal fluid. Vasculature: Unremarkable. No abdominal aortic aneurysm. Lymph nodes: Unremarkable. No enlarged lymph nodes. Urinary bladder: Unremarkable as visualized. Reproductive: Unremarkable as visualized. Bones/joints: Nonunion of a chronic fracture through the right 11th rib. Soft tissues: There are several small ventral abdominal hernias containing fat and or foci of air. There are benign-appearing soft tissue calcifications. CT/CT abdomen pelvis w con* [id number] IMPRESSION: 1. There are multiple foci of free intraperitoneal air. This is consistent with the history of recent surgery however it ruptured viscus cannot be excluded. 2. There are several small ventral abdominal hernias containing fat and or foci of air. Radiation Dose CTDIVOL = (mGy): DLP = 948.16 (mGy-cm) Dictated By:Lorena Delvalle MDSigned By:Lorena Delvalle MDSigned Date/Time:04/12/21 1553DD/ 1354 Discharge Plan Discharge Patient Disposition: Admitted As Inpatient Clinical Impression: Abdominal pain, Nausea and vomiting Condition: Stable Coding Level of Care Code ED Bilingual Medical Receptionist for Judson Alford
[2021-04-12 14:39] LABS: Alanine Aminotransferase 33 U/L (0-33); Alkaline Phosphatase 99 IU/L (35-105); Aspartate Amino Transferase 29 U/L (0-32); Blood Urea Nitrogen 14 mg/dL (8-23); Calcium 8.9 mg/dL (8.5-10.5); Carbon Dioxide 23 mmol/L (22-29); Chloride 102 mmol/L (98-107); Creatinine Clr Calc Pharmacy 79.7764; Globulin 1.9 g/dL (1.3-4.6); Glomerular Filtration Rate 85.4 mL/min (90-130); Glucose 177 mg/dL (65-115); Lipase 26 U/L (13-60); Osmolality Calculated 287 mOsm/kg (285-295); Sodium 136 mmol/L (136-145); Total Bilirubin 0.3 mg/dL (0.15-1.2); Total Protein 5.9 g/dL (6.6-8.7)
[2021-04-12 14:47] LABS: Anion Gap 14.9 (5-19); Potassium 3.9 mmol/L (3.5-5.1)
[2021-04-12] MEDS: iohexol 300 mg/mL 100 mL Btl IV (15:34)
[2021-04-12 15:54] LABS: Basophils % 0.3 %; Eosinophils % 0.1 %; Hemoglobin 14.2 g/dL (11.5-15.3); Lymphocytes # 1.2 10^3/uL (0.8-4.8); Mean Corpuscular HGB Conc 32.3 g/dL (30.0-36.0); Mean Corpuscular Hemoglobin 31.1 pg (28.0-34.0); Mean Corpuscular Volume 96.5 fl (81-99); Mean Platelet Volume 10.9 fL (7.4-10.4); Monocytes # 0.6 10^3/uL (0.2-0.9); Monocytes % 6.8 %; Neutrophils # 6.87 10^3/uL (1.8-7.7); Neutrophils % 78.6 %; Nucleated Red Blood Cells % 0 %; Platelet Count 181 10^3/cmm (130-400); Red Blood Count 4.56 10^6/uL (4.1-5.3); Red Cell Distribution Width 13.1 % (12.1-15.1); White Blood Count 8.8 10^3/uL (4.0-10.0)
[2021-04-12 16:10] LABS: Lactate (Lactic Acid level) 1.3 mmol/L (0.5-2.2)
[2021-04-12] MEDS: piperacillin-tazobactam 4.5 GM in sodium chloride 0.9% (plus) 50 ML IV (16:28)
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
--- NOTE | 2021-04-12 17:40 | PM.CONSULT ---
Providers/Reason For Consult Consulting Physician/Specialty*: General Surgery Dr. Lackey Reason for Consult*: Intraperitoneal free air Attending Physician: Jose Angel Lackey MD Primary Care Provider: Helga Mancera DO History of Present Illness History of Present Illness Nunu Marroquin is a 60 year old female who was previously undergone gastric bypass in the past. I had performed an EGD and colonoscopy on her in January 2021 which were both normal. Patient presented to the emergency room today with complaints of severe abdominal pain for the last 3 days associate with nausea. She states that she is unable to vomit due to gastric bypass. She has a longstanding history of loose stools denies any hematemesis melena or hematochezia. She denies taking significant NSAIDs. She completed a course of prednisone last week and is on a weekly injection of Tocilizumab for her rheumatoid arthritis Review of Systems General: Reports: 10 or more systems reviewed and unremarkable except in HPI and below Meds/Allergies Home Medications and Allergies Home Medications Medication Instructions Recorded Confirmed Last Taken Type nitroglycerin 0.4 mg SUBLINGUAL Q5M PRN #30 tab 06/10/20 04/07/21 01/28/21 Rx dicyclomine 20 mg PO BID 09/25/20 04/07/21 01/29/21 History gabapentin 100 mg capsule 100 mg PO BEDTIME 10/07/20 04/07/21 01/28/21 History Vitamin B-12 1 tab PO DAILY 12/24/20 04/07/21 01/29/21 History albuterol sulfate [ProAir HFA] 2 puff INHALATION Q4H PRN 12/24/20 04/07/21 Unknown History ferrous sulfate [iron] 325 mg PO DAILY 12/24/20 04/07/21 01/29/21 History fluticasone propionate 2 spray INTRANASAL DAILY PRN 12/24/20 04/07/21 01/28/21 History magnesium 1 cap PO Q7D 12/24/20 04/07/21 01/28/21 History multivitamin 1 tab PO DAILY 12/24/20 04/07/21 01/29/21 History metoclopramide HCl [Reglan] 10 mg PO Q6H PRN #20 tab 12/29/20 04/07/21 01/28/21 Rx ondansetron HCl 4 mg tablet 4 mg PO Q6H PRN #10 tab 01/06/21 04/07/21 01/28/21 Rx alfuzosin 10 mg tablet,extended 10 mg PO DAILY #90 tab 01/10/21 04/07/21 Unknown Rx release 24 hr valbenazine 80 mg capsule 80 mg PO BEDTIME #30 cap 03/12/21 04/07/21 Unknown Rx pantoprazole 40 mg tablet,delayed 40 mg PO BID #60 tab 03/18/21 04/07/21 Unknown Rx release primidone 50 mg tablet 50 mg PO BID #60 tab 03/23/21 04/07/21 Unknown Rx valbenazine 80 mg capsule 80 mg PO DAILY 03/23/21 04/07/21 Unknown History sertraline 100 mg tablet 100 mg PO DAILY #30 tab 03/27/21 04/07/21 Unknown Rx benztropine 1 mg tablet 1 mg PO BID #60 tab 04/07/21 04/07/21 Unknown Rx clonazepam 0.5 mg tablet 0.5 mg PO TID PRN #90 tab 04/07/21 04/07/21 Unknown Rx lamotrigine 200 mg tablet 200 mg PO BID #60 tab 04/07/21 04/07/21 Unknown Rx mirtazapine 30 mg tablet 30 mg PO BEDTIME #30 tab 04/07/21 04/07/21 Unknown Rx prednisone 20 mg tablet See Rx Instructions PO .COMPLEX 04/07/21 04/07/21 Unknown Rx PRN #30 tab tocilizumab 162 mg/0.9 mL 162 mg SUBCUT Q7D #4 ml 04/07/21 04/07/21 Unknown Rx subcutaneous syringe tramadol 50 mg tablet 50 mg PO TID PRN #60 tab 04/07/21 04/07/21 Unknown Rx Allergies Allergy/AdvReac Type Severity Reaction Status Date / Time hydroxyzine [From Vistaril] Allergy Unknown Verified 04/07/21 13:42 lithium Allergy makes me Verified 04/07/21 13:42 mean sulfamethizole Allergy Unknown Verified 04/07/21 13:42 PFSH Acute PFSH: Medical History (Updated 04/12/21 @ 17:43 by Jose Angel Lackey MD) Acute pancreatitis Costochondritis Facial tic Gastritis Gastroenteritis Generalized anxiety disorder Major depressive disorder, recurrent, moderate Post-traumatic stress disorder, chronic Psychosis Raynaud's disease without gangrene Rheumatoid arthritis without rheumatoid factor, multiple sites SAH (subarachnoid hemorrhage) Schizoaffective disorder Stammering improved Tardive dyskinesia Ureterolithiasis Surgical History H/O esophagogastroduodenoscopy (01/29/21) History of bilateral knee replacement History of cholecystectomy History of hand surgery History of renal stent History of umbilical hernia repair Hx of gastric bypass Status post colonoscopy (01/29/21) Family History Mother , at age 74 Cancer colorectal Father No problems noted. Denies family history of Rheumatoid arthritis Social History Smoking and tobacco status: current every day smoker cigarettes Packs smoked per day: 1 Smoking risk assessment/counseling performed?: Yes Tobacco counseling given: counseling >3 minutes Alcohol intake: former Former alcohol use details: quit drinking 2 months ago....beer Marital status: Single Current occupational status: disabled History of recent travel: No Vitals/I&O/Wt Last Vital Signs Temp 97.5 F L 04/12/21 13:33 Pulse 78 04/12/21 17:17 Resp 18 04/12/21 17:17 BP 98/74 04/12/21 17:17 Pulse Ox 92 04/12/21 17:17 04/12/21 04/12/21 04/12/21 06:59 14:59 22:59 Intake Total 1050 / 1050 Balance 1050 / 1050 Weight last 48 hrs Weight 145 lb Physical Exam Narrative: EXAM NARRATIVE: HEENT: Normocephalic Eye: Sclera /conjunctiva normal Respiratory and chest: Bilateral clear breath sounds on auscultation Cardiovascular: Normal S1 and S2 heart sounds Abdomen: Soft to palpation, Generalized tenderness, peritonitis present with rigidity, well-healed midline laparotomy scar Neurological: Oriented to place person and time, Skin: Intact, no lesions appreciated on gross exam Data Micro: Micro: Microbiology 04/12/21 15:21 Blood Culture - Pr eliminary Blood SPECIMEN [facility] 04/12/21 15:10 Blood Culture - Pr eliminary Blood SPECIMEN [facility] A&P Assessment and plan (1) Abdominal pain: 60-year-old female with history of rheumatoid arthritis who presents with 3-day history of severe abdominal pain and nausea. Patient has peritonitis on physical exam. Her WBC is 8.8 CT abdomen pelvis shows intraperitoneal free air. Patient is slightly hypotensive with systolic in the 90s though she is mentating appropriately. Plan for exploratory laparotomy, possible bowel resection, possible ostomy Status: Acute Consult Attestations Medical Necessity Statement: As per attending physician Coding Level of Care Code Acute Car Sealer for Chg Fwd Diagnoses Abdominal pain R10.9
--- NOTE | 2021-04-12 18:02 | ECG_ITS ---
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: : 1960 Requested By: Jolie Cool Order Number: [id number] Reading MD: EPHRAIM BUTT Measurements Intervals [place] Rate: 73 P: 16 OK: 124 QRS: 69 QRSD: 100 T: 48 QT: 416 QTc: 461 Interpretive Statements SINUS RHYTHM LOW QRS VOLTAGE IN EXTREMITY LEADS [QRS DEFLECTION < 0.5 mV IN LIMB LEADS] INTERPRETATION BASED ON A DEFAULT AGE OF 40 YEARS Compared to ECG 03/15/2021 17:27:45 Low QRS voltage now present Sinus bradycardia no longer present Myocardial infarct finding no longer present Electronically Signed On 04-13-2021 12:59:08 CW OPERATOR by EPHRAIM BUTT [id number]
--- NOTE | 2021-04-12 19:28 | P.CONIM_ITS ---
Providers/Reason For Consult Consulting Physician/Specialty*: Hospitalist Reason for Consult*: Medical management of surgical patient Attending Physician: Jose Angel Lackey MD Primary Care Provider: Helga Mancera DO History of Present Illness History of Present Illness Pleasant 60-year-old lady current smoker with history of rheumatoid arthritis, on chronic tocilizumab which she takes weekly, intermittently on steroids during flareups, denies ulcerative colitis, with EGD and colonoscopy in January, with history of recurrent pancreatitis, remote surgical history that includes appendectomy, cholecystectomy, hernia repair, gastric bypass, presented due to 3 days of colicky abdominal pain that has not been improving, getting worse, now severe. Reports chronic diarrhea. Denies blood in stool, melena. No nausea or vomiting. States intermittently takes Tylenol and ibuprofen for headaches, lately took Tylenol, some time ago since had taken ibuprofen. About 2 weeks ago is when she completed most recent prednisone taper for RA flare. In ER afebrile, without leukocytosis, tachycardia, initially soft blood pressures, as low as 80/49. Lactate normal, 1.3. Assessed by CT abdomen pelvis showing multiple foci of free intraperitoneal air. Several small ventral abdominal hernias containing fat and or foci of air. In ER she received fluid challenge with IVF boluses, Zosyn, pain medication, and is urgently taken for exploratory laparotomy. Hospitalist is consulted for medical management. In case of being unable to make decisions for herself, names her sister as surrogate decision-maker. Review of Systems Const: Denies: fever(s), chills, body aches or malaise Eyes: Denies: change in vision or eye redness ENMT: Denies: throat pain, oral sores or ear or mastoid pain Card: Denies: chest pain, edema, pre-syncope or dyspnea on exertion Resp: Denies: dyspnea, productive cough, change in phlegm color or hemoptysis GI: Reports: abdominal pain and diarrhea (Chronic); Denies: nausea, vomiting, constipation, hematochezia or melena : Denies: flank pain, urinary frequency or hematuria Musc: Denies: back pain, joint swelling or joint redness Skin/Breast: Denies: rash, sores or new lesions Neuro: Denies: headache(s), numbness in extremities, weakness in extremities, dizziness, confusion or seizure-like activity Endo: Denies: polyuria or polydipsia Eusebio/Lymph: Denies: easy bleeding or purpura All/Imm: Denies: urticaria, throat swelling or tongue swelling Meds/Allergies Home Medications and Allergies Home Medications Medication Instructions Recorded Confirmed Last Taken Type nitroglycerin 0.4 mg SUBLINGUAL Q5M PRN #30 tab 06/10/20 04/07/21 01/28/21 Rx dicyclomine 20 mg PO BID 09/25/20 04/07/21 01/29/21 History gabapentin 100 mg capsule 100 mg PO BEDTIME 10/07/20 04/07/21 01/28/21 History Vitamin B-12 1 tab PO DAILY 12/24/20 04/07/21 01/29/21 History albuterol sulfate [ProAir HFA] 2 puff INHALATION Q4H PRN 12/24/20 04/07/21 Unknown History ferrous sulfate [iron] 325 mg PO DAILY 12/24/20 04/07/21 01/29/21 History fluticasone propionate 2 spray INTRANASAL DAILY PRN 12/24/20 04/07/21 01/28/21 History magnesium 1 cap PO Q7D 12/24/20 04/07/21 01/28/21 History multivitamin 1 tab PO DAILY 12/24/20 04/07/21 01/29/21 History metoclopramide HCl [Reglan] 10 mg PO Q6H PRN #20 tab 12/29/20 04/07/21 01/28/21 Rx ondansetron HCl 4 mg tablet 4 mg PO Q6H PRN #10 tab 01/06/21 04/07/21 01/28/21 Rx alfuzosin 10 mg tablet,extended 10 mg PO DAILY #90 tab 01/10/21 04/07/21 Unknown Rx release 24 hr valbenazine 80 mg capsule 80 mg PO BEDTIME #30 cap 03/12/21 04/07/21 Unknown Rx pantoprazole 40 mg tablet,delayed 40 mg PO BID #60 tab 03/18/21 04/07/21 Unknown Rx release primidone 50 mg tablet 50 mg PO BID #60 tab 03/23/21 04/07/21 Unknown Rx valbenazine 80 mg capsule 80 mg PO DAILY 03/23/21 04/07/21 Unknown History sertraline 100 mg tablet 100 mg PO DAILY #30 tab 03/27/21 04/07/21 Unknown Rx benztropine 1 mg tablet 1 mg PO BID #60 tab 04/07/21 04/07/21 Unknown Rx clonazepam 0.5 mg tablet 0.5 mg PO TID PRN #90 tab 04/07/21 04/07/21 Unknown Rx lamotrigine 200 mg tablet 200 mg PO BID #60 tab 04/07/21 04/07/21 Unknown Rx mirtazapine 30 mg tablet 30 mg PO BEDTIME #30 tab 04/07/21 04/07/21 Unknown Rx prednisone 20 mg tablet See Rx Instructions PO .COMPLEX 04/07/21 04/07/21 Unknown Rx PRN #30 tab tocilizumab 162 mg/0.9 mL 162 mg SUBCUT Q7D #4 ml 04/07/21 04/07/21 Unknown Rx subcutaneous syringe tramadol 50 mg tablet 50 mg PO TID PRN #60 tab 04/07/21 04/07/21 Unknown Rx Allergies Allergy/AdvReac Type Severity Reaction Status Date / Time hydroxyzine [From Vistaril] Allergy Unknown Verified 04/07/21 13:42 lithium Allergy makes me Verified 04/07/21 13:42 mean sulfamethizole Allergy Unknown Verified 04/07/21 13:42 PFSH Acute PFSH: Medical History Acute pancreatitis Costochondritis Facial tic Gastritis Gastroenteritis Generalized anxiety disorder Major depressive disorder, recurrent, moderate Post-traumatic stress disorder, chronic Psychosis Raynaud's disease without gangrene Rheumatoid arthritis without rheumatoid factor, multiple sites SAH (subarachnoid hemorrhage) Schizoaffective disorder Stammering improved Tardive dyskinesia Ureterolithiasis Surgical History H/O esophagogastroduodenoscopy (01/29/21) History of bilateral knee replacement History of cholecystectomy History of hand surgery History of renal stent History of umbilical hernia repair Hx of gastric bypass Status post colonoscopy (01/29/21) Family History Mother , at age 74 Cancer colorectal Father No problems noted. Denies family history of Rheumatoid arthritis Social History Smoking and tobacco status: current every day smoker cigarettes Packs smoked per day: 1 Smoking risk assessment/counseling performed?: Yes Tobacco counseling given: counseling >3 minutes Alcohol intake: former Former alcohol use details: quit drinking 2 months ago....beer Marital status: Single Current occupational status: disabled History of recent travel: No Vitals/I&O/Wt Last Vital Signs Temp 98.0 F 04/12/21 17:25 Pulse 64 04/12/21 17:25 Resp 18 04/12/21 17:25 BP 114/62 04/12/21 17:25 Pulse Ox 96 04/12/21 17:25 04/12/21 04/12/21 04/12/21 06:59 14:59 22:59 Intake Total 1050 / 1050 Balance 1050 / 1050 Weight last 48 hrs Weight 65.771 kg Physical Exam Const: COMMON NORMALS: no acute distress and patient oriented x3 HENMT: COMMON NORMALS: oropharynx normal Neck/C-Spine: COMMON NORMALS: no JVD Resp: COMMON NORMALS: normal respiratory effort and clear to auscultation bilaterally AUSCULTATION: clear to auscultation bilaterally Cardio: COMMON NORMALS: no JVD, regular rhythm, S1 normal heart sound present, S2 normal heart sound present and No murmurs present (Cardio) RHYTHM: regular rhythm HEART SOUNDS: S1 normal heart sound present and S2 normal heart sound present GI: COMMON NORMALS: Normal to inspection, nondistended, normoactive bowel sounds present and Soft to palpation PALPATION: Yes Soft to palpation, Yes Tenderness to palpation present (GI) and Yes Guarding due to palpation present (GI) Extremity: COMMON NORMALS: no joint enlargement and no pedal edema Neuro: COMMON NORMALS: patient oriented x3 and moves all extremities Skin: COMMON NORMALS: no rashes or lesions noted GENERAL SKIN EXAM: no rashes or lesions noted Urinary Catheter Management^: F: Cath Placed During This Visit: yes Urinary Catheter Date of Insertion: 04/12/21 Urinary Catheter Time of Insertion: 18:05 Data Micro: Micro: Microbiology 04/12/21 15:21 Blood Culture - Pr eliminary Blood [facility] 04/12/21 15:10 Blood Culture - Pr eliminary Blood SPE[facility]IMEN [facility] A&P Assessment and plan (1) Free intraperitoneal air: Undergoing urgent exploratory laparotomy. Unclear cause. He is currently on tocilizumab for RA, for which perforation is listed as a defect, mostly in the setting of diverticulitis. On recurrent steroid therapy for RA flares. Reports also intermittently with Tylenol uses ibuprofen for aches and pains. PPI. Continue empiric Zosyn Hypotensive on presentation, received fluid boluses. Possible component of a drenal insufficiency. Check serum cortisol. Received Decadron. Hemodynamic support. Not chronically on steroid, but recurrent courses of prednisone. Consider hydrocortisone stress dosing. To ICU after surgery. She asked if possible to call her brother Bubba, , and notify him or his significant other Rosa of her condition. I could not reach anyone at that number this evening. Discussed with surgery, nighttime physician. Status: Acute Additional A&P Information Incidentally noted several small ventral abdominal hernias on CT containing fat and or foci of air RA: On chronic tocilizumab, intermittent course of prednisone History of pancreatitis, chronic recurrent diarrhea Remote history of alcoholism, not currently consuming any alcohol History of gastric bypass Schizoaffective disorder Denies ulcerative colitis (initially noted on medical history) Current smoker Consult Attestations Medical Necessity Statement: Admission of over 2 midnights is anticipated for assessment management of free intraperitoneal air of unknown origin. Coding Level of Care Code Acute Pipe Threading Machine Operator for Judson Alford Diagnoses Free intraperitoneal air K66.8
--- NOTE | 2021-04-12 20:02 | P.OP_ITS ---
Operative Report Date of procedure: April 12, 2021 Pre-op Diagnosis: Intraperitoneal free air Post-op Diagnosis: Status post gastric bypass with 1 cm perforation adjacent to the GJ anastomosis on the posterior wall Procedure Done: 1. Exploratory laparotomy 2. Repair of gastric perforation adjacent to the GJ anastomosis 3. Placement of jejunostomy tube 4. Esophagogastroduodenoscopy without biopsy Pathology: none sent Surgeon: Jose Angel Lackey Anesthesia: General Estimated blood loss (mL): 50 IV fluids (mL): 1,300 Urine output (mL): 500 Procedure: The patient was taken to the operating room and intubated under gen eral anesthesia after IV antibiotic had been administered. Reilly catheter was placed and the abdomen was prepped and draped in a sterile manner. Using 15 blade a midline laparotomy incision was made using 10 blade and the subcutaneous tissue and linea alba was divided using electrocautery to enter the peritoneal cavity. There was small amount of purulent fluid noted in the subhepatic space. There was no significant purulent fluid or stool noted within the peritoneal cavity. The small bowel was examined from the gastrojejunal anastomosis to the cecum and there was no evidence of perforation. The right colon was mobilized and there was no evidence of inflammation or perforation in the cecum, ascending colon, transverse colon, descending colon, sigmoid colon. The right colon was mobi lized medially and the examination of the duodenum revealed no evidence of inflammation or perforation. The remnant gastric pouch showed no evidence of perforation. At this point the lesser sac was entered by dividing the greater omentum using energy device. The dissection was carried towards the splenic flexure and a 1 cm perforation was noted on the stomach adjacent to the gastrojejunal anastomosis. There was also purulent fluid noted in the lesser sac. A gastroscope was introduced and advanced up to the gastrojejunal anastomosis confirming the location of the perforation. Interrupted 2-0 silk sutures were placed to close the 1 cm defect and a tongue of omentum was tied down over the repair to create a Migel patch. An NG tube was secured in the gastric pouch. A stab incision was made in the right upper quadrant using a 15 blade and a 10 flat MANFRED drain was placed over the repair and sutured to the skin using 2-0 Prolene suture, and attached to bulb suction. A stab incision was made in the left upper quadrant using a 15 blade and a 14 Algerian jejunostomy tube was introduced through the stab incision. 10 cm from the jejunojejunal anastomosis, the site was identified for placement of the jejunostomy tube. An enterotomy was made using electrocautery after 2-0 Vicryl pursestring suture was placed and the jejunostomy tube was advanced distally and the balloon was inflated with 7 cc of saline. Interrupted 2-0 Vicryl sutures were used to approximate the jejunum to the abdominal wall as well as interrupted 2-0 Vicryl sutures were placed distally along the jejunum to appr oximate it to the abdominal wall to prevent twisting of the jejunum around the jejunostomy tube. The fascia in the midline was closed using #1 looped PDS. The subcutaneous tissues were approximated using interrupted 3-0 Vicryl suture and skin was closed with colin and covered with sterile dressings. 20 cc of saline mixed with 20 cc of 0.5% Marcaine mixed with 20 cc of Exparel was injected bilaterally around the incisions. The patient was extubated transferred to recovery room in stable condition with her NG tube, Reilly catheter, MANFRED drain and jejunostomy tube.
[2021-04-12] MEDS: fentaNYL 50 mcg/mL INJ 2mL IVP (20:19)
--- NOTE | 2021-04-12 20:35 | ANE.PACU2 ---
Inpatient post-anesthesia follow up: Airway intact: Yes Vital signs: Temperature 97.3 F Pulse Rate 63 Respiratory Rate 18 Blood Pressure 114/60 Pulse Oximetry 97 Oxygen Delivery Me thod Simple Mask Oxygen Flow Rate 6 Fraction of Inspir ed Oxygen Hydration adequate: Yes Nausea and vomiting: No Pain level: 3 Mental status: Baseline
[2021-04-12 21:54] LABS: Glucose Point of Care 142 mg/dL (70-110)
[2021-04-12] MEDS: morphine 4 mg/mL SDV 1 mL 3 MG IVP (22:47)
[2021-04-12] MEDS: pantoprazole 40 MG in sodium chloride 0.9% (plus) 100 ML 20 MG IV (22:49)
[2021-04-12] MEDS: D5-NS 0.45% + KCL 20 mEq 20 MEQ/1,000 ML BAG 100 MEQ IV (22:51)
[2021-04-13] VITALS (17 sets, daily range): BP systolic 112–151; BP diastolic 66–82; PULSE 71–109; RESP 16–18; TEMP 36.7–37.2; O2SAT 90–97
[2021-04-13] MEDS: morphine 4 mg/mL SDV 1 mL 3 MG IVP ×5 (00:03→05:21)
[2021-04-13] MEDS: piperacillin-tazobactam 3.375 GM in sodium chloride 0.9% (plus) 50 ML IV ×4 (01:05→23:58)
[2021-04-13] MEDS: ipratropium-albuterol 3 mL Neb INHALATION ×3 (03:02→14:50)
[2021-04-13] MEDS: pantoprazole 40 MG in sodium chloride 0.9% (plus) 100 ML 20 MG IV ×5 (05:10→23:33)
[2021-04-13] MEDS: enoxaparin 40 mg/0.4 mL Syringe SUBCUT (06:34)
[2021-04-13 06:44] LABS: Glucose Point of Care 122 mg/dL (70-110)
[2021-04-13 06:58] LABS: Basophils % 0.2 %; Hematocrit 40.5 % (37.0-47.0); Hemoglobin 13.2 g/dL (11.5-15.3); Lymphocytes # 2.5 10^3/uL (0.8-4.8); Mean Corpuscular HGB Conc 32.6 g/dL (30.0-36.0); Mean Corpuscular Hemoglobin 31.1 pg (28.0-34.0); Mean Corpuscular Volume 95.3 fl (81-99); Mean Platelet Volume 10.4 fL (7.4-10.4); Monocytes # 0.7 10^3/uL (0.2-0.9); Monocytes % 6.5 %; Neutrophils # 7.26 10^3/uL (1.8-7.7); Neutrophils % 68.9 %; Nucleated Red Blood Cells % 0 %; Platelet Count 157 10^3/cmm (130-400); Red Blood Count 4.25 10^6/uL (4.1-5.3); Red Cell Distribution Width 13.5 % (12.1-15.1); White Blood Count 10.5 10^3/uL (4.0-10.0)
[2021-04-13 07:13] LABS: Anion Gap 10.4 (5-19); Blood Urea Nitrogen 8 mg/dL (8-23); Calcium 8.1 mg/dL (8.5-10.5); Carbon Dioxide 24 mmol/L (22-29); Chloride 110 mmol/L (98-107); Glucose 117 mg/dL (65-115); Osmolality Calculated 289 mOsm/kg (285-295); Potassium 4.4 mmol/L (3.5-5.1); Sodium 140 mmol/L (136-145)
[2021-04-13] MEDS: D5-NS 0.45% + KCL 20 mEq 20 MEQ/1,000 ML BAG 100 MEQ IV ×2 (08:37→17:10)
[2021-04-13] MEDS: lactulose oral liq 20 gm/30 mL UDC 10 GM J-TUBE ×2 (08:38→21:53)
[2021-04-13] MEDS: HYDROcodone-APAP 7.5-325 mg/15 mL UDC PO (09:32)
--- NOTE | 2021-04-13 10:10 | PC.CHAP ---
Pastoral Care Encounter/Spiritual Assessment Type of Contact [] Declined airplane captain visit [] Patient/Family/Request visit [] Outpatient visit [] Follow-up visit [] Physician referral [] Code/Alert [x] Routine visit [] Staff referral [] Actively dying [] Patient sleeping [] Family support [] [] Out of room [] Palliative care [] [] Receiving care in room [] Pre-surgical visit [] Trauma [] Long length of stay [] ICU visit [] Other: Relational/Emotional Strength [x] Patient feels connected with others/family/visitors/staff [] Distress [] Loneliness/isolation [] Abandonment Spirituality of Patient [x] Person of [place] [x] Attends Presybeterian of their [place] [x] Believes in Prayer [] Reads Bible or Mosque materials [] There are Spiritual issues to be addressed Machine Cloth Measurer Interventions [x] Prayer [x] Active listening [x] Non-anxious presence [x] Spiritual/emotional support [] Crisis/trauma care [] Spiritual counseling [] Bereavement support [] Provided bereavement packet [] Provided Bible/devotional materials [] Provided toy/stuffed animal, coloring book to patient or family member [] Provided Communion [] Anointing/[place] [] Salvation [x] Completed spiritual assessment [] Other: Impact on Illness or Injury [] Angry [] Fearful [] Anxious [] Often cries [] Exhaustion [] Unable to work [] Unable to attend mormonism [] Unable to walk/stand [] Unable to read [] Unable to drive [] Unable to eat/drink [] Unable to sleep [] Unable to be with family [] Patient intubated [] Other: Summary Time spent with patient 15 miun
--- NOTE | 2021-04-13 11:25 | PC.NUTR ---
Nutrition consult completed. Recommend Jevity 1.2, starting at 10 ml/hr, increasing by 10 ml/hr q 8 hrs to goal rate of 60 ml/hr, with 100 ml H2O flushes q 4 hrs, to provide 1728 kcal, 79 g protein, 1762 ml H2O. Do not recommend bolus feedings for J-tube. Also recommend clarification of order for D10W via J-tube as nurse reports she is unclear about this. See full RD assessment for further details.
--- NOTE | 2021-04-13 13:39 | PC.PHAR ---
pt states she takes care of her own medications-pt states she no longer takes hydroxyzine hcl 10mg last filled on 03/02/21 90d/s and propranolol er 80mg last filled on 01/28/21 90d/s -pt states she normally takes 81mg of aspirin but hasnt taken in 2 weeks
[2021-04-13] MEDS: dextrose 10% 1,000 ML 22 ML IV (15:19)
--- NOTE | 2021-04-13 15:40 | PM.PN ---
Subjective Subjective: Interval history: Patient mainly complains of surgical pain, nausea, vomiting, flatus or BM Vitals/I&O/Wt Last Vital Signs Temp 98.6 F 04/13/21 12:26 Pulse 74 04/13/21 14:55 Resp 16 04/13/21 14:55 BP 134/72 04/13/21 12:26 Pulse Ox 92 04/13/21 14:55 04/13/21 04/13/21 04/13/21 06:59 14:59 22:59 Intake Total 150 / 2500 1214.000 / 1214.000 Output Total 850 / 2750 Balance -700 / -250 1214.000 / 1214.000 Weight last 48 hrs Weight 154 lb 1 oz Weight 145 lb Physical Exam Narrative: EXAM NARRATIVE: Abdomen: Soft, tender, nondistended, dressings are intact, MANFRED drain output is serosanguineous, jejunostomy tube to gravity Urinary Catheter Management^: F: Cath Placed During This Visit: yes Urinary Catheter Date of Insertion: 04/12/21 Urinary Catheter Time of Insertion: 18:05 Data : 04/13/21 06:44 04/13/21 06:44 Micro: Microbiology 04/12/21 15:21 Blood Culture - Preliminary Blood NEGATIVE TO DATE 04/12/21 15:10 Blood Culture - Preliminary Blood NEGATIVE TO DATE A&P Assessment and plan (1) S/P exploratory laparotomy: 60-year-old female status post ex lap with repair of perforation of the gastrojejunal anastomosis with placement of J-tube Continue IV morphine for pain control Lovenox for DVT prophylaxis IV Protonix drip Continue IV Zosyn every 8 Ambulate with physical therapy Incentive spirometry wean O2 to room air D10 water through jejunostomy tube Nutrition consult for jejunostomy feeds recommendations Medical management as per Patient will need greater than 2 nights of inpatient stay to ensure recovery from surgery Status: Acute Attestations Medical Necessity Statement*: As per primary as per primary Coding Level of Care Code Acute Rolling Mill Operator for Chg Fwd Diagnoses S/P exploratory laparotomy Z98.890
--- NOTE | 2021-04-13 17:00 | PM.PN ---
Subjective Subjective: Interval history: Hospital course, labs appreciated. Underwent laparoscopy exploratory yesterday evening. Underwent procedure well. Has remained hemodynamically stable and afebrile. On examination patient anxious. Asking for her chronic anxiety and psych medications. Denies any nausea, vomiting, headache. Vitals/I&O/Wt Last Vital Signs Temp 98.4 F 04/13/21 16:18 Pulse 86 04/13/21 16:18 Resp 16 04/13/21 16:18 BP 127/72 04/13/21 16:18 Pulse Ox 90 04/13/21 16:18 04/13/21 04/13/21 04/13/21 06:59 14:59 22:59 Intake Total 150 / 2500 1214.000 / 1214.000 Output Total 850 / 2750 Balance -700 / -250 1214.000 / 1214.000 Weight last 48 hrs Weight 69.882 kg Weight 65.771 kg Physical Exam Const: COMMON NORMALS: no acute distress and patient oriented x3 GENERAL APPEARANCE: well developed and anxious HENMT: COMMON NORMALS: oropharynx normal Neck/C-Spine: COMMON NORMALS: no JVD Resp: COMMON NORMALS: normal respiratory effort and clear to auscultation bilaterally AUSCULTATION: clear to auscultation bilaterally Cardio: COMMON NORMALS: no JVD, regular rhythm, S1 normal heart sound present, S2 normal heart sound present and No murmurs present (Cardio) RHYTHM: regular rhythm HEART SOUNDS: S1 normal heart sound present and S2 normal heart sound present GI: COMMON NORMALS: Normal to inspection, nondistended, normoactive bowel sounds present and Soft to palpation PALPATION: Yes Soft to palpation OTHER: J-tube present, Extremity: COMMON NORMALS: no joint enlargement and no pedal edema Neuro: COMMON NORMALS: patient oriented x3 and moves all extremities Skin: COMMON NORMALS: no rashes or lesions noted GENERAL SKIN EXAM: no rashes or lesions noted Urinary Catheter Management^: F: Cath Placed During This Visit: yes Urinary Catheter Date of Insertion: 04/12/21 Urinary Catheter Time of Insertion: 18:05 Data : 04/13/21 06:44 04/13/21 06:44 Micro: Microbiology 04/12/21 15:21 Blood Culture - Preliminary Blood NEGATIVE TO DATE 04/12/21 15:10 Blood Culture - Preliminary Blood NEGATIVE TO DATE A&P Assessment and plan (1) Free intraperitoneal air: Expiratory laparotomy, repair of gastric perforation adjacent to GJ anastomosis, placement of jejunostomy tube. Continue with empiric Zosyn. Will follow blood cultures. NG tube, advancement of diet as per surgical team. Anticoagulation as per surgical team. Undergoing urgent exploratory laparotomy. Frequent abdominal examination. Abdominal series tomorrow morning. Status: Acute Additional A&P Information Incidentally noted several small ventral abdominal hernias on CT containing fat and or foci of air RA: On chronic tocilizumab, intermittent course of prednisone History of pancreatitis, chronic recurrent diarrhea Remote history of alcoholism, not currently consuming any alcohol History of gastric bypass Schizoaffective disorder Denies ulcerative colitis (initially noted on medical history) Current smoker Restart chronic medications including Klonopin as needed, gabapentin 200 twice daily, mirtazapine and Zoloft. Will request nurse for crushing the pills properly and thoroughly before administration. Attestations Medical Necessity Statement*: Requires further hospitalization for management of free intraperitoneal air, post laparotomy while diet is advanced Time Spent in Patient Care: Greater than 35 minutes (>than 50% of time spent in counselling and/or direct pt care on unit). Coding Level of Care Code Acute Ethnology Teacher for Chg Fwd Diagnoses Free intraperitoneal air K66.8
[2021-04-13] MEDS: gabapentin 100 mg Capsule 200 MG PO (17:10)
[2021-04-13] MEDS: CLONazepam 0.5 mg Tablet PO (17:10)
[2021-04-13 20:31] LABS: Cortisol Random 32.82 ug/dL (2.47-19.5)
[2021-04-13] MEDS: mirtazapine 30 mg Tablet PO (21:53)
[2021-04-14] VITALS (12 sets, daily range): BP systolic 130–165; BP diastolic 76–93; PULSE 70–93; RESP 16–22; TEMP 36.7–37.1; O2SAT 89–93
[2021-04-14] MEDS: HYDROcodone-APAP 7.5-325 mg/15 mL UDC PO (01:40)
[2021-04-14 02:49] LABS: Glucose Point of Care 130 mg/dL (70-110)
[2021-04-14 03:34] LABS: Basophils % 0.3 %; Eosinophils % 0.2 %; Hematocrit 42.2 % (37.0-47.0); Hemoglobin 13.8 g/dL (11.5-15.3); Lymphocytes # 1.9 10^3/uL (0.8-4.8); Lymphocytes % 31.7 %; Mean Corpuscular HGB Conc 32.7 g/dL (30.0-36.0); Mean Corpuscular Hemoglobin 30.6 pg (28.0-34.0); Mean Corpuscular Volume 93.6 fl (81-99); Mean Platelet Volume 10.7 fL (7.4-10.4); Monocytes # 0.6 10^3/uL (0.2-0.9); Monocytes % 10.7 %; Neutrophils # 3.33 10^3/uL (1.8-7.7); Neutrophils % 56.8 %; Nucleated Red Blood Cells % 0 %; Platelet Count 194 10^3/cmm (130-400); Red Blood Count 4.51 10^6/uL (4.1-5.3); Red Cell Distribution Width 13.3 % (12.1-15.1); White Blood Count 5.9 10^3/uL (4.0-10.0)
[2021-04-14] MEDS: D5-NS 0.45% + KCL 20 mEq 20 MEQ/1,000 ML BAG 100 MEQ IV (03:37)
[2021-04-14 04:10] LABS: Anion Gap 15.1 (5-19); Blood Urea Nitrogen 5 mg/dL (8-23); Calcium 8.4 mg/dL (8.5-10.5); Carbon Dioxide 21 mmol/L (22-29); Chloride 108 mmol/L (98-107); Glomerular Filtration Rate 125.9 mL/min (90-130); Glucose 125 mg/dL (65-115); Osmolality Calculated 289 mOsm/kg (285-295); Potassium 4.1 mmol/L (3.5-5.1); Sodium 140 mmol/L (136-145)
[2021-04-14] MEDS: pantoprazole 40 MG in sodium chloride 0.9% (plus) 100 ML 20 MG IV (04:58)
[2021-04-14] MEDS: enoxaparin 40 mg/0.4 mL Syringe SUBCUT (05:00)
--- NOTE | 2021-04-14 07:39 | FL_ITS ---
WS: [id number] UPPER GI TECHNICAL: Single contrast limited upper GI with Gastrografin. Small amount of oral contrast was jasvir sted. Additional contrast injected through the enteric tube. FLUOROSCOPY TIME: 2.1 minutes CLINICAL INFORMATION: s/p repair perf near GJ anastomosis, rule out leak COMPARISON: None. FINDINGS: Enteric tube with tip in the stomach. Recent postoperative changes from repair of Gastro jejunal anas tomosis perforation. Remote history of gastric bypass. Dish Washer imaging was obtained. Enteric tube with tip in the stomach. Normal filling of the gastric pouch with normal rapid filling of the gastrojejunal anastomosis. No evidence of anastomotic leak. No othe r suspicious findings. FL/FL upper GI series 46001 IMPRESSION: No evidence of recurrent perforation
[2021-04-14] MEDS: ipratropium-albuterol 3 mL Neb INHALATION ×2 (08:07→15:27)
[2021-04-14] MEDS: lactulose oral liq 20 gm/30 mL UDC 10 GM J-TUBE ×2 (09:15→21:32)
[2021-04-14] MEDS: piperacillin-tazobactam 3.375 GM in sodium chloride 0.9% (plus) 50 ML IV ×2 (09:16→16:30)
[2021-04-14] MEDS: CLONazepam 0.5 mg Tablet PO ×2 (09:16→21:32)
[2021-04-14] MEDS: sertraline 100 mg Tablet PO (09:16)
[2021-04-14] MEDS: gabapentin 100 mg Capsule 200 MG PO ×2 (09:16→16:31)
--- NOTE | 2021-04-14 09:27 | PC.NURSE ---
DR ROSHNI BARAKAT - GIVEN PHONE UPDATE PER THIS NURSE - NEW ORDERS REC'D - IVF TAKEN DOWN TO /HR - PT IS BREATHING EASIER AT THIS TIME - STATES SHE CONTINUES TO COUGH UP THICK SPUTUM
[2021-04-14] MEDS: diatrizoate meglumine 120 mL Sol PO (10:23)
--- NOTE | 2021-04-14 10:45 | PC.NURSE ---
DR TIEN CHAUHAN IN ROOM - PER THIS NURSE PER DR BARAKAT ORDER - JEVITY 1.2 STARTED AT 10ML/HR
[2021-04-14] MEDS: morphine 4 mg/mL SDV 1 mL 3 MG IVP ×2 (12:38→21:32)
--- NOTE | 2021-04-14 13:21 | P.PN_ITS ---
Subjective Subjective: Interval history: No events overnight. Has remained hemodynamically stable and afebrile. G-tube tolerated D10 fluid intake. Today morning examination patient sitting up in chair. Asking for home medications which helps her with speech. States she does not take consistently anymore. Vitals/I&O/Wt Last Vital Signs Temp 98.1 F 04/14/21 12:27 Pulse 93 04/14/21 12:27 Resp 18 04/14/21 12:38 BP 145/93 04/14/21 12:27 Pulse Ox 93 04/14/21 12:27 04/13/21 04/14/21 04/14/21 22:59 06:59 14:59 Intake Total 1156.667 / 2370.667 1490 / 3860.667 Output Total 90 / 90 70 / 160 630 / 630 Balance 1066.667 / 2280.667 1420 / 3700.667 -630 / -630 Weight last 48 hrs Weight 69.882 kg Weight 65.771 kg Physical Exam Const: COMMON NORMALS: no acute distress and patient oriented x3 GENERAL APPEARANCE: well developed and anxious HENMT: COMMON NORMALS: oropharynx normal Neck/C-Spine: COMMON NORMALS: no JVD Resp: COMMON NORMALS: normal respiratory effort and clear to auscultation bilaterally AUSCULTATION: clear to auscultation bilaterally Cardio: COMMON NORMALS: no JVD, regular rhythm, S1 normal heart sound present, S2 normal heart sound present and No murmurs present (Cardio) RHYTHM: regular rhythm HEART SOUNDS: S1 normal heart sound present and S2 normal heart sound present GI: COMMON NORMALS: Normal to inspection, nondistended, normoactive bowel sounds present and Soft to palpation PALPATION: Yes Soft to palpation OTHER: J-tube present, Extremity: COMMON NORMALS: no joint enlargement and no pedal edema Neuro: COMMON NORMALS: patient oriented x3 and moves all extremities Skin: COMMON NORMALS: no rashes or lesions noted GENERAL SKIN EXAM: no rashes or lesions noted Urinary Catheter Management^: F: Cath Placed During This Visit: yes Urinary Catheter Date of Insertion: 04/12/21 Urinary Catheter Time of Insertion: 18:05 Data : 04/14/21 02:12 04/14/21 02:12 Micro: Microbiology 04/12/21 15:21 Blood Culture - Preliminary Blood NEGATIVE TO DATE 04/12/21 15:10 Blood Culture - Preliminary Blood NEGATIVE TO DATE A&P Assessment and plan (1) Free intraperitoneal air: Expiratory laparotomy, repair of gastric perforation adjacent to GJ anastomosis, placement of jejunostomy tube. Continue with empiric Zosyn. Will follow blood cultures. NG tube, advancement of diet as per surgical team. Anticoagulation as per surgical team. Frequent abdominal examination. Abdominal series tomorrow morning. Status: Acute Additional A&P Information Incidentally noted several small ventral abdominal hernias on CT containing fat and or foci of air RA: On chronic tocilizumab, intermittent course of prednisone History of pancreatitis, chronic recurrent diarrhea Remote history of alcoholism, not currently consuming any alcohol History of gastric bypass Schizoaffective disorder Denies ulcerative colitis (initially noted on medical history) Current smoker Restart chronic medications including Klonopin as needed, gabapentin 200 twice daily, mirtazapine and Zoloft. Will request nurse for crushing the pills properly and thoroughly before administration. Stop IV fluids. Full code. J-tube feeds Lovenox for DVT prophylaxis Protonix for PUD prophylaxis Attestations Medical Necessity Statement*: Requires further hospitalization for management of postoperative care intraperitoneal air secondary to perforation Time Spent in Patient Care: Greater than 35 minutes Coding Level of Care Code Acute Lockstitch Tunnel Elastic Operator for Chg Fwd Diagnoses Free intraperitoneal air K66.8
--- NOTE | 2021-04-14 14:09 | PM.PN ---
Subjective Subjective: Interval history: Patient has been doing better with pain control and anxiety, no nausea or vomiting, passing flatus, no BM. Upper GI: No evidence of leak Vitals/I&O/Wt Last Vital Signs Temp 98.1 F 04/14/21 12:27 Pulse 93 04/14/21 12:27 Resp 18 04/14/21 12:38 BP 145/93 04/14/21 12:27 Pulse Ox 93 04/14/21 12:27 04/13/21 04/14/21 04/14/21 22:59 06:59 14:59 Intake Total 1156.667 / 3860.667 1490 / 3860.667 Output Total 90 / 160 70 / 160 630 / 630 Balance 1066.667 / 3700.667 1420 / 3700.667 -630 / -630 Weight last 48 hrs Weight 154 lb 1 oz Physical Exam Narrative: EXAM NARRATIVE: Abdomen: Soft, nondistended, tender, incision clean dry and intact, MANFRED drain output is serosanguineous, tolerating Jevity at 10 cc/h Urinary Catheter Management^: F: Cath Placed During This Visit: yes Urinary Catheter Date of Insertion: 04/12/21 Urinary Catheter Time of Insertion: 18:05 Data : 04/14/21 02:12 04/14/21 02:12 Micro: Microbiology 04/12/21 15:21 Blood Culture - Preliminary Blood NEGATIVE TO DATE 04/12/21 15:10 Blood Culture - Preliminary Blood NEGATIVE TO DATE A&P Assessment and plan (1) S/P exploratory laparotomy: 60-year-old female status post ex lap with repair of perforation of the gastrojejunal anastomosis with placement of J-tube clamp NG tube, start clears Start lactulose 15 cc p.o. twice daily Continue IV morphine/ Lortab for pain control Lovenox for DVT prophylaxis IV Protonix drip for 1 more day Continue IV Zosyn every 8 Ambulate with physical therapy Incentive spirometry Jejunostomy tube feeds @10c/hr Medical management as per Patient will need greater than 2 nights of inpatient stay to ensure recovery from surgery, hopefully home in the next 48-72 hours. Status: Acute Attestations Medical Necessity Statement*: As per primary Coding Level of Care Code Acute Print And Pattern Designer for Chg Fwd Diagnoses S/P exploratory laparotomy Z98.890
--- NOTE | 2021-04-14 15:22 | PC.NURSE ---
SHIFT SUMMARY NG CURRENTLY CLAMPED PER DR BENJAMIN - FELY CLEAR LIQUID WELL - ABD INCISION NOTED TO BE C/D/I WITH NO REDNESS OR DRAINAGE NOTED - PT HAS REMAINED UP IN CHAIR FOR MOST OF SHIFT AND TOLERATED WELL - VOIDING WITHOUT DIFFICULTY - IV REMAINS PATENT - PAIN HAS BEEN WELL CONTROLLED - RT AT PTS SIDE
[2021-04-14] MEDS: lactulose oral liq 20 gm/30 mL UDC 10 GM PO (16:30)
[2021-04-14] MEDS: lamoTRIgine 100 mg Tablet 200 MG PO (16:31)
[2021-04-14] MEDS: primidone 50 mg Tablet PO (16:33)
--- NOTE | 2021-04-14 18:33 | PC.NURSE ---
JEVITY PT CONTINUES TO TOLERATE JEVITY FEEDING WITH LITTLE RESIDUAL - ABD SOFT WITH NO DISTENTION - JEVITY INCREASED TO 20ML/HR
[2021-04-14] MEDS: mirtazapine 30 mg Tablet PO (21:32)
[2021-04-15] VITALS (10 sets, daily range): BP systolic 116–149; BP diastolic 71–83; PULSE 68–78; RESP 16–24; TEMP 36.7–37; O2SAT 91–94
[2021-04-15] MEDS: piperacillin-tazobactam 3.375 GM in sodium chloride 0.9% (plus) 50 ML IV ×3 (01:30→17:52)
[2021-04-15] MEDS: lactulose oral liq 20 gm/30 mL UDC 10 GM PO (01:31)
[2021-04-15 02:48] LABS: Basophils % 0.4 %; Eosinophils % 0.4 %; Hematocrit 43.9 % (37.0-47.0); Hemoglobin 14.6 g/dL (11.5-15.3); Lymphocytes # 1.5 10^3/uL (0.8-4.8); Lymphocytes % 28.1 %; Mean Corpuscular HGB Conc 33.3 g/dL (30.0-36.0); Mean Corpuscular Hemoglobin 30.8 pg (28.0-34.0); Mean Corpuscular Volume 92.6 fl (81-99); Mean Platelet Volume 10.6 fL (7.4-10.4); Monocytes # 0.7 10^3/uL (0.2-0.9); Monocytes % 12.8 %; Neutrophils # 3.09 10^3/uL (1.8-7.7); Neutrophils % 58.1 %; Nucleated Red Blood Cells % 0 %; Platelet Count 209 10^3/cmm (130-400); Red Blood Count 4.74 10^6/uL (4.1-5.3); Red Cell Distribution Width 13.2 % (12.1-15.1); White Blood Count 5.3 10^3/uL (4.0-10.0)
[2021-04-15 03:04] LABS: Anion Gap 10.6 (5-19); Blood Urea Nitrogen 6 mg/dL (8-23); Calcium 8.9 mg/dL (8.5-10.5); Carbon Dioxide 27 mmol/L (22-29); Chloride 109 mmol/L (98-107); Glucose 138 mg/dL (65-115); Osmolality Calculated 296 mOsm/kg (285-295); Potassium 3.6 mmol/L (3.5-5.1); Sodium 143 mmol/L (136-145)
[2021-04-15] MEDS: enoxaparin 40 mg/0.4 mL Syringe SUBCUT (05:38)
[2021-04-15] MEDS: lactulose oral liq 20 gm/30 mL UDC 10 GM J-TUBE ×2 (08:59→20:48)
[2021-04-15] MEDS: lamoTRIgine 100 mg Tablet 200 MG PO ×2 (09:00→17:53)
[2021-04-15] MEDS: CLONazepam 0.5 mg Tablet PO ×3 (09:00→20:53)
[2021-04-15] MEDS: gabapentin 100 mg Capsule 200 MG PO ×2 (09:00→17:53)
[2021-04-15] MEDS: sertraline 100 mg Tablet PO (09:00)
[2021-04-15] MEDS: primidone 50 mg Tablet PO ×2 (09:00→17:53)
[2021-04-15] MEDS: pantoprazole 40 mg SDV IVP (12:19)
[2021-04-15] MEDS: morphine 4 mg/mL SDV 1 mL 3 MG IVP ×2 (12:19→20:53)
--- NOTE | 2021-04-15 12:29 | PM.PN ---
Subjective Subjective: Interval history: No complaints overnight. On examination working well with physical therapy walking around in the hallway. Tolerating some clear liquid diet. Tube feeds up to 40 cc/h. Having bowel sounds with no bowel movements or passing flatus for now. Speech better. Vitals/I&O/Wt Last Vital Signs Temp 98.6 F 04/15/21 12:00 Pulse 77 04/15/21 12:00 Resp 16 04/15/21 12:19 BP 144/83 04/15/21 12:00 Pulse Ox 93 04/15/21 12:00 04/14/21 04/15/21 04/15/21 22:59 06:59 14:59 Intake Total 370 / 420 110 / 530 Balance 370 / -210 110 / -100 Weight last 48 hrs Weight 70.896 kg Physical Exam Const: COMMON NORMALS: no acute distress and patient oriented x3 GENERAL APPEARANCE: well developed and anxious HENMT: COMMON NORMALS: oropharynx normal Neck/C-Spine: COMMON NORMALS: no JVD Resp: COMMON NORMALS: normal respiratory effort and clear to auscultation bilaterally AUSCULTATION: clear to auscultation bilaterally Cardio: COMMON NORMALS: no JVD, regular rhythm, S1 normal heart sound present, S2 normal heart sound present and No murmurs present (Cardio) RHYTHM: regular rhythm HEART SOUNDS: S1 normal heart sound present and S2 normal heart sound present GI: COMMON NORMALS: Normal to inspection, nondistended, normoactive bowel sounds present and Soft to palpation PALPATION: Yes Soft to palpation OTHER: J-tube present, Extremity: COMMON NORMALS: no joint enlargement and no pedal edema Neuro: COMMON NORMALS: patient oriented x3 and moves all extremities Skin: COMMON NORMALS: no rashes or lesions noted GENERAL SKIN EXAM: no rashes or lesions noted Urinary Catheter Management^: F: Cath Placed During This Visit: yes Urinary Catheter Date of Insertion: 04/12/21 Urinary Catheter Time of Insertion: 18:05 Data : 04/15/21 02:02 04/15/21 02:02 A&P Assessment and plan (1) Free intraperitoneal air: Expiratory laparotomy, repair of gastric perforation adjacent to GJ anastomosis, placement of jejunostomy tube. Continue with empiric Zosyn. Will follow blood cultures. NG tube, advancement of diet as per surgical team. Anticoagulation as per surgical team. Frequent abdominal examination. Abdominal series tomorrow morning. Status: Acute Additional A&P Information Incidentally noted several small ventral abdominal hernias on CT containing fat and or foci of air RA: On chronic tocilizumab, intermittent course of prednisone History of pancreatitis, chronic recurrent diarrhea Remote history of alcoholism, not currently consuming any alcohol History of gastric bypass Schizoaffective disorder Denies ulcerative colitis (initially noted on medical history) Current smoker Restart chronic medications including Klonopin as needed, gabapentin 200 twice daily, mirtazapine and Zoloft. Will request nurse for crushing the pills properly and thoroughly before administration. Stop IV fluids. Full code. J-tube feeds Lovenox for DVT prophylaxis Protonix for PUD prophylaxis Attestations Medical Necessity Statement*: As per primary team. Requires further hospitalization while diet is advanced for postsurgical expiratory laparotomy care for free intraperitoneal air. Time Spent in Patient Care: Greater than 35 minutes (>than 50% of time spent in counselling and/or direct pt care on unit). Coding Level of Care Code Acute Gold Wheel Blocker And Polisher for Abidag Fwd Diagnoses Free intraperitoneal air K66.8
--- NOTE | 2021-04-15 13:01 | PC.SOCIAL ---
IMM update IMM updated with patient. Copy Pg 2 provided. Verbalized an understanding. Initialled, dated, timed, and placed in chart.
[2021-04-15] MEDS: HYDROcodone-APAP 7.5-325 mg/15 mL UDC PO (14:39)
[2021-04-15] MEDS: mirtazapine 30 mg Tablet PO (20:48)
[2021-04-16] VITALS (8 sets, daily range): BP systolic 100–118; BP diastolic 66–78; PULSE 67–83; RESP 16–20; TEMP 36.4–37; O2SAT 90–93
[2021-04-16] MEDS: piperacillin-tazobactam 3.375 GM in sodium chloride 0.9% (plus) 50 ML IV ×2 (01:06→08:26)
[2021-04-16] MEDS: HYDROcodone-APAP 7.5-325 mg/15 mL UDC PO ×2 (03:27→12:30)
[2021-04-16 03:54] LABS: Basophils % 0.4 %; Eosinophils # 0.1 10^3/uL (0.0-0.8); Eosinophils % 2.2 %; Hematocrit 41.8 % (37.0-47.0); Hemoglobin 13.6 g/dL (11.5-15.3); Lymphocytes # 1.9 10^3/uL (0.8-4.8); Mean Corpuscular HGB Conc 32.5 g/dL (30.0-36.0); Mean Corpuscular Hemoglobin 30.6 pg (28.0-34.0); Mean Corpuscular Volume 94.1 fl (81-99); Mean Platelet Volume 10.4 fL (7.4-10.4); Monocytes # 0.6 10^3/uL (0.2-0.9); Monocytes % 11.2 %; Neutrophils # 2.72 10^3/uL (1.8-7.7); Neutrophils % 50.8 %; Nucleated Red Blood Cells % 0 %; Platelet Count 193 10^3/cmm (130-400); Red Blood Count 4.44 10^6/uL (4.1-5.3); Red Cell Distribution Width 13.3 % (12.1-15.1); White Blood Count 5.4 10^3/uL (4.0-10.0)
[2021-04-16 04:19] LABS: Alanine Aminotransferase 123 U/L (0-33); Alkaline Phosphatase 224 IU/L (35-105); Anion Gap 9.7 (5-19); Aspartate Amino Transferase 82 U/L (0-32); Blood Urea Nitrogen 7 mg/dL (8-23); Calcium 8.2 mg/dL (8.5-10.5); Carbon Dioxide 29 mmol/L (22-29); Chloride 104 mmol/L (98-107); Globulin 1.8 g/dL (1.3-4.6); Glucose 113 mg/dL (65-115); Osmolality Calculated 287 mOsm/kg (285-295); Potassium 3.7 mmol/L (3.5-5.1); Sodium 139 mmol/L (136-145); Total Bilirubin 0.3 mg/dL (0.15-1.2); Total Protein 4.8 g/dL (6.6-8.7)
[2021-04-16] MEDS: enoxaparin 40 mg/0.4 mL Syringe SUBCUT (06:35)
[2021-04-16] MEDS: CLONazepam 0.5 mg Tablet PO ×2 (08:25→16:10)
[2021-04-16] MEDS: gabapentin 100 mg Capsule 200 MG PO (08:25)
[2021-04-16] MEDS: lamoTRIgine 100 mg Tablet 200 MG PO (08:25)
[2021-04-16] MEDS: sertraline 100 mg Tablet PO (08:26)
[2021-04-16] MEDS: lactulose oral liq 20 gm/30 mL UDC 10 GM J-TUBE (08:26)
[2021-04-16] MEDS: Fleet Enema 133 mL Enema PR (08:27)
[2021-04-16] MEDS: pantoprazole 40 mg SDV IVP (09:17)
[2021-04-16] MEDS: primidone 50 mg Tablet PO (12:30)
--- NOTE | 2021-04-16 13:47 | PM.PN ---
Subjective Subjective: Interval history: No acute events overnight. Patient has remained hemodynamically stable. Got enema from surgical site today and bowel movement afterwards. Tolerating p.o. and p.o. feeds diet well. Possible plan for discharge from surgical site today. Vitals/I&O/Wt Last Vital Signs Temp 98.5 F 04/16/21 11:15 Pulse 76 04/16/21 11:15 Resp 17 04/16/21 11:15 BP 113/72 04/16/21 11:15 Pulse Ox 91 04/16/21 11:15 04/15/21 04/16/21 04/16/21 22:59 06:59 14:59 Intake Total 50 / 100 170 / 270 480 / 480 Output Total 60 / 60 Balance 50 / 100 110 / 210 480 / 480 Weight last 48 hrs Weight 70.67 kg Weight 70.896 kg Physical Exam Const: COMMON NORMALS: no acute distress and patient oriented x3 GENERAL APPEARANCE: well developed and anxious HENMT: COMMON NORMALS: oropharynx normal Neck/C-Spine: COMMON NORMALS: no JVD Resp: COMMON NORMALS: normal respiratory effort and clear to auscultation bilaterally AUSCULTATION: clear to auscultation bilaterally Cardio: COMMON NORMALS: no JVD, regular rhythm, S1 normal heart sound present, S2 normal heart sound present and No murmurs present (Cardio) RHYTHM: regular rhythm HEART SOUNDS: S1 normal heart sound present and S2 normal heart sound present GI: COMMON NORMALS: Normal to inspection, nondistended, normoactive bowel sounds present and Soft to palpation PALPATION: Yes Soft to palpation OTHER: J-tube present, Extremity: COMMON NORMALS: no joint enlargement and no pedal edema Neuro: COMMON NORMALS: patient oriented x3 and moves all extremities Skin: COMMON NORMALS: no rashes or lesions noted GENERAL SKIN EXAM: no rashes or lesions noted Urinary Catheter Management^: F: Cath Placed During This Visit: yes Urinary Catheter Date of Insertion: 04/12/21 Urinary Catheter Time of Insertion: 18:05 Data : 04/16/21 03:02 04/16/21 03:02 A&P Assessment and plan (1) Free intraperitoneal air: Expiratory laparotomy, repair of gastric perforation adjacent to GJ anastomosis, placement of jejunostomy tube. Continue with empiric Zosyn. Will follow blood cultures. NG tube, advancement of diet as per surgical team. Anticoagulation as per surgical team. Frequent abdominal examination. Abdominal series tomorrow morning. Status: Acute Additional A&P Information Incidentally noted several small ventral abdominal hernias on CT containing fat and or foci of air RA: On chronic tocilizumab, intermittent course of prednisone. Most likely should hold off on prednisone and Actemra for next 1 week post discharge. History of pancreatitis, chronic recurrent diarrhea Remote history of alcoholism, not currently consuming any alcohol History of gastric bypass Schizoaffective disorder Denies ulcerative colitis (initially noted on medical history) Current smoker Restart chronic medications including Klonopin as needed, gabapentin 200 twice daily, mirtazapine and Zoloft. Will request nurse for crushing the pills properly and thoroughly before administration. Post discharge please follow-up with a primary care provider within next 2 weeks. Hold off on Actemra and prednisone for next 7 days. Follow-up with Dr. Lackey from surgery as directed. Can continue other oral medication as before. Full code. J-tube feeds Lovenox for DVT prophylaxis Protonix for PUD prophylaxis Attestations Medical Necessity Statement*: As per primary team. Time Spent in Patient Care: 16 - 35 minutes (>than 50% of time spent in counselling and/or direct pt care on unit). Coding Level of Care Code Acute Industrial Pharmacist for Chg Fwd Diagnoses Free intraperitoneal air K66.8
--- NOTE | 2021-04-16 14:31 | P.PN_ITS ---
Subjective Subjective: Interval history: Patient had a bowel movement with enema, denies abdominal pain nausea or vomiting, tolerating a full liquid diet Vitals/I&O/Wt Last Vital Signs Temp 98.5 F 04/16/21 11:15 Pulse 76 04/16/21 11:15 Resp 17 04/16/21 11:15 BP 113/72 04/16/21 11:15 Pulse Ox 91 04/16/21 11:15 04/15/21 04/16/21 04/16/21 22:59 06:59 14:59 Intake Total 50 / 270 170 / 270 480 / 480 Output Total 60 / 60 Balance 50 / 210 110 / 210 480 / 480 Weight last 48 hrs Weight 155 lb 12.8 oz Weight 156 lb 4.8 oz Physical Exam Narrative: EXAM NARRATIVE: Abdomen :soft, nondistended, minimally tender, incision clean dry intact, MANFRED drain output is serosanguineous Urinary Catheter Management^: F: Cath Placed During This Visit: yes Urinary Catheter Date of Insertion: 04/12/21 Urinary Catheter Time of Insertion: 18:05 Data : 04/16/21 03:02 04/16/21 03:02 A&P Assessment and plan (1) S/P exploratory laparotomy: 60-year-old female status post ex lap with repair of perforation of the gastrojejunal anastomosis with placement of J-tube DC home today MANFRED drain is discontinued Follow-up next week for removal of sutures Status: Acute Attestations Medical Necessity Statement*: Discharge home today Coding Level of Care Code Acute Experimental Mechanic for Judson Alford Diagnoses S/P exploratory laparotomy Z98.890
--- NOTE | 2021-04-16 14:44 | PM.DCS ---
Discharge Providers Date of Admission: 04/12/21 20:30 Date of Discharge: April 16, 2021 Attending Provider at Admission: Jose Angel Lackey MD Attending Provider at Discharge: Jose Angel Lackey MD Primary Care Provider: Helga Mancera DO Diagnoses at Discharge Discharge Diagnosis (1) S/P exploratory laparotomy: Status: Acute Permanent problem details: With repair of perforation at the gastrojejunal anastomosis and placement of jejunostomy tube Reason for Visit Reason for Visit: abd pain Hospital Course Hospital Course Nunu Marroquin is a 60 year old female who was previously undergone gastric bypass in the past. I had performed an EGD and colonoscopy on her in January 2021 which were both normal. Patient presented to the emergency room today with complaints of severe abdominal pain for the last 3 days associate with nausea. She states that she is unable to vomit due to gastric bypass. She has a longstanding history of loose stools denies any hematemesis melena or hematochezia. She denies taking significant NSAIDs. She completed a course of prednisone last week and is on a weekly injection of Tocilizumab for her rheumatoid arthritis Patient was taken to the operating room and she underwent laparotomy with repair of perforation at the gastrojejunal junction. Patient also had a jejunostomy tube placed. On postop day 2 patient was started on jejunostomy's feeds and started on a clear liquid diet. Her upper GI was negative for leak. At time of discharge her vital signs are stable she was tolerating a full liquid diet. She was discharged home on a full liquid diet with Ensure supplements. She is also given prescription for 5 more days of Levaquin and started on Protonix 40 mg twice daily and Carafate 1 g 3 times daily. She will need to hold off on prednisone or Actemra for at least 2 weeks Physical Exam Urinary Catheter Management^: F: Cath Placed During This Visit: yes Urinary Catheter Date of Insertion: 04/12/21 Urinary Catheter Time of Insertion: 18:05 Discharge Data Data Completed and Pending: Completed Studies During Hospitalization Category Date Time Status CT abdomen pelvis w con* [id number] Urge nt Cat Scan 04/12/21 13:54 Completed [place] upper GI serie s [id number] Routine Exams 04/14/21 07:39 Completed Pending at discharge Category Date Time Status Blood Culture Sta t Lab 04/12/21 15:21 Results Urinalysis Stat Lab 04/12/21 13:25 Ordered Labs from last 24 hours 04/16/21 04/16/21 03:02 03:02 WBC 5.4 RBC 4.44 Hgb 13.6 Hct 41.8 MCV 94.1 MCH 30.6 MCHC 32.5 RDW 13.3 Plt Count 193 MPV 10.4 Neut % (Auto) 50.8 Lymph % (Auto) 35.0 [place] % (Auto) 11.2 Eos % (Auto) 2.2 Baso % (Auto) 0.4 Neut # (Auto) 2.72 Lymph # (Auto) 1.9 [place] # (Auto) 0.6 Eos # (Auto) 0.1 Baso # (Auto) 0.0 Nucleated RBC % (a uto) 0 Nucleated RBCs # 0.0 Sodium 139 Potassium 3.7 Chloride 104 Carbon Dioxide 29 Anion Gap 9.7 BUN 7 L Creatinine 0.6 GFR Calculation 102.0 Glucose 113 Calculated Osmolal ity 287 Calcium 8.2 L Total Bilirubin 0.3 AST 82 H ALT 123 H Alkaline Phosphata se 224 H Total Protein 4.8 L Albumin 3.0 L Globulin 1.8 Vitals: Last Vital Signs Temp 98.5 F 04/16/21 11:15 Pulse 76 04/16/21 11:15 Resp 17 04/16/21 11:15 BP 113/72 04/16/21 11:15 Pulse Ox 91 04/16/21 11:15 Discharge Plan Discharge Patient Disposition: Home Condition: Stable Prescriptions: New hydrocodone-acetaminophen 7.5-325 mg/15 mL Solution 15 ml PO Q4H PRN (Reason: Moderate Pain) Qty: 300 RF: 0 lactulose 20 gram/30 mL Solution 10 g J-tube Q12H Qty: 300 RF: 2 levofloxacin 750 mg tablet 750 mg PO DAILY 5 Days RF: 0 pantoprazole [Protonix] 40 mg tablet,delayed release (DR/EC) 40 mg PO BID Qty: 28 RF: 0 sucralfate [Carafate] 1 gram tablet 1 gm PO TID 28 Days Qty: 84 RF: 0 Continued ondansetron HCl [Zofran] 4 mg tablet 4 mg PO Q6H PRN (Reason: nausea and vomiting) Qty: 10 RF: 0 gabapentin 100 mg capsule 200 mg PO BID RF: 0 tramadol 50 mg tablet 50 mg PO TID PRN (Reason: pain) Qty: 60 RF: 1 primidone 50 mg tablet 50 mg PO BID Qty: 60 RF: 2 clonazepam 0.5 mg tablet 0.5 mg PO TID PRN (Reason: anxiety) Qty: 90 RF: 1 benztropine 1 mg tablet 1 mg PO BID Qty: 60 RF: 1 lamotrigine [Lamictal] 200 mg tablet 200 mg PO BID Qty: 60 RF: 1 mirtazapine [Remeron] 30 mg tablet 30 mg PO BEDTIME Qty: 30 RF: 1 valbenazine 80 mg capsule 80 mg PO BEDTIME Qty: 30 RF: 2 pantoprazole [Protonix] 40 mg tablet,delayed release (DR/EC) 40 mg PO BID Qty: 60 RF: 3 sertraline [Zoloft] 100 mg tablet 100 mg PO DAILY Qty: 30 RF: 1 nitroglycerin 0.4 mg tablet, sublingual 0.4 mg sublingual Q5M PRN (Reason: chest pain) Qty: 30 RF: 0 dicyclomine 20 mg tablet 20 mg PO TID RF: 0 multivitamin Tablet 1 tab PO DAILY RF: 0 ferrous sulfate [iron] 325 mg (65 mg iron) Tablet 325 mg PO DAILY RF: 0 albuterol sulfate [ProAir HFA] 90 mcg/actuation Hfa Aerosol Inhaler 2 puff INHALATION Q4H PRN (Reason: Shortness Of Breath) RF: 0 fluticasone propionate 50 mcg/actuation spray,suspension 2 spray INTRANASAL DAILY PRN (Reason: Allergy Symptoms) RF: 0 Vitamin B-12 1 tab PO DAILY RF: 0 magnesium 1 cap PO Q7D RF: 0 metoclopramide HCl [Reglan] 10 mg tablet 10 mg PO Q6H PRN (Reason: nausea and vomiting) Qty: 20 RF: 0 sumatriptan succinate 50 mg Tablet 50 mg PO Q2H PRN (Reason: Migraine Headache) RF: 0 simvastatin 20 mg tablet 20 mg PO DAILY RF: 0 Held prednisone 20 mg tablet See Rx Instructions PO .COMPLEX PRN (Reason: joint pain flares) Qty: 30 RF: 1 Hold Instructions: Resume on 05/15/21. Actemra 162 mg/0.9 mL syringe 162 mg SUBCUT Q7D Qty: 4 RF: 3 Hold Instructions: Doctor's Order Aspir-81 81 mg Tablet,Delayed Release (Dr/Ec) 81 mg PO DAILY RF: 0 Hold Instructions: Resume on 04/24/21. Discontinued alfuzosin 10 mg tablet extended release 24 hr 10 mg PO DAILY Qty: 90 RF: 3 Discharge Orders: Discharge Order (Routine); Ordered 04/16/21 Ordered By: Jose Angel Lackey Referrals: Jose Angel Lackey MD [Physician] - 04/24/21 Helga Mancera DO [Primary Care Provider] - 2 weeks Discharge Diet: Full LIquid Activity Restrictions/Additional Instructions: Diet Continue soft diet, okay to have small amount of soft food, increase fluid intake as much as possible. Try to have 5-6 small meals a day. Ensure 1 can 3 times daily Activity Avoid strenuous activity for 2 weeks but continue with daily activities including walking as tolerated. Do not lift more than 10 pounds for 2 weeks Return to work/school You can return to work/ school whenever you feel ready as long as you don?t have to lift more than 10 pounds at work. If you have paperwork that needs to be completed for time off from work, please contact my office Driving You can resume driving once you stop using narcotic pain medications, and transition to non-opioid pain medications like Tylenol, Motrin, Aleve, etc. Medications Pain Take opioid pain medications as prescribed and transition to non-opioid pain medications like Tylenol, Motrin, Aleve etc. over the next few days. The goal of the pain medications is to make the pain bearable and not to be pain free since you recently had surgery. Resume all home medications after surgery as per the medication reconciliation list Nausea Nausea is common after surgery, take nausea medications as needed and stay on a liquid bland diet until nausea resolves. Constipation The combination of surgery, anesthesia and pain medications can result in constipation. Take stool softeners as prescribed. If you do not have a bowel movement in 3 days, please take an [id number] laxative like MiraLAX to address the constipation. Shower It is ok to shower but avoid getting the wound wet for 48 hours after surgery. Do not soak in bathtub, swimming pool or hot tub for 2 weeks. Wound care Keep incision clean and dry Do not apply antibiotics or other medications on the incision Problems with the wound: you can develop some redness around the incision from bruising after surgery. If there is increasing pain, redness, tenderness around the incision with or without drainage, please contact my office to rule out an infection. Sometimes the skin at the incisions can separate, resulting in reopening of the wound. Cover the wound with antibiotic cream and sterile dressings and contact my office. Flush J tube with 10cc of water twice daily. Contact physician Call the office at [phone] during office hours or go the Emergency Room ?Fever to 100.4 or greater ?Shaking chills ?Pain that increases over time ?Redness, warmth, or pus draining from incision sites ?Persistent nausea or inability to take in liquids Discharge Attestations Time Spent in Discharge Care*: less than 30 min Status at Discharge: Cognitive status at discharge: cognitively intact, Behavioral status at discharge: cooperative, Quality Metrics Clinical Quality Measures During this hospital stay, did patient experience: None Coding Level of Care Code Acute g FW DC note Diagnoses S/P exploratory laparotomy Z98.890
== END 2021-04-16 16:20 | disposition home or self-care (01) | DRG 331 ==
LOC: ER 14:07 → OR 16:15 → MEDSURG 20:31
PROVIDERS: Internal Medicine; Physician Assistant; Student in an Organized Health Care Education/Training Program; Admitting Provider Surgery; Emergency Provider Emergency Medicine; PCP Family Medicine; Visit Provider Surgery
PROC: 0DU907Z Supplement Duodenum with Autologous Tissue Substitute, Open Approach (ICD-10-PCS; CPT 49000; principal; 2021-04-12 18:00)
PROC: 0DJ08ZZ Inspection of Upper Intestinal Tract, Via Natural or Artificial Opening Endoscopic (ICD-10-PCS; CPT 43235; 2021-04-12 18:00)
DX: K91.89 Other postprocedural complications and disorders of digestive system (principal); K95.89 Other complications of other bariatric procedure; Z98.84 Bariatric surgery status; F41.1 Generalized anxiety disorder; F43.12 Post-traumatic stress disorder, chronic; I73.00 Raynaud's syndrome without gangrene; M06.9 Rheumatoid arthritis, unspecified; F25.9 Schizoaffective disorder, unspecified; Z96.653 Presence of artificial knee joint, bilateral; F17.210 Nicotine dependence, cigarettes, uncomplicated; F10.21 Alcohol dependence, in remission; K43.9 Ventral hernia without obstruction or gangrene; I95.9 Hypotension, unspecified; Z79.51 Long term (current) use of inhaled steroids; Z79.891 Long term (current) use of opiate analgesic; Z79.899 Other long term (current) drug therapy
CPT/HCPCS: 36415; 36416; 51702; 74177; 74240; 80048; 80053; 82533; 82962; 83605; 83690; 85025; 87040; 93005; 94640; 94664; 96365; 96372; 96375; 96376; 97116; 97161; 97530; 99285; C1713; C9113; C9290; J1100; J1170; J1650; J2270; J2370; J2405; J2543; J2704; J2710; J3010; J3490; J7030; Q9963; Q9967

== ENCOUNTER → 2021-05-05 08:01 | Outpatient (BNVA) | payer MEDICARE, SELFPAY | PROVIDERS: PCP Family Medicine; Visit Provider Nurse Practitioner | DX: F25.9 Schizoaffective disorder, unspecified (principal); F43.12 Post-traumatic stress disorder, chronic; F41.1 Generalized anxiety disorder; F33.1 Major depressive disorder, recurrent, moderate; F17.219 Nicotine dependence, cigarettes, with unspecified nicotine-induced disorders; G24.01 Drug induced subacute dyskinesia | CPT/HCPCS: 99214 ==

== ENCOUNTER → 2021-06-05 07:15 | Outpatient (BNVA) | payer MEDICARE, SELFPAY | PROVIDERS: PCP Family Medicine; Visit Provider Nurse Practitioner | DX: F43.12 Post-traumatic stress disorder, chronic (principal); F41.1 Generalized anxiety disorder; F33.9 Major depressive disorder, recurrent, unspecified; F17.210 Nicotine dependence, cigarettes, uncomplicated | CPT/HCPCS: 99214 ==

== ENCOUNTER 2021-06-18 20:09 | Emergency (ER) | payer MEDICARE, SELFPAY ==
[2021-06-18 20:09] VITALS: BP 103/67; PULSE 77; RESP 20; TEMP 36.6; O2SAT 99; BMI 22.3
--- NOTE | 2021-06-18 20:12 | CTR_ITS ---
PROCEDURE INFORMATION: Exam: CT Abdomen And Pelvis With Contrast Exam date and time: 06/18/2021 8:12 PM Age: 60 years old Clinical indication: Nausea and vomiting; Abdominal pain; Generalized; Prior surgery; Surgery type: Hernia. Gastric bypass. Bowel. ; Patient HX: Diffuse abd pain with n/v. History of bowel perforation. TECHNIQUE: Imaging protocol: Computed tomography of the abdomen and pelvis with contrast. Radiation optimization: All CT scans at this facility use at least one of these dose optimization techniques: automated exposure control; mA and/or kV adjustment per patient size (includes targeted exams where dose is matched to clinical indication); or iterative reconstruction. Contrast material: OMNI 300; Contrast volume: 95 ml; Contrast route: INTRAVENOUS (IV); COMPARISON: CT abdomen pelvis w con* [id number] 04/12/2021 3:27 PM RADIATION DOSE METRICS: Total DLP (mGy-cm): 1006.83 FINDINGS: Liver: Normal. No mass. Gallbladder and bile ducts: There has been a cholecystectomy. There is mild prominence of the biliary tree not unusual post cholecystectomy. The common bile duct measures 9 or 10 millimeters in there is mild intrahepatic biliary tract dilatation. This is not significantly changed from previous. Pancreas: The pancreas is normal. Spleen: The spleen is normal. Adrenal glands: The adrenal glands are normal. Kidneys and ureters: The kidneys are normal. There is no evidence of hydronephrosis. There is no evidence of renal or ureteral calcifications. Stomach and bowel: There has been a gastric stapling and bypass. There is no evidence of colitis/diverticulitis. Appendix: Not identified Intraperitoneal space: There is no evidence of free intraperitoneal fluid. Vasculature: The aorta demonstrates moderate atherosclerotic calcification. Incidental note is made of a retroaortic left renal vein. Lymph nodes: There are small periaortic lymph nodes but no adenopathy. Urinary bladder: Unremarkable as visualized. Reproductive: Unremarkable as visualized. Bones/joints: Unremarkable. No acute fracture. Soft tissues: Unremarkable. Other findings: There are rounded calcifications right side of the pelvis measuring 6 and 10 millimeters not changed from previous. CT/CT abdomen pelvis w con* [id number] IMPRESSION: 1. Mild biliary tract dilatation which may be due to post cholecystectomy status. 2. Stable postoperative findings. 3. No acute abnormality.
[2021-06-18] MEDS: ondansetron 2 mg/ML SDV 2 mL 4 MG IVP (20:24)
[2021-06-18] MEDS: sodium chloride 0.9% 1,000 ML 999 ML IV (20:24)
[2021-06-18 20:25] LABS: Basophils % 0.4 %; Eosinophils % 0.4 %; Hematocrit 45.6 % (37.0-47.0); Hemoglobin 14.1 g/dL (11.5-15.3); Lymphocytes # 3.1 10^3/uL (0.8-4.8); Lymphocytes % 67.7 %; Mean Corpuscular HGB Conc 30.9 g/dL (30.0-36.0); Mean Corpuscular Hemoglobin 30.5 pg (28.0-34.0); Mean Corpuscular Volume 98.5 fl (81-99); Mean Platelet Volume 10.7 fL (7.4-10.4); Monocytes # 0.5 10^3/uL (0.2-0.9); Monocytes % 9.7 %; Neutrophils % 21.6 %; Nucleated Red Blood Cells % 0 %; Platelet Count 190 10^3/cmm (130-400); Red Blood Count 4.63 10^6/uL (4.1-5.3); Red Cell Distribution Width 12.8 % (12.1-15.1); White Blood Count 4.6 10^3/uL (4.0-10.0)
--- NOTE | 2021-06-18 20:25 | ED_ITS ---
HPI - Abdominal Pain General: Chief Complaint: Abdominal Pain Stated Complaint: abd pain Time Seen by Provider: 06/18/21 20:10 Source: patient and EMS Mode of arrival: EMS Limitations: no limitations History of Present Illness: 60-year-old female who had a history of a bowel perforation little over 2 months ago that had surgery here states she been doing well but started having pain again this morning. States she has diffuse abdominal pain with nausea. States pain severe in nature rates it a 9 out of 10. Denies any worsening or improving factors. She denies any diarrhea denies any fever denies any chest pain. Associated Symptoms: Denies chills, dysuria and fever(s) Review of Systems Const: Denies: fever(s), chills, body aches or change in appetite Eyes: Denies: blurry vision or eye discomfort ENMT: Denies: throat pain or dental pain Card: Denies: chest pain Resp: Denies: dyspnea GI: Reports: abdominal pain : Denies: dysuria Musc: Denies: neck pain or back pain Skin/Breast: Denies: rash Neuro: Denies: headache(s) Psych: Denies: depression Eusebio/Lymph: Denies: easy bruising All/Imm: Denies: urticaria PFSH ED PFSH: Medical History Acute pancreatitis Costochondritis Facial tic Gastritis Gastroenteritis Generalized anxiety disorder Major depressive disorder, recurrent, moderate Post-traumatic stress disorder, chronic Psychiatric care Psychosis Raynaud's disease without gangrene Rheumatoid arthritis without rheumatoid factor, multiple sites SAH (subarachnoid hemorrhage) Schizoaffective disorder Stammering improved Tardive dyskinesia Ureterolithiasis Surgical History H/O esophagogastroduodenoscopy (01/29/21) History of bilateral knee replacement History of cholecystectomy History of hand surgery History of renal stent History of umbilical hernia repair Hx of gastric bypass S/P exploratory laparotomy (~04/12/21) With repair of perforation at the gastrojejunal anastomosis and placement of jejunostomy tube Status post colonoscopy (01/29/21) Family History Mother , at age 74 Cancer colorectal Father No problems noted. Denies family history of Rheumatoid arthritis Social History Smoking risk assessment/counseling performed?: Yes Tobacco counseling given: counseling >3 minutes Alcohol intake: former Former alcohol use details: quit drinking 2 months ago....beer Marital status: Single Current occupational status: disabled History of recent travel: No Physical Exam Const: COMMON NORMALS: no acute distress, patient oriented x3 and healthy appearing HENMT: COMMON NORMALS: normocephalic and atraumatic HEAD & SCALP: normocephalic and atraumatic Eye: COMMON NORMALS: Equal, round and reactive pupils present and EOMs intact bilaterally PUPIL: Yes Equal, round and reactive pupils present Neck/C-Spine: COMMON NORMALS: full ROM and supple Chest: COMMONS NORMALS: normal inspection of the chest and normal palpation of entire chest wall Resp: COMMON NORMALS: normal respiratory effort, No retractions, No use of accessory muscles and clear to auscultation bilaterally AUSCULTATION: clear to auscultation bilaterally Cardio: COMMON NORMALS: regular rate, regular rhythm and No murmurs present (Cardio) RATE: regular rate RHYTHM: regular rhythm GI: COMMON NORMALS: Normal to inspection, nondistended, normoactive bowel sounds present, Soft to palpation and no masses PALPATION: Yes Soft to palpation OTHER: diffuse tenderness Extremity: COMMON NORMALS: normal to inspection and full ROM Neuro: COMMON NORMALS: patient oriented x3, moves all extremities and no focal motor deficits Psych: COMMON NORMALS: mental status grossly normal, Normal thought process present and cooperative THOUGHT PROCESS: Normal thought process present Skin: COMMON NORMALS: no rashes or lesions noted and no wounds GENERAL SKIN EXAM: no rashes or lesions noted Course Vital Signs: Vital signs: Vital Signs Temperature 97.8 F 06/18/21 20:09 Pulse Rate 88 06/18/21 22:17 Respiratory Rate 16 06/18/21 22:17 Blood Pressure 110/72 06/18/21 22:17 Pulse Oximetry 94 06/18/21 22:17 MDM - Abdominal Pain Medical Decision Making patient presents with abdominal pain her exam here is benign she pain is much improved at discharge blood work including lactate is all normal no signs ischemic bowel or bowel perforation CT abdomen here is normal will prescribe her pain meds and she is to follow-up with Dr. Lackey her surgeon return if worsening. Lab Data : 06/18/21 20:20 06/18/21 20:20 Labs/Radiology: Radiology Impressions Abdomen/Pelvis CT 06/18/21 20:12 IMPRESSION: 1. Mild biliary tract dilatation which may be due to post cholecystectomy status. 2. Stable postoperative findings. 3. No acute abnormality. Laboratory Results WBC 4.6 10^3/uL (4.0-10.0) 06/18/21 20:20 RBC 4.63 10^6/uL (4.1-5.3) 06/18/21 20:20 Hgb 14.1 g/dL (11.5-15.3) 06/18/21 20:20 Hct 45.6 % (37.0-47.0) 06/18/21 20:20 MCV 98.5 fl (81-99) 06/18/21 20:20 MCH 30.5 pg (28.0-34.0) 06/18/21 20:20 MCHC 30.9 g/dL (30.0-36.0) 06/18/21 20:20 RDW 12.8 % (12.1-15.1) 06/18/21 20:20 Plt Count 190 10^3/cmm (130-400) 06/18/21 20:20 MPV 10.7 fL (7.4-10.4) H 06/18/21 20:20 Neut % (Auto) 21.6 % 06/18/21 20:20 Lymph % (Auto) 67.7 % 06/18/21 20:20 Williamson % (Auto) 9.7 % 06/18/21 20:20 Eos % (Auto) 0.4 % 06/18/21 20:20 Baso % (Auto) 0.4 % 06/18/21 20:20 Neut # (Auto) 1.00 10^3/uL (1.8-7.7) L 06/18/21 20:20 Lymph # (Auto) 3.1 10^3/uL (0.8-4.8) 06/18/21 20:20 Williamson # (Auto) 0.5 10^3/uL (0.2-0.9) 06/18/21 20:20 Eos # (Auto) 0.0 10^3/uL (0.0-0.8) 06/18/21 20:20 Baso # (Auto) 0.0 10^3/uL (0.0-0.1) 06/18/21 20:20 Nucleated RBC % (auto) 0 % 06/18/21 20:20 Nucleated RBCs # 0.0 /100WBC 06/18/21 20:20 Sodium 136 mmol/L (136-145) 06/18/21 20:20 Potassium 4.4 mmol/L (3.5-5.1) 06/18/21 20:20 Chloride 105 mmol/L (98-107) 06/18/21 20:20 Carbon Dioxide 20 mmol/L (22-29) L 06/18/21 20:20 Anion Gap 15.4 (5-19) 06/18/21 20:20 BUN 13 mg/dL (8-23) 06/18/21 20:20 Creatinine 0.8 mg/dL (0.5-0.9) 06/18/21 20:20 GFR Calculation 73.2 mL/min (90-130) L 06/18/21 20:20 Glucose 212 mg/dL (65-115) H 06/18/21 20:20 Calculated Osmolality 288 mOsm/kg (285-295) 06/18/21 20:20 Lactate 2.2 mmol/L (0.5-2.2) 06/18/21 20:20 Calcium 8.6 mg/dL (8.5-10.5) 06/18/21 20:20 Total Bilirubin 0.2 mg/dL (0.15-1.2) 06/18/21 20:20 AST 22 U/L (0-32) 06/18/21 20:20 ALT 16 U/L (0-33) 06/18/21 20:20 Alkaline Phosphatase 83 IU/L (35-105) 06/18/21 20:20 Total Protein 5.5 g/dL (6.6-8.7) L 06/18/21 20:20 Albumin 3.8 g/dL (3.5-5.2) 06/18/21 20:20 Globulin 1.7 g/dL (1.3-4.6) 06/18/21 20:20 Lipase 71 U/L (13-60) H 02/03/22 20:[address] Abd/Pel: I personally reviewed and interpreted this imaging study as follows: Radiologist's impression: CT/CT abdomen pelvis w con* [id number] IMPRESSION: 1. Mild biliary tract dilatation which may be due to post cholecystectomy status. 2. Stable postoperative findings. 3. No acute abnormality. Discharge Plan Discharge Patient Disposition: Home Clinical Impression: Abdominal pain Condition: Stable Prescriptions: New hydrocodone-acetaminophen 5-325 mg tablet 1 tab PO Q6H PRN (Reason: pain) Qty: 14 0RF No Action ondansetron HCl [Zofran] 4 mg tablet 4 mg PO Q6H PRN (Reason: nausea and vomiting) Qty: 10 0RF Protonix 40 mg tablet,delayed release (DR/EC) 40 mg PO BID Qty: 28 0RF gabapentin 100 mg capsule 200 mg PO BID 0RF prednisone 20 mg tablet See Rx Instructions PO .COMPLEX PRN (Reason: joint pain flares) Qty: 30 1RF Hold Instructions: Resume on 05/15/21. Rx Instructions: take 1 daily for 3-7 days prn for joint pain flare Actemra 162 mg/0.9 mL syringe 162 mg SUBCUT Q7D Qty: 4 3RF Hold Instructions: Resume on 04/23/21. Rx Instructions: on hydrocodone-acetaminophen 5-325 mg tablet 1 tab PO Q6H PRN (Reason: pain) 7 Days Qty: 20 0RF sucralfate [Carafate] 1 gram tablet 1 g PO TID 14 Days Qty: 42 0RF sertraline [Zoloft] 100 mg tablet 100 mg PO DAILY Qty: 30 1RF mirtazapine [Remeron] 30 mg tablet 30 mg PO BEDTIME Qty: 30 1RF lamotrigine [Lamictal] 200 mg tablet 200 mg PO BID Qty: 60 1RF clonazepam 0.5 mg tablet 0.5 mg PO TID PRN (Reason: anxiety) Qty: 90 1RF Rx Instructions: Must last 30 days valbenazine 80 mg capsule 80 mg PO BEDTIME Qty: 30 2RF pantoprazole [Protonix] 40 mg tablet,delayed release (DR/EC) 40 mg PO BID Qty: 60 3RF primidone 50 mg tablet 50 mg PO BID Qty: 180 2RF nitroglycerin 0.4 mg tablet, sublingual 0.4 mg sublingual Q5M PRN (Reason: chest pain) Qty: 30 0RF Rx Instructions: do not exceed 3 doses per episode albuterol sulfate [ProAir HFA] 90 mcg/actuation Hfa Aerosol Inhaler 2 puff INHALATION Q4H PRN (Reason: Shortness Of Breath) 0RF fluticasone propionate 50 mcg/actuation spray,suspension 2 spray INTRANASAL DAILY PRN (Reason: Allergy Symptoms) 0RF Vitamin B-12 1 tab PO DAILY 0RF metoclopramide HCl [Reglan] 10 mg tablet 10 mg PO Q6H PRN (Reason: nausea and vomiting) Qty: 20 0RF aspirin 81 mg Tablet,Delayed Release (Dr/Ec) 81 mg PO DAILY 0RF Hold Instructions: Resume on 04/24/21. Rx Instructions: pt states not taken for 2 weeks lactulose 20 gram/30 mL Solution 10 g J-tube Q12H Qty: 300 2RF Discharge Orders: Discharge ED (Routine); Ordered 06/18/21 Ordered By: Miguel Fuller Referrals: Jose Angel Lackey MD [Physician] - 1-3 days Helga Mancera DO [Primary Care Provider] - Discharge Diet: Advance as tolerated Discharge Activity: Resume usual activity Patient Instructions: Abdominal Pain (ED), Opioid Safety Coding Level of Care Code ED Supervisor [employer] for Chg Fwd Exam Comprehensive
[2021-06-18 20:26] VITALS: BP 103/76; PULSE 74; RESP 18; RESP 20; O2SAT 93
[2021-06-18] MEDS: HYDROmorphone 1 mg/mL INJ 1 mL IVP (20:26)
[2021-06-18 20:40] LABS: Lactate (Lactic Acid level) 2.2 mmol/L (0.5-2.2)
[2021-06-18 20:45] LABS: Alanine Aminotransferase 16 U/L (0-33); Albumin Level 3.8 g/dL (3.5-5.2); Alkaline Phosphatase 83 IU/L (35-105); Anion Gap 15.4 (5-19); Aspartate Amino Transferase 22 U/L (0-32); Blood Urea Nitrogen 13 mg/dL (8-23); Calcium 8.6 mg/dL (8.5-10.5); Carbon Dioxide 20 mmol/L (22-29); Chloride 105 mmol/L (98-107); Globulin 1.7 g/dL (1.3-4.6); Glomerular Filtration Rate 73.2 mL/min (90-130); Glucose 212 mg/dL (65-115); Lipase 71 U/L (13-60); Osmolality Calculated 288 mOsm/kg (285-295); Potassium 4.4 mmol/L (3.5-5.1); Sodium 136 mmol/L (136-145); Total Bilirubin 0.2 mg/dL (0.15-1.2); Total Protein 5.5 g/dL (6.6-8.7)
[2021-06-18] MEDS: iohexol 300 mg/mL 100 mL Btl IV (20:56)
[2021-06-18 22:17] VITALS: BP 110/72; PULSE 88; RESP 16; O2SAT 94
--- NOTE | 2021-06-19 15:11 | DCPLANNER ---
Addendum entered by Daniela Holt 07/10/21 11:32: Patient had a follow up appointment scheduled for 06.30.[address] Lackey at general surgery - patient did attend appointment. Addendum entered by Daniela Holt 06/26/21 07:17: Patient has a follow up appointment scheduled for Wednesday, June 30, 2021 at 10:[address] Lackey at [facility]. Clinic will call patient with appointment information. Original Note: manager adult had message to schedule a follow up appointment for patient with general surgery. manager adult emailed patients information to Fide Estrada and Angelica at [facility] General Surgery / ENT clinic. Patients information will be printed and reviewed. Clinic will call patient with appointment information.
== END 2021-06-18 22:18 | disposition home or self-care (01) ==
PROVIDERS: Emergency Provider Emergency Medicine; PCP Family Medicine
DX: R10.9 Unspecified abdominal pain (principal); Z79.82 Long term (current) use of aspirin
CPT/HCPCS: 74177; 80053; 83605; 83690; 85025; 96361; 96374; 96375; 99284; J1170; J2405; J7030; Q9967

== ENCOUNTER 2021-06-19 11:29 | Emergency (ER) | payer MEDICARE, SELFPAY ==
[2021-06-19] VITALS (7 sets, daily range): BP systolic 105–142; BP diastolic 64–73; PULSE 60–75; RESP 15–20; TEMP 36.2; O2SAT 96–99; BMI 23.1
--- NOTE | 2021-06-19 12:29 | ECG_ITS ---
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 Measurements Intervals [place] Rate: 52 P: 1 MO: 133 QRS: 116 QRSD: 90 T: 53 QT: 436 QTc: 409 Interpretive Statements SINUS BRADYCARDIA POSSIBLE RIGHT VENTRICULAR HYPERTROPHY [SOME/ALL OF: PROMINENT R IN V1, LATE TRANSITION, RAD, KALEB, SSS] Compared to ECG 04/12/2021 13:30:31 Sinus rhythm no longer present Electronically Signed On 06-19-2021 17:38:18 [employer]ANT OPERATOR by Pepito Frost M.D. [email or web address] [email or web address] river [id number]
[2021-06-19 12:57] LABS: Basophils % 0.7 %; Eosinophils % 0.5 %; Hematocrit 45.4 % (37.0-47.0); Hemoglobin 14.2 g/dL (11.5-15.3); Lymphocytes % 66.7 %; Mean Corpuscular HGB Conc 31.3 g/dL (30.0-36.0); Mean Corpuscular Hemoglobin 30.5 pg (28.0-34.0); Mean Corpuscular Volume 97.6 fl (81-99); Mean Platelet Volume 10.7 fL (7.4-10.4); Monocytes # 0.5 10^3/uL (0.2-0.9); Monocytes % 10.4 %; Neutrophils % 21.7 %; Nucleated Red Blood Cells % 0 %; Platelet Count 196 10^3/cmm (130-400); Red Blood Count 4.65 10^6/uL (4.1-5.3); Red Cell Distribution Width 12.9 % (12.1-15.1); White Blood Count 4.4 10^3/uL (4.0-10.0)
[2021-06-19 13:06] LABS: Neutrophils # 0.97 10^3/uL (1.8-7.7)
[2021-06-19 13:08] LABS: Lactic Sepsis W/Reflex 0.9 mmol/L (0.5-2.2)
[2021-06-19 13:09] LABS: Alanine Aminotransferase 15 U/L (0-33); Albumin Level 3.9 g/dL (3.5-5.2); Alkaline Phosphatase 81 IU/L (35-105); Anion Gap 14.6 (5-19); Aspartate Amino Transferase 18 U/L (0-32); Blood Urea Nitrogen 8 mg/dL (8-23); Calcium 8.9 mg/dL (8.5-10.5); Carbon Dioxide 24 mmol/L (22-29); Chloride 104 mmol/L (98-107); Globulin 1.6 g/dL (1.3-4.6); Glomerular Filtration Rate 85.4 mL/min (90-130); Glucose 69 mg/dL (65-115); Lipase 43 U/L (13-60); Osmolality Calculated 283 mOsm/kg (285-295); Potassium 4.6 mmol/L (3.5-5.1); Sodium 138 mmol/L (136-145); Total Bilirubin 0.2 mg/dL (0.15-1.2); Total Protein 5.5 g/dL (6.6-8.7)
--- NOTE | 2021-06-19 13:13 | W.ED.ABDPA2 ---
HPI - Abdominal Pain General: Chief Complaint: Abdominal Pain Stated Complaint: Severe Abd Pain Time Seen by Provider: 06/19/21 11:55 History of Present Illness: 60-year-old female presents emergency room complaining of abdominal pain she was just here within the last 12 hours laboratory work-up at that time was unremarkable CT was unremarkable. She is not been using her Carafate regularly she is still using her PPI. She denies any hematemesis coffee-ground emesis generally she is not been vomiting all day to the previous gastric bypass. Few months ago she had a perforation ofHer gastric anastomosis in late March 2021. This was repaired here by Dr. Lackey since then she has had chronic abdominal pain. CT done last night did not show any free air perforation she still has epigastric discomfort. She denies dysuria urgency or frequency difficulty with breathing shortness of breath cough. No hematochezia or melena. She not really noticed anything that seems to make it better or worse. Although it has definitely been worsening the last few days. MD elicited complaint: abdominal pain Pertinent past history: other (Previous gastric bypass with perforation at gastric anastomosis recently) Onset (ago): day(s) Pain Consistency: intermittent Location: Epigastric Quality: cramping Radiation: none Exacerbating factors: nothing Relieving factors: nothing Associated Symptoms: Reports anorexia, GI cramping, dyspepsia, nausea and poor appetite; Denies belching, bloating, change in bowel habits, change in stool character, chills, coffee ground emesis, constipation, diarrhea, dysuria, excessive flatus, fever(s), heartburn, hematochezia, hematuria, hematemesis, fecal incontinence, loose stools, melena, syncope and vomiting Review of Systems Const: Denies: fever(s) or chills ENMT: Denies: throat pain, ear or mastoid pain, nasal discharge or nasal congestion Card: Denies: syncope Resp: Denies: dyspnea, productive cough or non-productive cough GI: Reports: nausea and GI cramping; Denies: vomiting, hematemesis, coffee ground emesis, heartburn, diarrhea, constipation, bloating, belching, excessive flatus, fecal incontinence, change in bowel habits, change in stool character, hematochezia or melena : Denies: dysuria or hematuria PFSH ED PFSH: Medical History Acute pancreatitis Costochondritis Facial tic Gastritis Gastroenteritis Generalized anxiety disorder Major depressive disorder, recurrent, moderate Post-traumatic stress disorder, chronic Psychiatric care Psychosis Raynaud's disease without gangrene Rheumatoid arthritis without rheumatoid factor, multiple sites SAH (subarachnoid hemorrhage) Schizoaffective disorder Stammering improved Tardive dyskinesia Ureterolithiasis Surgical History H/O esophagogastroduodenoscopy (01/29/21) History of bilateral knee replacement History of cholecystectomy History of hand surgery History of renal stent History of umbilical hernia repair Hx of gastric bypass S/P exploratory laparotomy (~04/12/21) With repair of perforation at the gastrojejunal anastomosis and placement of jejunostomy tube Status post colonoscopy (01/29/21) Family History Mother , at age 74 Cancer colorectal Father No problems noted. Denies family history of Rheumatoid arthritis Social History Smoking risk assessment/counseling performed?: Yes Tobacco counseling given: counseling >3 minutes Alcohol intake: former Former alcohol use details: quit drinking 2 months ago....beer Marital status: Single Current occupational status: disabled History of recent travel: No Physical Exam Const: COMMON NORMALS: no acute distress GENERAL APPEARANCE: cooperative and comfortable ORIENTATION/CONSCIOUSNESS: Yes awake, Yes oriented to person, Yes oriented to place and Yes oriented to time HENMT: COMMON NORMALS: normocephalic, atraumatic and hearing grossly normal bilaterally HEAD & SCALP: normocephalic and atraumatic Neck/C-Spine: COMMON NORMALS: no JVD Resp: COMMON NORMALS: normal respiratory effort, No retractions, No use of accessory muscles and clear to auscultation bilaterally AUSCULTATION: clear to auscultation bilaterally Cardio: COMMON NORMALS: no JVD, regular rate, regular rhythm and No murmurs present (Cardio) RATE: regular rate RHYTHM: regular rhythm GI: COMMON NORMALS: Soft to palpation and No hepatosplenomegaly present AUSCULTATION: Yes normoactive bowel sounds PALPATION: Yes Soft to palpation, No Tenderness to palpation present (GI), No Guarding due to palpation present (GI) and Yes No hepatosplenomegaly present Extremity: COMMON NORMALS: normal to inspection, capillary refill normal, no clubbing, cyanosis or edema, no calf tenderness and no pedal edema Neuro: SENSORIUM/ORIENTATION: Yes oriented to person, Yes oriented to place and Yes oriented to time Skin: COMMON NORMALS: no rashes or lesions noted GENERAL SKIN EXAM: no rashes or lesions noted Course Vital Signs: Vital signs: Vital Signs Temperature 97.2 F L 06/19/21 11:41 Pulse Rate 63 06/19/21 16:07 Respiratory Rate 16 06/19/21 16:07 Blood Pressure 142/73 06/19/21 16:07 Pulse Oximetry 96 06/19/21 16:07 MDM - Abdominal Pain Medical Decision Making Flat and upright of the abdomen does not show any free air. She is having this chronic abdominal pain on-call Dr. Lackey who done her previous surgery he wondered to get restarted on the Carafate regularly we will give her some Zofran and increased her hydrocodone however follow-up with Dr. Lackey early next week return if she has further problems clear liquid diet until seen Medical Records I reviewed the patient's medical records. Lab Data I reviewed the patient's lab results. : 06/19/21 12:16 06/19/21 12:16 Labs/Radiology: Radiology Impressions Chest/Abdomen X-ray 06/19/21 13:27 IMPRESSION: No acute abnormality. Laboratory Results WBC 4.4 10^3/uL (4.0-10.0) 06/19/21 12:16 RBC 4.65 10^6/uL (4.1-5.3) 06/19/21 12:16 Hgb 14.2 g/dL (11.5-15.3) 06/19/21 12:16 Hct 45.4 % (37.0-47.0) 06/19/21 12:16 MCV 97.6 fl (81-99) 06/19/21 12:16 MCH 30.5 pg (28.0-34.0) 06/19/21 12:16 MCHC 31.3 g/dL (30.0-36.0) 06/19/21 12:16 RDW 12.9 % (12.1-15.1) 06/19/21 12:16 Plt Count 196 10^3/cmm (130-400) 06/19/21 12:16 MPV 10.7 fL (7.4-10.4) H 06/19/21 12:16 Neut % (Auto) 21.7 % 06/19/21 12:16 Lymph % (Auto) 66.7 % 06/19/21 12:16 Douglas % (Auto) 10.4 % 06/19/21 12:16 Eos % (Auto) 0.5 % 06/19/21 12:16 Baso % (Auto) 0.7 % 06/19/21 12:16 Neut # (Auto) 0.97 10^3/uL (1.8-7.7) L* 06/19/21 12:16 Lymph # (Auto) 3.0 10^3/uL (0.8-4.8) 06/19/21 12:16 Douglas # (Auto) 0.5 10^3/uL (0.2-0.9) 06/19/21 12:16 Eos # (Auto) 0.0 10^3/uL (0.0-0.8) 06/19/21 12:16 Baso # (Auto) 0.0 10^3/uL (0.0-0.1) 06/19/21 12:16 Nucleated RBC % (auto) 0 % 06/19/21 12:16 Nucleated RBCs # 0.0 /100WBC 06/19/21 12:16 Sodium 138 mmol/L (136-145) 06/19/21 12:16 Potassium 4.6 mmol/L (3.5-5.1) 06/19/21 12:16 Chloride 104 mmol/L (98-107) 06/19/21 12:16 Carbon Dioxide 24 mmol/L (22-29) 06/19/21 12:16 Anion Gap 14.6 (5-19) 06/19/21 12:16 BUN 8 mg/dL (8-23) 06/19/21 12:16 Creatinine 0.7 mg/dL (0.5-0.9) 06/19/21 12:16 GFR Calculation 85.4 mL/min (90-130) L 06/19/21 12:16 Glucose 69 mg/dL (65-115) 06/19/21 12:16 Calculated Osmolality 283 mOsm/kg (285-295) L 06/19/21 12:16 Lactic Acid 0.9 mmol/L (0.5-2.2) 06/19/21 12:16 Calcium 8.9 mg/dL (8.5-10.5) 06/19/21 12:16 Total Bilirubin 0.2 mg/dL (0.15-1.2) 06/19/21 12:16 AST 18 U/L (0-32) 06/19/21 12:16 ALT 15 U/L (0-33) 06/19/21 12:16 Alkaline Phosphatase 81 IU/L (35-105) 06/19/21 12:16 Total Protein 5.5 g/dL (6.6-8.7) L 06/19/21 12:16 Albumin 3.9 g/dL (3.5-5.2) 06/19/21 12:16 Globulin 1.6 g/dL (1.3-4.6) 06/19/21 12:16 Lipase 43 U/L (13-60) 06/19/21 12:16 Urine Color Yellow (Yellow) 06/19/21 13:05 Urine Appearance Clear (CLEAR) 06/19/21 13:05 Urine pH 5 (5-7) 06/19/21 13:05 Ur Specific Proctor 1.015 (1.005-1.030) 06/19/21 13:05 Urine Protein Neg (Negative) 06/19/21 13:05 Urine Glucose (UA) Norm (Normal) 06/19/21 13:05 Urine Ketones Negative (Negative) 06/19/21 13:05 Urine Blood Neg (Negative) 06/19/21 13:05 Urine Nitrate Negative (Negative) 06/19/21 13:05 Urine Bilirubin Neg (Negative) 06/19/21 13:05 Urine Urobilinogen Neg mg/dL (Negative) 06/19/21 13:05 Ur Leukocyte Esterase 1+ (Negative) H 06/19/21 13:05 Urine RBC None /hpf (0-2) 06/19/21 13:05 Urine WBC Rare /hpf (0-5) 06/19/21 13:05 Ur Squamous Epith Cells Rare /hpf (0-5) 06/19/21 13:05 Amorphous Sediment Not Reportable 06/19/21 13:05 Urine Bacteria None /hpf (NONE) 06/19/21 13:05 Urine Yeast Trace /hpf 06/19/21 13:05 Discharge Plan Discharge Patient Disposition: Home Clinical Impression: Abdominal pain, S/P exploratory laparotomy Condition: Stable Prescriptions: New hydrocodone-acetaminophen 10-325 mg tablet 1 tab PO Q6H PRN (Reason: pain) Qty: 15 0RF Carafate 1 gram tablet 1 g PO Q6H 56 Days Qty: 224 0RF No Action ondansetron HCl [Zofran] 4 mg tablet 4 mg PO Q6H PRN (Reason: nausea and vomiting) Qty: 10 0RF Protonix 40 mg tablet,delayed release (DR/EC) 40 mg PO BID Qty: 28 0RF gabapentin 100 mg capsule 200 mg PO BID 0RF prednisone 20 mg tablet See Rx Instructions PO .COMPLEX PRN (Reason: joint pain flares) Qty: 30 1RF Hold Instructions: Resume on 05/15/21. Rx Instructions: take 1 daily for 3-7 days prn for joint pain flare Actemra 162 mg/0.9 mL syringe 162 mg SUBCUT Q7D Qty: 4 3RF Hold Instructions: Resume on 04/23/21. Rx Instructions: on hydrocodone-acetaminophen 5-325 mg tablet 1 tab PO Q6H PRN (Reason: pain) 7 Days Qty: 20 0RF sucralfate [Carafate] 1 gram tablet 1 g PO TID 14 Days Qty: 42 0RF sertraline [Zoloft] 100 mg tablet 100 mg PO DAILY Qty: 30 1RF mirtazapine [Remeron] 30 mg tablet 30 mg PO BEDTIME Qty: 30 1RF lamotrigine [Lamictal] 200 mg tablet 200 mg PO BID Qty: 60 1RF clonazepam 0.5 mg tablet 0.5 mg PO TID PRN (Reason: anxiety) Qty: 90 1RF Rx Instructions: Must last 30 days valbenazine 80 mg capsule 80 mg PO BEDTIME Qty: 30 2RF pantoprazole [Protonix] 40 mg tablet,delayed release (DR/EC) 40 mg PO BID Qty: 60 3RF primidone 50 mg tablet 50 mg PO BID Qty: 180 2RF nitroglycerin 0.4 mg tablet, sublingual 0.4 mg sublingual Q5M PRN (Reason: chest pain) Qty: 30 0RF Rx Instructions: do not exceed 3 doses per episode albuterol sulfate [ProAir HFA] 90 mcg/actuation Hfa Aerosol Inhaler 2 puff INHALATION Q4H PRN (Reason: Shortness Of Breath) 0RF fluticasone propionate 50 mcg/actuation spray,suspension 2 spray INTRANASAL DAILY PRN (Reason: Allergy Symptoms) 0RF Vitamin B-12 1 tab PO DAILY 0RF metoclopramide HCl [Reglan] 10 mg tablet 10 mg PO Q6H PRN (Reason: nausea and vomiting) Qty: 20 0RF aspirin 81 mg Tablet,Delayed Release (Dr/Ec) 81 mg PO DAILY 0RF Hold Instructions: Resume on 04/24/21. Rx Instructions: pt states not taken for 2 weeks lactulose 20 gram/30 mL Solution 10 g J-tube Q12H Qty: 300 2RF hydrocodone-acetaminophen 5-325 mg tablet 1 tab PO Q6H PRN (Reason: pain) Qty: 14 0RF Discharge Orders: Discharge ED (Routine); Ordered 06/19/21 Ordered By: Bubba Osborne Referrals: Helga Mancera DO [Primary Care Provider] - Discharge Diet: Clear Liquid Patient Instructions: Abdominal Pain (ED), Opioid Safety Activity Restrictions/Additional Instructions: Follow-up with Dr. Lackey on Tuesday. If pain worsens significantly return significantly return. Coding Level of Care Code ED Wheat [employer] Flake Miller for Judson [place]
[2021-06-19 13:16] LABS: Add Urine Microscopic? YES; Bilirubin Urine Neg (Negative); Blood Urine Neg (Negative); Glucose Urine UA Norm (Normal); Ketones Urine Negative (Negative); Leukocyte Esterase Urine 1+ (Negative); Nitrate Urine Negative (Negative); Protein Urine Neg (Negative); Specific Gravity, Urine 1.015 (1.005-1.030); Urine Appearance Clear (CLEAR); Urine Color Yellow (Yellow); Urobilinogen Urine Neg (Negative); pH Urine 5 (5-7)
--- NOTE | 2021-06-19 13:27 | XR_ITS ---
WS: [id number] XR acute abdomen series [id number] REASON FOR EXAM: abd pain FINDINGS: The heart and mediastinum are within normal limits. Calcified granulomatous disease is seen bilaterally. No active pulmonary parenchymal or pleural disease is identified. Bony thorax is intact without significant abnormality. XR/XR acute abdomen series [id number] IMPRESSION: No acute abnormality.
[2021-06-19 13:28] LABS: Add Urine Culture? Yes; Squamous Epithelial Cell Urine RARE /hpf (0-5); WBC Urine RARE /hpf (0-5)
[2021-06-19] MEDS: ondansetron 2 mg/ML SDV 2 mL 4 MG IVP (16:02)
[2021-06-19] MEDS: HYDROmorphone 1 mg/mL INJ 1 mL 0.5 MG IVP (16:02)
== END 2021-06-19 16:34 | disposition home or self-care (01) ==
PROVIDERS: Emergency Provider Family Medicine; PCP Family Medicine
DX: R10.9 Unspecified abdominal pain (principal); Z98.890 Other specified postprocedural states; Z79.82 Long term (current) use of aspirin
CPT/HCPCS: 74022; 80053; 81001; 83605; 83690; 85025; 87086; 93005; 96374; 96375; 99284; J1170; J2405

== ENCOUNTER 2021-07-01 11:47 | Outpatient (CLI) | payer MEDICARE, SELFPAY | END 2021-07-01 11:48 | disposition home or self-care (01) | PROVIDERS: PCP Family Medicine; Visit Provider Surgery | DX: R19.7 Diarrhea, unspecified (principal) | CPT/HCPCS: 83630; 87177; 87209; 87493; 87506 ==

== ENCOUNTER → 2021-07-06 07:21 | Outpatient (BNVA) | payer MEDICARE, SELFPAY | PROVIDERS: PCP Family Medicine; Visit Provider Nurse Practitioner | DX: F33.1 Major depressive disorder, recurrent, moderate (principal); F41.1 Generalized anxiety disorder; F43.12 Post-traumatic stress disorder, chronic | CPT/HCPCS: 99214 ==

== ENCOUNTER → 2021-07-20 11:03 | Outpatient (BNVA) | payer MEDICARE, SELFPAY | PROVIDERS: PCP Family Medicine; Visit Provider Specialist | DX: G25.0 Essential tremor (principal); M06.09 Rheumatoid arthritis without rheumatoid factor, multiple sites; F80.81 Childhood onset fluency disorder; R20.0 Anesthesia of skin; R20.2 Paresthesia of skin; Z98.84 Bariatric surgery status; F17.210 Nicotine dependence, cigarettes, uncomplicated | CPT/HCPCS: 99214 ==

== ENCOUNTER → 2021-07-22 09:40 | Outpatient (BNVA) | payer MEDICARE, SELFPAY | PROVIDERS: PCP Family Medicine; Visit Provider Internal Medicine Rheumatology | DX: M06.09 Rheumatoid arthritis without rheumatoid factor, multiple sites (principal); F80.81 Childhood onset fluency disorder; Z79.899 Other long term (current) drug therapy; I73.00 Raynaud's syndrome without gangrene; Z98.890 Other specified postprocedural states; Z98.84 Bariatric surgery status; Z71.85 Encounter for immunization safety counseling | CPT/HCPCS: 99214 ==

== ENCOUNTER → 2021-08-03 07:17 | Outpatient (BNVA) | payer MEDICARE, SELFPAY | PROVIDERS: PCP Family Medicine; Visit Provider Nurse Practitioner | DX: F33.1 Major depressive disorder, recurrent, moderate (principal); F41.1 Generalized anxiety disorder; F43.12 Post-traumatic stress disorder, chronic | CPT/HCPCS: 99214 ==

== ENCOUNTER → 2021-08-31 09:38 | Outpatient (BNVA) | payer MEDICARE, SELFPAY | PROVIDERS: PCP Family Medicine; Visit Provider Surgery | DX: K43.2 Incisional hernia without obstruction or gangrene (principal); F17.210 Nicotine dependence, cigarettes, uncomplicated | CPT/HCPCS: 99214 ==

== ENCOUNTER → 2021-09-02 07:18 | Outpatient (BNVA) | payer MEDICARE, SELFPAY | PROVIDERS: PCP Family Medicine; Visit Provider Nurse Practitioner | DX: F41.1 Generalized anxiety disorder (principal); F33.1 Major depressive disorder, recurrent, moderate; F43.12 Post-traumatic stress disorder, chronic | CPT/HCPCS: 99214 ==

== ENCOUNTER 2021-09-07 08:56 | Observation (INO) | payer MEDICARE, SELFPAY ==
[2021-09-04 13:24] VITALS: BMI 21.4
[2021-09-07] VITALS (27 sets, daily range): BP systolic 86–129; BP diastolic 51–88; PULSE 54–78; RESP 15–24; TEMP 36.3–36.8; O2SAT 88–97; BMI 22.6
[2021-09-07] MEDS: sodium chloride 0.9% 1,000 ML 30 ML IV (06:36)
--- NOTE | 2021-09-07 06:38 | ANES.PREANE2 ---
Pre-Anesthetic Assessment Height/Weight: Height 1.63 m Weight 56.699 kg Temp Pulse Resp BP Pulse Ox 98.1 F 63 18 99/57 96 09/07/21 06:25 09/07/21 06:25 09/07/21 06:25 09/07/21 06:25 09/07/21 06:25 Preop Diagnosis: Incisional hernia Operation Date: 09/07/21 07:00 Proposed Procedures p Laparoscopic Incisional Hernia Repair 66866/k43.2(Not Applicable) - Jose Angel Lackey MD Familial anesthetic complications: None Was Beta Lucinda taken within 24 hours: N/A Was Clonidine taken within 24 hours: N/A Last intake: Intake Last Liquid Date 09/06/21 Last Liquid Time 20:00 Last Solid Date 09/06/21 Last Solid Time 20:00 Social Tobacco and No alcohol Exam alert, oriented x 3 and regular rate & rhythm Coarse breath sounds b/l (L> R) Airway Cervical ROM: within normal limits Mallampati: Class I Dentition: other (no teeth) Pulmonary Chronic Obstructive Pulmonary Disease CV/HEM Arrythmia and Hypertension Hepatic Hpeatitis C, but not active GI hx pancreatitis and bowel perforation w/ bypass Metabolic Raynaud's Musc/skel Rheumatoid Arthritis Neuropsych Cerebrovascular Accident (L hand weakness), Neuropathy and Seizure Anesthetic Plan ASA status: 3 Anesthesia: General Risk of > 500 ml blood loss (7ml/kg in children): No Medications/Allergies Home Medications Medication Instructions Recorded Confirmed Last Taken Type nitroglycerin 0.4 mg sublingual 0.4 mg SUBLINGUAL Q5M PRN #30 tab 06/10/20 09/07/21 01/28/21 Rx tablet albuterol sulfate 90 mcg/actuation 2 puff INHALATION Q4H PRN 12/24/20 09/07/21 09/07/21 05:30 History aerosol inhaler (ProAir HFA) metoclopramide HCl 10 mg tablet 10 mg PO Q6H PRN #20 tab 12/29/20 09/07/21 09/06/21 Rx (Reglan) primidone 50 mg tablet 50 mg PO BID #180 tab 05/14/21 09/07/21 09/07/21 05:30 Rx lactulose 10 gram/15 mL oral See Rx Instructions .ROUTE 07/27/21 09/07/21 09/06/21 Rx solution .COMPLEX #473 ml clonazepam 0.5 mg tablet 0.5 mg PO TID PRN #90 tab 08/03/21 09/07/21 09/07/21 05:30 Rx lamotrigine 200 mg tablet 200 mg PO BID #60 tab 08/03/21 09/07/21 09/07/21 05:30 Rx (Lamictal) mirtazapine 30 mg tablet (Remeron) 30 mg PO BEDTIME #30 tab 08/03/21 09/07/21 09/07/21 05:30 Rx sertraline 100 mg tablet (Zoloft) 100 mg PO DAILY #30 tab 08/03/21 09/07/21 09/06/21 Rx etanercept 50 mg/mL (1 mL) 50 mg SUBCUT .Q7days #4 ml 08/06/21 09/04/21 Unknown Rx subcutaneous pen injector (Enbrel SureClick) pantoprazole 40 mg tablet,delayed See Rx Instructions .ROUTE 08/24/21 09/07/21 09/07/21 05:30 Rx release .COMPLEX #180 tab valbenazine 80 mg capsule 80 mg PO DAILY 09/04/21 09/07/21 09/06/21 History Allergies Allergy/AdvReac Type Severity Reaction Status Date / Time hydroxyzine [From Vistaril] Allergy Unknown Verified 09/07/21 06:35 lithium Allergy makes me Verified 09/07/21 06:35 mean Sulfa (Sulfonamide Allergy Unknown Verified 09/07/21 06:35 Antibiotics) sulfamethizole Allergy Unknown Verified 09/07/21 06:35 Current Medications Generic Name Dose Route Start Last Admin Trade Name Freq PRN Reason Stop Dose Admin Sodium Chloride 1,000 mls @ 30 mls/hr 09/07/21 06:30 09/07/21 06:36 Sodium Chloride 0.9% IV 09/08/21 06:29 30 mls/hr .Q24H JUDY Administration PFSH Anesthesia Medical History Acute pancreatitis Costochondritis Facial tic Gastritis Gastroenteritis Generalized anxiety disorder High risk medication use Immunization counseling Major depressive disorder, recurrent, moderate Post-traumatic stress disorder, chronic Psychiatric care Psychosis Raynaud's disease without gangrene Rheumatoid arthritis without rheumatoid factor, multiple sites SAH (subarachnoid hemorrhage) Schizoaffective disorder Stammering improved Tardive dyskinesia Ureterolithiasis Surgical History H/O esophagogastroduodenoscopy (01/29/21) History of bilateral knee replacement History of cholecystectomy History of hand surgery History of renal stent History of umbilical hernia repair Hx of gastric bypass S/P exploratory laparotomy (~04/12/21) With repair of perforation at the gastrojejunal anastomosis and placement of jejunostomy tube Status post colonoscopy (01/29/21) Family History Mother , at age 74 Cancer colorectal Father No problems noted. Denies family history of Rheumatoid arthritis Social History Smoking and tobacco status: current every day smoker cigarettes Packs smoked per day: 1 Smoking risk assessment/counseling performed?: Yes Tobacco counseling given: counseling >3 minutes Alcohol intake: former Former alcohol use details: quit drinking 2 months ago....beer Marital status: Single Current occupational status: disabled History of recent travel: No Data Anesthesia Cardiac Studies: Sestamibi Stress Test (Cardiology) 07/07/20
--- NOTE | 2021-09-07 06:49 | W.PM.OPSFHP ---
Same Day Surgery H&P Indication for Procedure/HPI DATE OF PROCEDURE: September 07, 2021 CHIEF COMPLAINT/INDICATIONFOR SURGICAL PROCEDURE: lap hernia repair PREOP DIAGNOSIS: Incisional hernia PLANNED PROCEDURE: Operation Date: 09/07/21 07:00 Proposed Procedures p Laparoscopic Incisional Hernia Repair 52581/k43.2(Not Applicable) - Jose Angel Lackey MD Medications/Allergies* Home Medications Medication Instructions Recorded Confirmed Type albuterol sulfate 90 mcg/actuation 2 puff INHALATION Q4H PRN 12/24/20 09/07/21 History aerosol inhaler (ProAir HFA) valbenazine 80 mg capsule 80 mg PO DAILY 09/04/21 09/07/21 History Allergies/Adverse Reactions Allergy/AdvReac Type Severity Reaction Status Date / Time hydroxyzine [From Vistaril] Allergy Unknown Verified 09/07/21 06:35 lithium Allergy makes me Verified 09/07/21 06:35 mean Sulfa (Sulfonamide Allergy Unknown Verified 09/07/21 06:35 Antibiotics) sulfamethizole Allergy Unknown Verified 09/07/21 06:35 Current Medications: Generic Name Dose Route Start Last Admin Trade Name Freq PRN Reason Stop Dose Admin Sodium Chloride 1,000 mls @ 30 mls/hr 09/07/21 06:30 09/07/21 06:36 Sodium Chloride 0.9% IV 09/08/21 06:29 30 mls/hr .Q24H JUDY Administration Pertinent History/Comorbid Conditions* Medical History (Updated 07/22/21 @ 11:08 by Michele Robledo MD) Acute pancreatitis Costochondritis Facial tic Gastritis Gastroenteritis Generalized anxiety disorder High risk medication use Immunization counseling Major depressive disorder, recurrent, moderate Post-traumatic stress disorder, chronic Psychiatric care Psychosis Raynaud's disease without gangrene Rheumatoid arthritis without rheumatoid factor, multiple sites SAH (subarachnoid hemorrhage) Schizoaffective disorder Stammering improved Tardive dyskinesia Ureterolithiasis Surgical History (Updated 06/19/21 @ 14:53 by Bubba Osborne DO) H/O esophagogastroduodenoscopy (01/29/21) History of bilateral knee replacement History of cholecystectomy History of hand surgery History of renal stent History of umbilical hernia repair Hx of gastric bypass S/P exploratory laparotomy (~04/12/21) With repair of perforation at the gastrojejunal anastomosis and placement of jejunostomy tube Status post colonoscopy (01/29/21) Family History (Updated 12/17/20 @ 15:04 by Vickie Reaves LPN) Father Mother, at age 74 Cancer Mother colorectal Denies family history of Rheumatoid arthritis Social History Smoking and tobacco status: current every day smoker cigarettes Packs smoked per day: 1 Smoking risk assessment/counseling performed?: Yes Tobacco counseling given: counseling >3 minutes Alcohol intake: former Former alcohol use details: quit drinking 2 months ago....beer Marital status: Single Current occupational status: disabled History of recent travel: No Pertinent Exam Findings alert, oriented x 3 and regular rate & rhythm Recommendations Surgery/Procedure today Coding Level of Care Code Acute Machine Scallop Cutter for Judson Alford
[2021-09-07] MEDS: meperidine 50 mg/mL INJ 12.5 MG IVP ×2 (08:34→08:40)
[2021-09-07] MEDS: fentaNYL 50 mcg/mL INJ 2mL IVP ×2 (08:45→09:00)
--- NOTE | 2021-09-07 08:52 | PM.OP ---
Operative Report Date of procedure: September 07, 2021 Pre-op diagnosis: Symptomatic incisional hernia status post laparotomy for perforation at GJ anastomosis as well as for prior gastric bypass Post-op diagnosis: same Post-op diagnosis: Incisional hernia measuring 9 x 6 cm containing omentum Takedown of jejunum from the jejunostomy site Procedure done: Laparoscopic repair of incisional hernia with Ventralight ST 15 x 15 cm mesh Pathology: none sent Surgeon: Jose Angel Lackey Anesthesia: General Condition: stable Disposition: PACU Procedure: The patient was taken to the Operating Room and was intubated under general anesthesia after the antibiotic had been administered. The abdomen was prepped and draped in a sterile manner. Using a 15 blade, a 2-cm incision was made in the right upper quadrant in the anterior axillary line and using open Krueger technique the peritoneum was entered.. A 10 mm Trista port was placed and 15 mm of pneumoperitoneum was created after a 10 mm 30? scope had been introduced. 5 mm port was placed at the level of the umbilicus on the right side and in the right lower quadrant under direct visualization. Using a combination of electrocautery and scissors the peritoneum in the midline was taken down and the omental fat within the hernial sac was reduced. The falciform ligament was taken down using electrocautery for placement of mesh. A spinal needle was introduced through the abdominal wall and the edges of the hernial defect were marked and measured 9x6 cm. A 4 cm margin was marked on the abdominal wall on the outer edge of the hernial defect. 15 x [address] mesh was selected and 4 separate 2-0 [place]-Hair sutures were placed at the 4 corners of the mesh. Grannie needle was passed through the stab incisions and used to grasp the free ends of the [place]-Hair sutures which were then used to pull the mesh up against the abdominal wall; 5 mm SecurStraps were placed 1 cm apart along the edge of the mesh to hold it against the abdominal wall. At the end of this, it was noted that the mesh was well positioned over the hernial defect. 20 cc of saline mixed with 20cc of Exparel mixed with 20cc of 0.5% Marcaine was infiltrated in the midclavicular line bilaterally under laparoscopic visualization for a TAP block. All ports were removed under direct visualization and there was no bleeding noted from the port sites. The external oblique aponeurosis was approximated at RUQ port site using figure of eight 0 Vicryl suture. The subcutaneous tissue was approximated using 3-0 Vicryl sutures. The skin at all 3 port sites was closed using subcuticular 4-0 Monocryl suture. The stab incisions and the port sites were covered with Dermabond. Abdominal binder was placed at the end of the procedure and the patient was extubated and transferred to recovery room in stable condition.
--- NOTE | 2021-09-07 08:54 | SUR.PHASEI ---
0820 PT TO PACU AWAKES EASILY, C/O OF PAIN TO ABD, PT ABDOMEN FLAT WITH 4 TROCAR SITES WITH SKIN GLUE AND 4 NEEDLE SITES WITH SKIN GLUE,IV TO LT HAND #20 WITH NS 100ML AT KVO RATE PER GRAVITY. ID BRACELET TO LT WRIST, PT ID'D WITH 2 IDENTIFIERS. BILAT SCDS ON PT VERY ALERT AND TALKATIVE,
--- NOTE | 2021-09-07 09:04 | SUR.PHASEI ---
PT RESTING QUIETLY, WITH GOOD RESP NOTED, VSS ABDOMEN SOFT AND UNCHANGED PT MONITOR IS SR NO ECTOPY,SEE PAIN MEDS GIVEN EARLIER.
[2021-09-07] MEDS: albuterol 8 gm MDI 2 PUFF INHALATION ×2 (10:15→21:11)
[2021-09-07] MEDS: sennosides-docusate Tablet 1 TAB PO ×2 (10:18→18:13)
[2021-09-07] MEDS: primidone 50 mg Tablet PO ×2 (10:18→18:13)
[2021-09-07] MEDS: lamoTRIgine 100 mg Tablet 200 MG PO ×2 (10:18→18:13)
[2021-09-07] MEDS: sertraline 100 mg Tablet PO (10:18)
[2021-09-07] MEDS: oxyCODONE-APAP 5-325 mg Tablet 1 TAB PO ×3 (10:18→21:52)
[2021-09-07] MEDS: D5-NS 0.45% + KCL 20 mEq 20 MEQ/1,000 ML BAG 75 MEQ IV ×2 (10:19→20:27)
[2021-09-07] MEDS: sodium chloride 0.9% 500 ML 999 ML IV (12:19)
--- NOTE | 2021-09-07 14:39 | ANE.PACU2 ---
Inpatient post-anesthesia follow up: Airway intact: Yes Vital signs: Temperature 97.8 F Pulse Rate 66 Respiratory Rate 18 Blood Pressure 100/56 Pulse Oximetry 95 Oxygen Delivery Me thod Nasal Cannula Oxygen Flow Rate 2 Fraction of Inspir ed Oxygen Hydration adequate: Yes Nausea and vomiting: No Pain level: 2 Mental status: Baseline
[2021-09-07] MEDS: ketorolac 30 mg/mL INJ 15 MG IVP ×2 (15:25→20:26)
[2021-09-07] MEDS: cyclobenzaprine 10 mg Tablet PO (15:26)
[2021-09-07] MEDS: pantoprazole 40 mg SDV IVP (16:47)
[2021-09-07] MEDS: mirtazapine 30 mg Tablet PO (20:26)
[2021-09-07] MEDS: CLONazepam 0.5 mg Tablet PO (20:35)
[2021-09-08] VITALS (9 sets, daily range): BP systolic 108–152; BP diastolic 57–87; PULSE 55–89; RESP 14–18; TEMP 36.6–36.9; O2SAT 94–97
[2021-09-08] MEDS: pantoprazole 40 mg SDV IVP (02:46)
[2021-09-08] MEDS: ketorolac 30 mg/mL INJ 15 MG IVP ×2 (02:46→09:05)
[2021-09-08] MEDS: morphine 4 mg/mL SDV 1 mL 3 MG IVP (02:47)
[2021-09-08] MEDS: oxyCODONE-APAP 5-325 mg Tablet 1 TAB PO ×2 (02:50→10:37)
--- NOTE | 2021-09-08 03:46 | PC.NURSE ---
Patient frequently asking for pain medications. Patient states, If I am asleep when it is time for my pain pill, wake me up.
[2021-09-08] MEDS: albuterol 8 gm MDI 2 PUFF INHALATION (06:19)
[2021-09-08] MEDS: sertraline 100 mg Tablet PO (09:04)
[2021-09-08] MEDS: CLONazepam 0.5 mg Tablet PO (09:04)
[2021-09-08] MEDS: cyclobenzaprine 10 mg Tablet PO (09:04)
[2021-09-08] MEDS: lamoTRIgine 100 mg Tablet 200 MG PO (09:04)
[2021-09-08] MEDS: sennosides-docusate Tablet 1 TAB PO (09:04)
[2021-09-08] MEDS: primidone 50 mg Tablet PO (09:05)
--- NOTE | 2021-09-11 08:33 | P.DS_ITS ---
Discharge Providers Date of Admission: 09/07/21 08:56 Date of Discharge: September 08, 2021 Attending Provider at Admission: Jose Angel Lackey MD Attending Provider at Discharge: Jose Angel Lackey MD Primary Care Provider: Helga Mancera DO Reason for Visit Reason for Visit: incisional hernia Brief History: This is 60-year-old female status post laparotomy for gastric perforation who subsequently developed a incisional hernia. Patient underwent elective laparoscopic incisional hernia repair with mesh Hospital Course Hospital Course Postoperatively patient was admitted overnight for pain control. Patient denies any significant abdominal pain, tolerating a soft diet, passing flatus. Her vital signs are stable and her incisions are clean dry and intact Discharge Data Studies Completed and Pending Pending at discharge Category Date Time Status ES surgery / GI images Routine Exams 09/07/21 06:38 Taken Vitals Last Vital Signs Temp 98.4 F 09/08/21 14:12 Pulse 89 09/08/21 14:12 Resp 18 09/08/21 14:12 BP 148/87 09/08/21 14:12 Pulse Ox 94 09/08/21 14:12 Discharge Plan Discharge Patient Disposition: Home Condition: Stable Prescriptions: New ondansetron HCl 4 mg tablet 4 mg PO Q8H 5 Days Qty: 15 0RF Percocet 5-325 mg tablet 1 tab PO Q6H PRN (Reason: pain) Qty: 20 0RF cyclobenzaprine 10 mg tablet 10 mg PO TID PRN (Reason: muscle spasm) Qty: 20 1RF Continued clonazepam 0.5 mg tablet 0.5 mg PO TID PRN (Reason: anxiety) Qty: 90 1RF Rx Instructions: Must last 30 days lamotrigine [Lamictal] 200 mg tablet 200 mg PO BID Qty: 60 1RF sertraline [Zoloft] 100 mg tablet 100 mg PO DAILY Qty: 30 1RF mirtazapine [Remeron] 30 mg tablet 30 mg PO BEDTIME Qty: 30 1RF primidone 50 mg tablet 50 mg PO BID Qty: 180 2RF lactulose 10 gram/15 mL solution See Rx Instructions .ROUTE .COMPLEX Qty: 473 1RF Dose Instruction: TAKE 15MLS PER J TUBE EVERY 12 HOURS Rx Instructions: TAKE 15MLS PER J TUBE EVERY 12 HOURS Enbrel SureClick 50 mg/mL (1 mL) pen injector 50 mg SUBCUT .Q7days Qty: 4 3RF pantoprazole 40 mg tablet,delayed release (DR/EC) See Rx Instructions .ROUTE .COMPLEX Qty: 180 0RF Dose Instruction: TAKE 1 TABLET BY MOUTH TWICE A DAY Rx Instructions: TAKE 1 TABLET BY MOUTH TWICE A DAY nitroglycerin 0.4 mg tablet, sublingual 0.4 mg sublingual Q5M PRN (Reason: chest pain) Qty: 30 0RF Rx Instructions: do not exceed 3 doses per episode albuterol sulfate [ProAir HFA] 90 mcg/actuation Hfa Aerosol Inhaler 2 puff INHALATION Q4H PRN (Reason: Shortness Of Breath) 0RF metoclopramide HCl [Reglan] 10 mg tablet 10 mg PO Q6H PRN (Reason: nausea and vomiting) Qty: 20 0RF valbenazine 80 mg Capsule 80 mg PO DAILY 0RF Discharge Orders: Discharge Order (Routine); Ordered 09/08/21 Ordered By: Jose Angel Lackey Referrals: Jose Angel Lackey MD [Physician] - 09/22/21 9:30 am Patient Instructions: Hydrocodone/Acetaminophen (By mouth), Cyclobenzaprine (By mouth), Ondansetron (By mouth) Activity Restrictions/Additional Instructions: Diet Advance to normal diet as tolerated, increase fluid intake as much as possible. Activity Avoid strenuous activity for 2 weeks but continue with daily activities including walking as tolerated. Do not lift more than 10 pounds for 2 weeks Return to work/school You can return to work/ school whenever you feel ready as long as you don?t have to lift more than 10 pounds at work. If you have paperwork that needs to be completed for time off from work, please contact my office Driving You can resume driving once you stop using narcotic pain medications, and transition to non-opioid pain medications like Tylenol, Motrin, Aleve, etc. Medications Pain Take opioid pain medications as prescribed and transition to non-opioid pain medications like Tylenol, Motrin, Aleve etc. over the next few days. The goal of the pain medications is to make the pain bearable and not to be pain free since you recently had surgery. Resume all home medications after surgery as per the medication reconciliation list Nausea Nausea is common after surgery, take nausea medications as needed and stay on a liquid bland diet until nausea resolves. Constipation The combination of surgery, anesthesia and pain medications can result in constipation. Take stool softeners as prescribed. If you do not have a bowel movement in 3 days, please take an [id number] laxative like MiraLAX to address the constipation. Shower It is ok to shower but avoid getting the wound wet for 48 hours after surgery. Do not soak in bathtub, swimming pool or hot tub for 2 weeks. Wound care If glue has been used on your incisions after surgery, the glue on the incision will peel slowly over the next two weeks. The stitches used are dissolvable and will not need to be removed. Do not apply antibiotics or other medications on the incision Problems with the wound: you can develop some redness around the incision from bruising after surgery. If there is increasing pain, redness, tenderness around the incision with or without drainage, please contact my office to rule out an infection. Sometimes the skin at the incisions can separate, resulting in reopening of the wound. Cover the wound with antibiotic cream and sterile dressings and contact my office. Contact physician Call the office at [phone] during office hours or go the Emergency Room ?Fever to 100.4 or greater ?Shaking chills ?Pain that increases over time ?Redness, warmth, or pus draining from incision sites ?Persistent nausea or inability to take in liquids Discharge Attestations Time Spent in Discharge Care*: less than 30 min Status at Discharge: Cognitive status at discharge: cognitively intact , Behavioral status at discharge: cooperative , Quality Metrics Clinical Quality Measures [ No reported AMI, CVA or VTE this stay] Coding Level of Care Code Acute Abida LEXIE MCCRARY note
== END 2021-09-08 14:13 | disposition home or self-care (01) ==
LOC: MEDSURG 08:59
PROVIDERS: Admitting Provider Surgery; PCP Family Medicine; Visit Provider Surgery
PROC: 0WQF4ZZ Repair Abdominal Wall, Percutaneous Endoscopic Approach (ICD-10-PCS; CPT 49655; principal; 2021-09-07 07:00)
DX: K43.0 Incisional hernia with obstruction, without gangrene (principal); Z98.84 Bariatric surgery status; Z98.890 Other specified postprocedural states; J44.9 Chronic obstructive pulmonary disease, unspecified; I10 Essential (primary) hypertension; Z86.19 Personal history of other infectious and parasitic diseases; M06.9 Rheumatoid arthritis, unspecified; F17.210 Nicotine dependence, cigarettes, uncomplicated
CPT/HCPCS: 49655; 94640; 94664; C1781; C9113; C9290; G0378; J0330; J0690; J1100; J1885; J2001; J2175; J2250; J2270; J2370; J2405; J2704; J3010; J3490; J3535; J7030; J7040

== ENCOUNTER → 2021-09-22 09:28 | Outpatient (BNVA) | payer MEDICARE, SELFPAY | PROVIDERS: PCP Family Medicine; Visit Provider Surgery | DX: Z98.890 Other specified postprocedural states (principal); Z87.19 Personal history of other diseases of the digestive system ==

== ENCOUNTER → 2021-10-06 09:30 | Outpatient (BNVA) | payer MEDICARE, SELFPAY | PROVIDERS: PCP Family Medicine; Visit Provider Specialist | DX: G56.12 Other lesions of median nerve, left upper limb (principal); M06.09 Rheumatoid arthritis without rheumatoid factor, multiple sites | CPT/HCPCS: 95908; 95909 ==

== ENCOUNTER → 2021-10-16 10:38 | Outpatient (BNVA) | payer MEDICARE, SELFPAY | PROVIDERS: PCP Family Medicine; Visit Provider Nurse Practitioner | DX: F43.12 Post-traumatic stress disorder, chronic (principal); F33.1 Major depressive disorder, recurrent, moderate; F41.1 Generalized anxiety disorder; F12.20 Cannabis dependence, uncomplicated | CPT/HCPCS: 99214 ==

== ENCOUNTER → 2021-10-20 08:15 | Outpatient (BNVA) | payer MEDICARE, SELFPAY | PROVIDERS: PCP Family Medicine; Visit Provider Surgery | DX: Z98.890 Other specified postprocedural states (principal); Z87.19 Personal history of other diseases of the digestive system | CPT/HCPCS: 99024 ==

== ENCOUNTER → 2021-11-26 09:47 | Outpatient (BNVA) | payer MEDICARE, SELFPAY | PROVIDERS: PCP Family Medicine; Visit Provider Internal Medicine Rheumatology | DX: M06.09 Rheumatoid arthritis without rheumatoid factor, multiple sites (principal); M06.322 Rheumatoid nodule, left elbow; Z79.899 Other long term (current) drug therapy; I73.00 Raynaud's syndrome without gangrene; F95.9 Tic disorder, unspecified; Z71.85 Encounter for immunization safety counseling; Z98.84 Bariatric surgery status | CPT/HCPCS: 99214 ==

== ENCOUNTER 2021-12-29 12:59 | Emergency (ER) | payer MEDICARE, SELFPAY ==
[2021-12-29] VITALS (7 sets, daily range): BP systolic 111–124; BP diastolic 44–71; PULSE 62–87; RESP 16–17; TEMP 36.6; O2SAT 95–100
[2021-12-29 15:08] LABS: Basophils # 0.1 10^3/uL (0.0-0.1); Basophils % 0.6 %; Eosinophils # 0.1 10^3/uL (0.0-0.8); Eosinophils % 0.8 %; Hematocrit 46.6 % (37.0-47.0); Hemoglobin 14.4 g/dL (11.5-15.3); Lymphocytes # 3.4 10^3/uL (0.8-4.8); Lymphocytes % 43.5 %; Mean Corpuscular HGB Conc 30.9 g/dL (30.0-36.0); Mean Corpuscular Hemoglobin 29.7 pg (28.0-34.0); Mean Corpuscular Volume 96.1 fl (81-99); Mean Platelet Volume 10.8 fL (7.4-10.4); Monocytes # 0.5 10^3/uL (0.2-0.9); Monocytes % 6.7 %; Neutrophils # 3.75 10^3/uL (1.8-7.7); Neutrophils % 48.3 %; Nucleated Red Blood Cells % 0 %; Platelet Count 256 10^3/cmm (130-400); Red Blood Count 4.85 10^6/uL (4.1-5.3); Red Cell Distribution Width 14.6 % (12.1-15.1); White Blood Count 7.8 10^3/uL (4.0-10.0)
[2021-12-29 15:36] LABS: Alanine Aminotransferase 18 U/L (0-33); Albumin Level 4.2 g/dL (3.5-5.2); Alkaline Phosphatase 129 U/L (35-105); Aspartate Amino Transferase 22 U/L (0-32); Blood Urea Nitrogen 11 mg/dL (8-23); Calcium 9.1 mg/dL (8.5-10.5); Carbon Dioxide 22 mmol/L (22-29); Chloride 103 mmol/L (98-107); Globulin 2.9 g/dL (1.3-4.6); Glomerular Filtration Rate 85.1 mL/min (90-130); Glucose 61 mg/dL (65-115); Lipase 57 U/L (13-60); Osmolality Calculated 285 mOsm/kg (285-295); Sodium 139 mmol/L (136-145); Total Bilirubin 0.3 mg/dL (0.15-1.2); Total Protein 7.1 g/dL (6.6-8.7)
--- NOTE | 2021-12-29 16:58 | ED_ITS ---
HPI - General Adult General: Chief complaint: Abdominal Pain Stated complaint: abd pain Time Seen by Provider: 12/29/21 16:57 History of Present Illness: Patient is a 61-year-old female with a history of previous ex lap, pancreatitis, incisional hernia repair presenting to the emergency room for evaluation of right-sided abdominal pain diarrhea. Patient tells me that yesterday night she began experiencing significant right lower quadrant abdominal pain. Patient describes pain as intermittent colicky and occasionally intense does not worse with p.o. intake. Since then, patient has had multiple episodes of watery stool. Patient denies any recent antibiotic use or recent travel. Patient reports 10 episode of watery stools today without any associated hematochezia or melena. Patient denies any nausea/vomiting, fever/chills, hematuria, polyuria or dysuria. Patient reports history of kidney stone but denies that this feels similar. Patient denies any cough, runny nose sore throat, chest pain, shortness breath or palpitation. Because of the significance of pain, patient decided to come to the emergency room for the evaluation. Patient denies any complaints or new vaginal discharge or bleeding. Onset: Yesterday night Duration: ongoing Location:home Severity:moderate Associated symptoms: Deny chest pain, dyspnea, nausea, rash, palpitations or vomiting Review of Systems Const: Denies: fever(s) or chills Eyes: Denies: change in vision ENMT: Denies: mouth pain Card: Denies: chest pain or palpitations Resp: Denies: dyspnea or non-productive cough GI: Reports: abdominal pain (+RLQ abd pain) and diarrhea (+10 episodes of diarrhea today); Denies: nausea or vomiting : Denies: dysuria Musc: Denies: extremity pain Skin/Breast: Denies: rash or new lesions Neuro: Denies: weakness in extremities Psych: Reports: other (Normal mood) Eusebio/Lymph: Denies: easy bruising PFSH ED PFSH: Medical History Acute pancreatitis Cannabis dependence, uncomplicated Costochondritis Facial tic Gastritis Gastroenteritis Generalized anxiety disorder Major depressive disorder, recurrent, moderate Post-traumatic stress disorder, chronic Psychiatric care Psychosis Raynaud's disease without gangrene Rheumatoid arthritis without rheumatoid factor, multiple sites SAH (subarachnoid hemorrhage) Schizoaffective disorder Stammering improved Tardive dyskinesia Ureterolithiasis Surgical History H/O esophagogastroduodenoscopy (01/29/21) History of bilateral knee replacement History of cholecystectomy History of hand surgery History of incisional hernia repair (09/07/21) History of renal stent History of umbilical hernia repair Hx of gastric bypass S/P exploratory laparotomy (~04/12/21) With repair of perforation at the gastrojejunal anastomosis and placement of jejunostomy tube Status post colonoscopy (01/29/21) Family History Mother , at age 74 Cancer colorectal Father No problems noted. Denies family history of Rheumatoid arthritis Social History Smoking and tobacco status: current every day smoker cigarettes Packs smoked per day: 1.5 Smoking risk assessment/counseling performed?: Yes Tobacco counseling given: counseling >3 minutes Alcohol intake: former Former alcohol use details: quit drinking 2 months ago....beer Marital status: Single Current occupational status: disabled History of recent travel: No Physical Exam Const: COMMON NORMALS: alert HENMT: COMMON NORMALS: atraumatic HEAD & SCALP: atraumatic MOUTH: moist mucous membranes abnormal Eye: COMMON NORMALS: EOMs intact bilaterally and conjunctivae normal CONJUNCTIVA: Yes conjunctivae normal Neck/C-Spine: COMMON NORMALS: full ROM and supple Resp: COMMON NORMALS: normal respiratory effort and clear to auscultation bilaterally AUSCULTATION: clear to auscultation bilaterally Cardio: COMMON NORMALS: regular rate RATE: regular rate GI: COMMON NORMALS: Soft to palpation PALPATION: Yes Soft to palpation OTHER: +moderate RLQ focal TTP. NO guarding rebound, guarding, rigidity. No CVA tenderness to percussion. Neg Sadler/Neg McBurney's point tenderness, no suprabupic tenderness to palpation. Extremity: COMMON NORMALS: full ROM Neuro: SENSORIUM/ORIENTATION: Yes alert MOTOR EXAM: No Abnormal motor strength present and Other motor observations present (no focal motor deficits) Psych: COMMON NORMALS: speech normal SPEECH: Yes normal speech MOOD & AFFECT: Yes euthymic mood Course Vital Signs: Vital signs: Vital Signs Temperature 97.8 F 12/29/21 13:05 Pulse Rate 71 12/29/21 21:00 Respiratory Rate 16 12/29/21 21:00 Blood Pressure 114/44 12/29/21 21:00 Pulse Oximetry 98 12/29/21 21:00 Oxygen Delivery Me thod 12/29/21 20:54 MDM - General Adult Medical Decision Making 61-year-old female history incisional hernia repair and prior ex lap for perforated bowel presenting to the emergency room for evaluation of cute onset of RLQ abdominal pain in setting of watery diarrhea x10 episode. On exam, patient appears to be dry and has moderate RLQ tenderness palpation without any guarding or rebound tenderness. Patient is hemodynamically stable. Count 7.8. Glucose of 61. Patient received p.o. and IVF in the emergency room with repeat improvement in glucose. Rest of labs within normal limit. CT ab pelvis did not show any focal findings. At the present time, patient no longer complaining of abdominal pain. Patient is hemodynamically stable. No suspicion for other acute intra-abdominal pathology including SBO, biliary pathology, appendicitis, diverticulitis, or other emergent condition requiring surgery. Rx tylenol PRN abd pain, maalox/pepcid PRN dyspepsia Disposition: Discharge. Patient counseled regarding diagnostic impression, treatment plan. Patient given ED strict return precautions to return for continuation, worsening, or development of new symptoms. Instructed to f/u w/ PCP regarding symptoms today. Patient verbalized understanding. Lab Data : 12/29/21 14:58 12/29/21 14:58 Radiology Impressions Abdomen/Pelvis CT 12/29/21 17:26 IMPRESSION: Mild biliary ductal dilatation, likely post cholecystectomy ectasia. Stable postoperative changes. Laboratory Results WBC 7.8 10^3/uL (4.0-10.0) 12/29/21 14:58 RBC 4.85 10^6/uL (4.1-5.3) 12/29/21 14:58 Hgb 14.4 g/dL (11.5-15.3) 12/29/21 14:58 Hct 46.6 % (37.0-47.0) 12/29/21 14:58 MCV 96.1 fl (81-99) 12/29/21 14:58 MCH 29.7 pg (28.0-34.0) 12/29/21 14:58 MCHC 30.9 g/dL (30.0-36.0) 12/29/21 14:58 RDW 14.6 % (12.1-15.1) 12/29/21 14:58 Plt Count 256 10^3/cmm (130-400) 12/29/21 14:58 MPV 10.8 fL (7.4-10.4) H 12/29/21 14:58 Neut % (Auto) 48.3 % 12/29/21 14:58 Lymph % (Auto) 43.5 % 12/29/21 14:58 Sibley % (Auto) 6.7 % 12/29/21 14:58 Eos % (Auto) 0.8 % 12/29/21 14:58 Baso % (Auto) 0.6 % 12/29/21 14:58 Neut # (Auto) 3.75 10^3/uL (1.8-7.7) 12/29/21 14:58 Lymph # (Auto) 3.4 10^3/uL (0.8-4.8) 12/29/21 14:58 Sibley # (Auto) 0.5 10^3/uL (0.2-0.9) 12/29/21 14:58 Eos # (Auto) 0.1 10^3/uL (0.0-0.8) 12/29/21 14:58 Baso # (Auto) 0.1 10^3/uL (0.0-0.1) 12/29/21 14:58 Nucleated RBC % (auto) 0 % 12/29/21 14:58 Nucleated RBCs # 0.0 /100WBC 12/29/21 14:58 Sodium 139 mmol/L (136-145) 12/29/21 14:58 Potassium 4.0 mmol/L (3.5-5.1) 12/29/21 14:58 Chloride 103 mmol/L (98-107) 12/29/21 14:58 Carbon Dioxide 22 mmol/L (22-29) 12/29/21 14:58 Anion Gap 18.0 (5-19) 12/29/21 14:58 BUN 11 mg/dL (8-23) 12/29/21 14:58 Creatinine 0.7 mg/dL (0.5-0.9) 12/29/21 14:58 GFR Calculation 85.1 mL/min (90-130) L 12/29/21 14:58 Glucose 61 mg/dL (65-115) L 12/29/21 14:58 POC Glucose 79 mg/dL (70-110) 12/29/21 20:52 Calculated Osmolality 285 mOsm/kg (285-295) 12/29/21 14:58 Lactic Acid 2.0 mmol/L (0.5-2.2) 12/29/21 14:58 Calcium 9.1 mg/dL (8.5-10.5) 12/29/21 14:58 Total Bilirubin 0.3 mg/dL (0.15-1.2) 12/29/21 14:58 AST 22 U/L (0-32) 12/29/21 14:58 ALT 18 U/L (0-33) 12/29/21 14:58 Alkaline Phosphatase 129 U/L (35-105) H 12/29/21 14:58 Total Protein 7.1 g/dL (6.6-8.7) 12/29/21 14:58 Albumin 4.2 g/dL (3.5-5.2) 12/29/21 14:58 Globulin 2.9 g/dL (1.3-4.6) 12/29/21 14:58 Lipase 57 U/L (13-60) 12/29/21 14:58 Urine Color Colorless (Yellow) 12/29/21 20:30 Urine Appearance Clear (CLEAR) 12/29/21 20:30 Urine pH 6.5 (5-7) 12/29/21 20:30 Ur Specific [place] 1.005 (1.005-1.030) 12/29/21 20:30 Urine Protein Neg (Negative) 12/29/21 20:30 Urine Glucose (UA) Norm (Normal) 12/29/21 20:30 Urine Ketones Negative (Negative) 12/29/21 20:30 Urine Blood Neg (Negative) 12/29/21 20:30 Urine Nitrate Negative (Negative) 12/29/21 20:30 Urine Bilirubin Neg (Negative) 12/29/21 20:30 Urine Urobilinogen Norm mg/dL (Negative) 12/29/21 20:30 Ur Leukocyte Esterase Negative (Negative) 12/29/21 20:30 Imaging Data Other Imaging: Radiologist's impression: [id number] [place] [address] CT Scan Report Signed Patient: Nunu Marroquin Unit #: [id number] : 1960 Age/Sex: 61 / F ADM Date: 12/29/21 Loc: ER Room/Bed: Attending Dr: Ordering Provider/Ordering MD: Jolie Cool MD Date of Service: 12/29/21 Procedure(s): CT abdomen pelvis w con* [id number] Accession Number(s): [id number] Report Number: [id number] PROCEDURE INFORMATION: Exam: CT Abdomen And Pelvis With Contrast Exam date and time: 12/29/2021 7:11 PM Age: 61 years old Clinical indication: Abdominal pain; Prior surgery; Surgery date: 6+ months; Surgery type: Abd pain, pancreatitis, gastric surgery, 2 hernias, perforated bowel; Additional info: Yennifer adame TECHNIQUE: Imaging protocol: Computed tomography of the abdomen and pelvis with contrast. Radiation optimization: All CT scans at this facility use at least one of these dose optimization techniques: automated exposure control; mA and/or kV adjustment per patient size (includes targeted exams where dose is matched to clinical indication); or iterative reconstruction. Contrast material: OMNIPAQUE 350; Contrast volume: 80 ml; Contrast route: INTRAVENOUS (IV);? COMPARISON: CT abdomen pelvis w con* [id number] 06/18/2021 8:57 PM RADIATION DOSE METRICS: Total DLP (mGy-cm): 346.52 FINDINGS: Liver: Normal. No mass. Gallbladder and bile ducts: Cholecystectomy clips. There is mild intrahepatic biliary ductal dilatation. Common bile duct measures 9 mm representing post cholecystectomy ductal ectasia. Pancreas: Normal. No ductal dilation. Spleen: Normal. No splenomegaly. Adrenal glands: Normal. No mass. Kidneys and ureters: Normal. No hydronephrosis. Stomach and bowel: Status post gastric bypass surgery. Appendix: No evidence of appendicitis. Intraperitoneal space: Small amount of free fluid in the abdomen and pelvis. Vasculature: Atherosclerotic calcification of the abdominal aorta and bilateral iliac vessels. Lymph nodes: Unremarkable. No enlarged lymph nodes. Urinary bladder: Unremarkable as visualized. Reproductive: Unremarkable as visualized. Bones/joints: Unremarkable. No acute fracture. Soft tissues: Unremarkable. CT/CT abdomen pelvis w con* [id number] IMPRESSION: Mild biliary ductal dilatation, likely post cholecystectomy ectasia.? Stable postoperative changes. ? Dictated By: Abdulkadir Malone MD Signed By: Abdulkadir Malone MD Signed Date/Time: 12/29/212009 DD/ 10 Discharge Plan Discharge Patient Disposition: Home Clinical Impression: Abdominal pain, Diarrhea Condition: Stable Prescriptions: New Pepcid 20 mg tablet 20 mg PO BID PRN (Reason: abdominal pain) 10 Days Qty: 20 0RF Maalox Advanced 1,000-60 mg tablet,chewable 1 tab PO TID PRN (Reason: abdominal pain) 7 Days Qty: 21 0RF acetaminophen 500 mg tablet 500 mg PO Q6H PRN (Reason: pain) 5 Days Qty: 20 0RF No Action Enbrel SureClick 50 mg/mL (1 mL) pen injector 50 mg SUBCUT .Q7days Qty: 4 3RF Rx Instructions: ON TUESDAY lamotrigine [Lamictal] 200 mg tablet 200 mg PO BID Qty: 60 2RF clonazepam 0.5 mg tablet 0.5 mg PO TID PRN (Reason: anxiety) Qty: 90 2RF Rx Instructions: Must last 30 days mirtazapine [Remeron] 30 mg tablet 30 mg PO BEDTIME Qty: 30 2RF sertraline [Zoloft] 100 mg tablet 100 mg PO DAILY Qty: 30 2RF primidone 50 mg tablet 50 mg PO BID Qty: 180 2RF valbenazine 80 mg capsule 80 mg PO DAILY Qty: 30 2RF nitroglycerin 0.4 mg tablet, sublingual 0.4 mg sublingual Q5M PRN (Reason: chest pain) Qty: 30 0RF Rx Instructions: do not exceed 3 doses per episode albuterol sulfate [ProAir HFA] 90 mcg/actuation Hfa Aerosol Inhaler 2 puff INHALATION Q4H PRN (Reason: Shortness Of Breath) pantoprazole 40 mg tablet,delayed release (DR/EC) 40 mg PO BID Discharge Orders: Discharge ED (Routine); Ordered 12/29/21 Ordered By: Jolie Cool Referrals: Helga Mancera DO [Primary Care Provider] - Discharge Diet: Advance as tolerated Discharge Activity: Increase activity as tolerated Patient Instructions: Abdominal Pain (ED) Activity Restrictions/Additional Instructions: Please come back if you have any worsening abdominal pain, fever or chills, nausea or vomiting, diarrhea, blood in the stool, inability hold down liquid or solids, or any new concerning complaints. Coding Level of Care Code ED Public Information Coordinator for Chg Fwd Exam Comprehensive
--- NOTE | 2021-12-29 17:26 | CTR_ITS ---
PROCEDURE INFORMATION: Exam: CT Abdomen And Pelvis With Contrast Exam date and time: 12/29/2021 7:11 PM Age: 61 years old Clinical indication: Abdominal pain; Prior surgery; Surgery date: 6+ months; Surgery type: Abd pain, pancreatitis, gastric surgery, 2 hernias, perforated bowel; Additional info: Abd pian TECHNIQUE: Imaging protocol: Computed tomography of the abdomen and pelvis with contrast. Radiation optimization: All CT scans at this facility use at least one of these dose optimization techniques: automated exposure control; mA and/or kV adjustment per patient size (includes targeted exams where dose is matched to clinical indication); or iterative reconstruction. Contrast material: OMNIPAQUE 350; Contrast volume: 80 ml; Contrast route: INTRAVENOUS (IV); COMPARISON: CT abdomen pelvis w con* [id number] 06/18/2021 8:57 PM RADIATION DOSE METRICS: Total DLP (mGy-cm): 346.52 FINDINGS: Liver: Normal. No mass. Gallbladder and bile ducts: Cholecystectomy clips. There is mild intrahepatic biliary ductal dilatation. Common bile duct measures 9 mm representing post cholecystectomy ductal ectasia. Pancreas: Normal. No ductal dilation. Spleen: Normal. No splenomegaly. Adrenal glands: Normal. No mass. Kidneys and ureters: Normal. No hydronephrosis. Stomach and bowel: Status post gastric bypass surgery. Appendix: No evidence of appendicitis. Intraperitoneal space: Small amount of free fluid in the abdomen and pelvis. Vasculature: Atherosclerotic calcification of the abdominal aorta and bilateral iliac vessels. Lymph nodes: Unremarkable. No enlarged lymph nodes. Urinary bladder: Unremarkable as visualized. Reproductive: Unremarkable as visualized. Bones/joints: Unremarkable. No acute fracture. Soft tissues: Unremarkable. CT/CT abdomen pelvis w con* [id number] IMPRESSION: Mild biliary ductal dilatation, likely post cholecystectomy ectasia. Stable postoperative changes.
[2021-12-29] MEDS: morphine 4 mg/mL SDV 1 mL IVP (17:49)
[2021-12-29] MEDS: sodium chloride 0.9% 1,000 ML 999 ML IV (17:56)
[2021-12-29] MEDS: iohexol 350 mg/mL 100 mL Btl IV (19:18)
[2021-12-29] MEDS: oxyCODONE-APAP 5-325 mg Tablet 1 TAB PO (20:34)
[2021-12-29 20:47] LABS: Add Urine Microscopic? NO; Charge for UA Resulting for Rev
[2021-12-29 20:55] LABS: Glucose Point of Care 79 mg/dL (70-110)
[2021-12-29 21:11] LABS: Bilirubin Urine Neg (Negative); Blood Urine Neg (Negative); Glucose Urine UA Norm (Normal); Ketones Urine Negative (Negative); Leukocyte Esterase Urine Negative (Negative); Nitrate Urine Negative (Negative); Protein Urine Neg (Negative); Specific Gravity, Urine 1.005 (1.005-1.030); Urine Appearance Clear (CLEAR); Urine Color Colorless (Yellow); Urobilinogen Urine Norm (Negative); pH Urine 6.5 (5-7)
== END 2021-12-29 21:29 | disposition home or self-care (01) ==
PROVIDERS: Physician Assistant; Emergency Provider Emergency Medicine; PCP Family Medicine
DX: R10.9 Unspecified abdominal pain (principal); R19.7 Diarrhea, unspecified; F17.210 Nicotine dependence, cigarettes, uncomplicated
CPT/HCPCS: 36415; 36416; 74177; 80053; 81003; 82962; 83605; 83690; 85025; 96361; 96374; 99285; J2270; J7030; Q9967

== ENCOUNTER → 2022-01-19 09:19 | Outpatient (BNVA) | payer MEDICARE, SELFPAY | PROVIDERS: PCP Family Medicine; Visit Provider Specialist | DX: G25.0 Essential tremor (principal); G24.8 Other dystonia; G25.3 Myoclonus; G56.12 Other lesions of median nerve, left upper limb; M67.432 Ganglion, left wrist | CPT/HCPCS: 99213 ==

== ENCOUNTER 2022-03-05 10:52 | Outpatient (CLI) | payer MEDICARE, SELFPAY ==
--- NOTE | 2022-03-05 11:04 | MM_ITS ---
WS: [id number] BILATERAL SCREENING DIGITAL TOMOSYNTHESIS MAMMOGRAM WITH CAD HISTORY: SCREENING COMPARISON: 03/02/2021 and 01/18/2020 Bilateral CC and MLO views with tomosynthesis and synthetic mammography submitted. Computer aided det ection analyzed. Breast composition: The breasts are heterogeneously dense, which may obscure small masses. No suspici ous masses, microcalcifications or architectural distortion. Benign scattered calcifications. MM/[place] [id number] IMPRESSION: BI-RADS: 2-Benign FOLLOW UP: 1 Year Follow-up
== END 2022-03-05 10:53 | disposition home or self-care (01) ==
LOC: RAD 10:53
PROVIDERS: PCP Family Medicine; Visit Provider Family Medicine
DX: Z12.31 Encounter for screening mammogram for malignant neoplasm of breast (principal)
CPT/HCPCS: 77063; 77067

== ENCOUNTER → 2022-03-09 10:09 | Outpatient (BNVA) | payer MEDICARE, SELFPAY | PROVIDERS: PCP Family Medicine; Visit Provider Internal Medicine Rheumatology | DX: M06.09 Rheumatoid arthritis without rheumatoid factor, multiple sites (principal); Z71.85 Encounter for immunization safety counseling; Z79.899 Other long term (current) drug therapy; Z98.84 Bariatric surgery status; Z86.19 Personal history of other infectious and parasitic diseases; Z86.79 Personal history of other diseases of the circulatory system | CPT/HCPCS: 99214 ==

== ENCOUNTER → 2022-03-23 12:51 | Outpatient (BNVA) | payer MEDICARE, SELFPAY | PROVIDERS: PCP Family Medicine; Visit Provider Surgery | DX: K46.9 Unspecified abdominal hernia without obstruction or gangrene (principal); R10.13 Epigastric pain | CPT/HCPCS: 99213 ==

== ENCOUNTER 2022-03-30 12:52 | Outpatient (CLI) | payer MEDICARE, SELFPAY ==
[2022-03-30 13:19] LABS: Basophils % 0.4 %; Eosinophils % 0.4 %; Hemoglobin 13.9 g/dL (11.5-15.3); Lymphocytes # 2.8 10^3/uL (0.8-4.8); Lymphocytes % 35.7 %; Mean Corpuscular HGB Conc 32.3 g/dL (30.0-36.0); Mean Corpuscular Hemoglobin 30.7 pg (28.0-34.0); Mean Corpuscular Volume 94.9 fl (81-99); Mean Platelet Volume 9.8 fL (7.4-10.4); Monocytes # 0.7 10^3/uL (0.2-0.9); Monocytes % 8.9 %; Neutrophils # 4.32 10^3/uL (1.8-7.7); Neutrophils % 54.2 %; Nucleated Red Blood Cells % 0 %; Platelet Count 311 10^3/cmm (130-400); Red Blood Count 4.53 10^6/uL (4.1-5.3); Red Cell Distribution Width 13.7 % (12.1-15.1)
[2022-03-30 13:30] VITALS: BP 138/80; PULSE 65; RESP 18; TEMP 36.7; O2SAT 97
[2022-03-30 13:35] LABS: Alanine Aminotransferase 16 U/L (0-33); Albumin Level 3.8 g/dL (3.5-5.2); Alkaline Phosphatase 83 U/L (35-105); Aspartate Amino Transferase 23 U/L (0-32); Globulin 2.8 g/dL (1.3-4.6); Glomerular Filtration Rate 101.6 mL/min (90-130); Total Bilirubin 0.2 mg/dL (0.15-1.2); Total Protein 6.6 g/dL (6.6-8.7)
[2022-03-30] MEDS: sodium chloride 0.9% 250 ML 50 ML IV (13:39)
[2022-03-30 13:40] LABS: Erythrocyte Sedimentation Rate 3 mm/hr (0-15)
[2022-03-30] MEDS: acetaminophen 325 mg Tablet 650 MG PO (13:41)
[2022-03-30] MEDS: diphenhydrAMINE 50 mg/mL SDV 1mL 25 MG IVP (13:42)
[2022-03-30 14:39] VITALS: BP 117/65; PULSE 59; RESP 18; TEMP 36.6; O2SAT 95
== END 2022-03-30 12:53 | disposition home or self-care (01) ==
LOC: ONCMED 12:53
PROVIDERS: PCP Family Medicine; Visit Provider Internal Medicine Rheumatology
DX: M06.09 Rheumatoid arthritis without rheumatoid factor, multiple sites
CPT/HCPCS: 80076; 82565; 85025; 85651; 96365; 96375; A4222; J0129; J1200; J7050

== ENCOUNTER 2022-04-07 07:26 | Day surgery (SDC) | payer MEDICARE, SELFPAY ==
[2022-04-05 08:45] VITALS: BMI 19.9
[2022-04-07 07:41] VITALS: BP 92/70; PULSE 84; RESP 18; TEMP 36.6; O2SAT 93
[2022-04-07] MEDS: sodium chloride 0.9% 1,000 ML 30 ML IV (07:49)
--- NOTE | 2022-04-07 08:09 | ANES.PREANE2 ---
Pre-Anesthetic Assessment Height/Weight: Height 1.63 m Weight 52.617 kg Temp Pulse Resp BP Pulse Ox O2 Del Method 97.9 F 84 18 92/70 93 04/07/22 07:41 04/07/22 07:41 04/07/22 07:41 04/07/22 07:41 04/07/22 07:41 04/07/22 07:41 Preop Diagnosis: Incisional hernia Operation Date: 04/07/22 08:45 Proposed Procedures p EGD 14632,K46.9(Not Applicable) - Dru Metcalf, DO Was Beta Lucinda taken within 24 hours: N/A Was Clonidine taken within 24 hours: N/A Last intake: Intake Last Liquid Date 04/06/22 Last Liquid Time 20:00 Last Solid Date 04/06/22 Last Solid Time 20:00 Social Tobacco and No alcohol 1 pack(s) per day last cig last night 1999. every day marijuana usage Exam alert, oriented x 3, clear to auscultation bilaterally and regular rate & rhythm Airway Submandibular: within normal limits Cervical ROM: within normal limits Mallampati: Class I Comments: Comments: dentures removed History/ROS No significant history except as noted Pulmonary Chronic Obstructive Pulmonary Disease rare inhaler usage CV/HEM pt reports nitro usage for bradycardia None reported Hepatic None reported GI Gastroesophageal Reflux Disease gastric bypass 15 years ago. 200 lbs weight loss. Metabolic None reported Musc/skel Fibromyalgia Neuropsych Anxiety and Depression Anesthetic Plan ASA status: 2 Anesthesia: Anesthesia Evaluation and MAC Risk of > 500 ml blood loss (7ml/kg in children): Yes, adequate IV access and fluids planned Medications/Allergies Home Medications Medication Instructions Recorded Confirmed Last Taken Type nitroglycerin 0.4 mg sublingual 0.4 mg sublingual Q5M PRN chest 06/10/20 04/07/22 01/28/21 Rx tablet pain #30 tabs albuterol sulfate 90 mcg/actuation 2 puff inhalation Q4H PRN 12/24/20 04/07/22 09/07/21 05:30 History aerosol inhaler (ProAir HFA) Shortness Of Breath primidone 50 mg tablet 50 mg PO BID #180 tabs 01/19/22 04/07/22 04/07/22 Rx hydrocodone 5 mg-acetaminophen 325 1 tab PO Q8H PRN pain 7 days #20 10/04/07/22 04/06/22 Rx mg tablet tabs pantoprazole 40 mg tablet,delayed 40 mg PO BID #90 tabs 03/15/22 04/07/22 04/07/22 Rx release lamotrigine 200 mg tablet 200 mg PO BID #60 tabs 03/26/22 04/07/22 04/07/22 Rx (Lamictal) mirtazapine 45 mg tablet 45 mg PO .HS #30 tabs 03/26/22 04/07/22 04/06/22 Rx sertraline 100 mg tablet (Zoloft) 100 mg PO DAILY #30 tabs 03/26/22 04/07/22 04/07/22 Rx valbenazine 80 mg capsule 80 mg PO DAILY #30 caps 03/26/22 04/07/22 04/06/22 Rx Allergies Allergy/AdvReac Type Severity Reaction Status Date / Time hydroxyzine [From Vistaril] Allergy Unknown Verified 04/07/22 07:38 lithium Allergy makes me Verified 04/07/22 07:38 mean Sulfa (Sulfonamide Allergy Unknown Verified 04/07/22 07:38 Antibiotics) sulfamethizole Allergy Unknown Verified 04/07/22 07:38 codiene Allergy Intermediate ADR-Diarrhe Uncoded 04/07/22 07:38 a Current Medications Generic Name Dose Route Start Last Admin Trade Name Freq PRN Reason Stop Dose Admin Sodium Chloride 1,000 mls @ 30 mls/hr 04/07/22 07:30 04/07/22 07:49 Sodium Chloride 0.9% IV 04/08/22 07:29 30 mls/hr .Q24H JUDY Administration PFSH Anesthesia Medical History (Updated 03/26/22 @ 11:42 by Sary Washburn, PMHNP) Acute pancreatitis Costochondritis Detrusor dysfunction Facial tic Gastritis Gastroenteritis Generalized anxiety disorder Major depressive disorder, recurrent, moderate Post-traumatic stress disorder, chronic Psychiatric care Psychosis Raynaud's disease without gangrene Rheumatoid arthritis without rheumatoid factor, multiple sites SAH (subarachnoid hemorrhage) Schizoaffective disorder Stammering improved Tardive dyskinesia Ureterolithiasis Urolithiasis Surgical History H/O esophagogastroduodenoscopy (01/29/21) History of bilateral knee replacement History of cholecystectomy History of hand surgery History of incisional hernia repair (09/07/21) History of renal stent History of umbilical hernia repair Hx of gastric bypass Hx of lithotripsy S/P exploratory laparotomy (~04/12/21) With repair of perforation at the gastrojejunal anastomosis and placement of jejunostomy tube Status post colonoscopy (01/29/21) Family History Mother , at age 74 Cancer colorectal Father No problems noted. Denies family history of Rheumatoid arthritis Social History Smoking and tobacco status: current every day smoker cigarettes Packs smoked per day: 1.5 Smoking risk assessment/counseling performed?: Yes Tobacco counseling given: counseling >3 minutes Alcohol intake: former Former alcohol use details: quit drinking 2 months ago....beer Marital status: Single Current occupational status: disabled History of recent travel: No Data Anesthesia Cardiac Studies: Sestamibi Stress Test (Cardiology) 07/07/20
--- NOTE | 2022-04-07 08:56 | W.PM.OPSUD ---
Surgery/Procedure H&P Update DATE OF PROCEDURE: April 07, 2022 DATE H&P PERFORMED: 03/23/22 PREOP DIAGNOSIS: Epigastric pain PLANNED PROCEDURE: Operation Date: 04/07/22 08:45 Proposed Procedures p EGD 97384,K46.9(Not Applicable) - Dru Metcalf DO
[2022-04-07 09:18] VITALS: BP 89/53; PULSE 69; RESP 16; TEMP 36.7; O2SAT 94
[2022-04-07 09:26] VITALS: BP 84/56; PULSE 68; RESP 18; O2SAT 98
--- NOTE | 2022-04-07 14:30 | ANE.PACU2 ---
Inpatient post-anesthesia follow up: Airway intact: Yes Vital signs: Temperature 98.1 F Pulse Rate 68 Respiratory Rate 18 Blood Pressure 84/56 Pulse Oximetry 98 Oxygen Delivery Me thod Room Air Oxygen Flow Rate Fraction of Inspir ed Oxygen Hydration adequate: Yes Nausea and vomiting: No Pain level: 1 Mental status: Baseline
== END 2022-04-07 09:31 | disposition home or self-care (01) ==
PROVIDERS: PCP Family Medicine; Visit Provider Surgery
PROC: 0DJ08ZZ Inspection of Upper Intestinal Tract, Via Natural or Artificial Opening Endoscopic (ICD-10-PCS; CPT 43235; principal; 2022-04-07 08:45)
DX: K46.9 Unspecified abdominal hernia without obstruction or gangrene (principal); R10.13 Epigastric pain; K22.70 Barrett's esophagus without dysplasia; K29.50 Unspecified chronic gastritis without bleeding; J44.9 Chronic obstructive pulmonary disease, unspecified; K21.9 Gastro-esophageal reflux disease without esophagitis; Z98.84 Bariatric surgery status; M79.7 Fibromyalgia; F41.9 Anxiety disorder, unspecified; F32.A Depression, unspecified; F17.210 Nicotine dependence, cigarettes, uncomplicated
CPT/HCPCS: 43239; 88305; J2704; J7030

== ENCOUNTER 2022-04-13 11:21 | Outpatient (CLI) | payer MEDICARE, SELFPAY ==
[2022-04-13 11:43] VITALS: BP 96/60; PULSE 64; RESP 18; TEMP 36.6; O2SAT 99
[2022-04-13] MEDS: sodium chloride 0.9% 250 ML 75 ML IV (11:55)
[2022-04-13] MEDS: acetaminophen 325 mg Tablet 650 MG PO (11:56)
[2022-04-13] MEDS: diphenhydrAMINE 50 mg/mL SDV 1mL 25 MG IVP (11:57)
== END 2022-04-13 11:22 | disposition home or self-care (01) ==
LOC: ONCMED 11:22
PROVIDERS: PCP Family Medicine; Visit Provider Internal Medicine Rheumatology
DX: M06.09 Rheumatoid arthritis without rheumatoid factor, multiple sites (principal)
CPT/HCPCS: 96365; 96375; A4222; J0129; J1200; J7050

== ENCOUNTER → 2022-04-26 15:06 | Outpatient (BNVA) | payer MEDICARE, SELFPAY | PROVIDERS: PCP Family Medicine; Visit Provider Surgery | DX: Z09 Encounter for follow-up examination after completed treatment for conditions other than malignant neoplasm (principal); K22.70 Barrett's esophagus without dysplasia | CPT/HCPCS: 99212 ==

== ENCOUNTER 2022-04-27 12:10 | Outpatient (CLI) | payer MEDICARE, SELFPAY ==
[2022-04-27 12:37] VITALS: BP 105/67; PULSE 60; RESP 18; TEMP 36.6; O2SAT 99
[2022-04-27] MEDS: sodium chloride 0.9% 250 ML 50 ML IV (13:02)
[2022-04-27] MEDS: acetaminophen 325 mg Tablet 650 MG PO (13:03)
[2022-04-27] MEDS: diphenhydrAMINE 50 mg/mL SDV 1mL 25 MG IVP (13:04)
[2022-04-27 13:57] VITALS: BP 114/70; PULSE 61; RESP 18; TEMP 36.2; O2SAT 97
--- NOTE | 2022-04-27 14:04 | PC.NURSE ---
Pt to infusion suite for Orencia infusion. 24 minutes into infusion, infiltration of IV was noticed. Infusion stopped, and IV d/c'd. Pharmacist and Physician's office contacted. Pt refused an additional IV to finish the infusion. She was instructed to use ice or warm compresses on the IV site. She will follow up in 1 month for her next infusion. luís
== END 2022-04-27 12:11 | disposition home or self-care (01) ==
LOC: ONCMED 12:11
PROVIDERS: PCP Family Medicine; Visit Provider Internal Medicine Rheumatology
DX: M06.09 Rheumatoid arthritis without rheumatoid factor, multiple sites (principal)
CPT/HCPCS: 96365; 96375; A4222; J0129; J1200; J7050

== ENCOUNTER 2022-05-25 10:48 | Outpatient (CLI) | payer MEDICARE, SELFPAY ==
[2022-05-25 10:59] VITALS: BP 110/57; PULSE 56; RESP 16; TEMP 36.2; O2SAT 100
[2022-05-25 11:41] LABS: Basophils % 0.4 %; Eosinophils % 0.5 %; Hematocrit 40.7 % (37.0-47.0); Hemoglobin 12.9 g/dL (11.5-15.3); Lymphocytes # 2.5 10^3/uL (0.8-4.8); Lymphocytes % 33.1 %; Mean Corpuscular HGB Conc 31.7 g/dL (30.0-36.0); Mean Corpuscular Hemoglobin 29.9 pg (28.0-34.0); Mean Corpuscular Volume 94.2 fl (81-99); Monocytes # 0.6 10^3/uL (0.2-0.9); Monocytes % 7.5 %; Neutrophils # 4.32 10^3/uL (1.8-7.7); Neutrophils % 58.1 %; Nucleated Red Blood Cells % 0 %; Platelet Count 319 10^3/cmm (130-400); Red Blood Count 4.32 10^6/uL (4.1-5.3); Red Cell Distribution Width 13.7 % (12.1-15.1); White Blood Count 7.4 10^3/uL (4.0-10.0)
[2022-05-25 11:51] LABS: Alanine Aminotransferase 14 U/L (0-33); Albumin Level 3.7 g/dL (3.5-5.2); Alkaline Phosphatase 88 U/L (35-105); Aspartate Amino Transferase 18 U/L (0-32); Creatinine Clr Calc Pharmacy 85.7045; Globulin 2.4 g/dL (1.3-4.6); Glomerular Filtration Rate 101.6 mL/min (90-130); Total Bilirubin 0.2 mg/dL (0.15-1.2); Total Protein 6.1 g/dL (6.6-8.7)
[2022-05-25] MEDS: sodium chloride 0.9% 250 ML 50 ML IV (11:58)
[2022-05-25] MEDS: acetaminophen 325 mg Tablet 650 MG PO (11:59)
[2022-05-25] MEDS: diphenhydrAMINE 50 mg/mL SDV 1mL 25 MG IVP (12:00)
[2022-05-25 12:51] VITALS: BP 123/72; PULSE 55; RESP 18; TEMP 36.2; O2SAT 95
[2022-06-01 14:33] LABS: Erythrocyte Sedimentation Rate 2 mm/hr (0-15)
== END 2022-05-25 10:49 | disposition home or self-care (01) ==
LOC: ONCMED 10:49
PROVIDERS: PCP Family Medicine; Visit Provider Internal Medicine Rheumatology
DX: M06.09 Rheumatoid arthritis without rheumatoid factor, multiple sites (principal); Z79.899 Other long term (current) drug therapy
CPT/HCPCS: 80076; 82565; 85025; 85651; 96365; 96375; A4222; J0129; J1200; J7050

== ENCOUNTER → 2022-06-08 13:15 | Outpatient (BNVA) | payer MEDICARE, SELFPAY | PROVIDERS: PCP Family Medicine; Visit Provider Internal Medicine Rheumatology | DX: M06.09 Rheumatoid arthritis without rheumatoid factor, multiple sites (principal); Z71.85 Encounter for immunization safety counseling; Z79.899 Other long term (current) drug therapy; F80.81 Childhood onset fluency disorder | CPT/HCPCS: 99214 ==

== ENCOUNTER 2022-06-17 12:54 | Outpatient (RCR) | payer MEDICARE, SELFPAY | END 2022-07-13 23:59 | disposition home or self-care (01) | LOC: SOT 12:54 | PROVIDERS: PCP Family Medicine; Visit Provider Orthopaedic Surgery | DX: R23.3 Spontaneous ecchymoses (principal) | CPT/HCPCS: 97035; 97110; 97140; 97166; L3924 ==

== ENCOUNTER 2022-06-22 10:51 | Outpatient (CLI) | payer MEDICARE, SELFPAY ==
[2022-06-22 11:19] VITALS: BP 118/63; PULSE 66; RESP 18; TEMP 36.6; O2SAT 100
[2022-06-22] MEDS: sodium chloride 0.9% 250 ML 50 ML IV (11:35)
[2022-06-22] MEDS: acetaminophen 325 mg Tablet 650 MG PO (11:35)
[2022-06-22] MEDS: diphenhydrAMINE 50 mg/mL SDV 1mL 25 MG IVP (11:36)
[2022-06-22 12:37] VITALS: BP 113/69; PULSE 63; RESP 18; TEMP 36.9; O2SAT 95
== END 2022-06-22 10:52 | disposition home or self-care (01) ==
PROVIDERS: PCP Family Medicine; Visit Provider Internal Medicine Rheumatology
DX: M06.09 Rheumatoid arthritis without rheumatoid factor, multiple sites (principal)
CPT/HCPCS: 96365; 96375; A4222; J0129; J1200; J7050

== ENCOUNTER → 2022-06-29 11:17 | Outpatient (BNVA) | payer OTHER, SELFPAY | PROVIDERS: PCP Family Medicine; Visit Provider Nurse Practitioner | DX: F41.1 Generalized anxiety disorder (principal) | CPT/HCPCS: 80061; 83036 ==

== ENCOUNTER 2022-07-14 06:00 | Outpatient (RCR) | payer MEDICARE, SELFPAY ==
[2022-07-08 15:58] VITALS: BP 119/68; BMI 21.9
== END 2022-08-11 23:59 | disposition home or self-care (01) ==
LOC: SOT 06:00
PROVIDERS: PCP Family Medicine; Visit Provider Orthopaedic Surgery
DX: S50.1 Contusion of forearm (principal); X58.XXXD Exposure to other specified factors, subsequent encounter
CPT/HCPCS: 97018; 97035; 97110; 97140

== ENCOUNTER 2022-07-22 08:47 | Oncology outpatient (recurring) (ONCR) | payer MEDICARE, MEDICAID, SELFPAY ==
[2022-07-08 15:58] VITALS: BP 119/68; BMI 21.9
[2022-07-22 09:24] VITALS: BMI 21.4
[2022-07-22 09:27] LABS: Basophils % 0.4 %; Eosinophils # 0.1 10^3/uL (0.0-0.8); Eosinophils % 0.6 %; Hematocrit 43.8 % (37.0-47.0); Hemoglobin 13.7 g/dL (11.5-15.3); Lymphocytes # 2.1 10^3/uL (0.8-4.8); Lymphocytes % 25.5 %; Mean Corpuscular HGB Conc 31.3 g/dL (30.0-36.0); Mean Corpuscular Hemoglobin 29.3 pg (28.0-34.0); Mean Corpuscular Volume 93.8 fl (81-99); Mean Platelet Volume 9.9 fL (7.4-10.4); Monocytes # 0.8 10^3/uL (0.2-0.9); Neutrophils # 5.09 10^3/uL (1.8-7.7); Neutrophils % 63.3 %; Nucleated Red Blood Cells % 0 %; Platelet Count 330 10^3/cmm (130-400); Red Blood Count 4.67 10^6/uL (4.1-5.3); Red Cell Distribution Width 14.1 % (12.1-15.1)
[2022-07-22 09:35] LABS: Erythrocyte Sedimentation Rate 10 mm/hr (0-15)
[2022-07-22] MEDS: sodium chloride 0.9% 250 ML 75 ML IV (09:54)
[2022-07-22] MEDS: acetaminophen 325 mg Tablet 650 MG PO (09:59)
[2022-07-22 10:01] LABS: Alanine Aminotransferase 14 U/L (0-33); Albumin Level 4.1 g/dL (3.5-5.2); Alkaline Phosphatase 101 U/L (35-105); Globulin 2.9 g/dL (1.3-4.6); Glomerular Filtration Rate 101.6 mL/min (90-130); Total Bilirubin 0.3 mg/dL (0.15-1.2)
[2022-07-22] MEDS: diphenhydrAMINE 50 mg/mL SDV 1mL 25 MG IVP (10:01)
[2022-07-22 10:02] LABS: Aspartate Amino Transferase 25 U/L (0-32)
[2022-07-22] MEDS: abatacept 500 MG in sodium chloride 0.9% (100 ml) 100 ML 200 MG IV (10:12)
[2022-07-22 11:06] VITALS: BP 115/68; PULSE 67; RESP 16; TEMP 37.3; O2SAT 97
== END 2022-08-13 23:59 | disposition home or self-care (01) ==
PROVIDERS: PCP Family Medicine; Visit Provider Internal Medicine Rheumatology
DX: M06.09 Rheumatoid arthritis without rheumatoid factor, multiple sites (principal); Z79.899 Other long term (current) drug therapy
CPT/HCPCS: 80076; 82565; 85025; 85651; 86140; 96365; 96375; J0129; J1200; J7050

== ENCOUNTER → 2022-08-09 14:35 | Outpatient (BNVA) | payer SELFPAY ==
[2022-07-08 15:58] VITALS: BP 119/68; BMI 21.9
== END ==
PROVIDERS: PCP Family Medicine; Visit Provider Student in an Organized Health Care Education/Training Program
DX: M79.642 Pain in left hand (principal); R23.3 Spontaneous ecchymoses; Z98.1 Arthrodesis status
CPT/HCPCS: 73130; 99204

== ENCOUNTER 2022-08-18 13:56 | Oncology outpatient (recurring) (ONCR) | payer MEDICARE, MEDICAID, SELFPAY ==
[2022-07-08 15:58] VITALS: BP 119/68; BMI 21.9
[2022-08-18 14:18] VITALS: BP 125/74; PULSE 77; RESP 18; TEMP 36.9
[2022-08-18] MEDS: acetaminophen 325 mg Tablet 650 MG PO (14:39)
[2022-08-18] MEDS: sodium chloride 0.9% 250 ML 75 ML IV (14:39)
[2022-08-18] MEDS: diphenhydrAMINE 50 mg/mL SDV 1mL 25 MG IVP (14:40)
[2022-08-18] MEDS: abatacept 500 MG in sodium chloride 0.9% (100 ml) 100 ML 200 MG IV (14:46)
[2022-08-18 16:01] VITALS: BP 105/59; PULSE 76; RESP 18; TEMP 36.8; O2SAT 98
== END 2022-09-12 23:59 | disposition home or self-care (01) ==
PROVIDERS: PCP Family Medicine; Visit Provider Internal Medicine Rheumatology
DX: M06.09 Rheumatoid arthritis without rheumatoid factor, multiple sites (principal)
CPT/HCPCS: 96375; 96413; J0129; J1200; J7050

== ENCOUNTER → 2022-08-26 11:12 | Outpatient (BNVA) | payer MEDICARE, SELFPAY ==
[2022-07-08 15:58] VITALS: BP 119/68; BMI 21.9
== END ==
PROVIDERS: PCP Family Medicine; Visit Provider Internal Medicine Rheumatology
DX: M06.09 Rheumatoid arthritis without rheumatoid factor, multiple sites (principal); Z71.85 Encounter for immunization safety counseling; Z79.899 Other long term (current) drug therapy; F80.81 Childhood onset fluency disorder; M79.89 Other specified soft tissue disorders
CPT/HCPCS: 99214

== ENCOUNTER 2022-09-13 06:00 | Outpatient (RCR) | payer MEDICARE, SELFPAY ==
[2022-07-08 15:58] VITALS: BP 119/68; BMI 21.9
== END 2022-10-13 23:59 | disposition home or self-care (01) ==
LOC: SOT 06:00
PROVIDERS: PCP Family Medicine; Visit Provider Orthopaedic Surgery
DX: R22.32 Localized swelling, mass and lump, left upper limb (principal)
CPT/HCPCS: 97167

== ENCOUNTER → 2022-09-29 11:30 | Outpatient (BNVA) | payer MEDICARE, SELFPAY ==
[2022-07-08 15:58] VITALS: BP 119/68; BMI 21.9
== END ==
PROVIDERS: PCP Family Medicine; Visit Provider Internal Medicine Rheumatology
DX: M06.09 Rheumatoid arthritis without rheumatoid factor, multiple sites (principal); Z71.85 Encounter for immunization safety counseling; Z79.899 Other long term (current) drug therapy; F80.81 Childhood onset fluency disorder; M79.89 Other specified soft tissue disorders
CPT/HCPCS: 99214

== ENCOUNTER 2022-10-18 00:49 | Emergency (ER) | payer MEDICARE, MEDICAID, SELFPAY ==
[2022-07-08 15:58] VITALS: BP 119/68; BMI 21.9
[2022-10-18 00:55] VITALS: BP 148/84; PULSE 74; RESP 14; TEMP 36.7; O2SAT 98; BMI 20.5
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
[2022-10-18] MEDS: tetanus-dipt-pertussis 0.5 mL SDV IM (01:56)
[2022-10-18] MEDS: lidocaine 1% INJ 10 mL (per mL) INTRADERMA (01:57)
--- NOTE | 2022-10-18 02:55 | ED_ITS ---
HPI - Head Injury General: Chief complaint: Head Injury Stated complaint: Injury Face Time Seen by Provider: 10/18/22 01:02 Source: patient Mode of arrival: ambulatory Limitations: no limitations History of Present Illness: Patient presents to the emergency department today accompanied by her friend for evaluation treatment of facial wounds. Patient's friend came over and had brought a hammock. They hung it up between T poles (used for clothes lines). They both attempted to get into the hammock and, when they sat down, the T pole broke and the metal arm of the pole impacted the patient's left face. Patient denied loss of consciousness. She states she felt a little nauseated at the time of the initial injury but, denies nausea now. She has had no vomiting. She denies visual changes, neck pain, or dizziness. She does report a mild headache. Patient is unsure of her last tetanus immunization. Review of Systems General: Reports: 10 or more systems reviewed and unremarkable except in HPI and below PFSH ED PFSH: Medical History Acute pancreatitis Barretts esophagus Costochondritis Detrusor dysfunction Facial tic Gastritis Gastroenteritis Generalized anxiety disorder Major depressive disorder, recurrent, moderate Post-traumatic stress disorder, chronic Psychiatric care Psychosis Raynaud's disease without gangrene Rheumatoid arthritis without rheumatoid factor, multiple sites SAH (subarachnoid hemorrhage) Schizoaffective disorder Stammering improved Swelling of finger of left hand Tardive dyskinesia Ureterolithiasis Urolithiasis Surgical History H/O esophagogastroduodenoscopy (01/29/21) History of bilateral knee replacement History of cholecystectomy History of hand surgery History of incisional hernia repair (09/07/21) History of renal stent History of umbilical hernia repair Hx of gastric bypass Hx of lithotripsy S/P exploratory laparotomy (~04/12/21) With repair of perforation at the gastrojejunal anastomosis and placement of jejunostomy tube Status post colonoscopy (01/29/21) Family History Mother , at age 74 Cancer colorectal Father No problems noted. Denies family history of Rheumatoid arthritis Social History Smoking and tobacco status: current every day smoker cigarettes Packs smoked per day: 1.5 Years cigarettes smoked: 42 Quit status (tobacco): not considering quitting Second hand smoke exposure: Yes Smoking risk assessment/counseling performed?: Yes Tobacco counseling given: counseling >3 minutes Alcohol intake: former Former alcohol use details: quit drinking a little over a year ago....beer Substance/Drug Use: current Substance/Drug use frequency: daily Other substance/drug use details: Medical card Adopted: No Caregiver/support person: No Lives independently: Yes Household members: family Housing: House Marital status: Single Number of children: 0 Highest education level completed: High School Graduate service: No Current occupational status: disabled Current occupational exposures/hazards: No Pets and animals: Yes Pets & animals: cat(s) and dog(s) Leisure activites: music and other Leisure activities details: garden and yard work Sexually active: No Do you think of yourself as: Straight/Heterosexual Current gender identity: Female Bethany/Samaritan: None Special bethany needs: No Agree to transfusion: Yes Financial difficulty paying for basics: Hard Female Reproductive History: Spontaneous abortions: Yes (1 elective ) Physical Exam Const: COMMON NORMALS: no acute distress, patient oriented x3 and alert HENMT: OTHER: No hemotympanum. No signs of nasal deviation or epistaxis patient does have peter e swelling of the left orbit-especially the inferior portion with some mild bruising developing in the inferior portion of the orbit. Patient has a 1.25 cm laceration to the left lateral eyebrow. Patient also has a laceration to the left frontal/temporal region at the hairline approximately 2 cm in length. Both of these have bleeding controlled. Patient is tender to palpation around the orbit but, has no tenderness of the zygomatic arches, TMJs, or nasal bone. Eye: COMMON NORMALS: Equal, round and reactive pupils present, EOMs intact bilaterally and conjunctivae normal CONJUNCTIVA: Yes conjunctivae normal PUPIL: Yes Equal, round and reactive pupils present Neck/C-Spine: COMMON NORMALS: full ROM and no JVD Lymph: LYMPHATIC: no lymphadenopathy noted Resp: COMMON NORMALS: normal respiratory effort, No retractions and No use of accessory muscles Cardio: COMMON NORMALS: no JVD and regular rate RATE: regular rate : COMMON NORMALS: Yes no CVA tenderness BLADDER/KIDNEY EXAM: Yes no CVA tenderness Back/Pelvis: COMMON NORMALS: no CVA tenderness, thoracic and lumbar spine normal to inspection and thoraco-lumbar ROM normal Extremity: COMMON NORMALS: normal to inspection, full ROM and no pedal edema Neuro: COMMON NORMALS: patient oriented x3 SENSORIUM/ORIENTATION: Yes alert OTHER: Patient is neurovascularly intact. Radial nerves II through XII grossly intact. Skin: COMMON NORMALS: no rashes or lesions noted and turgor normal NARR ATIVE SKIN EXAM: Facial lacerations as described above. Patient has postoperative wound to the left anterior distal forearm, wrist, palmar aspect of the left hand, and left third digit. GENERAL SKIN EXAM: no rashes or lesions noted and turgor normal Procedures Laceration Laceration 1: Site: face Side (If applicable): left (Lateral eyebrow) Size (cm): 1.25 Description: linear and clean Depth: simple, single layer (Full-thickness) Local Anesthetic: lidocaine 1% Amount of anesthesia used (mL): 4 Pre-repair: wound explored and irrigated extensively Skin layer closed with: other (Prolene) Size (cm): 6-0 Number of sutures: 3 Technique: simple, interrupted Laceration 2: Site: face Side (If applicable): left (Frontal/temporal hairline) Size (cm): 2 Description: linear Depth: simple, single layer (Full-thickness) Local Anesthetic: lidocaine 1% Amount of anesthesia used (mL): 5 Pre-repair: wound explored, irrigated extensively and deep structures intact Skin layer closed with: other (Prolene) Size (cm): 5-0 Number of sutures: 4 Technique: simple, interrupted Course Vital Signs: Vital signs: Vital Signs Temperature 98.0 F 10/18/22 00:55 Pulse Rate 74 10/18/22 00:55 Respiratory Rate 14 10/18/22 00:55 Blood Pressure 148/84 10/18/22 00:55 Pulse Oximetry 98 10/18/22 00:55 Oxygen Delivery Me thod Room Air 10/18/22 00:55 MDM - Head Injury Medcial Decision Making Patient presented to the emergency department today for facial wounds after getting impacted by a metal pole. Patient's tetanus immunization was updated today. Patient is neurovascularly intact and neurologically intact though she is complaining of some mild headache. Patient is complaining of pain behind her left ear which does not necessarily correlate with her area of injury to the frontal temporal location of her head. For this reason we did go ahead and perform CT examination which revealed no acute intracranial concerns. I thought there looked like a slight irregularity on the lateral left orbit but did not affect the stability or integrity of the orbit. Either way, patient's wounds were anesthetized using local anesthesia. Her wounds were irrigated with sterile saline syringes and Betadine. With further cleaning, the depth of the wounds were fully evaluated and were deeper than originally thought. I did use Q-tips to further clean out any residual material which may have been within the wounds before repairing. Patient received 4, 5-0 Prolene sutures to the left hairline. Wound approximation was extremely good and only 4 sutures were needed to keep wound edges approximated and held. Patient also had similar anesthesia and deep cleaning to her left brow line and again, had very good wound edge approximation and holding only requiring 3 sutures to provide good approximation. Wound care instructions were given. Suture care instructions given with instructions to have them removed in approximately 5 days. Informational handout regarding concussions and head wounds provided as I do think patient most likely has at least a mild concussion. Her friend states she will be staying with her tonight and can keep an eye on her. We discussed strict return precautions for concerns of any neurological change or concerns for infection. Patient verbalized her understanding and agreement to the treatment plan. Differential Diagnosis Likely concussion without loss of consciousness, epidural hematoma, closed head injury, subarachnoid hematoma, postconcussion syndrome and subdural hematoma Lab Data Radiology Impressions Head CT 10/18/22 01:18 IMPRESSION: Negative for acute intracranial pathology. Discharge Plan Discharge Patient Disposition: Home Clinical Impression: Laceration of face, multiple sites, Facial contusion, Contusion of left orbit, Concussion Condition: Stable Prescriptions: No Action primidone 50 mg tablet 50 mg PO BID Qty: 180 3RF abatacept (with maltose) [Orencia (with maltose)] IV clindamycin HCl 300 mg capsule 300 mg PO Q6H 14 Days Qty: 56 0RF lamotrigine [Lamictal] 200 mg tablet 200 mg PO BID Qty: 60 2RF mirtazapine 45 mg tablet 45 mg PO .HS Qty: 30 2RF sertraline [Zoloft] 100 mg tablet 100 mg PO DAILY Qty: 30 2RF valbenazine 80 mg capsule 80 mg PO DAILY Qty: 30 2RF pantoprazole 40 mg tablet,delayed release (DR/EC) See Rx Instructions .ROUTE .COMPLEX Qty: 180 0RF Dose Instruction: TAKE 1 TABLET BY MOUTH TWICE A DAY Rx Instructions: TAKE 1 TABLET BY MOUTH TWICE A DAY hydrocodone-acetaminophen 5-325 mg tablet 1 tab PO Q8H PRN (Reason: joint pain) 30 Days Qty: 90 0RF nitroglycerin 0.4 mg tablet, sublingual 0.4 mg sublingual Q5M PRN (Reason: chest pain) Qty: 30 0RF Rx Instructions: do not exceed 3 doses per episode albuterol sulfate [ProAir HFA] 90 mcg/actuation Hfa Aerosol Inhaler 2 puff INHALATION Q4H PRN (Reason: Shortness Of Breath) Discharge Orders: Discharge ED (Routine); Ordered 10/18/22 Ordered By: Steffany Tapia Referrals: Helga Mancera DO [Primary Care Provider] - Discharge Diet: Usual diet Discharge Activity: Increase activity as tolerated Patient Instructions: Concussion/Head Injury - Adult, Care For Your Stitches (ED), Laceration (ED) Activity Restrictions/Additional Instructions: CT examination today revealed no signs of any intracranial injury or abnormality such as acute bleed. I do think there may be a little subtle irregularity around your left eyebrow but, does not affect the stability of the orbit and should heal just fine. Both of your lacerations were full-thickness lacerations. You did allow me to thoroughly irrigate and clean these wounds and do not have any acute concerns for infection at this time. You received 4 nonabsorbable sutures to the laceration at your hairline. There are 3 n onabsorbable sutures on your left eyebrow. Facial wounds tend to heal quite quickly. Sutures may be removed after 5 days. We recommend once or twice a day washing the wounds with warm water and a mild soap. You may cover them with bandaging if you wish. I do not recommend applying antibiotic ointment liberally but, you may apply a very small amount once a day. Any significant amount of cream or ointment can cause softening of the wound edges preventing good wound edge adherence and healing. Be careful with linens and clothing items as they can snagged the suture ends and pull, causing reopening of the wound. We have updated your tetanus immunization today. You do describe symptoms of a mild concussion which may last for couple of days. You may experience some mental fatigue, mild headache, and mild nausea. I have given you an informational handout about concussions and head injuries for you to look over. If for any reason you develop a sudden onset severe headache-like the worst headache of your life, blurred or changed vision, dizziness without ability to stand or walk, or profuse vomiting you need to be seen and evaluated in the emergency department. 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
== END 2022-10-18 03:08 | disposition home or self-care (01) ==
PROVIDERS: Emergency Provider Physician Assistant; PCP Family Medicine
DX: S06.0X0A Concussion without loss of consciousness, initial encounter (principal); S01.112A Laceration without foreign body of left eyelid and periocular area, initial encounter; S01.01XA Laceration without foreign body of scalp, initial encounter; W20.8XXA Other cause of strike by thrown, projected or falling object, initial encounter; Y92.007 Garden or yard of unspecified non-institutional (private) residence as the place of occurrence of the external cause; Z23 Encounter for immunization; H92.02 Otalgia, left ear
CPT/HCPCS: 12001; 12011; 70450; 90471; 90715; 99284

== ENCOUNTER 2022-10-24 08:11 | Outpatient (RCR) | payer MEDICARE, MEDICAID, SELFPAY ==
[2022-07-08 15:58] VITALS: BP 119/68; BMI 21.9
== END 2022-11-12 23:59 | disposition home or self-care (01) ==
LOC: SOT 08:11
PROVIDERS: PCP Family Medicine; Visit Provider Orthopaedic Surgery
DX: R22.32 Localized swelling, mass and lump, left upper limb (principal)
CPT/HCPCS: 97022; 97110; 97140

== ENCOUNTER 2022-11-13 06:00 | Outpatient (RCR) | payer MEDICAID, SELFPAY ==
[2022-07-08 15:58] VITALS: BP 119/68; BMI 21.9
== END 2022-12-13 23:59 | disposition home or self-care (01) ==
LOC: SOT 06:00
PROVIDERS: PCP Family Medicine; Visit Provider Orthopaedic Surgery
DX: R22.32 Localized swelling, mass and lump, left upper limb (principal)
CPT/HCPCS: 97022; 97110; 97140; 97530

== ENCOUNTER → 2022-12-13 13:41 | Outpatient (BNVA) | payer MEDICARE, MEDICAID, SELFPAY ==
[2022-07-08 15:58] VITALS: BP 119/68; BMI 21.9
== END ==
PROVIDERS: PCP Family Medicine; Visit Provider Internal Medicine Rheumatology
DX: M06.09 Rheumatoid arthritis without rheumatoid factor, multiple sites (principal); Z71.85 Encounter for immunization safety counseling; Z79.899 Other long term (current) drug therapy; F80.81 Childhood onset fluency disorder; M79.89 Other specified soft tissue disorders
CPT/HCPCS: 99214

== ENCOUNTER 2022-12-14 06:00 | Outpatient (RCR) | payer OTHER, MEDICAID, SELFPAY ==
[2022-07-08 15:58] VITALS: BP 119/68; BMI 21.9
== END 2023-01-13 23:59 | disposition home or self-care (01) ==
LOC: SOT 06:00
PROVIDERS: PCP Family Medicine; Visit Provider Orthopaedic Surgery
DX: R22.32 Localized swelling, mass and lump, left upper limb (principal)
CPT/HCPCS: 97022; 97035; 97140

== ENCOUNTER 2023-01-18 13:59 | Outpatient (CLI) | payer OTHER, MEDICAID, SELFPAY ==
[2022-07-08 15:58] VITALS: BP 119/68; BMI 21.9
--- NOTE | 2023-01-18 14:03 | XRR_ITS ---
PROCEDURE INFORMATION: Exam: XR Left Shoulder Exam date and time: 01/18/2023 2:10 PM Age: 62 years old Clinical indication: Pain; Left; Patient HX: Knot on shoulder for 4 months; Additional info: M25.519 - pain in unspecified shoulder.No history of trauma or recent surgery is provided. TECHNIQUE: Imaging protocol: Radiologic exam of the left shoulder. 2image(s) are provided. Views: 2 or more views. COMPARISON: No recent left shoulder radiograph is currently available. Previous chest radiograph of 11/20/2020. FINDINGS: Bones/joints: Osseous alignment is maintained.No interval displaced fracture or dislocation is appreciated. There is some chronic appearing degeneration about the superolateral aspect of the humeral head. There is some mild glenohumeral joint space spurring with inferior predominance. There is hypertrophic degeneration with maintained alignment of the acromioclavicular junction. There is some slight subacromial narrowing. Pleural space: No interval pneumothorax or lobar type consolidation is appreciated. Soft tissues: No radiopaque foreign body or subcutaneous emphysema is appreciated. There appear to be some soft tissue calcification related changes adjacent to the shoulder. Other findings: No other significant interval changes are appreciated. XR/XR shoulder LT min 2V* [id number] IMPRESSION: Osseous alignment is maintained with chronic appearing degeneration of the shoulder and acromioclavicular junction. This could be seen with chronic rotator cuff disease.
== END 2023-01-18 14:00 | disposition home or self-care (01) ==
PROVIDERS: PCP Family Medicine; Visit Provider Internal Medicine Rheumatology
DX: M19.012 Primary osteoarthritis, left shoulder (principal)
CPT/HCPCS: 73030

== ENCOUNTER 2023-03-17 10:52 | Outpatient (CLI) | payer OTHER, MEDICAID, SELFPAY ==
[2022-07-08 15:58] VITALS: BP 119/68; BMI 21.9
--- NOTE | 2023-03-17 10:57 | MM_ITS ---
WS: [id number] BILATERAL SCREENING DIGITAL TOMOSYNTHESIS MAMMOGRAM WITH CAD HISTORY: SCREENING COMPARISON: 03/05/2022 and 03/02/2021 Bilateral CC and MLO views with tomosynthesis and synthetic mammography submitted. Computer aided det ection analyzed. Breast composition: There are scattered areas of fibroglandular density. No suspicious masses, microc alcifications or architectural distortion. IMPRESSION: MM/[place] [id number] BI-RADS: 1-Negative FOLLOW UP: 1 Year Follow-up
== END 2023-03-17 10:53 | disposition home or self-care (01) ==
LOC: RAD 10:53
PROVIDERS: PCP Family Medicine; Visit Provider Family Medicine
DX: Z12.31 Encounter for screening mammogram for malignant neoplasm of breast (principal)
CPT/HCPCS: 77063; 77067

== ENCOUNTER 2023-04-11 10:21 | Outpatient (CLI) | payer OTHER, SELFPAY ==
[2022-07-08 15:58] VITALS: BP 119/68; BMI 21.9
[2023-04-11 11:05] LABS: Basophils % 0.4 %; Eosinophils % 0.7 %; Hematocrit 39.9 % (36-47); Lymphocytes # 1.9 10^3/uL (0.8-4.8); Lymphocytes % 33.5 %; Mean Corpuscular HGB Conc 29.6 g/dL (30-55); Mean Corpuscular Hemoglobin 24.7 pg (27-33); Mean Corpuscular Volume 83.6 fl (85-98); Mean Platelet Volume 9.7 fL (7.4-10.4); Monocytes # 0.5 10^3/uL (0.2-0.9); Monocytes % 9.6 %; Neutrophils # 3.14 10^3/uL (1.8-7.7); Neutrophils % 55.6 %; Nucleated Red Blood Cells % 0 %; Platelet Count 320 10^3/cmm (157-399); Red Blood Count 4.77 10^6/uL (3.85-5.65); Red Cell Distribution Width 15.5 % (12.1-15.1); White Blood Count 5.64 10^3/uL (3.29-11.43)
[2023-04-11 11:49] LABS: 25 Hydroxy Vitamin D 15 ng/mL (30-100); Alanine Aminotransferase 14 U/L (0-33); Albumin Level 3.8 g/dL (3.5-5.2); Alkaline Phosphatase 95 U/L (35-105); Anion Gap 12.1 (5-19); Aspartate Amino Transferase 20 U/L (0-32); Blood Urea Nitrogen 15 mg/dL (8-23); Calcium 8.9 mg/dL (8.5-10.5); Carbon Dioxide 24 mmol/L (22-29); Chloride 104 mmol/L (98-107); Globulin 2.6 g/dL (1.3-4.6); Glomerular Filtration Rate 101.3 mL/min (90-130); Glucose 96 mg/dL (65-115); Osmolality Calculated 283 mOsm/kg (285-295); Potassium 4.1 mmol/L (3.5-5.1); Sodium 136 mmol/L (136-145); Total Bilirubin 0.2 mg/dL (0.15-1.2); Total Protein 6.4 g/dL (6.6-8.7); Vitamin B12 441 pg/mL (232-1245)
[2023-04-14 12:30] LABS: Vitamin B6 Plasma 4.7 ng/mL (2.1-21.7)
== END 2023-04-11 10:22 | disposition home or self-care (01) ==
LOC: LAB 10:22
PROVIDERS: PCP Family Medicine; Visit Provider Surgery
DX: K52.9 Noninfective gastroenteritis and colitis, unspecified (principal)
CPT/HCPCS: 36415; 80053; 82306; 82607; 84207; 84443; 85025

== ENCOUNTER 2023-05-19 06:03 | Day surgery (SDC) | payer MEDICARE, MEDICAID, SELFPAY ==
[2022-07-08 15:58] VITALS: BP 119/68; BMI 21.9
[2023-05-19 06:18] VITALS: BP 94/54; PULSE 75; RESP 18; TEMP 36.4; O2SAT 97; BMI 23.1
[2023-05-19] MEDS: sodium chloride 0.9% 1,000 ML 30 ML IV (06:27)
--- NOTE | 2023-05-19 06:43 | W.PM.OPSFHP ---
Same Day Surgery H&P Indication for Procedure/HPI DATE OF PROCEDURE: May 19, 2023 CHIEF COMPLAINT/INDICATIONFOR SURGICAL PROCEDURE: David's esophagus PREOP DIAGNOSIS: david's esophagus PLANNED PROCEDURE: Operation Date: 05/19/23 07:00 Proposed Procedures p EGD 30260, R10.13(Not Applicable) - Checo Weathers MD Medications/Allergies* Home Medications Medication Instructions Recorded Confirmed Type albuterol sulfate 90 mcg/actuation 2 puff inhalation Q4H PRN 12/24/20 05/17/23 History aerosol inhaler (ProAir HFA) Shortness Of Breath azithromycin 500 mg tablet 500 mg PO DAILY 12/28/22 05/17/23 History ethambutol 400 mg tablet 800 mg PO DAILY 12/28/22 05/17/23 History rifampin 300 mg capsule 300 mg PO BID 12/28/22 05/17/23 History simvastatin 10 mg tablet 10 mg PO DAILY 03/29/23 05/17/23 History pantoprazole 40 mg tablet,delayed 40 mg PO DAILY 05/17/23 05/17/23 History release primidone 50 mg tablet 50 mg PO DAILY 05/17/23 05/17/23 History valbenazine 80 mg capsule 80 mg PO DAILY 05/17/23 05/17/23 History (Ingrezza) Allergies/Adverse Reactions Allergy/AdvReac Type Severity Reaction Status Date / Time hydroxyzine [From Vistaril] Allergy Unknown Verified 04/04/23 09:47 lithium Allergy makes me Verified 04/04/23 09:47 mean Sulfa (Sulfonamide Allergy Unknown Verified 04/04/23 09:47 Antibiotics) sulfamethizole Allergy Unknown Verified 04/04/23 09:47 codiene Allergy Intermediate ADR-Diarrhe Uncoded 04/04/23 09:47 a Current Medications: Generic Name Dose Route Start Last Admin Trade Name Freq PRN Reason Stop Dose Admin Sodium Chloride 1,000 mls @ 30 mls/hr 05/19/23 06:15 05/19/23 06:27 Sodium Chloride 0.9% IV 30 mls/hr .Q24H JUDY Administration Pertinent History/Comorbid Conditions* Medical History (Updated 01/19/23 @ 10:12 by Kemi Cleveland MD) Swelling of finger of left hand Barretts esophagus Detrusor dysfunction Urolithiasis Psychiatric care Tardive dyskinesia Raynaud's disease without gangrene Stammering improved Facial tic SAH (subarachnoid hemorrhage) Rheumatoid arthritis without rheumatoid factor, multiple sites Ureterolithiasis Gastroenteritis Gastritis Acute pancreatitis Costochondritis Psychosis Schizoaffective disorder Post-traumatic stress disorder, chronic Generalized anxiety disorder Major depressive disorder, recurrent, moderate Surgical History (Updated 03/23/22 @ 14:21 by Dru Metcalf DO) Hx of lithotripsy History of incisional hernia repair (09/07/21) S/P exploratory laparotomy (~04/12/21) With repair of perforation at the gastrojejunal anastomosis and placement of jejunostomy tube H/O esophagogastroduodenoscopy (01/29/21) Status post colonoscopy (01/29/21) History of hand surgery History of umbilical hernia repair History of cholecystectomy History of renal stent History of bilateral knee replacement Hx of gastric bypass Family History (Updated 12/17/20 @ 15:04 by Vickie Reaves LPN) Father Mother, at age 74 Cancer Mother colorectal Denies family history of Rheumatoid arthritis Social History Smoking and tobacco/nicotine status: current every day tobacco/nicotine user cigarettes Packs smoked per day: 1.5 Years cigarettes smoked: 42 Quit status (tobacco/nicotine): not considering quitting Second hand smoke exposure: Yes Alcohol intake: former Former alcohol use details: quit drinking a little over a year ago....beer Substance/Drug Use: current Substance/Drug use frequency: daily Other substance/drug use details: Medical card Adopted: No Caregiver/support person: No Lives independently: Yes Household members: family Housing: House Marital status: Single Number of children: 0 Highest education level completed: High School Graduate service: No Current occupational status: disabled Current occupational exposures/hazards: No Pets and animals: Yes Pets & animals: cat(s) and dog(s) Leisure activites: music and other Leisure activities details: garden and yard work Sexually active: No Do you think of yourself as: Straight/Heterosexual Current gender identity: Female Bethany/Alevism: None Special bethany needs: No Agree to transfusion: Yes Pertinent Exam Findings alert, oriented x 3, clear to auscultation bilaterally and regular rate & rhythm Recommendations Surgery/Procedure today Coding Level of Care Code Acute Code for Chg Fwd
--- NOTE | 2023-05-19 06:59 | ANES.PREANE2 ---
Pre-Anesthetic Assessment Height/Weight: Height 1.63 m Weight 61.235 kg Temp Pulse Resp BP Pulse Ox O2 Del Method 97.6 F 75 18 94/54 97 Room Air 05/19/23 06:18 05/19/23 06:18 05/19/23 06:18 05/19/23 06:18 05/19/23 06:18 05/19/23 06:18 Preop Diagnosis: jeffery's esophagus Operation Date: 05/19/23 07:00 Proposed Procedures p EGD 93859, R10.13(Not Applicable) - Checo Weathers MD Was Beta Lucinda taken within 24 hours: N/A Was Clonidine taken within 24 hours: N/A Last intake: Intake Last Liquid Date 05/18/23 Last Liquid Time 22:00 Last Solid Date 05/18/23 Last Solid Time 20:00 Social Tobacco Daily THC Exam alert, oriented x 3 and regular rate & rhythm Airway Submandibular: within normal limits Cervical ROM: within normal limits Mallampati: Class II Dentition: full History/ROS No significant history except as noted and No significant complaints Pulmonary Chronic Obstructive Pulmonary Disease, Cough and Exertional Dyspnea CV/HEM Arrythmia Hx stones Hepatic None reported GI Gastroesophageal Reflux Disease and Peptic Ulcer Disease Metabolic None reported [facility] Rheumatoid Arthritis Neuropsych Anxiety Schizoaffective disorder Anesthetic Plan ASA status: 3 Anesthesia: Anesthesia Evaluation and MAC Risk of > 500 ml blood loss (7ml/kg in children): No Medications/Allergies Home Medications Medication Instructions Recorded Confirmed Last Taken Type nitroglycerin 0.4 mg sublingual 0.4 mg sublingual Q5M PRN chest 06/10/20 05/17/23 01/28/21 Rx tablet pain #30 tabs albuterol sulfate 90 mcg/actuation 2 puff inhalation Q4H PRN 12/24/20 05/17/23 1 Week Ago History aerosol inhaler (ProAir HFA) Shortness Of Breath ~05/10/23 prednisone 5 mg tablet 5 mg PO DAILY #90 tabs 12/23/22 05/17/23 05/17/23 Rx azithromycin 500 mg tablet 500 mg PO DAILY 12/28/22 05/17/23 05/19/23 05:10 History ethambutol 400 mg tablet 800 mg PO DAILY 12/28/22 05/17/23 05/19/23 05:10 History rifampin 300 mg capsule 300 mg PO BID 12/28/22 05/17/23 05/19/23 05:10 History lamotrigine 200 mg tablet 200 mg PO BID #60 tabs 03/15/23 05/17/23 05/19/23 05:10 Rx (Lamictal) mirtazapine 45 mg tablet 45 mg PO .HS #30 tabs 03/15/23 05/17/23 05/16/23 Rx sertraline 100 mg tablet (Zoloft) 150 mg (1.5 x 100 mg) PO DAILY #45 03/29/23 05/17/23 05/19/23 05:10 Rx tabs simvastatin 10 mg tablet 10 mg PO DAILY 03/29/23 05/17/23 05/18/23 History hydrocodone 7.5 mg-acetaminophen 1 tab PO Q12H PRN pain 30 days #60 04/21/23 05/19/23 3 Weeks Ago Rx 325 mg tablet tabs ~04/28/23 pantoprazole 40 mg tablet,delayed 40 mg PO DAILY 05/17/23 05/17/23 05/19/23 05:10 History release primidone 50 mg tablet 50 mg PO DAILY 05/17/23 05/17/23 05/19/23 05:10 History valbenazine 80 mg capsule 80 mg PO DAILY 05/17/23 05/17/23 05/18/23 History (Ingrezza) pantoprazole 40 mg tablet,delayed 40 mg PO BID 6 weeks #84 tabs 05/19/23 Unknown Rx release sucralfate 100 mg/mL oral 1 g (10 mL) PO BID 8 weeks #1,120 05/19/23 Unknown Rx suspension mL Allergies Allergy/AdvReac Type Severity Reaction Status Date / Time hydroxyzine [From Vistaril] Allergy Unknown Verified 04/04/23 09:47 lithium Allergy makes me Verified 04/04/23 09:47 mean Sulfa (Sulfonamide Allergy Unknown Verified 04/04/23 09:47 Antibiotics) sulfamethizole Allergy Unknown Verified 04/04/23 09:47 codiene Allergy Intermediate ADR-Diarrhe Uncoded 04/04/23 09:47 a Current Medications Generic Name Dose Route Start Last Admin Trade Name Freq PRN Reason Stop Dose Admin Sodium Chloride 1,000 mls @ 30 mls/hr 05/19/23 06:15 05/19/23 06:27 Sodium Chloride 0.9% IV 30 mls/hr .Q24H JUDY Administration PFSH Anesthesia Medical History Acute pancreatitis Barretts esophagus Costochondritis Detrusor dysfunction Facial tic Gastritis Gastroenteritis Generalized anxiety disorder Major depressive disorder, recurrent, moderate Post-traumatic stress disorder, chronic Psychiatric care Psychosis Raynaud's disease without gangrene Rheumatoid arthritis without rheumatoid factor, multiple sites SAH (subarachnoid hemorrhage) Schizoaffective disorder Stammering improved Swelling of finger of left hand Tardive dyskinesia Ureterolithiasis Urolithiasis Surgical History H/O esophagogastroduodenoscopy (01/29/21) History of bilateral knee replacement History of cholecystectomy History of hand surgery History of incisional hernia repair (09/07/21) History of renal stent History of umbilical hernia repair Hx of gastric bypass Hx of lithotripsy S/P exploratory laparotomy (~04/12/21) With repair of perforation at the gastrojejunal anastomosis and placement of jejunostomy tube Status post colonoscopy (01/29/21) Family History Mother , at age 74 Cancer colorectal Father No problems noted. Denies family history of Rheumatoid arthritis Social History Smoking and tobacco/nicotine status: current every day tobacco/nicotine user cigarettes Packs smoked per day: 1.5 Years cigarettes smoked: 42 Quit status (tobacco/nicotine): not considering quitting Second hand smoke exposure: Yes Alcohol intake: former Former alcohol use details: quit drinking a little over a year ago....beer Substance/Drug Use: current Substance/Drug use frequency: daily Other substance/drug use details: Medical card Adopted: No Caregiver/support person: No Lives independently: Yes Household members: family Housing: House Marital status: Single Number of children: 0 Highest education level completed: High School Graduate service: No Current occupational status: disabled Current occupational exposures/hazards: No Pets and animals: Yes Pets & animals: cat(s) and dog(s) Leisure activites: music and other Leisure activities details: garden and yard work Sexually active: No Do you think of yourself as: Straight/Heterosexual Current gender identity: Female Bethany/Orthodoxy: None Special bethany needs: No Agree to transfusion: Yes Female Reproductive History Spontaneous abortions: Yes (1 elective ) Data Anesthesia Cardiac Studies: Sestamibi Stress Test (Cardiology) 07/07/20
[2023-05-19 07:20] VITALS: BP 89/52; PULSE 64; RESP 16; TEMP 36.1; O2SAT 94
[2023-05-19 07:31] VITALS: BP 95/57; PULSE 68; RESP 18; O2SAT 98
--- NOTE | 2023-05-19 13:14 | ANE.PACU2 ---
Inpatient post-anesthesia follow up: Airway intact: Yes Vital signs: Temperature 97 F Pulse Rate 68 Respiratory Rate 18 Blood Pressure 95/57 Pulse Oximetry 98 Oxygen Delivery Me thod Room Air Oxygen Flow Rate 2 Fraction of Inspir ed Oxygen Hydration adequate: Yes Nausea and vomiting: No Pain level: 2 Mental status: Baseline
== END 2023-05-19 07:54 | disposition home or self-care (01) ==
PROVIDERS: PCP Family Medicine; Visit Provider Surgery
PROC: 0DJ08ZZ Inspection of Upper Intestinal Tract, Via Natural or Artificial Opening Endoscopic (ICD-10-PCS; CPT 43235; principal; 2023-05-19 07:00)
DX: K22.70 Barrett's esophagus without dysplasia (principal); R10.13 Epigastric pain; F17.210 Nicotine dependence, cigarettes, uncomplicated; K21.00 Gastro-esophageal reflux disease with esophagitis, without bleeding; J44.9 Chronic obstructive pulmonary disease, unspecified; Z87.11 Personal history of peptic ulcer disease; M06.9 Rheumatoid arthritis, unspecified
CPT/HCPCS: 43235; 88305; 88312; 88342; J2704; J7030

== ENCOUNTER 2023-11-14 10:59 | Emergency (ER) | payer MEDICARE, SELFPAY ==
[2023-05-24 13:50] VITALS: BP 119/68; BMI 21.9
[2023-11-14 11:00] VITALS: BP 109/59; PULSE 98; RESP 16; TEMP 36.8; O2SAT 97; BMI 22.3
[2023-11-14 11:15] VITALS: BP 130/67; PULSE 67; RESP 16; O2SAT 100
--- NOTE | 2023-11-14 11:31 | XRR_ITS ---
PROCEDURE INFORMATION: Exam: XR Complete Acute Abdomen Series Including Chest Exam date and time: 11/14/2023 11:39 AM Age: 62 years old Clinical indication: Abdominal pain; Generalized TECHNIQUE: Imaging protocol: Radiologic exam. Complete acute abdomen series, including 2 or more views of the abdomen and a single view chest. COMPARISON: CT abdomen pelvis w con* [id number] 12/29/2021 7:11 PM FINDINGS: Lungs: Normal. No consolidation. Pleural spaces: Normal. No pleural effusions. No pneumothorax. Heart/Mediastinum: Surgical clips in the right upper quadrant and GE junction. Gastrointestinal tract: Normal. No bowel dilation. Intraperitoneal space: Normal. No free air. Bones/joints: Normal. No acute fracture. Soft tissues: Normal. XR/XR acute abdomen series [id number] IMPRESSION: No acute findings.
--- NOTE | 2023-11-14 11:36 | W.ED.ABDPA2 ---
HPI - Abdominal Pain General: Chief Complaint: Abdominal Pain Stated Complaint: abd pain Time Seen by Provider: 11/14/23 11:19 History of Present Illness: 62-year-old woman with a history of gastric sleeve, multiple other bowel surgeries and hernia repairs, pancreatitis, schizoaffective disorder, anxiety disorder and depression who presents to the emergency room with upper abdominal pain for the past 3 days. She reports an epigastric pain that can be squeezing in nature and sometimes she feels a hardness there. She says at times it feels like she is breathing through her abdomen. No nausea and vomiting. She says she normally has diarrhea but she is only had 1 bowel movement a day for the last couple of days. No fever. No dysuria. No chest pain. No altered mental status Review of Systems Narrative: Constitutional symptoms: Negative except as documented in HPI. Skin symptoms: Negative except as documented in HPI. Eye symptoms: Negative except as documented in HPI. ENMT symptoms: Negative except as documented in HPI. Respiratory symptoms: Negative except as documented in HPI. Cardiovascular symptoms: Negative except as documented in HPI. Gastrointestinal symptoms: Negative except as documented in HPI. Genitourinary symptoms: Negative except as documented in HPI. Musculoskeletal symptoms: Negative except as documented in HPI. Neurologic symptoms: Negative except as documented in HPI. Psychiatric symptoms: Negative except as documented in HPI. Endocrine symptoms: Negative except as documented in HPI. [facility] PFSH: Medical History Swelling of finger of left hand Barretts esophagus Detrusor dysfunction Urolithiasis Psychiatric care Tardive dyskinesia Raynaud's disease without gangrene Stammering improved Facial tic SAH (subarachnoid hemorrhage) Rheumatoid arthritis without rheumatoid factor, multiple sites Ureterolithiasis Gastroenteritis Gastritis Acute pancreatitis Costochondritis Psychosis Schizoaffective disorder Post-traumatic stress disorder, chronic Generalized anxiety disorder Major depressive disorder, recurrent, moderate Surgical History Hx of lithotripsy History of incisional hernia repair (09/07/21) S/P exploratory laparotomy (~04/12/21) With repair of perforation at the gastrojejunal anastomosis and placement of jejunostomy tube H/O esophagogastroduodenoscopy (01/29/21) Status post colonoscopy (01/29/21) History of hand surgery History of umbilical hernia repair History of cholecystectomy History of renal stent History of bilateral knee replacement Hx of gastric bypass Family History Mother , at age 74 Cancer colorectal Father No problems noted. Denies family history of Rheumatoid arthritis Social History Smoking and tobacco/nicotine status: current every day tobacco/nicotine user cigarettes Packs smoked per day: 1.5 Years cigarettes smoked: 42 Quit status (tobacco/nicotine): not considering quitting Second hand smoke exposure: Yes Alcohol intake: former Former alcohol use details: quit drinking a little over a year ago....beer Substance/Drug Use: current Substance/Drug use frequency: daily Other substance/drug use details: Medical card Adopted: No Caregiver/support person: No Lives independently: Yes Household members: family Housing: House Marital status: Single Number of children: 0 Highest education level completed: High School Graduate service: No Current occupational status: disabled Current occupational exposures/hazards: No Pets and animals: Yes Pets & animals: cat(s) and dog(s) Leisure activites: music and other Leisure activities details: garden and yard work Sexually active: No Do you think of yourself as: Straight/Heterosexual Current gender identity: Female Bethany/Mu-Ism: None Special bethany needs: No Agree to transfusion: Yes Female Reproductive History: Spontaneous abortions: Yes (1 elective ) Physical Exam Narrative: EXAM NARRATIVE: General: Alert, no acute distress. Skin: Warm, dry. Head: Normocephalic, atraumatic. Neck: Supple, trachea midline. Eye: Extraocular movements are intact. Ears, nose, mouth and throat: mucosa moist. Cardiovascular: Regular, Normal peripheral perfusion. Respiratory: Lungs are clear to auscultation, respirations are non-labored, breath sounds are equal, Symmetrical chest wall expansion. Gastrointestinal: Soft, moderate epigastric tenderness, Non distended Musculoskeletal: Normal ROM, no deformity. Neurological: Alert and oriented, No focal neurological deficit observed. Psychiatric: Cooperative, appropriate mood & affect. Course Vital Signs: Vital signs: Vital Signs Temperature 98.2 F 11/14/23 11:00 Pulse Rate 63 11/14/23 12:00 Respiratory Rate 18 11/14/23 12:07 Blood Pressure 130/67 11/14/23 11:15 Pulse Oximetry 98 11/14/23 12:07 Oxygen Delivery Me thod Room Air 11/14/23 12:00 MDM - Abdominal Pain Medical Decision Making Medical decision making: Differential diagnosis including but not limited to and based on the above HPI, review of systems and physical exam: In this patient with multiple surgeries would be concerned about bowel obstruction however she does not have any vomiting. Also she has a history of pancreatitis be concern for pancreatitis and a pseudocyst. Again she does not have any nausea or vomiting. Hepatitis. Urinary tract infection. Gastritis. Constipation. Orders placed to evaluate differential diagnosis based on the above differential, HPI and physical exam Lab Review: Laboratory results were reviewed and interpreted by myself the emergency room physician. Lab work is unremarkable. No leukocytosis. No anemia. No renal failure. No transaminitis. No pancreatitis. CT of the abdomen pelvis with contrast: No acute findings. This was reviewed and interpreted by myself the emergency room physician. I also reviewed the radiology report. I reviewed the patient's medical record. Reexamination: Patient still complains of some pain in her upper abdomen. She did receive some Dilaudid and Zofran. No increased work of breathing. No altered mental status. She understands the findings. She tells me she is hungry and ready to go Assessment and plan: Abdominal pain -Dilaudid and Zofran in the emergency room. - Discharged home - Discussed plan with patient. Answered any questions. - Evaluation and treatment of this problem were appropriate in the emergency setting. Lab Data 11/14/23 12:04 11/14/23 12:47 Labs/Radiology: Radiology Impressions Chest/Abdomen X-ray 11/14/23 11:31 IMPRESSION: No acute findings. Abdomen/Pelvis CT 11/14/23 12:00 IMPRESSION: No acute findings in the abdomen or pelvis. Laboratory Results WBC 6.52 10^3/uL (3.29-11.43) 11/14/23 12:04 RBC 5.46 10^6/uL (3.85-5.65) 11/14/23 12:04 Hgb 14.00 g/dL (11.27-16.99) 11/14/23 12:04 Hct 46.0 % (36-47) 11/14/23 12:04 MCV 84.2 fl (85-98) L 11/14/23 12:04 MCH 25.6 pg (27-33) L 11/14/23 12:04 MCHC 30.4 g/dL (30-55) 11/14/23 12:04 RDW 22.5 % (12.1-15.1) H 11/14/23 12:04 Plt Count 279 10^3/cmm (157-399) 11/14/23 12:04 MPV 9.4 fL (7.4-10.4) 11/14/23 12:04 Neut % (Auto) 61.5 % 11/14/23 12:04 Lymph % (Auto) 26.7 % 11/14/23 12:04 [place] % (Auto) 10.4 % 11/14/23 12:04 Eos % (Auto) 0.6 % 11/14/23 12:04 Baso % (Auto) 0.6 % 11/14/23 12:04 Neut # (Auto) 4.01 10^3/uL (1.8-7.7) 11/14/23 12:04 Lymph # (Auto) 1.7 10^3/uL (0.8-4.8) 11/14/23 12:04 [place] # (Auto) 0.7 10^3/uL (0.2-0.9) 11/14/23 12:04 Eos # (Auto) 0.0 10^3/uL (0.0-0.8) 11/14/23 12:04 Baso # (Auto) 0.0 10^3/uL (0.0-0.1) 11/14/23 12:04 Nucleated RBC % (auto) 0 % 11/14/23 12:04 Nucleated RBCs # 0.0 /100WBC 11/14/23 12:04 Sodium 138 mmol/L (136-145) 11/14/23 12:47 Potassium 4.4 mmol/L (3.5-5.1) 11/14/23 12:47 Chloride 103 mmol/L (98-107) 11/14/23 12:47 Carbon Dioxide 25 mmol/L (22-29) 11/14/23 12:47 Anion Gap 14.4 (5-19) 11/14/23 12:47 BUN 13 mg/dL (8-23) 11/14/23 12:47 Creatinine 0.6 mg/dL (0.5-0.9) 11/14/23 12:47 GFR Calculation 101.3 mL/min (90-130) 11/14/23 12:47 Glucose 66 mg/dL (65-115) 11/14/23 12:47 Calculated Osmolality 284 mOsm/kg (285-295) L 11/14/23 12:47 Lactic Acid 0.8 mmol/L (0.5-2.2) 11/14/23 12:47 Calcium 8.8 mg/dL (8.5-10.5) 11/14/23 12:47 Total Bilirubin 0.3 mg/dL (0.15-1.2) 11/14/23 12:47 AST 37 U/L (0-32) H 11/14/23 12:47 ALT 30 U/L (0-33) 11/14/23 12:47 Alkaline Phosphatase 87 U/L (35-105) 11/14/23 12:47 C-Reactive Protein 3.0 mg/L (0.0-4.9) 11/14/23 12:47 Total Protein 6.4 g/dL (6.6-8.7) L 11/14/23 12:47 Albumin 4.0 g/dL (3.5-5.2) 11/14/23 12:47 Globulin 2.4 g/dL (1.3-4.6) 11/14/23 12:47 Lipase 48 U/L (13-60) 11/14/23 12:47 Urine Color Yellow (Yellow) 11/14/23 11:45 Urine Appearance Clear (CLEAR) 11/14/23 11:45 Urine pH 5 (5-7) 11/14/23 11:45 Ur Specific [place] 1.020 (1.005-1.030) 11/14/23 11:45 Urine Protein Neg (Negative) 11/14/23 11:45 Urine Glucose (UA) Norm (Normal) 11/14/23 11:45 Urine Ketones Negative (Negative) 11/14/23 11:45 Urine Blood 2+ (Negative) H 11/14/23 11:45 Urine Nitrate Negative (Negative) 11/14/23 11:45 Urine Bilirubin Neg (Negative) 11/14/23 11:45 Urine Urobilinogen Norm mg/dL (Negative) 11/14/23 11:45 Ur Leukocyte Esterase Negative (Negative) 11/14/23 11:45 Urine RBC 0-4 /hpf (0-2) H 11/14/23 11:45 Urine WBC None /hpf (0-5) 11/14/23 11:45 Ur Squamous Epith Cells None /hpf (0-5) 11/14/23 11:45 Amorphous Sediment Not Reportable 11/14/23 11:45 Urine Bacteria None /hpf (NONE) 11/14/23 11:45 All radiology interpretation(s) finalized by discharge Discharge Plan Discharge Patient Disposition: Home Clinical Impression: Abdominal pain Condition: Stable Prescriptions: No Action azithromycin 500 mg tablet 1,000 mg PO .3x week ethambutol 400 mg tablet 400 mg PO .3x week rifampin 300 mg capsule 300 mg PO .3x week hydroxychloroquine 200 mg tablet See Rx Instructions PO .COMPLEX Qty: 135 1RF Rx Instructions: Alternate taking 1 tablet by mouth today then 2 tablets tomorrow. prednisone 5 mg tablet 5 mg PO DAILY Qty: 90 1RF sertraline 100 mg tablet 150 mg PO DAILY Qty: 135 0RF pantoprazole 40 mg tablet,delayed release (DR/EC) 40 mg PO BID 180 Days Qty: 360 0RF lamotrigine [Lamictal] 200 mg tablet 200 mg PO BID Qty: 60 2RF Ingrezza 80 mg capsule 80 mg PO DAILY Qty: 30 2RF hydrocodone-acetaminophen 7.5-325 mg tablet 1 tab PO BID PRN (Reason: pain) 30 Days Qty: 60 0RF nitroglycerin 0.4 mg tablet, sublingual 0.4 mg sublingual Q5M PRN (Reason: chest pain) Qty: 30 0RF Rx Instructions: do not exceed 3 doses per episode albuterol sulfate [ProAir HFA] 90 mcg/actuation Hfa Aerosol Inhaler 2 puff INHALATION Q4H PRN (Reason: Shortness Of Breath) primidone 50 mg tablet 50 mg PO BID simvastatin 40 mg tablet 40 mg PO DAILY mirtazapine 45 mg tablet 45 mg PO BEDTIME Discharge Orders: Discharge ED (Routine); Ordered 11/14/23 Ordered By: Marline Morel Referrals: Helga Mancera DO [Primary Care Provider] - Discharge Diet: Advance as tolerated Discharge Activity: Increase activity as tolerated Patient Instructions: Abdominal Pain (ED), Opioid Safety, Pain Management Activity Restrictions/Additional Instructions: Thank you for choosing [facility] for your healthcare needs today. Please realize this is an emergency room and that we are providing you with a medical screening exam and this may not be complete and all inclusive of all the testing and or work up that you may need to determine your ailment or severity of your illness. You have been screened and evaluated and felt safe for discharge. Health conditions do change or evolve sometimes and as such it is important that you follow up with your Primary Doctor to be re checked, 3-5 days is a general good time frame for follow up. 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
[2023-11-14 11:37] VITALS: PULSE 63; RESP 16; O2SAT 95
[2023-11-14 12:00] VITALS: PULSE 63; RESP 17; O2SAT 95
--- NOTE | 2023-11-14 12:00 | CTR_ITS ---
PROCEDURE INFORMATION: Exam: CT Abdomen And Pelvis With Contrast Exam date and time: 11/14/2023 1:30 PM Age: 62 years old Clinical indication: Abdominal pain; Localized; Upper; Prior surgery; Surgery date: 6+ months; Surgery type: Perf bowel, gb, hernia x 3, gastric bypass TECHNIQUE: Imaging protocol: Computed tomography of the abdomen and pelvis with contrast. Radiation optimization: All CT scans at this facility use at least one of these dose optimization techniques: automated exposure control; mA and/or kV adjustment per patient size (includes targeted exams where dose is matched to clinical indication); or iterative reconstruction. Contrast material: OMNI 350; Contrast volume: 100 ml; Contrast route: INTRAVENOUS (IV); COMPARISON: CT abdomen pelvis w con* [id number] 12/29/2021 7:11 PM RADIATION DOSE METRICS: Total DLP (mGy-cm): 355.76 FINDINGS: Liver: Normal appearance of the liver. Gallbladder and biliary ducts: Status post cholecystectomy. Pancreas: No ductal dilation. Spleen: Unremarkable. Adrenal glands: Unremarkable. Kidneys and ureters: No hydronephrosis. Stomach and bowel: Status post gastric bypass. No obstruction. No mucosal thickening. Appendix: No evidence of appendicitis. Intraperitoneal space: No free air. No significant fluid collection. Vasculature: Unremarkable. Lymph nodes: No enlarged lymph nodes. Urinary bladder: Bladder calculi noted. Reproductive: Unremarkable as visualized. Bones/joints: Unremarkable. No acute fracture. Soft tissues: Unremarkable. CT/CT abdomen pelvis w con* [id number] IMPRESSION: No acute findings in the abdomen or pelvis.
[2023-11-14 12:07] VITALS: RESP 18; O2SAT 98
[2023-11-14] MEDS: ondansetron 2 mg/ML SDV 2 mL 4 MG IVP (12:07)
[2023-11-14] MEDS: HYDROmorphone 1 mg/mL INJ 1 mL IVP (12:07)
[2023-11-14 12:10] LABS: Basophils % 0.6 %; Eosinophils % 0.6 %; Lymphocytes # 1.7 10^3/uL (0.8-4.8); Lymphocytes % 26.7 %; Mean Corpuscular HGB Conc 30.4 g/dL (30-55); Mean Corpuscular Hemoglobin 25.6 pg (27-33); Mean Corpuscular Volume 84.2 fl (85-98); Mean Platelet Volume 9.4 fL (7.4-10.4); Monocytes # 0.7 10^3/uL (0.2-0.9); Monocytes % 10.4 %; Neutrophils # 4.01 10^3/uL (1.8-7.7); Neutrophils % 61.5 %; Nucleated Red Blood Cells % 0 %; Platelet Count 279 10^3/cmm (157-399); Red Blood Count 5.46 10^6/uL (3.85-5.65); Red Cell Distribution Width 22.5 % (12.1-15.1); White Blood Count 6.52 10^3/uL (3.29-11.43)
[2023-11-14 12:49] LABS: Bilirubin Urine Neg (Negative); Blood Urine 2+ (Negative); Glucose Urine UA Norm (Normal); Ketones Urine Negative (Negative); Leukocyte Esterase Urine Negative (Negative); Nitrate Urine Negative (Negative); Protein Urine Neg (Negative); Urine Appearance Clear (CLEAR); Urine Color Yellow (Yellow); Urobilinogen Urine Norm (Negative); pH Urine 5 (5-7)
[2023-11-14 12:51] LABS: Add Urine Culture? No; RBC Urine 0-4 /hpf (0-2)
--- NOTE | 2023-11-14 12:59 | PC.PHAR ---
ALL 3 ANTIBIOTICS AND PRIMIDONE HAVE DIFFERENT DIRECTIONS PER PT. SEE PHARMACY NOTES
[2023-11-14 13:22] LABS: Alanine Aminotransferase 30 U/L (0-33); Alkaline Phosphatase 87 U/L (35-105); Blood Urea Nitrogen 13 mg/dL (8-23); Calcium 8.8 mg/dL (8.5-10.5); Carbon Dioxide 25 mmol/L (22-29); Chloride 103 mmol/L (98-107); Creatinine Clr Calc Pharmacy 86.5688; Globulin 2.4 g/dL (1.3-4.6); Glomerular Filtration Rate 101.3 mL/min (90-130); Glucose 66 mg/dL (65-115); Lipase 48 U/L (13-60); Osmolality Calculated 284 mOsm/kg (285-295); Sodium 138 mmol/L (136-145); Total Bilirubin 0.3 mg/dL (0.15-1.2); Total Protein 6.4 g/dL (6.6-8.7)
[2023-11-14 13:23] LABS: Lactic Sepsis W/Reflex 0.8 mmol/L (0.5-2.2)
[2023-11-14 13:24] LABS: Anion Gap 14.4 (5-19); Potassium 4.4 mmol/L (3.5-5.1)
[2023-11-14 13:25] LABS: Aspartate Amino Transferase 37 U/L (0-32)
[2023-11-14] MEDS: iohexol 350 mg/mL 500 mL Btl (per mL) IV (13:33)
== END 2023-11-14 14:24 | disposition home or self-care (01) ==
PROVIDERS: Emergency Provider Emergency Medicine; PCP Family Medicine
DX: R10.13 Epigastric pain (principal); F17.210 Nicotine dependence, cigarettes, uncomplicated
CPT/HCPCS: 36415; 74022; 74177; 80053; 81001; 83605; 83690; 85025; 86140; 96374; 96375; 99285; J1170; J2405; Q9967

== ENCOUNTER → 2024-01-18 09:41 | Outpatient (BNVA) | payer MEDICARE, MEDICAID, SELFPAY ==
[2023-05-24 13:50] VITALS: BP 119/68; BMI 21.9
== END ==
PROVIDERS: PCP Family Medicine; Visit Provider Specialist
DX: G25.0 Essential tremor (principal); G56.12 Other lesions of median nerve, left upper limb; G37.9 Demyelinating disease of central nervous system, unspecified; G35 Multiple sclerosis
CPT/HCPCS: 99213

== ENCOUNTER 2024-02-01 11:54 | Emergency (ER) | payer MEDICARE, MEDICAID, SELFPAY ==
[2023-05-24 13:50] VITALS: BP 119/68; BMI 21.9
[2024-02-01 12:31] VITALS: BP 132/54; PULSE 59; RESP 18; TEMP 36.8; O2SAT 99; BMI 21.6
--- NOTE | 2024-02-01 12:38 | ED_ITS ---
HPI - Animal Bite General: Chief Complaint: Animal Bite Stated Complaint: dog bite on right hand Time Seen by Provider: 02/01/24 12:05 Source: patient Mode of arrival: ambulatory Limitations: no limitations History of Present Illness: 63-year-old female states she is playing with her dog this morning and he had bit her right hand when they are playing she does have a laceration dorsum of the right hand. She denies any other injuries she is up-to-date on her tetanus she states her dog is up-to-date on his vaccinations. Associated symptoms: Deny chills, fever(s) or headache(s) Related Data Home Medications Medication Instructions Recorded Confirmed albuterol sulfate 90 mcg/actuation 2 puff inhalation Q4H PRN 12/24/20 02/01/24 aerosol inhaler (ProAir HFA) Shortness Of Breath azithromycin 500 mg tablet 1,000 mg PO .3x week 10/13/23 02/01/24 ethambutol 400 mg tablet 400 mg PO .3x week 10/13/23 02/01/24 rifampin 300 mg capsule 300 mg PO .3x week 10/13/23 02/01/24 mirtazapine 45 mg tablet 45 mg PO BEDTIME 11/14/23 02/01/24 simvastatin 40 mg tablet 40 mg PO DAILY 11/14/23 02/01/24 Previous Rx's Medication Instructions Recorded nitroglycerin 0.4 mg sublingual 0.4 mg sublingual Q5M PRN chest 06/10/20 tablet pain #30 tabs hydroxychloroquine 200 mg tablet See Rx Instructions PO .COMPLEX 09/05/23 #135 tabs prednisone 5 mg tablet 5 mg PO DAILY #90 tabs 09/05/23 lamotrigine 200 mg tablet 200 mg PO BID #60 tabs 09/26/23 (Lamictal) sertraline 100 mg tablet 150 mg (1.5 x 100 mg) PO DAILY 10/13/23 #135 tabs valbenazine 80 mg capsule 80 mg PO DAILY #30 caps 12/30/23 (Ingrezza) pantoprazole 40 mg tablet,delayed See Rx Instructions .Route 01/10/24 release .COMPLEX #180 tabs primidone 50 mg tablet See Rx Instructions .Route 01/18/24 .COMPLEX #180 tabs varenicline 1 mg tablet (Chantix) 1 mg PO BID #60 tabs 01/18/24 hydrocodone 7.5 mg-acetaminophen 1 tab PO BID PRN pain 30 days #60 01/30/24 325 mg tablet tabs amoxicillin 500 mg-potassium 1 tab PO BID #10 tabs 02/01/24 clavulanate 125 mg tablet (Augmentin) Allergies Allergy/AdvReac Type Severity Reaction Status Date / Time hydroxyzine [From Vistaril] Allergy Unknown Verified 02/01/24 10:43 lithium Allergy makes me Verified 02/01/24 10:43 mean Sulfa (Sulfonamide Allergy Unknown Verified 02/01/24 10:43 Antibiotics) sulfamethizole Allergy Unknown Verified 02/01/24 10:43 pregabalin [From Lyrica] AdvReac Severe Made her Verified 02/01/24 10:43 TD worse codiene Allergy Intermediate ADR-Diarrhe Uncoded 02/01/24 10:43 a Review of Systems Const: Denies: fever(s), chills, body aches or change in appetite ENMT: Denies: throat pain or dental pain Card: Denies: chest pain Resp: Denies: dyspnea GI: Denies: abdominal pain, nausea, vomiting or diarrhea Musc: Reports: extremity pain; Denies: neck pain or back pain Skin/Breast: Denies: rash Neuro: Denies: headache(s) PFSH ED PFSH: Medical History Swelling of finger of left hand Barretts esophagus Detrusor dysfunction Urolithiasis Psychiatric care Tardive dyskinesia Raynaud's disease without gangrene Stammering improved Facial tic SAH (subarachnoid hemorrhage) Rheumatoid arthritis without rheumatoid factor, multiple sites Ureterolithiasis Gastroenteritis Gastritis Acute pancreatitis Costochondritis Psychosis Schizoaffective disorder Post-traumatic stress disorder, chronic Generalized anxiety disorder Major depressive disorder, recurrent, moderate Surgical History Hx of lithotripsy History of incisional hernia repair (09/07/21) S/P exploratory laparotomy (~04/12/21) With repair of perforation at the gastrojejunal anastomosis and placement of jejunostomy tube H/O esophagogastroduodenoscopy (01/29/21) Status post colonoscopy (01/29/21) History of hand surgery History of umbilical hernia repair History of cholecystectomy History of renal stent History of bilateral knee replacement Hx of gastric bypass Family History Mother , at age 74 Cancer colorectal Father No problems noted. Denies family history of Rheumatoid arthritis Social History Smoking and tobacco/nicotine status: current every day tobacco/nicotine user (2ppd) cigarettes Packs smoked per day: 1.5 Years cigarettes smoked: 42 Quit status (tobacco/nicotine): not considering quitting Second hand smoke exposure: Yes Alcohol intake: former Former alcohol use details: quit drinking a little over a year ago....beer Substance/Drug Use: current Substance/Drug use frequency: daily Other substance/drug use details: Medical card Adopted: No Caregiver/support person: No Lives independently: Yes Household members: family Housing: House Marital status: Single Number of children: 0 Highest education level completed: High School Graduate service: No Current occupational status: disabled Current occupational exposures/hazards: No Pets and animals: Yes Pets & animals: cat(s) and dog(s) Leisure activites: music and other Leisure activities details: garden and yard work Sexually active: No Do you think of yourself as: Straight/Heterosexual Current gender identity: Female Bethany/Episcopalian: None Special bethany needs: No Agree to transfusion: Yes Female Reproductive History: Spontaneous abortions: Yes (1 elective ) Physical Exam Const: COMMON NORMALS: no acute distress, patient oriented x3 and healthy appearing HENMT: COMMON NORMALS: normocephalic and atraumatic HEAD & SCALP: normocephalic and atraumatic Neck/C-Spine: COMMON NORMALS: full ROM and supple Chest: COMMONS NORMALS: normal inspection of the chest Resp: COMMON NORMALS: normal respiratory effort Cardio: COMMON NORMALS: regular rate, regular rhythm and No murmurs present (Cardio) RATE: regular rate RHYTHM: regular rhythm Extremity: COMMON NORMALS: full ROM NARRATIVE EXTREMITY EXAM: 2 cm laceration noted to dorsum of right hand no tendon involvement bleeding controlled Neuro: COMMON NORMALS: patient oriented x3, moves all extremities and no focal motor deficits Psych: COMMON NORMALS: mental status grossly normal, Normal thought process present and cooperative THOUGHT PROCESS: Normal thought process present Skin: COMMON NORMALS: no rashes or lesions noted GENERAL SKIN EXAM: no rashes or lesions noted Procedures Laceration Laceration 1: Site: hand Side (If applicable): right Size (cm): 2 Description: linear Depth: simple, single layer Local Anesthetic: lidocaine 1% Amount of anesthesia used (mL): 8 Pre-repair: irrigated extensively and deep structures intact Skin layer closed with: nylon Size (cm): 4-0 Number of sutures: 2 Technique: simple, interrupted Course Vital Signs: Vital signs: Vital Signs Temperature 98.3 F 02/01/24 12:31 Pulse Rate 59 L 02/01/24 12:31 Respiratory Rate 18 02/01/24 12:31 Blood Pressure 132/54 02/01/24 12:31 Pulse Oximetry 99 02/01/24 12:31 Oxygen Delivery Me thod Room Air 02/01/24 12:31 MDM - Animal Bite Medical Decision Making Patient presents here with laceration from a dog bite I did loosely close it no signs of fracture we will start her on Augmentin she is to have her sutures removed in 7 days return if worsening she understands agrees to plan Medical Records I reviewed the patient's medical records. XR interpretation done by ED provider, pending radiology final review ED provider radiology interpretation(s): xr r hand: no acute fx Discharge Plan Discharge Patient Disposition: Home Clinical Impression: Dog bite, Laceration Condition: Stable Prescriptions: New Augmentin 500-125 mg tablet 1 tab PO BID Qty: 10 0RF No Action azithromycin 500 mg tablet 1,000 mg PO .3x week ethambutol 400 mg tablet 400 mg PO .3x week rifampin 300 mg capsule 300 mg PO .3x week hydroxychloroquine 200 mg tablet See Rx Instructions PO .COMPLEX Qty: 135 1RF Rx Instructions: Alternate taking 1 tablet by mouth today then 2 tablets tomorrow. prednisone 5 mg tablet 5 mg PO DAILY Qty: 90 1RF sertraline 100 mg tablet 150 mg PO DAILY Qty: 135 0RF primidone 50 mg tablet See Rx Instructions .ROUTE .COMPLEX Qty: 180 3RF Dose Instruction: TAKE 1 TABLET BY MOUTH TWICE A DAY Rx Instructions: TAKE 1 TABLET BY MOUTH TWICE A DAY varenicline [Chantix] 1 mg tablet 1 mg PO BID Qty: 60 5RF Rx Instructions: 1/2 in AM 7 d, 1 in am 7 d, then 1 AM 1 after lunch, always eat, never after 4 pm lamotrigine [Lamictal] 200 mg tablet 200 mg PO BID Qty: 60 2RF Ingrezza 80 mg capsule 80 mg PO DAILY Qty: 30 2RF pantoprazole 40 mg tablet,delayed release (DR/EC) See Rx Instructions .ROUTE .COMPLEX Qty: 180 1RF Dose Instruction: TAKE 1 TABLET BY MOUTH TWICE A DAY Rx Instructions: TAKE 1 TABLET BY MOUTH TWICE A DAY hydrocodone-acetaminophen 7.5-325 mg tablet 1 tab PO BID PRN (Reason: pain) 30 Days Qty: 60 0RF nitroglycerin 0.4 mg tablet, sublingual 0.4 mg sublingual Q5M PRN (Reason: chest pain) Qty: 30 0RF Rx Instructions: do not exceed 3 doses per episode albuterol sulfate [ProAir HFA] 90 mcg/actuation Hfa Aerosol Inhaler 2 puff INHALATION Q4H PRN (Reason: Shortness Of Breath) simvastatin 40 mg tablet 40 mg PO DAILY mirtazapine 45 mg tablet 45 mg PO BEDTIME Discharge Orders: Discharge ED (Routine); Ordered 02/01/24 Ordered By: Miguel Fuller Referrals: Helga Mancera DO [Primary Care Provider] - 4-7 days Discharge Diet: Advance as tolerated Discharge Activity: Resume usual activity Patient Instructions: Animal Bite (ED), Laceration (ED) Activity Restrictions/Additional Instructions: suture removal in 7 days Coding Level of Care Code ED [employer] Chief for Judson Alford
--- NOTE | 2024-02-01 12:38 | XRR_ITS ---
PROCEDURE INFORMATION: Exam: XR Right Hand Exam date and time: 02/01/2024 12:40 PM Age: 63 years old Clinical indication: Injury or trauma; Puncture; Right; Injury details: Dog bite on R hand near 2nd mcp joint, laceration and swelling TECHNIQUE: Imaging protocol: Radiologic exam of the right hand. Views: 3 or more views. COMPARISON: CR XR hand RT min 3V* [id number] 10/23/2019 1:55 PM FINDINGS: Bones/joints: Alignment is normal. No acute fracture. Soft tissues: Visible soft tissues are unremarkable. XR/XR hand RT min 3V* [id number] IMPRESSION: No acute findings.
[2024-02-01] MEDS: lidocaine 1% 10 ML INJ 20 ML SUBCUT (12:43)
[2024-02-01 13:11] VITALS: BP 112/69; PULSE 56; O2SAT 100
== END 2024-02-01 13:13 | disposition home or self-care (01) ==
PROVIDERS: Emergency Provider Emergency Medicine; PCP Family Medicine
DX: S61.451A Open bite of right hand, initial encounter (principal); W54.0XXA Bitten by dog, initial encounter; F17.210 Nicotine dependence, cigarettes, uncomplicated
CPT/HCPCS: 12001; 73130; 99283

== ENCOUNTER 2024-03-10 13:31 | Emergency (ER) | payer MEDICARE, MEDICAID, SELFPAY ==
[2023-05-24 13:50] VITALS: BP 119/68; BMI 21.9
--- NOTE | 2024-03-10 13:32 | XRR_ITS ---
PROCEDURE INFORMATION: Exam: XR Chest Exam date and time: 03/10/2024 2:13 PM Age: 63 years old Clinical indication: Patient HX: C/O 'sinus infection' cough, congestion, and sore throat since . PT also C/O nausea. PT saw primary on and they gave PT 'coughing pearls' and another abx. PT states she is 'crackling like crazy' and believes she is getting pneumonia. PT states she has a headache and ribs are sore from coughing so much. TECHNIQUE: Imaging protocol: Radiologic exam of the chest. Views: 1 view. COMPARISON: CR XR chest 2V* [id number] 03/04/2021 11:51 AM FINDINGS: Lungs: Unremarkable. No consolidation. Pleural spaces: Unremarkable. No pleural effusion. No pneumothorax. Heart/Mediastinum: Unremarkable. No cardiomegaly. Vasculature: Aortic arch calcifications. Bones/joints: Mild degenerative disease of bilateral acromioclavicular joints. XR/XR chest 1V portable [id number] IMPRESSION: No acute cardiopulmonary process.
[2024-03-10 14:05] VITALS: BP 120/72; PULSE 71; RESP 16; TEMP 36.8; O2SAT 97; BMI 21.8
--- NOTE | 2024-03-10 14:22 | ED_ITS ---
HPI - URI/Sore Throat 2 General: Chief Complaint: Upper Respiratory Infection Stated Complaint: cogestion/cough Time Seen by Provider: 03/10/24 14:10 History of Present Illness: Nunu is a 63-year-old female that presents to the emergency department with complaints of cough, chest and head congestion, chills. Patient reports symptoms began abruptly on . Patient states she was seen by primary care and started on antibiotics as well as antitussives. Patient denies any improvement in her symptoms. Patient is a 1.5 pack a day smoker. She states that she has been unable to smoke as much as she usually does. However, she is still able to smoke. Patient does have a history of respiratory disease and has a albuterol inhaler at home but has only used it once. Medical history includes Raynaud's, tardive dyskinesia, psychiatric care, King's esophagitis, psychosis, COPD? Related Data Home Medications Medication Instructions Recorded Confirmed albuterol sulfate 90 mcg/actuation 2 puff inhalation Q4H PRN 12/24/20 02/01/24 aerosol inhaler (ProAir HFA) Shortness Of Breath azithromycin 500 mg tablet 1,000 mg PO .3x week 10/13/23 02/01/24 ethambutol 400 mg tablet 400 mg PO .3x week 10/13/23 02/01/24 rifampin 300 mg capsule 300 mg PO .3x week 10/13/23 02/01/24 simvastatin 40 mg tablet 40 mg PO DAILY 11/14/23 02/01/24 Previous Rx's Medication Instructions Recorded nitroglycerin 0.4 mg sublingual 0.4 mg sublingual Q5M PRN chest 06/10/20 tablet pain #30 tabs prednisone 5 mg tablet 5 mg PO DAILY #90 tabs 09/05/23 valbenazine 80 mg capsule 80 mg PO DAILY #30 caps 12/30/23 (Ingrezza) pantoprazole 40 mg tablet,delayed See Rx Instructions .Route 01/10/24 release .COMPLEX #180 tabs primidone 50 mg tablet See Rx Instructions .Route 01/18/24 .COMPLEX #180 tabs varenicline 1 mg tablet (Chantix) 1 mg PO BID #60 tabs 01/18/24 amoxicillin 500 mg-potassium 1 tab PO BID #10 tabs 02/01/24 clavulanate 125 mg tablet (Augmentin) sertraline 100 mg tablet 150 mg (1.5 x 100 mg) PO DAILY 02/06/24 #135 tabs mirtazapine 45 mg tablet 45 mg PO BEDTIME #30 tabs 02/16/24 lamotrigine 200 mg tablet 200 mg PO BID #60 tabs 02/27/24 (Lamictal) hydrocodone 7.5 mg-acetaminophen 1 tab PO BID PRN pain 30 days #60 02/28/24 325 mg tablet tabs hydroxychloroquine 200 mg tablet See Rx Instructions PO .COMPLEX 02/28/24 #135 tabs Allergies Allergy/AdvReac Type Severity Reaction Status Date / Time hydroxyzine [From Vistaril] Allergy Unknown Verified 02/01/24 10:43 lithium Allergy makes me Verified 02/01/24 10:43 mean Sulfa (Sulfonamide Allergy Unknown Verified 02/01/24 10:43 Antibiotics) sulfamethizole Allergy Unknown Verified 02/01/24 10:43 pregabalin [From Lyrica] AdvReac Severe Made her Verified 02/01/24 10:43 TD worse codiene Allergy Intermediate ADR-Diarrhe Uncoded 02/01/24 10:43 a Review of Systems 2 General: Reports: 10 or more systems reviewed and unremarkable except in HPI and below Narrative: Reports: Cough, chest congestion, chest rattle, wheezing, chest wall pain, sinus pressure, sinus drainage, sinus headache, chills, headache PFSH ED 2 PFSH: Medical History Swelling of finger of left hand Barretts esophagus Detrusor dysfunction Urolithiasis Psychiatric care Tardive dyskinesia Raynaud's disease without gangrene Stammering improved Facial tic SAH (subarachnoid hemorrhage) Rheumatoid arthritis without rheumatoid factor, multiple sites Ureterolithiasis Gastroenteritis Gastritis Acute pancreatitis Costochondritis Psychosis Schizoaffective disorder Post-traumatic stress disorder, chronic Generalized anxiety disorder Major depressive disorder, recurrent, moderate Surgical History Hx of lithotripsy History of incisional hernia repair (09/07/21) S/P exploratory laparotomy (~04/12/21) With repair of perforation at the gastrojejunal anastomosis and placement of jejunostomy tube H/O esophagogastroduodenoscopy (01/29/21) Status post colonoscopy (01/29/21) History of hand surgery History of umbilical hernia repair History of cholecystectomy History of renal stent History of bilateral knee replacement Hx of gastric bypass Family History Mother , at age 74 Cancer colorectal Father No problems noted. Denies family history of Rheumatoid arthritis Social History Smoking and tobacco/nicotine status: current every day tobacco/nicotine user (2ppd) cigarettes Packs smoked per day: 1.5 Years cigarettes smoked: 42 Quit status (tobacco/nicotine): not considering quitting Second hand smoke exposure: Yes Alcohol intake: former Former alcohol use details: quit drinking a little over a year ago....beer Substance/Drug Use: current Substance/Drug use frequency: daily Other substance/drug use details: Medical card Adopted: No Caregiver/support person: No Lives independently: Yes Household members: family Housing: House Marital status: Single Number of children: 0 Highest education level completed: High School Graduate service: No Current occupational status: disabled Current occupational exposures/hazards: No Pets and animals: Yes Pets & animals: cat(s) and dog(s) Leisure activites: music and other Leisure activities details: garden and yard work Sexually active: No Do you think of yourself as: Straight/Heterosexual Current gender identity: Female Bethany/Gnosticism: None Special bethany needs: No Agree to transfusion: Yes Female Reproductive History: Spontaneous abortions: Yes (1 elective ) Physical Exam 2 Const: COMMON NORMALS: no acute distress, patient oriented x3 and alert G ENERAL APPEARANCE: cooperative ORIENTATION/CONSCIOUSNESS: Yes awake, Yes oriented to person, Yes oriented to place and Yes oriented to time HENMT: COMMON NORMALS: normocephalic and atraumatic HEAD & SCALP: n ormocephalic and atraumatic FACE & SINUS: normal facial exam MOUTH: Normal oral and palatal mucosa present THROAT: posterior oropharynx normal Eye: COMMON NORMALS: Equal, round and reactive pupils present, EOMs intact bilaterally, conjunctivae normal and no scleral icterus GENERAL EYE: a ppearance normal, both eyes and all related structures ALIGNMENT: Yes alignment normal PERIORBITAL: periorbital findings normal CONJUNCTIVA: Yes conjunctivae normal PUPIL: Yes Equal, round and reactive pupils present Neck/C-Spine: COMMON NORMALS: full ROM GENERAL: Yes normal visual inspection Lymph: LYMPHATIC: no lymphadenopathy noted Chest: COMMONS NORMALS: normal inspection of the chest Breast/axilla inspection: Yes no chest deformity, asymmetry, normal contours, no nodules, masses, tenderness Resp: COMMON NORMALS: normal respiratory effort, No retractions and No use of accessory muscles EFFORT & INSPECTION: Yes able to speak in complete sentences, Yes symmetric chest movement, Yes tachypneic and Yes Actively coughing non-productive, productive (Nonproductive here but reports productive cough-clear) and rattling AUSCULTATION: rhonchi throughout and wheezes scattered wheezes and throughout Cardio: COMMON NORMALS: regular rate, regular rhythm and Peripheral pulses 2+ throughout RATE: regular rate RHYTHM: regular rhythm HEART SOUNDS: M urmur heart sound present diastolic PERIPHERAL PULSES: Peripheral pulses 2+ throughout GI: COMMON NORMALS: Normal to inspection, nondistended, normoactive bowel sounds present, Soft to palpation, non-tender and No hepatosplenomegaly present INSPECTION: Yes normal to inspection AUSCULTATION: Yes normoactive bowel sounds PALPATION: Yes Soft to palpation and Yes No hepatosplenomegaly present RECTAL EXAM: deferred Extremity: COMMON NORMALS: normal to inspection GENERAL: Yes normal exam except as noted Neuro: COMMON NORMALS: patient oriented x3 SENSORIUM/ORIENTATION: Yes alert, Yes oriented to person, Yes oriented to place and Yes oriented to time CRANIAL NERVES: Yes CN normal except as noted Psych: COMMON NORMALS: mental status grossly normal, Normal thought process present, cooperative, activity/motor behavior normal, denies homicidal ideation and denies suicidal ideation THOUGHT PROCESS: Normal thought process present Skin: COMMON NORMALS: no rashes or lesions noted, no wounds and turgor normal GENERAL SKIN EXAM: no rashes or lesions noted and turgor normal Course 2 Vital Signs: Vital signs: Vital Signs Temperature 98.2 F 03/10/24 14:05 Pulse Rate 80 03/10/24 14:47 Respiratory Rate 20 H 03/10/24 14:40 Blood Pressure 120/72 03/10/24 14:05 Pulse Oximetry 94 03/10/24 14:40 Oxygen Delivery Me thod Room Air 03/10/24 14:40 MDM - URI/Sore Throat Medical Decision Making Patient was evaluated in the emergency department today for complaints of cough, congestion, chills, headache. Patient currently taking Tessalon Perles and an antibiotic but unable to communicate what antibiotic. She underwent a chest x-ray, CBC, BMP, COVID/RSV/flu testing. Chest x-ray revealed no acute cardiopulmonary abnormalities. CBC revealed no leukocytosis or anemias. BMP reveals no significant electrolyte abnormality, renal dysfunction. And her COVID RSV and flu testing was negative. Patient did receive a DuoNeb treatment and prednisone. She reports that she felt much better following this. Her respiratory sounds included scattered wheezes upon initial evaluation and following the DuoNeb no wheezes audible. Patient and I talked about smoking cessation as well as use of her inhaler at home. Of also advised her to use decongestants or expectorants like Mucinex. Patient is agreeable Will have the patient follow-up with primary care this next week if she is not better. She can return to the emergency department as needed for new, concerning, worsening symptoms All questions answered Lab Data 03/10/24 14:38 03/10/24 14:38 Radiology Impressions Chest X-Ray 03/10/24 13:32 IMPRESSION: No acute cardiopulmonary process. Laboratory Results WBC 7.31 10^3/uL (3.29-11.43) 03/10/24 14:38 RBC 4.83 10^6/uL (3.85-5.65) 03/10/24 14:38 Hgb 14.70 g/dL (11.27-16.99) 03/10/24 14:38 Hct 44.9 % (36-47) 03/10/24 14:38 MCV 93.0 fl (85-98) 03/10/24 14:38 MCH 30.4 pg (27-33) 03/10/24 14:38 MCHC 32.7 g/dL (30-55) 03/10/24 14:38 RDW 14.3 % (12.1-15.1) 03/10/24 14:38 Plt Count 254 10^3/cmm (157-399) 03/10/24 14:38 MPV 9.7 fL (7.4-10.4) 03/10/24 14:38 Neut % (Auto) 73.5 % 03/10/24 14:38 Lymph % (Auto) 18.3 % 03/10/24 14:38 [place] % (Auto) 7.3 % 03/10/24 14:38 Eos % (Auto) 0.1 % 03/10/24 14:38 Baso % (Auto) 0.4 % 03/10/24 14:38 Neut # (Auto) 5.37 10^3/uL (1.8-7.7) 03/10/24 14:38 Lymph # (Auto) 1.3 10^3/uL (0.8-4.8) 03/10/24 14:38 [place] # (Auto) 0.5 10^3/uL (0.2-0.9) 03/10/24 14:38 Eos # (Auto) 0.0 10^3/uL (0.0-0.8) 03/10/24 14:38 Baso # (Auto) 0.0 10^3/uL (0.0-0.1) 03/10/24 14:38 Nucleated RBC % (auto) 0 % 03/10/24 14:38 Nucleated RBCs # 0.0 /100WBC 03/10/24 14:38 Sodium 137 mmol/L (136-145) 03/10/24 14:38 Potassium 4.1 mmol/L (3.5-5.1) 03/10/24 14:38 Chloride 102 mmol/L (98-107) 03/10/24 14:38 Carbon Dioxide 25 mmol/L (22-29) 03/10/24 14:38 Anion Gap 14.1 (5-19) 03/10/24 14:38 BUN 9 mg/dL (8-23) 03/10/24 14:38 Creatinine 0.7 mg/dL (0.5-0.9) 03/10/24 14:38 GFR Calculation 84.5 mL/min (90-130) L 03/10/24 14:38 Glucose 85 mg/dL (65-115) 03/10/24 14:38 Calculated Osmolality 282 mOsm/kg (285-295) L 03/10/24 14:38 Calcium 8.9 mg/dL (8.5-10.5) 03/10/24 14:38 Coronavirus (PCR) Negative (Negative) 03/10/24 14:29 Influenza A (PCR) Negative (Negative) 03/10/24 14:29 Influenza Type B (PCR) Negative (Negative) 03/10/24 14:29 RSV (PCR) Negative (Negative) 03/10/24 14:29 All radiology interpretation(s) finalized by discharge Discharge Plan Discharge Patient Disposition: Home Clinical Impression: Upper respiratory infection, Bronchitis Condition: Stable Prescriptions: No Action azithromycin 500 mg tablet 1,000 mg PO .3x week ethambutol 400 mg tablet 400 mg PO .3x week rifampin 300 mg capsule 300 mg PO .3x week prednisone 5 mg tablet 5 mg PO DAILY Qty: 90 1RF primidone 50 mg tablet See Rx Instructions .ROUTE .COMPLEX Qty: 180 3RF Dose Instruction: TAKE 1 TABLET BY MOUTH TWICE A DAY Rx Instructions: TAKE 1 TABLET BY MOUTH TWICE A DAY varenicline [Chantix] 1 mg tablet 1 mg PO BID Qty: 60 5RF Rx Instructions: 1/2 in AM 7 d, 1 in am 7 d, then 1 AM 1 after lunch, always eat, never after 4 pm Ingrezza 80 mg capsule 80 mg PO DAILY Qty: 30 2RF pantoprazole 40 mg tablet,delayed release (DR/EC) See Rx Instructions .ROUTE .COMPLEX Qty: 180 1RF Dose Instruction: TAKE 1 TABLET BY MOUTH TWICE A DAY Rx Instructions: TAKE 1 TABLET BY MOUTH TWICE A DAY sertraline 100 mg tablet 150 mg PO DAILY Qty: 135 0RF mirtazapine 45 mg tablet 45 mg PO BEDTIME Qty: 30 2RF lamotrigine [Lamictal] 200 mg tablet 200 mg PO BID Qty: 60 2RF hydroxychloroquine 200 mg tablet See Rx Instructions PO .COMPLEX Qty: 135 1RF Rx Instructions: Alternate taking 1 tablet by mouth today then 2 tablets tomorrow. hydrocodone-acetaminophen 7.5-325 mg tablet 1 tab PO BID PRN (Reason: pain) 30 Days Qty: 60 0RF nitroglycerin 0.4 mg tablet, sublingual 0.4 mg sublingual Q5M PRN (Reason: chest pain) Qty: 30 0RF Rx Instructions: do not exceed 3 doses per episode albuterol sulfate [ProAir HFA] 90 mcg/actuation Hfa Aerosol Inhaler 2 puff INHALATION Q4H PRN (Reason: Shortness Of Breath) simvastatin 40 mg tablet 40 mg PO DAILY Augmentin 500-125 mg tablet 1 tab PO BID Qty: 10 0RF Discharge Orders: Discharge ED (Routine); Ordered 03/10/24 Ordered By: Gallito Cui Referrals: Helga Mancera DO [Primary Care Provider] - Patient Instructions: Acute Bronchitis (ED), Acute Cough (ED), Pain Management Activity Restrictions/Additional Instructions: Please use your inhaler, quit smoking, and use Mucinex to help with cough and chest congestion. If you are no better or you are worsening you can follow-up with your primary care doctor or return here for new concerning or worsening symptoms Coding Level of Care Code ED Track Service Worker for Judson Alford
[2024-03-10] MEDS: ipratropium-albuterol 3 mL Neb INHALATION (14:36)
[2024-03-10 14:40] VITALS: PULSE 72; RESP 20; O2SAT 94
[2024-03-10 14:43] LABS: Basophils % 0.4 %; Eosinophils % 0.1 %; Hematocrit 44.9 % (36-47); Lymphocytes # 1.3 10^3/uL (0.8-4.8); Lymphocytes % 18.3 %; Mean Corpuscular HGB Conc 32.7 g/dL (30-55); Mean Corpuscular Hemoglobin 30.4 pg (27-33); Mean Platelet Volume 9.7 fL (7.4-10.4); Monocytes # 0.5 10^3/uL (0.2-0.9); Monocytes % 7.3 %; Neutrophils # 5.37 10^3/uL (1.8-7.7); Neutrophils % 73.5 %; Nucleated Red Blood Cells % 0 %; Platelet Count 254 10^3/cmm (157-399); Red Blood Count 4.83 10^6/uL (3.85-5.65); Red Cell Distribution Width 14.3 % (12.1-15.1); White Blood Count 7.31 10^3/uL (3.29-11.43)
[2024-03-10 14:47] VITALS: PULSE 80
[2024-03-10] MEDS: predniSONE 20 mg Tablet 60 MG PO (14:47)
[2024-03-10 15:01] LABS: Anion Gap 14.1 (5-19); Blood Urea Nitrogen 9 mg/dL (8-23); Calcium 8.9 mg/dL (8.5-10.5); Carbon Dioxide 25 mmol/L (22-29); Chloride 102 mmol/L (98-107); Creatinine Clr Calc Pharmacy 72.5435; Glomerular Filtration Rate 84.5 mL/min (90-130); Glucose 85 mg/dL (65-115); Osmolality Calculated 282 mOsm/kg (285-295); Potassium 4.1 mmol/L (3.5-5.1); Sodium 137 mmol/L (136-145)
[2024-03-10 15:26] LABS: Covid PCR NEGATIVE (Negative); Influenza A NEGATIVE (Negative); Influenza B NEGATIVE (Negative); Respiratory Syncytial Virus Ce NEGATIVE (Negative)
[2024-03-10] MEDS: acetaminophen 325 mg Tablet 650 MG PO (15:34)
[2024-03-10 15:53] VITALS: BP 118/74; PULSE 74; RESP 16; O2SAT 96
== END 2024-03-10 15:49 | disposition home or self-care (01) ==
PROVIDERS: Emergency Provider Nurse Practitioner; PCP Family Medicine
DX: J06.9 Acute upper respiratory infection, unspecified (principal); J40 Bronchitis, not specified as acute or chronic; F17.210 Nicotine dependence, cigarettes, uncomplicated
CPT/HCPCS: 0241U; 36415; 71045; 80048; 85025; 94640; 99284; J7512

== ENCOUNTER → 2024-03-12 14:11 | Outpatient (BNVA) | payer MEDICARE, MEDICAID, SELFPAY ==
[2023-05-24 13:50] VITALS: BP 119/68; BMI 21.9
== END ==
PROVIDERS: PCP Family Medicine; Visit Provider Internal Medicine Rheumatology
DX: M06.09 Rheumatoid arthritis without rheumatoid factor, multiple sites (principal); Z79.899 Other long term (current) drug therapy; Z71.85 Encounter for immunization safety counseling; F80.81 Childhood onset fluency disorder; M79.89 Other specified soft tissue disorders
CPT/HCPCS: 99214

== ENCOUNTER 2024-04-25 10:14 | Outpatient (CLI) | payer MEDICARE, SELFPAY ==
[2023-05-24 13:50] VITALS: BP 119/68; BMI 21.9
--- NOTE | 2024-04-25 10:15 | MM_ITS ---
WS: [id number] BILATERAL SCREENING DIGITAL TOMOSYNTHESIS MAMMOGRAM WITH CAD HISTORY: SCREENING COMPARISON: 03/17/2023, 03/05/2022 Bilateral CC and MLO views with tomosynthesis and synthetic mammography submitted. Computer aided det ection analyzed. Breast composition: There are scattered areas of fibroglandular density. No suspicious masses, microc alcifications or architectural distortion. Benign calcifications RIGHT breast. MM/MM scr BI tomosynthesis [id number] IMPRESSION: BI-RADS: 2 - Benign. FOLLOW UP: 1 Year Follow-up
== END 2024-04-25 10:15 | disposition home or self-care (01) ==
LOC: RAD 10:15
PROVIDERS: PCP Family Medicine; Visit Provider Family Medicine
DX: Z12.31 Encounter for screening mammogram for malignant neoplasm of breast (principal); R92.323 Mammographic fibroglandular density, bilateral breasts; R92.1 Mammographic calcification found on diagnostic imaging of breast
CPT/HCPCS: 77063; 77067

== ENCOUNTER → 2024-07-02 14:36 | Outpatient (BNVA) | payer MEDICARE, SELFPAY ==
[2023-05-24 13:50] VITALS: BP 119/68; BMI 21.9
== END ==
PROVIDERS: PCP Family Medicine; Visit Provider Internal Medicine Rheumatology
DX: M06.09 Rheumatoid arthritis without rheumatoid factor, multiple sites (principal); Z71.85 Encounter for immunization safety counseling; F80.81 Childhood onset fluency disorder; Z79.899 Other long term (current) drug therapy; M79.89 Other specified soft tissue disorders
CPT/HCPCS: 99214

== ENCOUNTER 2024-07-12 09:53 | Outpatient (CLI) | payer MEDICARE, SELFPAY ==
[2023-05-24 13:50] VITALS: BP 119/68; BMI 21.9
[2024-07-12 10:17] LABS: Basophils % 0.6 %; Eosinophils # 0.1 10^3/uL (0.0-0.8); Eosinophils % 0.9 %; Hematocrit 42.9 % (36-47); Lymphocytes # 1.8 10^3/uL (0.8-4.8); Lymphocytes % 28.1 %; Mean Corpuscular HGB Conc 31.9 g/dL (30-55); Mean Corpuscular Hemoglobin 30.4 pg (27-33); Mean Corpuscular Volume 95.3 fl (85-98); Mean Platelet Volume 9.2 fL (7.4-10.4); Monocytes # 0.6 10^3/uL (0.2-0.9); Neutrophils # 3.94 10^3/uL (1.8-7.7); Neutrophils % 61.1 %; Nucleated Red Blood Cells % 0 %; Platelet Count 282 10^3/cmm (157-399); White Blood Count 6.45 10^3/uL (3.29-11.43)
[2024-07-12 10:37] LABS: Alanine Aminotransferase 17 U/L (0-33); Albumin Level 4.1 g/dL (3.5-5.2); Alkaline Phosphatase 88 U/L (35-105); Aspartate Amino Transferase 20 U/L (0-32); Globulin 2.1 g/dL (1.3-4.6); Glomerular Filtration Rate 84.5 mL/min (90-130); Total Bilirubin 0.2 mg/dL (0.15-1.2); Total Protein 6.2 g/dL (6.6-8.7)
[2024-07-12 10:51] LABS: Erythrocyte Sedimentation Rate 3 mm/hr (0-15)
== END 2024-07-12 09:54 | disposition home or self-care (01) ==
LOC: LAB 09:54
PROVIDERS: PCP Family Medicine; Visit Provider Internal Medicine Rheumatology
DX: Z79.899 Other long term (current) drug therapy (principal); M06.09 Rheumatoid arthritis without rheumatoid factor, multiple sites
CPT/HCPCS: 36415; 80076; 82565; 85025; 85651; 86140

== ENCOUNTER → 2024-10-22 14:12 | Outpatient (BNVA) | payer MEDICARE, SELFPAY ==
[2023-05-24 13:50] VITALS: BP 119/68; BMI 21.9
== END ==
PROVIDERS: PCP Family Medicine; Visit Provider Internal Medicine Rheumatology
DX: M06.09 Rheumatoid arthritis without rheumatoid factor, multiple sites (principal); Z71.85 Encounter for immunization safety counseling; Z79.899 Other long term (current) drug therapy; F80.81 Childhood onset fluency disorder; M79.89 Other specified soft tissue disorders
CPT/HCPCS: 99214

== ENCOUNTER 2025-05-15 07:59 | Outpatient (CLI) | payer MEDICARE, MEDICAID, SELFPAY ==
[2023-05-24 13:50] VITALS: BP 119/68; BMI 21.9
--- NOTE | 2025-05-15 08:11 | MM_ITS ---
WS: [id number] Bilateral diagnostic 3D tomosynthesis digital mammogram, 05/15/2025 Clinical Data: LUMP IN R ARMPIT Comparison: 04/25/2024, 03/17/2023, 03/05/2022, 03/02/2021, 01/18/2020, 07/24/2018, 07/22/2017, 07/12/2016, 03/12/2009, 03/11/2008. Findings: There is a marker in the upper outer quadrant right breast. No spiculated masses or clustered calcifications are seen. There is a 2.7 cm area of low density in the upper outer quadrant of the right breast which has a ill-defined border. The left breast is normal. MM/MM diag BI tomosynthesis [id number] Impression: 1. Area of low density in upper outer quadrant right breast corresponding to th e palpable density. 2. Negative left breast. 3. Right breast ultrasound BIRADS: 2 - Benign. FOLLOW UP: See Report The CAD brick paving checker was used
--- NOTE | 2025-05-15 08:11 | US_ITS ---
WS: [id number] Right breast ultrasound, 05/15/2025 Clinical Data: LUMP IN R ARMPIT Comparison: Mammogram, 05/15/2025 Findings: In the upper outer quadrant right breast there is a low echogenic lesion measuring 1.9 x 2.2 x 2.8 cm with mixed echoes within. This lesion corresponds to the to the density seen on the mammogram. The border is well-defined and slightly irregular. No fluid-fluid level is seen. Most likely this lesion r epresents a large infected lymph node or area of inflammatory tissue. US/US breast RT limited* [id number] Impression: 1. Upper outer quadrant right breast lesion in the right axilla with largest di mension to 2.8 cm with mixed echogenicity. 2. Recommend clinical follow-up to note any decrease or increase in size and re commend biopsy if size increases. BIRADS: 2 - Benign. FOLLOW UP: See Report
== END 2025-05-15 08:00 | disposition home or self-care (01) ==
PROVIDERS: PCP Family Medicine
DX: R22.31 Localized swelling, mass and lump, right upper limb (principal); N63.10 Unspecified lump in the right breast, unspecified quadrant
CPT/HCPCS: 76642; 77062; G0279